=== PATIENT | female | born 1940 | race Caucasian/White ===

== ENCOUNTER → 2018-05-25 07:06 | Outpatient (CLI) | payer MEDICARE, OTHER, SELFPAY ==
[2018-05-25 09:33] LABS: Alanine Aminotransferase 31 IU/L (9-52); Albumin 4.4 g/dL (3.5-5.0); Albumin Globulin Ratio 1.5 (1.0-2.8); Alkaline Phosphatase 54 U/L (38-126); Aspartate Aminotransferase 27 IU/L (14-36); BUN Creatinine Ratio 25.7 (6-22); Bilirubin Total 0.4 mg/dL (0.2-1.3); Blood Urea Nitrogen 18 mg/dL (7-17); Calcium 9.7 mg/dL (8.4-10.2); Carbon Dioxide 29 mmol/L (22-32); Chloride 102 mmol/L (98-107); Cholesterol 195 mg/dL (140-199); Estimated Glomerular Filt Rate > 60.0 mL/min (>60); Globulin 2.9 g/dL (1.7-4.1); Glucose 74 mg/dL (80-110); HDL Cholesterol 57 mg/dL (40-60); HEMOLYSIS < 15 (0-50); LDL Cholesterol Calculated 114 mg/dL (<100); Potassium 4.3 mmol/L (3.4-5.1); Sodium 142 mmol/L (137-145); Total Protein 7.3 g/dL (6.3-8.2); Triglycerides 121 mg/dL (35-150)
== END ==
PROVIDERS: PCP Family Medicine; Visit Provider Family Medicine
DX: E78.5 Hyperlipidemia, unspecified (principal); E03.9 Hypothyroidism, unspecified
CPT/HCPCS: 36415; 80053; 80061; 84443

== ENCOUNTER → 2018-06-29 13:12 | Outpatient (CLI) | payer MEDICARE, OTHER, SELFPAY ==
--- NOTE | 2018-06-29 | DI.MRI.S_ITS ---
PROCEDURE: MR WRIST LT W CON INDICATIONS: JOINT DISORDER TECHNIQUE: After the administration of 3-4 mL of dilute intra-articular Gadolinium contrast into the radiocarpal compartment, coronal T1 spin echo with fat saturation and T2 fast spin echo with fat saturation, axial T1 spin echo and T2 fast spin echo with fat saturation, sagittal T1 spin echo with and without fat saturation through the wrist. COMPARISON: [facility], [place], [place] WRIST INJECTION MR/CT LT, 06/29/2018, 13:48. [facility], [place], XR WRIST 3+ VIEWS LEFT, 06/22/2018, 10:53. FINDINGS: Image quality: Suboptimal, related to suboptimal T1 bright enough of the injected contrast on the T1 images. Bones and joints: No displaced fracture or dislocation is identified. No suspicious osseous lesions are present. There is prominent ulnar positive variance with associated prominent degenerative changes of the distal radial ulnar joint and degenerative changes involving the lunate and triquetrum. Moderate to severe degenerative changes are present involving the basal joint of the thumb. No significant widening of the scapholunate or lunotriquetral joints are evident. There is adequate distention of the radiocarpal joint. Contrast is seen extending into the distal radial ulnar joint. There may be contrast extending into the mid carpal row, as well. However, given the dilute nature of the contrast and suboptimal T1 shortening on the T1 fat suppressed images, it is difficult to accurately ascertain whether the contrast actually went into the midcarpal row. Carpal ligaments: There is heterogeneity of the scapholunate and lunotriquetral ligaments. There likely is a small perforating tear involving the scapholunate ligament. No complete tears are evident. The dorsal and volar extrinsic ligaments appear to be intact. Small ganglion cysts along the volar aspect of the radial styloid may be related to small perforations involving the short radiolunate ligaments. Triangular fibrocartilage complex: The triangular fibrocartilage disc is completely torn and macerated. The meniscal homolog is abnormal. Diffuse thickening and increased signal is identified involving the ulnar collateral ligament with moderate grade intrasubstance longitudinal split tearing at the level of the ulnar styloid process. Fluid is contained within its corresponding tendon sheath. There is edema within the adjacent soft tissues. Tendons and soft tissues: The carpal tunnel structures appear normal, including the median nerve. The ulnar nerve appears normal within Guyon's canal. There is slight increased signal identified involving the tendons of the 1st extensor compartment. Please see above regarding the abnormal appearance of the extensor carpi ulnaris tendon. Otherwise, the remainder of the extensor tendons are intact and unremarkable. IMPRESSION: 1. Ulnar positive variance with corresponding severe degenerative changes of the distal radial ulnar joint and degenerative changes involving the lunate and triquetrum is suggestive of ulnar impaction syndrome. Please correlate clinically. 2. Large extensive tear of the triangular fibrocartilage disc. 3. Moderate grade intrasubstance longitudinal split tear of the extensor carpi ulnaris tendon with corresponding prominent tendinopathy and mild tenosynovitis. 4. Possible mild de Quervain's tenosynovitis. Please correlate clinically. 5. Prominent degenerative changes involving the basal joint of the thumb. No fractures. 6. Possible small perforating tear involving the scapholunate ligament. No complete tear. 7. Small perforating tears involving the radial attachment of the short radiolunate ligament. Dictated by: Mahamed Perry M.D. on 06/29/2018 at 16:05 Approved by: Mahamed Perry M.D. on 06/29/2018 at 16:13
--- NOTE | 2018-06-29 13:15 | DI.RAD.S_ITS ---
PROCEDURE: FL WRIST INJECTION MR/CT LT INDICATIONS: JOINT DISORDER TECHNIQUE: After informed consent had been obtained, the wrist was examined fluoroscopically, and a site chosen for injection of the radiocarpal compartment from a dorsal approach. Skin was prepped and draped in a sterile fashion and 1% lidocaine infiltrated from the skin down to the articular surface. A hypodermic needle was then introduced into the articular space and a modest amount of contrast medium was instilled confirming intra-articular needle tip placement. This was followed by approximately 4 mL of a dilute gadolinium solution. Needle was removed and dressing was applied. The patient experienced no complications throughout the procedure and left the fluoroscopic suite in no apparent distress. FINDINGS: A single fluoroscopic spot image demonstrates intra-articular location to injected iodinated contrast. IMPRESSION: Successful fluoroscopic-guided administration of dilute Gadolinium solution for wrist MR arthrogram. Dictated by: Magnolia Cuellar M.D. on 06/29/2018 at 15:42 Approved by: Magnolia Cuellar M.D. on 06/29/2018 at 15:48
== END ==
PROVIDERS: PCP Family Medicine; Visit Provider Orthopaedic Surgery
DX: M19.032 Primary osteoarthritis, left wrist (principal); S63.592A Other specified sprain of left wrist, initial encounter; M65.832 Other synovitis and tenosynovitis, left forearm
CPT/HCPCS: 20605; 73222; 76000

== ENCOUNTER → 2019-02-02 07:31 | Outpatient (CLI) | payer MEDICARE, OTHER, SELFPAY ==
[2019-02-02 08:14] LABS: Add Manual Diff / Slide Review NO; Basophils Absolute Auto 100 /uL (0-100); Eosinophils Absolute Auto 100 /uL (0-450); Eosinophils Percent Auto 2.7 % (2-4); Hematocrit 35.9 % (36-46); Hemoglobin 12.2 g/dL (12.0-16.0); Lymphocytes Absolute Auto 3000 /uL (1100-4500); Lymphocytes Percent Auto 56.3 % (25-40); Mean Corpuscular HGB Conc 33.9 % (30-36); Mean Corpuscular Hemoglobin 29.1 PG (26-34); Mean Corpuscular Volume 85.9 fL (80-100); Monocytes Absolute Auto 400 /uL (0-900); Monocytes Percent Auto 6.9 % (3-14); Neutrophils Absolute Auto 1700 /uL (1500-7000); Neutrophils Percent Auto 33.1 % (50-75); Platelet Count 244 X10^3/uL (150-400); Red Blood Cell Count 4.18 X10^6/uL (4.0-5.2); Red Cell Distribution Width 13.8 % (11.6-14.8); White Blood Cell Count 5.3 X10^3/uL (4.5-11.0)
[2019-02-02 09:03] LABS: Cholesterol 203 mg/dL (140-199); HDL Cholesterol 56 mg/dL (40-60); LDL Cholesterol Calculated 123 mg/dL (<100); Triglycerides 121 mg/dL (35-150)
== END ==
PROVIDERS: PCP Family Medicine; Visit Provider Family Medicine
DX: C91.90 Lymphoid leukemia, unspecified not having achieved remission (principal); E78.2 Mixed hyperlipidemia
CPT/HCPCS: 36415; 80061; 85025

== ENCOUNTER → 2019-08-07 09:46 | Outpatient (CLI) | payer MEDICARE, OTHER, SELFPAY ==
[2019-08-07 11:47] LABS: TSH w/ Reflex to FT4 0.34 uIU/mL (0.47-4.68)
[2019-08-07 12:51] LABS: Free T4, Direct Thyroxine 1.51 ng/dL (0.78-2.19)
== END ==
PROVIDERS: PCP Family Medicine; Visit Provider Family Medicine
DX: E03.9 Hypothyroidism, unspecified (principal)
CPT/HCPCS: 36415; 84439; 84443

== ENCOUNTER → 2019-09-07 12:21 | Outpatient (CLI) | payer MEDICARE, OTHER, SELFPAY ==
--- NOTE | 2019-09-07 | DI.MRI.S_ITS ---
PROCEDURE: MR SHOULDER RT WO CON INDICATIONS: Unspecified disorder of synovium and tendon, right TECHNIQUE: Noncontrast oblique coronal T2 fast spin echo with fat saturation, oblique sagittal T1 spin echo and T2 fast spin echo with fat saturation, axial T1 spin echo and T2 fast spin echo with fat saturation through the shoulder. COMPARISON: None. FINDINGS: Image quality: Excellent. Rotator cuff: There is tendinosis and moderate grade articular and bursal surface partial-thickness tear involving distal supraspinatus with focal full-thickness perforation involving posterior fibers of distal supraspinatus approximately 1.7 cm from its insertion the humeral head and 6 mm medial retraction of torn tendon fibers to the level of acromion. Distal infraspinatus tendinosis and low grade articular and bursal surface partial-thickness tear is seen. Distal subscapularis tendon is intact. Sagittal images demonstrate mild supraspinatus and infraspinatus muscle atrophy. Bones and bursae: No bone marrow contusions or fractures. Moderate acromioclavicular joint or glenohumeral joint osteoarthritic changes are seen. Small to moderate amount of joint fluid and subacromial subdeltoid bursal fluid is noted. Capsule and soft tissues: In the absence of intra-articular contrast, there is signal abnormality and contour irregularity involving superior anterior labrum at 12 to 2:00 position, consistent with superior anterior labral tear. glenohumeral ligaments appear intact. Tendinosis involving proximal intra-articular portion of long head of biceps tendon is seen. The rotator interval appears normal, without fibrosis. The coracohumeral ligament is normal in thickness. IMPRESSION: 1. Tendinosis and moderate grade articular and bursal surface partial-thickness tear involving distal supraspinatus and infraspinatus with focal full-thickness tear involving the posterior fibers of the distal supraspinatus approximately 1.7 cm from its insertion the humeral head and 6 mm medial retraction of torn tendon fibers to the level of acromion. Mild supraspinatus and infraspinatus muscle atrophy. 2. Moderate acromioclavicular joint and glenohumeral joint osteoarthritis. 3. Suggestion of superior anterior labral tear at 12 to 2:00 position. 4. Tendinosis involving proximal intra-articular portion of long head of biceps tendon. Dictated by: Rajiv Crane M.D. on 09/07/2019 at 16:26 Approved by: Rajiv Crane M.D. on 09/07/2019 at 16:39
== END ==
PROVIDERS: PCP Family Medicine; Visit Provider Orthopaedic Surgery
DX: M67.911 Unspecified disorder of synovium and tendon, right shoulder (principal); M19.011 Primary osteoarthritis, right shoulder; M75.111 Incomplete rotator cuff tear or rupture of right shoulder, not specified as traumatic
CPT/HCPCS: 73221

== ENCOUNTER → 2019-10-15 12:43 | Outpatient (CLI) | payer MEDICARE, OTHER, SELFPAY ==
[2019-10-15 14:43] LABS: TSH w/ Reflex to FT4 1.04 uIU/mL (0.47-4.68)
== END ==
PROVIDERS: PCP Family Medicine; Referring Provider Family Medicine; Visit Provider Family Medicine
DX: E03.9 Hypothyroidism, unspecified (principal)
CPT/HCPCS: 36415; 84443

== ENCOUNTER → 2020-04-02 07:45 | Outpatient (CLI) | payer MEDICARE, OTHER, SELFPAY ==
[2020-04-02 10:22] LABS: Add Manual Diff / Slide Review YES; Hematocrit 35.1 % (36-46); Mean Corpuscular HGB Conc 34.1 % (30-36); Mean Corpuscular Hemoglobin 29.5 PG (26-34); Mean Corpuscular Volume 86.4 fL (80-100); Platelet Count 241 X10^3/uL (150-400); Red Blood Cell Count 4.06 X10^6/uL (4.0-5.2); Red Cell Distribution Width 13.9 % (11.6-14.8); White Blood Cell Count 4.6 X10^3/uL (4.5-11.0)
[2020-04-02 10:39] LABS: Neutrophils Absolute Manual 1610 /uL (3000-5900); RBC Morphology Normal Morphology; Total Cells Counted 100
[2020-04-02 10:59] LABS: Alanine Aminotransferase 22 IU/L (<35); Albumin Globulin Ratio 1.4 (1.0-2.8); Alkaline Phosphatase 57 U/L (38-126); Aspartate Aminotransferase 30 IU/L (14-36); Bilirubin Total 0.5 mg/dL (0.2-1.3); Blood Urea Nitrogen 16 mg/dL (7-17); Calcium 9.7 mg/dL (8.4-10.2); Carbon Dioxide 24 mmol/L (22-32); Chloride 102 mmol/L (98-107); Cholesterol 195 mg/dL (140-199); Estimated Glomerular Filt Rate > 60.0 mL/min (>60); Globulin 2.8 g/dL (1.7-4.1); Glucose 93 mg/dL (80-110); HDL Cholesterol 65 mg/dL (40-60); HEMOLYSIS < 15 (0-50); LDL Cholesterol Calculated 109 mg/dL (<100); Potassium 4.4 mmol/L (3.4-5.1); Sodium 134 mmol/L (137-145); Total Protein 6.8 g/dL (6.3-8.2); Triglycerides 104 mg/dL (35-150)
[2020-04-02 11:19] LABS: Thyroid Stimulating Hormone 0.795 uIU/mL (0.47-4.68)
[2020-04-02 16:45] LABS: Microalbumin Urine Random < 0.6 mg/dL (0-1.6)
== END ==
PROVIDERS: PCP Family Medicine; Referring Provider Family Medicine; Visit Provider Family Medicine
DX: C91.90 Lymphoid leukemia, unspecified not having achieved remission (principal); E03.9 Hypothyroidism, unspecified; E78.2 Mixed hyperlipidemia; G47.33 Obstructive sleep apnea (adult) (pediatric)
CPT/HCPCS: 36415; 80053; 80061; 82043; 82570; 84443; 85025

== ENCOUNTER → 2020-04-29 09:50 | Outpatient (CLI) | payer MEDICARE, OTHER, SELFPAY ==
--- NOTE | 2020-04-29 | DI.RAD.S_ITS ---
PROCEDURE: XR WRIST LT 2V INDICATIONS: Primary osteoarthritis, unspecified wrist TECHNIQUE: 2 views of the wrist were acquired. COMPARISON: None. FINDINGS: Bones: No fracture. Postsurgical changes related to resection of the distal ulna, and intramedullary kit and screw fixation of the distal radius and ulna. Expected postoperative alignment. Hardware appears intact. No evidence of hardware loosening. Diffuse carpal joint degeneration. Soft tissues: No suspicious soft tissue calcifications. IMPRESSION: Postoperative and degenerative changes as above. Dictated by: Mathieu Rome M.D. on 04/29/2020 at 12:46 Approved by: Mathieu Rome M.D. on 04/29/2020 at 12:49
== END ==
PROVIDERS: Family Provider Family Medicine; PCP Family Medicine
DX: M19.032 Primary osteoarthritis, left wrist (principal)
CPT/HCPCS: 73100

== ENCOUNTER → 2020-05-23 13:58 | Outpatient (CLI) | payer MEDICARE, OTHER, SELFPAY ==
[2020-05-23 14:51] LABS: BUN Creatinine Ratio 22.5 (6-22); Blood Urea Nitrogen 18 mg/dL (7-17); Calcium 9.5 mg/dL (8.4-10.2); Carbon Dioxide 29 mmol/L (22-32); Chloride 97 mmol/L (98-107); Estimated Glomerular Filt Rate > 60.0 mL/min (>60); Glucose 85 mg/dL (80-110); HEMOLYSIS < 15 (0-50); Potassium 4.5 mmol/L (3.4-5.1); Sodium 133 mmol/L (137-145)
== END ==
PROVIDERS: Family Provider Family Medicine; PCP Family Medicine; Referring Provider Family Medicine; Visit Provider Family Medicine
DX: E87.1 Hypo-osmolality and hyponatremia (principal)
CPT/HCPCS: 36415; 80048

== ENCOUNTER → 2020-08-27 13:56 | Outpatient (CLI) | payer MEDICARE, OTHER, SELFPAY ==
--- NOTE | 2020-08-27 14:03 | DI.RAD.S_ITS ---
PROCEDURE: XR FOREARM RT 2V INDICATIONS: FOLLOWUP TECHNIQUE: 2 views of the forearm were acquired. COMPARISON: [facility], CR, XR WRIST LT 2V, 04/29/2020, 10:09. FINDINGS: Bones: Stable postsurgical changes from prior distal ulnar resection and intramedullary kit and screw fixation of the distal radius and ulna. No evidence for hardware complication. Alignment is stable. No acute osseous abnormalities. No suspicious bony lesions. 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 Soft tissues: No suspicious soft tissue calcifications or masses. IMPRESSION: Stable postoperative changes without evidence for hardware complication. Dictated by: Juan Diego Hardin M.D. on 08/27/2020 at 15:15 Approved by: Juan Diego Hardin M.D. on 08/27/2020 at 15:17
== END ==
PROVIDERS: Family Provider Family Medicine; PCP Family Medicine; Referring Provider Physician Assistant; Visit Provider Physician Assistant
DX: M19.032 Primary osteoarthritis, left wrist (principal)
CPT/HCPCS: 73090

== ENCOUNTER → 2020-09-25 07:37 | Outpatient (CLI) | payer MEDICARE, OTHER, SELFPAY ==
[2020-09-25] MEDS: COVID-19 VACC #1, MRNA(MOD) 100 MCG/0.5 ML VIAL IM (07:43)
== END ==
PROVIDERS: Family Provider Family Medicine; PCP Family Medicine; Visit Provider Internal Medicine
DX: Z23 Encounter for immunization (principal)
CPT/HCPCS: 0011A; 91301

== ENCOUNTER → 2020-10-23 07:28 | Outpatient (CLI) | payer MEDICARE, OTHER, SELFPAY ==
[2020-10-23] MEDS: COVID-19 VACC #2, MRNA(MOD) 100 MCG/0.5 ML VIAL IM (07:35)
== END ==
PROVIDERS: Family Provider Family Medicine; PCP Family Medicine; Visit Provider Internal Medicine
DX: Z23 Encounter for immunization (principal)
CPT/HCPCS: 0012A; 91301

== ENCOUNTER 2020-10-28 08:15 | Outpatient (RCR) | payer MEDICARE, OTHER, SELFPAY ==
--- NOTE | 2020-04-21 17:33 | PT.OIE ---
Current Diagnoses Other specified disorders of muscle (04/21/20) Incomplete uterovaginal prolapse (04/21/20) Past Medical History (Last Reviewed 04/01/20 @ 09:45 by Valorie Mills MD) Ankle pain (Chronic 2015) Arm fracture, left (Resolved 1955) Cataract (Resolved ~2016) Chicken pox (Resolved) CLL (chronic lymphocytic leukemia) (Chronic ~2005) Double vision (Chronic ~1994) Foot pain (Chronic 2014) Fractures (Resolved 2003) Hayfever (Chronic) Hemorrhoids (Chronic) Hypothyroidism (Chronic ~1994) Measles (Resolved) Mumps (Resolved) Ocular rosacea (Chronic) Osteoarthritis (Chronic 2013) Raynaud's disease (Chronic 1959) Rosacea (Chronic ~2005) 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) Scarlet fever (Resolved) Shoulder pain (Chronic 2013) Past Surgical History (Last Reviewed 04/01/20 @ 09:45 by Valorie Mills MD) Anesthesia (Resolved) History of cataract surgery (Resolved ~2016) History of foot surgery (Resolved 01/2004) History of surgery on arm (Resolved 1955) Status post colonoscopy (Resolved 07/02/13) Status post knee surgery (Resolved 02/25/09) Visit Care Team Role Provider Type Kristyn Gutierres DO Family Provider Physician Primary Care Provider Specialty: Family Practice Address: [address] [place] [address], [id number] Email: [email or web address] Valorie Mills MD Attending Provider Physician Referring Provider Specialty: PROFESSOR OF FOREST [employer]ANNING Address: [address] [place] [address], [facility] Email: Physical Therapy Initial Evaluation PT-OP-A Visit Information Start: 04/18/20 17:11 Freq: Status: Active Protocol: Document 04/21/20 09:56 LRN (Rec: 04/21/20 11:18 LRN [id number]) Out-Patient Physical Therapy Visit Information Visit Information Visit Type Initial Evaluation Visit Start Time 09:56 Visit Stop Time 11:00 Total Visit Minutes 64 Visit Number 1 Evaluation Information Evaluation Date 04/21/20 Precautions Precautions R PAGE-2.5 yrs ago, R Ventricular Outflow Tract Tachycardia controlled by medication. Hypothryroid. PT-OP-B Current Condition Start: 04/18/20 17:11 Freq: Status: Active Protocol: Document 04/21/20 09:56 LRN (Rec: 04/21/20 11:18 LRN [id number]) Current Condition History of Current Condition Onset Date 3 yrs ago Current Complaints Sudden feeling of something coming out. History of Current Condition Cystocele, rectocele and partial vaginal prolapse. Denies pain. Has occasional urinary and fecal leakage. With a sudden urgency, she feels like she has to urinate and defecate. Most of the time when she has to defecate she urinates. Feels her condition is mild, and sometimes she has an occasional problem with constipation, but she doesn't feel it is a problem. Changes light pad 1-2x/day (twice every 3-4 days). States she pushes her bladder back when she can feel it falling out. She notes drinking 2-3 glasses per day and 2 caffeinated glasses per day. She urinated 5x during the day and once after going to bed. Her triggers are running water and anxiety. Prior Treatments and Tests No follow up visits planned. Developmental History Developmental History Was taking a shower and felt something odd coming out of her PF. Has had 2 children with vaginal deliveries, 2nd delivery caused tearing and had fecal incontinence for 3 months post delivery. Treatment Goals Patient/Caregiver Goals Pt goal is to decrease the sense of urgency and decrease the frequency of urination, and decrease the number of leakage. Prior Functional Status Baseline Function- ADL's Independent Baseline Function- Mobility Independent Baseline Function- Other No urinary or fecal leakage. Current Functional Impairments (Reported) Functional Limitations- ADL's Withholds fluids for traveling . Keeps track of where bathrooms are while traveling. 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 PT-OP-C Subjective Start: 04/18/20 17:11 Freq: Status: Active Protocol: Document 04/21/20 09:56 LRN (Rec: 04/21/20 11:18 LRN [id number]) Patient Questionnaires Pelvic Pain and Urgency/Frequency Patient Symptom Scale Pelvic Pain Score 4 PT-OP-I Pelvic Floor Start: 04/18/20 17:11 Freq: Status: Active Protocol: Document 04/21/20 09:56 LRN (Rec: 04/21/20 11:18 LRN [id number]) Pelvic Floor Assessment Urine Pelvic Floor Surgery No Urinary Symptoms Urge Sensation,Prolapse, Hesitancy,Falling Out Feeling/ Heavy Leakage Size Small Leakage Cause Cough,Urge Leaks Per Day 1-2 Pads Used In 24 Hours 1-2 Urine Pad Type Panty Liner Bowel Bowel Surgery No Bowel Symptoms Fecal Leakage Pelvic Clock Pelvic Clock 12-3 Atrophy Pelvic Clock 3-6 Atrophy Pelvic Clock 6-9 Atrophy Pelvic Clock 9-12 Atrophy Prolapse Cystocele Grade 3 Rectocele Grade 2 Prolapse Comments Assessed in hooklie position Perineal Descent Resting Present Bearing Present Contraction Ability Voluntary Contraction Weak Manual Muscle Testing Left 2 Manual Muscle Testing Right 3 Manual Muscle Testing Anterior 0 Manual Muscle Testing Posterior 0 Muscle Endurance (Seconds) 2 Number of Quick Contractions In 10 5 Seconds Comments Pelvic Floor Comments PF externally has mildly increased redness. PF internally tissue health is decreased. PT-OP-J Posture/Palpation/Skin Start: 04/18/20 17:11 Freq: Status: Active Protocol: Document 04/21/20 09:56 LRN (Rec: 04/21/20 16:47 LRN [id number]) Posture Evaluation [facility] Postural Classification System Lumbar Protective Mechanism Left AP 0 Lumbar Protective Mechanism Right AP 0 Comments Posture Comments Pt has mild anterior tilt of pelvis, otherwise posture is normal. Palpation Assessment Location L lateral sacrum Palpation Location L lateral sacral border Palpation Findings Tenderness PT-OP-K Range of Motion Start: 04/18/20 17:11 Freq: Status: Active Protocol: Document 04/21/20 09:56 LRN (Rec: 04/21/20 11:18 LRN [id number]) Lumbar Spine Range of Motion Lumbar Spine Active Degrees Testing Position Standing Flexion 105 Extension 15 Lateral Flexion Left 10 Lateral Flexion Right 8 ROM Limitations Soft Tissue Tightness Hip Goniometric Range of Motion Hip Right Passive Hip ROM WFL No Abduction 30 Internal Rotation 30 External Rotation 60 Left Passive Hip ROM WFL Yes Testing Position Supine Abduction 20 Internal Rotation 20 External Rotation 60 PT-OP-M Strength Start: 04/18/20 17:11 Freq: Status: Active Protocol: Document 04/21/20 09:56 LRN (Rec: 04/21/20 11:18 LRN [id number]) Trunk Strength Trunk Manual Muscle Testing Core Stabilization Pt not able to maintain core stability with testing of hip flexors and rotators. Comments Pt does not engage Transverse Abdominus with cough or Bower, Bower sound. Hip Strength Hip Manual Muscle Testing Right Flexion (L2) 5 Normal Extension (S1) 5 Normal Abduction 4- Good- Adduction 3 Fair External Rotation 3 Fair Internal Rotation 5 Normal Left Flexion (L2) 5 Normal Extension (S1) 4+ Good+ Abduction 5 Normal Adduction 2- Poor- External Rotation 5 Normal Internal Rotation 5 Normal PT-OP-Q Treatments Start: 04/18/20 17:11 Freq: Status: Active Protocol: Document 04/21/20 09:56 LRN (Rec: 04/21/20 11:18 LRN [id number]) Self-Care/Home Management Treatment Education Patient Education Home Exercise Program Other Education Reviewed results of Evaluation . Educated pt in breathing and effect on PF with practice of deep breathing with PF contraction on exhale. Activities Self-Care/Home Management Activities Issued & reviewed HEP: Kegel ex for Quick Flicks, Long Holds and Aggrevators. Issued & reviewed Home program of Bladder Diary for 7 days of fluid/foods (mostly liquid) intake, output, and if leakage, how much and when. PT-OP-T Assessment and Plan Start: 04/18/20 17:11 Freq: Status: Active Protocol: Document 04/21/20 09:56 LRN (Rec: 04/21/20 11:18 LRN [id number]) Physical Therapy Assessment Rehab Potential Rehabilitation Potential Good Evaluation Complexity Number of Personal Factors/Comorbidities 1-2 Number of Body Systems Impaired 3 Clinical Presentation at Evaluation Evolving Impairments Impairments Activity Tolerance,ROM, Strength Other Impairments Urinary and fecal occasional leakage. Increased frequency of urination. Goals Four Impairment Urinary leakage throughout the day. Senior Care Goal (LTG) Decrease the number of times she has urinary leakage in a day (no more than once a day). LTG Duration 07/20/20 Three Impairment Increased frequency of urination (5x/day) Senior Care Goal (LTG) Pt will be able to void with normal frequency of 5-7 times per day, while increasing her hydration levels of non- caffeinated drinks. LTG Duration 05/19/20 Two Impairment Urgency and onset of urgency with triggers. Short Term Goal (STG) Pt will be able to maintain continence in the presence of triggers (running water, anxiety). STG Duration 05/12/20 Lead Tinner Goal (LTG) Pt will be able to maintain continence in the presence of a strong urge and will be able to reduce onset of urinary or fecal urgency through bladder retraining. LTG Duration 07/20/20 One Impairment Lacks self care HEP Short Term Goal (STG) Pt will be independent in a self care core/hip ROM & strengthening program (ROM hip IR L>R, & hip AD stretch, & strengthening R. AB, sadia. AD, R. ER) and educated in proper PF care. STG Duration 05/12/20 Senior Care Goal (LTG) Pt is educated in a self care HEP. decrease the frequency of urination, and decrease the number of leakage LTG Duration 07/20/20 Assessment Summary Assessment Pt presents with urge urinary incontinence and PF weakness with a visible cystocele and to a lesser degree rectocele. She is very weak in her posterior and anterior muhammad of her pelvic floor (PF) and strongest (although still weak ) in her lateral muhammad. The pt's external perineum is increased in redness indicating soft tissue irritation, and internally she appears to be somewhat dry, and may need a cream to help improve her tissue health if exercise alone is not able to improve her level of continence. The pt will benefit from skilled physical therapy for education of proper PF care and progression of PF strengthening exercises as well as core stabilization and hip mobility/ strengthening exercises. Physical Therapy Plan Frequency and Duration Frequency of Treatment 1x/Week Plan of Care Start Date 04/21/20 Plan of Care End Date 07/20/20 Therapeutic Interventions Therapeutic Interventions Home Exercise Program,Manual Therapy,Patient/Caregiver Education,Self-Care/Home Management,Soft Tissue Mobilization,Therapeutic Exercises Modalities Cold Pack/Ice Massage Next Visit Focus/Plan Next Note Type Treatment Note Next Visit Plan Review and discuss results of pt's bladder diary. Discuss proper PF care and assess for proper deep breathing with training as needed. EMG biofeedback assessment for PF strengthening. PF strengthening in isolation of substitute muscles and with LE roll in/outs. Discuss walking program and HEP for core and hip ROM (IR L>R, & stretch to hip AD's) strengthening (R. AB, sadia. AD, R. ER) exercises.
--- NOTE | 2020-04-21 17:34 | PT.OPPOC ---
Physical, Occupational & Speech Therapy [facility] Current Diagnoses Other specified disorders of muscle (04/21/20) Incomplete uterovaginal prolapse (04/21/20) Visit Care Team Role Provider Type Kristyn Gutierres DO Family Provider Physician Primary Care Provider Specialty: Family Practice Address: [address] [place] [address], [place], [place], [address] Email: [email or web address] Valoire Mills MD Attending Provider Physician Referring Provider Specialty: BRINE PLANT OPERATOR Address: [address] [place] [address], [id number] Email: Plan Of Care PT-OP-T Assessment and Plan Start: 04/18/20 17:11 Freq: Status: Active Protocol: Document 04/21/20 09:56 LRN (Rec: 04/21/20 11:18 LRN [id number]) Physical Therapy Assessment Rehab Potential Rehabilitation Potential Good Evaluation Complexity Number of Personal Factors/Comorbidities 1-2 Number of Body Systems Impaired 3 Clinical Presentation at Evaluation Evolving Impairments Impairments Activity Tolerance,ROM, Strength Other Impairments Urinary and fecal occasional leakage. Increased frequency of urination. Goals Four Impairment Urinary leakage throughout the day. Project Management Analyst Goal (LTG) Decrease the number of times she has urinary leakage in a day (no more than once a day). LTG Duration 07/20/20 Three Impairment Increased frequency of urination (5x/day) Group Home Goal (LTG) Pt will be able to void with normal frequency of 5-7 times per day, while increasing her hydration levels of non- caffeinated drinks. LTG Duration 05/19/20 Two Impairment Urgency and onset of urgency with triggers. Short Term Goal (STG) Pt will be able to maintain continence in the presence of triggers (running water, anxiety). STG Duration 05/12/20 Group Home Goal (LTG) Pt will be able to maintain continence in the presence of a strong urge and will be able to reduce onset of urinary or fecal urgency through bladder retraining. LTG Duration 07/20/20 One Impairment Lacks self care HEP Short Term Goal (STG) Pt will be independent in a self care core/hip ROM & strengthening program (ROM hip IR L>R, & hip AD stretch, & strengthening R. AB, sadia. AD, R. ER) and educated in proper PF care. STG Duration 05/12/20 Project Management Analyst Goal (LTG) Pt is educated in a self care HEP. decrease the frequency of urination, and decrease the number of leakage LTG Duration 07/20/20 Assessment Summary Assessment Pt presents with urge urinary incontinence and PF weakness with a visible cystocele and to a lesser degree rectocele. She is very weak in her posterior and anterior muhammad of her pelvic floor (PF) and strongest (although still weak ) in her lateral muhammad. The pt's external perineum is increased in redness indicating soft tissue irritation, and internally she appears to be somewhat dry, and may need a cream to help improve her tissue health if exercise alone is not able to improve her level of continence. The pt will benefit from skilled physical therapy for education of proper PF care and progression of PF strengthening exercises as well as core stabilization and hip mobility/ strengthening exercises. Physical Therapy Plan Frequency and Duration Frequency of Treatment 1x/Week Plan of Care Start Date 04/21/20 Plan of Care End Date 07/20/20 Therapeutic Interventions Therapeutic Interventions Home Exercise Program,Manual Therapy,Patient/Caregiver Education,Self-Care/Home Management,Soft Tissue Mobilization,Therapeutic Exercises Modalities Cold Pack/Ice Massage Next Visit Focus/Plan Next Note Type Treatment Note Next Visit Plan Review and discuss results of pt's bladder diary. Discuss proper PF care and assess for proper deep breathing with training as needed. EMG biofeedback assessment for PF strengthening. PF strengthening in isolation of substitute muscles and with LE roll in/outs. Discuss walking program and HEP for core and hip ROM (IR L>R, & stretch to hip AD's) strengthening (R. AB, sadia. AD, R. ER) exercises. Plan of Care Dates Plan of Care Start Date 04/21/20 Plan of Care End Date 07/20/20 Electronically Signed by: Christina Donohue, PT 04/21/20 [id number] Please Sign and Return: I have reviewed this Plan of Care and certify that the skilled therapy services above are required to meet the patient?s needs. Physician Signature Date Printed Name and Credentials Clinical Instructor Signature Printed Name and Credentials
--- NOTE | 2020-04-29 17:33 | PT.OTN ---
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 Hypothryroid. PT-OP-B Current Condition Start: 04/18/20 17:11 Freq: Status: Active Protocol: Document 04/21/20 09:56 LRN (Rec: 04/21/20 11:18 LRN [id number]) Current Condition History of Current Condition Onset Date 3 yrs ago Current Complaints Sudden feeling of something coming out. History of Current Condition Cystocele, rectocele and partial vaginal prolapse. Denies pain. Has occasional urinary and fecal leakage. With a sudden urgency, she feels like she has to urinate and defecate. Most of the time when she has to defecate she urinates. Feels her condition is mild, and sometimes she has an occasional problem with constipation, but she doesn't feel it is a problem. Changes light pad 1-2x/day (twice every 3-4 days). States she pushes her bladder back when she can feel it falling out. She notes drinking 2-3 glasses per day and 2 caffeinated glasses per day. She urinated 5x during the day and once after going to bed. Her triggers are running water and anxiety. Prior Treatments and Tests No follow up visits planned. Developmental History Developmental History Was taking a shower and felt something odd coming out of her PF. Has had 2 children with vaginal deliveries, 2nd delivery caused tearing and had fecal incontinence for 3 months post delivery. Treatment Goals Patient/Caregiver Goals Pt goal is to decrease the sense of urgency and decrease the frequency of urination, and decrease the number of leakage. Prior Functional Status Baseline Function- ADL's Independent Baseline Function- Mobility Independent Baseline Function- Other No urinary or fecal leakage. Current Functional Impairments (Reported) Functional Limitations- ADL's Withholds fluids for traveling . Keeps track of where bathrooms are while traveling. 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 PT-OP-C Subjective Start: 04/18/20 17:11 Freq: Status: Active Protocol: Document 04/29/20 09:03 LRN (Rec: 04/29/20 09:47 LRN [id number]) OP-PT Subjective Patient Comments Patient Comments Didn't do well on ex's but did do bladder diary. She learned some stuff. Had no episodes of #3 urge except with one bowel movement. Bowel movements sometimes. Bowel movement are 3 & 4 (on stool scale). States she is trying to drink more water. PT-OP-I Pelvic Floor Start: 04/18/20 17:11 Freq: Status: Active Protocol: Document 04/21/20 09:56 LRN (Rec: 04/21/20 11:18 LRN [id number]) Pelvic Floor Assessment Urine Pelvic Floor Surgery No Urinary Symptoms Urge Sensation,Prolapse, Hesitancy,Falling Out Feeling/ Heavy Leakage Size Small Leakage Cause Cough,Urge Leaks Per Day 1-2 Pads Used In 24 Hours 1-2 Urine Pad Type Panty Liner Bowel Bowel Surgery No Bowel Symptoms Fecal Leakage Pelvic Clock Pelvic Clock 12-3 Atrophy Pelvic Clock 3-6 Atrophy Pelvic Clock 6-9 Atrophy Pelvic Clock 9-12 Atrophy Prolapse Cystocele Grade 3 Rectocele Grade 2 Prolapse Comments Assessed in hooklie position Perineal Descent Resting Present Bearing Present Contraction Ability Voluntary Contraction Weak Manual Muscle Testing Left 2 Manual Muscle Testing Right 3 Manual Muscle Testing Anterior 0 Manual Muscle Testing Posterior 0 Muscle Endurance (Seconds) 2 Number of Quick Contractions In 10 5 Seconds Comments Pelvic Floor Comments PF externally has mildly increased redness. PF internally tissue health is decreased. PT-OP-J Posture/Palpation/Skin Start: 04/18/20 17:11 Freq: Status: Active Protocol: Document 04/21/20 09:56 LRN (Rec: 04/21/20 16:47 LRN [id number]) Posture Evaluation Eunice Postural Classification System Lumbar Protective Mechanism Left AP 0 Lumbar Protective Mechanism Right AP 0 Comments Posture Comments Pt has mild anterior tilt of pelvis, otherwise posture is normal. Palpation Assessment Location L lateral sacrum Palpation Location L lateral sacral border Palpation Findings Tenderness PT-OP-K Range of Motion Start: 04/18/20 17:11 Freq: Status: Active Protocol: Document 04/21/20 09:56 LRN (Rec: 04/21/20 11:18 LRN [id number]) Lumbar Spine Range of Motion Lumbar Spine Active Degrees Testing Position Standing Flexion 105 Extension 15 Lateral Flexion Left 10 Lateral Flexion Right 8 ROM Limitations Soft Tissue Tightness Hip Goniometric Range of Motion Hip Right Passive Hip ROM WFL No Abduction 30 Internal Rotation 30 External Rotation 60 Left Passive Hip ROM WFL Yes Testing Position Supine Abduction 20 Internal Rotation 20 External Rotation 60 PT-OP-M Strength Start: 04/18/20 17:11 Freq: Status: Active Protocol: Document 04/21/20 09:56 LRN (Rec: 04/21/20 11:18 LRN [id number]) Trunk Strength Trunk Manual Muscle Testing Core Stabilization Pt not able to maintain core stability with testing of hip flexors and rotators. Comments Pt does not engage Transverse Abdominus with cough or Bower, Bower sound. Hip Strength Hip Manual Muscle Testing Right Flexion (L2) 5 Normal Extension (S1) 5 Normal Abduction 4- Good- Adduction 3 Fair External Rotation 3 Fair Internal Rotation 5 Normal Left Flexion (L2) 5 Normal Extension (S1) 4+ Good+ Abduction 5 Normal Adduction 2- Poor- External Rotation 5 Normal Internal Rotation 5 Normal PT-OP-Q Treatments Start: 04/18/20 17:11 Freq: Status: Active Protocol: Document 04/29/20 09:03 LRN (Rec: 04/29/20 09:47 LRN [id number]) Therapeutic Exercises Supine Exercises PF contraction w/deep breathing Supine Exercise Name PF contraction w/deep breathing, starting PF on inhale, hold through exhale Equipment Used pillow under hips Reps/Minutes 8' Comments Pt need training on how to contract with inhale. Deep breathing Supine Exercise Name Deep breathing Reps/Minutes 2' Self-Care/Home Management Treatment Education Other Education Educated pt of bladder retraining and urge deference technique. Educated pt in bladder irritants. Reviewed and discussed constipation and defecation outputs. Activities Self-Care/Home Management Activities Discussed at length Bladder diary and made recommmendations to diet/water intake. Discussed significance of water intake and expectations with changes in water consumption. Issued bladder retraining/urge deference technique handout. PT-OP-T Assessment and Plan Start: 04/18/20 17:11 Freq: Status: Active Protocol: Document 04/29/20 09:03 LRN (Rec: 04/29/20 09:47 LRN [id number]) Physical Therapy Assessment Goals Four Impairment Urinary leakage throughout the day. Oim Consultant Goal (LTG) Decrease the number of times she has urinary leakage in a day (no more than once a day). LTG Duration 07/20/20 (04/29/20: MET GOAL, but pt is withholding fluids) Three Impairment Increased frequency of urination (5x/day) Oim Consultant Goal (LTG) Pt will be able to void with normal frequency of 5-7 times per day, while increasing her hydration levels of non- caffeinated drinks. LTG Duration 05/19/20 Two Impairment Urgency and onset of urgency with triggers. Short Term Goal (STG) Pt will be able to maintain continence in the presence of triggers (running water, anxiety). STG Duration 05/12/20 Oim Consultant Goal (LTG) Pt will be able to maintain continence in the presence of a strong urge and will be able to reduce onset of urinary or fecal urgency through bladder retraining. LTG Duration 07/20/20 One Impairment Lacks self care HEP Short Term Goal (STG) Pt will be independent in a self care core/hip ROM & strengthening program (ROM hip IR L>R, & hip AD stretch, & strengthening R. AB, sadia. AD, R. ER) and educated in proper PF care. STG Duration 05/12/20 Oim Consultant Goal (LTG) Pt is educated in a self care HEP. decrease the frequency of urination, and decrease the number of leakage LTG Duration 07/20/20 Progress Towards Goals Progress Comments Goal # 4 MET. No urinary leakage, but pt is witholding fluids. Assessment Summary Assessment Pt had no urinary leakage this past week. Pt demonstrates proper deep breathing but had difficulty coordinating her breathing with PF contractions , further training needed. Pt with urge urinary incontinence and PF weakness with a visible cystocele and to a lesser degree rectocele. She is very weak in her posterior and anterior muhammad of her pelvic floor (PF) and strongest (although still weak ) in her lateral muhammad. Physical Therapy Plan Frequency and Duration Frequency of Treatment 1x/Week Plan of Care Start Date 04/21/20 Plan of Care End Date 07/20/20 Next Visit Focus/Plan Next Note Type Treatment Note Next Visit Plan Discuss proper PF care and assess for proper deep breathing with training as needed. EMG biofeedback assessment for PF strengthening. PF strengthening in isolation of substitute muscles and with LE roll in/outs. Discuss walking program and HEP for core and hip ROM (IR L>R, & stretch to hip AD's) strengthening (R. AB, sadia. AD, R. ER) exercises.
--- NOTE | 2020-05-05 11:03 | PT.OTN ---
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 Hypothryroid. PT-OP-B Current Condition Start: 04/18/20 17:11 Freq: Status: Active Protocol: Document 04/21/20 09:56 LRN (Rec: 04/21/20 11:18 LRN [id number]) Current Condition History of Current Condition Onset Date 3 yrs ago Current Complaints Sudden feeling of something coming out. History of Current Condition Cystocele, rectocele and partial vaginal prolapse. Denies pain. Has occasional urinary and fecal leakage. With a sudden urgency, she feels like she has to urinate and defecate. Most of the time when she has to defecate she urinates. Feels her condition is mild, and sometimes she has an occasional problem with constipation, but she doesn't feel it is a problem. Changes light pad 1-2x/day (twice every 3-4 days). States she pushes her bladder back when she can feel it falling out. She notes drinking 2-3 glasses per day and 2 caffeinated glasses per day. She urinated 5x during the day and once after going to bed. Her triggers are running water and anxiety. Prior Treatments and Tests No follow up visits planned. Developmental History Developmental History Was taking a shower and felt something odd coming out of her PF. Has had 2 children with vaginal deliveries, 2nd delivery caused tearing and had fecal incontinence for 3 months post delivery. Treatment Goals Patient/Caregiver Goals Pt goal is to decrease the sense of urgency and decrease the frequency of urination, and decrease the number of leakage. Prior Functional Status Baseline Function- ADL's Independent Baseline Function- Mobility Independent Baseline Function- Other No urinary or fecal leakage. Current Functional Impairments (Reported) Functional Limitations- ADL's Withholds fluids for traveling . Keeps track of where bathrooms are while traveling. 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 PT-OP-C Subjective Start: 04/18/20 17:11 Freq: Status: Active Protocol: Document 05/05/20 09:48 LRN (Rec: 05/05/20 11:02 LRN [id number]) OP-PT Subjective Patient Comments Patient Comments Not sure what she is doing with Aldo ex's. This moning turned on water and didn't have to go potty. She finds when she has gas or a bowel movement, she has a need to urinate, they go together. Has no urgency, just she urinates with bowel movement. PT-OP-I Pelvic Floor Start: 04/18/20 17:11 Freq: Status: Active Protocol: Document 04/21/20 09:56 LRN (Rec: 04/21/20 11:18 LRN [id number]) Pelvic Floor Assessment Urine Pelvic Floor Surgery No Urinary Symptoms Urge Sensation,Prolapse, Hesitancy,Falling Out Feeling/ Heavy Leakage Size Small Leakage Cause Cough,Urge Leaks Per Day 1-2 Pads Used In 24 Hours 1-2 Urine Pad Type Panty Liner Bowel Bowel Surgery No Bowel Symptoms Fecal Leakage Pelvic Clock Pelvic Clock 12-3 Atrophy Pelvic Clock 3-6 Atrophy Pelvic Clock 6-9 Atrophy Pelvic Clock 9-12 Atrophy Prolapse Cystocele Grade 3 Rectocele Grade 2 Prolapse Comments Assessed in hooklie position Perineal Descent Resting Present Bearing Present Contraction Ability Voluntary Contraction Weak Manual Muscle Testing Left 2 Manual Muscle Testing Right 3 Manual Muscle Testing Anterior 0 Manual Muscle Testing Posterior 0 Muscle Endurance (Seconds) 2 Number of Quick Contractions In 10 5 Seconds Comments Pelvic Floor Comments PF externally has mildly increased redness. PF internally tissue health is decreased. PT-OP-J Posture/Palpation/Skin Start: 04/18/20 17:11 Freq: Status: Active Protocol: Document 04/21/20 09:56 LRN (Rec: 04/21/20 16:47 LRN [id number]) Posture Evaluation Eunice Postural Classification System Lumbar Protective Mechanism Left AP 0 Lumbar Protective Mechanism Right AP 0 Comments Posture Comments Pt has mild anterior tilt of pelvis, otherwise posture is normal. Palpation Assessment Location L lateral sacrum Palpation Location L lateral sacral border Palpation Findings Tenderness PT-OP-K Range of Motion Start: 04/18/20 17:11 Freq: Status: Active Protocol: Document 04/21/20 09:56 LRN (Rec: 04/21/20 11:18 LRN [id number]) Lumbar Spine Range of Motion Lumbar Spine Active Degrees Testing Position Standing Flexion 105 Extension 15 Lateral Flexion Left 10 Lateral Flexion Right 8 ROM Limitations Soft Tissue Tightness Hip Goniometric Range of Motion Hip Right Passive Hip ROM WFL No Abduction 30 Internal Rotation 30 External Rotation 60 Left Passive Hip ROM WFL Yes Testing Position Supine Abduction 20 Internal Rotation 20 External Rotation 60 PT-OP-M Strength Start: 04/18/20 17:11 Freq: Status: Active Protocol: Document 04/21/20 09:56 LRN (Rec: 04/21/20 11:18 LRN [id number]) Trunk Strength Trunk Manual Muscle Testing Core Stabilization Pt not able to maintain core stability with testing of hip flexors and rotators. Comments Pt does not engage Transverse Abdominus with cough or Bower, Bower sound. Hip Strength Hip Manual Muscle Testing Right Flexion (L2) 5 Normal Extension (S1) 5 Normal Abduction 4- Good- Adduction 3 Fair External Rotation 3 Fair Internal Rotation 5 Normal Left Flexion (L2) 5 Normal Extension (S1) 4+ Good+ Abduction 5 Normal Adduction 2- Poor- External Rotation 5 Normal Internal Rotation 5 Normal PT-OP-Q Treatments Start: 04/18/20 17:11 Freq: Status: Active Protocol: Document 05/05/20 09:48 LRN (Rec: 05/05/20 11:02 LRN [id number]) Therapeutic Exercises Supine Exercises Bowel massage. Supine Exercise Name Bowel massage Reps/Minutes 3' PF contraction w/deep breathing Supine Exercise Name PF contraction w/deep breathing, starting PF on inhale, hold through exhale Equipment Used pillow under hips Reps/Minutes 8' Comments Pt need training on how to contract with inhale. Self-Care/Home Management Treatment Education Other Education Educated and discussed at length the relationship of abdominal contents and the PF anatomy,. Activities Self-Care/Home Management Activities Discussed at length results of Bladder diary and discussed diet/water intake, norms of voiding/frequency/amount-times . Reviewed bladder irritants and effects. Discussed constipation and relation to bladder. Issued & reviewed handouts for BM massage, bowel program with I/S for pt to discuss use of Magnesium with MD and other recommendations in the program. PT-OP-T Assessment and Plan Start: 04/18/20 17:11 Freq: Status: Active Protocol: Document 05/05/20 09:48 LRN (Rec: 05/05/20 11:02 LRN [id number]) Physical Therapy Assessment Goals Four Impairment Urinary leakage throughout the day. Wheel Setter Goal (LTG) Decrease the number of times she has urinary leakage in a day (no more than once a day). LTG Duration 07/20/20 (05/05/20: MET GOAL, pt leaking 1x/day) Three Impairment Increased frequency of urination (5x/day) [facility] Goal (LTG) Pt will be able to void with normal frequency of 5-7 times per day, while increasing her hydration levels of non- caffeinated drinks. LTG Duration 05/19/20 (05/05/20: Pt is voiding ~7x/day) Two Impairment Urgency and onset of urgency with triggers. Short Term Goal (STG) Pt will be able to maintain continence in the presence of triggers (running water, anxiety). STG Duration 05/12/20 (05/05/20: MET GOAL) Wheel Setter Goal (LTG) Pt will be able to maintain continence in the presence of a strong urge and will be able to reduce onset of urinary or fecal urgency through bladder retraining. LTG Duration 07/20/20 One Impairment Lacks self care HEP Short Term Goal (STG) Pt will be independent in a self care core/hip ROM & strengthening program (ROM hip IR L>R, & hip AD stretch, & strengthening R. AB, sadia. AD, R. ER) and educated in proper PF care. STG Duration 05/12/20 Wheel Setter Goal (LTG) Pt is educated in a self care HEP. LTG Duration 07/20/20 Progress Towards Goals Progress Comments Goal # 4 MET. Leaking 1x/day with an increase in fluids. STG #2 MET. Pt noted no leakage with running water or when anxious. Assessment Summary Assessment Pt had many questions regarding bladder diary and constipation. Pt requires extra time to train and discuss ex's and concepts and is very inquisitive. She appears to have occasional problems with constipation and could benefit from drinking more water and having a discussion with her physician regarding increasing her fiber intake. Physical Therapy Plan Frequency and Duration Frequency of Treatment 1x/Week Plan of Care Start Date 04/21/20 Plan of Care End Date 07/20/20 Next Visit Focus/Plan Next Note Type Treatment Note Next Visit Plan Discuss proper PF care. EMG biofeedback assessment for PF strengthening. PF strengthening in isolation of substitute muscles and with LE roll in/outs. Discuss walking program and HEP for core and hip ROM (IR L>R, & stretch to hip AD's) strengthening (R. AB, sadia. AD, R. ER) exercises.
--- NOTE | 2020-05-12 16:52 | PT.OTN ---
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 Hypothryroid. PT-OP-B Current Condition Start: 04/18/20 17:11 Freq: Status: Active Protocol: Document 04/21/20 09:56 LRN (Rec: 04/21/20 11:18 LRN [id number]) Current Condition History of Current Condition Onset Date 3 yrs ago Current Complaints Sudden feeling of something coming out. History of Current Condition Cystocele, rectocele and partial vaginal prolapse. Denies pain. Has occasional urinary and fecal leakage. With a sudden urgency, she feels like she has to urinate and defecate. Most of the time when she has to defecate she urinates. Feels her condition is mild, and sometimes she has an occasional problem with constipation, but she doesn't feel it is a problem. Changes light pad 1-2x/day (twice every 3-4 days). States she pushes her bladder back when she can feel it falling out. She notes drinking 2-3 glasses per day and 2 caffeinated glasses per day. She urinated 5x during the day and once after going to bed. Her triggers are running water and anxiety. Prior Treatments and Tests No follow up visits planned. Developmental History Developmental History Was taking a shower and felt something odd coming out of her PF. Has had 2 children with vaginal deliveries, 2nd delivery caused tearing and had fecal incontinence for 3 months post delivery. Treatment Goals Patient/Caregiver Goals Pt goal is to decrease the sense of urgency and decrease the frequency of urination, and decrease the number of leakage. Prior Functional Status Baseline Function- ADL's Independent Baseline Function- Mobility Independent Baseline Function- Other No urinary or fecal leakage. Current Functional Impairments (Reported) Functional Limitations- ADL's Withholds fluids for traveling . Keeps track of where bathrooms are while traveling. 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 PT-OP-C Subjective Start: 04/18/20 17:11 Freq: Status: Active Protocol: Document 05/12/20 09:49 LRN (Rec: 05/12/20 10:36 LRN [id number]) OP-PT Subjective Patient Comments Patient Comments No particular change but feels she is learning a lot about herself. Sometimes I think I 'm making progress in strengthening the pelvic floor States sometimes the running water causes her to have an urge. Most times urge is on standing. PT-OP-I Pelvic Floor Start: 04/18/20 17:11 Freq: Status: Active Protocol: Document 04/21/20 09:56 LRN (Rec: 04/21/20 11:18 LRN [id number]) Pelvic Floor Assessment Urine Pelvic Floor Surgery No Urinary Symptoms Urge Sensation,Prolapse, Hesitancy,Falling Out Feeling/ Heavy Leakage Size Small Leakage Cause Cough,Urge Leaks Per Day 1-2 Pads Used In 24 Hours 1-2 Urine Pad Type Panty Liner Bowel Bowel Surgery No Bowel Symptoms Fecal Leakage Pelvic Clock Pelvic Clock 12-3 Atrophy Pelvic Clock 3-6 Atrophy Pelvic Clock 6-9 Atrophy Pelvic Clock 9-12 Atrophy Prolapse Cystocele Grade 3 Rectocele Grade 2 Prolapse Comments Assessed in hooklie position Perineal Descent Resting Present Bearing Present Contraction Ability Voluntary Contraction Weak Manual Muscle Testing Left 2 Manual Muscle Testing Right 3 Manual Muscle Testing Anterior 0 Manual Muscle Testing Posterior 0 Muscle Endurance (Seconds) 2 Number of Quick Contractions In 10 5 Seconds Comments Pelvic Floor Comments PF externally has mildly increased redness. PF internally tissue health is decreased. PT-OP-J Posture/Palpation/Skin Start: 04/18/20 17:11 Freq: Status: Active Protocol: Document 04/21/20 09:56 LRN (Rec: 04/21/20 16:47 LRN [id number]) Posture Evaluation [facility] Postural Classification System Lumbar Protective Mechanism Left AP 0 Lumbar Protective Mechanism Right AP 0 Comments Posture Comments Pt has mild anterior tilt of pelvis, otherwise posture is normal. Palpation Assessment Location L lateral sacrum Palpation Location L lateral sacral border Palpation Findings Tenderness PT-OP-K Range of Motion Start: 04/18/20 17:11 Freq: Status: Active Protocol: Document 04/21/20 09:56 LRN (Rec: 04/21/20 11:18 LRN [id number]) Lumbar Spine Range of Motion Lumbar Spine Active Degrees Testing Position Standing Flexion 105 Extension 15 Lateral Flexion Left 10 Lateral Flexion Right 8 ROM Limitations Soft Tissue Tightness Hip Goniometric Range of Motion Hip Right Passive Hip ROM WFL No Abduction 30 Internal Rotation 30 External Rotation 60 Left Passive Hip ROM WFL Yes Testing Position Supine Abduction 20 Internal Rotation 20 External Rotation 60 PT-OP-M Strength Start: 04/18/20 17:11 Freq: Status: Active Protocol: Document 04/21/20 09:56 LRN (Rec: 04/21/20 11:18 LRN [id number]) Trunk Strength Trunk Manual Muscle Testing Core Stabilization Pt not able to maintain core stability with testing of hip flexors and rotators. Comments Pt does not engage Transverse Abdominus with cough or Bower, Bower sound. Hip Strength Hip Manual Muscle Testing Right Flexion (L2) 5 Normal Extension (S1) 5 Normal Abduction 4- Good- Adduction 3 Fair External Rotation 3 Fair Internal Rotation 5 Normal Left Flexion (L2) 5 Normal Extension (S1) 4+ Good+ Abduction 5 Normal Adduction 2- Poor- External Rotation 5 Normal Internal Rotation 5 Normal PT-OP-Q Treatments Start: 04/18/20 17:11 Freq: Status: Active Protocol: Document 05/12/20 09:49 LRN (Rec: 05/12/20 10:36 LRN [id number]) Therapeutic Exercises Supine Exercises Kegel Long holds Supine Exercise Name Kegel long holds Reps/Minutes 3' Kegel Quick contractions Supine Exercise Name Kegel 1 contractions/1 rest Reps/Minutes 2' PF contraction w/deep breathing Supine Exercise Name PF contraction w/deep breathing, starting PF on inhale, hold through exhale Equipment Used pillow under hips Reps/Minutes 8' Comments Pt need training on how to contract with inhale. Deep breathing Supine Exercise Name Deep breathing with 6 inhale/ exhale training Reps/Minutes 4' Comments Pt unable to achieve with much cuing and training. Sidelying Exercises Hip AD Sidelying Exercise Name Hip AD w/PF contraction Side bilateral Reps/Minutes 10x quick & 10 long holds. Self-Care/Home Management Treatment Education Patient Education Home Exercise Program Other Education Reviewed bladder diary and discussed prolapse reducing and reasons and bowel movement connection. Discussed fluids intake (coffee, water, etc...) . Pt educated pt and discussed General vulvar care. Activities Self-Care/Home Management Activities Issued & reviewed HEP: LE roll in/outs handout with pt to only do deep breathing until she can do for 6 secs inhale/exhale before adding LE 's. Issued & reviewed Hip ADD strengthening handout sidelie & standing. Re-issued Kegel ex's and reviewed again at length. PT-OP-T Assessment and Plan Start: 04/18/20 17:11 Freq: Status: Active Protocol: Document 05/12/20 09:49 LRN (Rec: 05/12/20 10:36 LRN [id number]) Physical Therapy Assessment Goals Four Impairment Urinary leakage throughout the day. Monotypist Goal (LTG) Decrease the number of times she has urinary leakage in a day (no more than once a day). LTG Duration 07/20/20 (05/05/20: MET GOAL, pt leaking 1x/day) Three Impairment Increased frequency of urination (5x/day) Monotypist Goal (LTG) Pt will be able to void with normal frequency of 5-7 times per day, while increasing her hydration levels of non- caffeinated drinks. LTG Duration 05/19/20 (05/05/20: Pt is voiding ~7x/day) Two Impairment Urgency and onset of urgency with triggers. Short Term Goal (STG) Pt will be able to maintain continence in the presence of triggers (running water, anxiety). STG Duration 05/12/20 (05/05/20: MET GOAL) Prison Goal (LTG) Pt will be able to maintain continence in the presence of a strong urge and will be able to reduce onset of urinary or fecal urgency through bladder retraining. LTG Duration 07/20/20 One Impairment Lacks self care HEP Short Term Goal (STG) Pt will be independent in a self care core/hip ROM & strengthening program (ROM hip IR L>R, & hip AD stretch, & strengthening R. AB, sadia. AD, R. ER) and educated in proper PF care. STG Duration 05/12/20 (05/12/20: Progressing) Monotypist Goal (LTG) Pt is educated in a self care HEP. LTG Duration 07/20/20 (05/12/20: Progressing) Progress Towards Goals Progress Comments Progressing pt with her HEP. Assessment Summary Assessment Pt had a lot of difficulty coordinating 6 inhale deep breaths. She was only able to achieve 6 exhale after much training. The pt has difficulty with continued breathing during PF contractions. Physical Therapy Plan Frequency and Duration Frequency of Treatment 1x/Week Plan of Care Start Date 04/21/20 Plan of Care End Date 07/20/20 Next Visit Focus/Plan Next Note Type Treatment Note Next Visit Plan EMG biofeedback for PF strength training and assessment. PF strengthening in isolation of substitute muscles with proper breathing and progress LE roll in/outs. Discuss walking program and HEP for core and hip ROM (IR L >R, & stretch to hip AD's) strengthening (R. AB & ER) exercises.
--- NOTE | 2020-05-19 11:11 | PT.OTN ---
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 Hypothryroid. PT-OP-B Current Condition Start: 04/18/20 17:11 Freq: Status: Active Protocol: Document 04/21/20 09:56 LRN (Rec: 04/21/20 11:18 LRN [id number]) Current Condition History of Current Condition Onset Date 3 yrs ago Current Complaints Sudden feeling of something coming out. History of Current Condition Cystocele, rectocele and partial vaginal prolapse. Denies pain. Has occasional urinary and fecal leakage. With a sudden urgency, she feels like she has to urinate and defecate. Most of the time when she has to defecate she urinates. Feels her condition is mild, and sometimes she has an occasional problem with constipation, but she doesn't feel it is a problem. Changes light pad 1-2x/day (twice every 3-4 days). States she pushes her bladder back when she can feel it falling out. She notes drinking 2-3 glasses per day and 2 caffeinated glasses per day. She urinated 5x during the day and once after going to bed. Her triggers are running water and anxiety. Prior Treatments and Tests No follow up visits planned. Developmental History Developmental History Was taking a shower and felt something odd coming out of her PF. Has had 2 children with vaginal deliveries, 2nd delivery caused tearing and had fecal incontinence for 3 months post delivery. Treatment Goals Patient/Caregiver Goals Pt goal is to decrease the sense of urgency and decrease the frequency of urination, and decrease the number of leakage. Prior Functional Status Baseline Function- ADL's Independent Baseline Function- Mobility Independent Baseline Function- Other No urinary or fecal leakage. Current Functional Impairments (Reported) Functional Limitations- ADL's Withholds fluids for traveling . Keeps track of where bathrooms are while traveling. 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 PT-OP-C Subjective Start: 04/18/20 17:11 Freq: Status: Active Protocol: Document 05/19/20 09:55 LRN (Rec: 05/19/20 10:45 LRN [id number]) OP-PT Subjective Patient Comments Patient Comments Last week was horrible after she was in last. Had one episode of urinary incontinence, then she stopped her ex's and withheld water and did better for the weekend . She states she also had incident with flu shot and water leak in house. Requests not using EMG today too much going on in the past week. Walks regularly for 1/ 2 hour after 7p. PT-OP-I Pelvic Floor Start: 04/18/20 17:11 Freq: Status: Active Protocol: Document 04/21/20 09:56 LRN (Rec: 04/21/20 11:18 LRN [id number]) Pelvic Floor Assessment Urine Pelvic Floor Surgery No Urinary Symptoms Urge Sensation,Prolapse, Hesitancy,Falling Out Feeling/ Heavy Leakage Size Small Leakage Cause Cough,Urge Leaks Per Day 1-2 Pads Used In 24 Hours 1-2 Urine Pad Type Panty Liner Bowel Bowel Surgery No Bowel Symptoms Fecal Leakage Pelvic Clock Pelvic Clock 12-3 Atrophy Pelvic Clock 3-6 Atrophy Pelvic Clock 6-9 Atrophy Pelvic Clock 9-12 Atrophy Prolapse Cystocele Grade 3 Rectocele Grade 2 Prolapse Comments Assessed in hooklie position Perineal Descent Resting Present Bearing Present Contraction Ability Voluntary Contraction Weak Manual Muscle Testing Left 2 Manual Muscle Testing Right 3 Manual Muscle Testing Anterior 0 Manual Muscle Testing Posterior 0 Muscle Endurance (Seconds) 2 Number of Quick Contractions In 10 5 Seconds Comments Pelvic Floor Comments PF externally has mildly increased redness. PF internally tissue health is decreased. PT-OP-J Posture/Palpation/Skin Start: 04/18/20 17:11 Freq: Status: Active Protocol: Document 04/21/20 09:56 LRN (Rec: 04/21/20 16:47 LRN [id number]) Posture Evaluation [facility] Postural Classification System Lumbar Protective Mechanism Left AP 0 Lumbar Protective Mechanism Right AP 0 Comments Posture Comments Pt has mild anterior tilt of pelvis, otherwise posture is normal. Palpation Assessment Location L lateral sacrum Palpation Location L lateral sacral border Palpation Findings Tenderness PT-OP-K Range of Motion Start: 04/18/20 17:11 Freq: Status: Active Protocol: Document 04/21/20 09:56 LRN (Rec: 04/21/20 11:18 LRN [id number]) Lumbar Spine Range of Motion Lumbar Spine Active Degrees Testing Position Standing Flexion 105 Extension 15 Lateral Flexion Left 10 Lateral Flexion Right 8 ROM Limitations Soft Tissue Tightness Hip Goniometric Range of Motion Hip Right Passive Hip ROM WFL No Abduction 30 Internal Rotation 30 External Rotation 60 Left Passive Hip ROM WFL Yes Testing Position Supine Abduction 20 Internal Rotation 20 External Rotation 60 PT-OP-M Strength Start: 04/18/20 17:11 Freq: Status: Active Protocol: Document 04/21/20 09:56 LRN (Rec: 04/21/20 11:18 LRN [id number]) Trunk Strength Trunk Manual Muscle Testing Core Stabilization Pt not able to maintain core stability with testing of hip flexors and rotators. Comments Pt does not engage Transverse Abdominus with cough or Bower, Bower sound. Hip Strength Hip Manual Muscle Testing Right Flexion (L2) 5 Normal Extension (S1) 5 Normal Abduction 4- Good- Adduction 3 Fair External Rotation 3 Fair Internal Rotation 5 Normal Left Flexion (L2) 5 Normal Extension (S1) 4+ Good+ Abduction 5 Normal Adduction 2- Poor- External Rotation 5 Normal Internal Rotation 5 Normal PT-OP-Q Treatments Start: 04/18/20 17:11 Freq: Status: Active Protocol: Document 05/19/20 09:55 LRN (Rec: 05/19/20 10:45 LRN [id number]) Therapeutic Exercises Supine Exercises Roll in/out on wedge Supine Exercise Name Roll in/outs on Wedge w/Deep breathing Reps/Minutes 10' Comments Pt was able to perform indep, for a few reps after training. Bowel massage. Supine Exercise Name Bowel massage Reps/Minutes 3' PF contraction w/deep breathing Supine Exercise Name PF contraction w/deep breathing, starting PF on inhale, hold through exhale Equipment Used pillow under hips Reps/Minutes 8' Comments Pt need training on how to contract with inhale. Deep breathing Supine Exercise Name Deep breathing with 6 inhale/ exhale training Reps/Minutes 4' Comments Pt able to perform 6 breathes Standing Exercises PF/Bladder awareness training Standing Exercise Name Awareness training of bladder repositioning in Hamstring Stretch position Reps/Minutes 3' Manual Therapy Treatment Soft Tissue Mobilization Suprapub to under umbilicus Body Location Suprapubic bone to under Umbilicus Mobilization Type Manual Lymphatic Drainage Intensity/Depth Moderate Body Position Supine Comments 10x manual therapy f/b training of pt for self massage. Self-Care/Home Management Treatment Education Patient Education Home Exercise Program Other Education Discussed results of 4 days of bladder diary. Pt needed reassurance of continued water drinking vs withholding water . Recommended that the pt not push bladder up on a daily basis and if she does to use gel on fingers. Discussed over the counter gels. Educated pt in Deep Breathing (DB) benefits and to doing DB when stressed. Activities Self-Care/Home Management Activities Issued & reviewed HEP: Written I/S: Deep breathing to relax, Urachus massage from suprapub to underneath umbilicus, self TrP treatment of inner thighs. Issued & reviewed handout for HEP: LE roll in/outs with I/S to use pillow under hips. PT-OP-T Assessment and Plan Start: 04/18/20 17:11 Freq: Status: Active Protocol: Document 05/19/20 09:55 LRN (Rec: 05/19/20 10:45 LRN [id number]) Physical Therapy Assessment Goals Four Impairment Urinary leakage throughout the day. Saw Superintendent Goal (LTG) Decrease the number of times she has urinary leakage in a day (no more than once a day). LTG Duration 07/20/20 (05/05/20: MET GOAL, pt leaking 1x/day) Three Impairment Increased frequency of urination (5x/day) Care Home Goal (LTG) Pt will be able to void with normal frequency of 5-7 times per day, while increasing her hydration levels of non- caffeinated drinks. LTG Duration 05/19/20 (05/05/20: Pt is voiding ~7x/day) Two Impairment Urgency and onset of urgency with triggers. Short Term Goal (STG) Pt will be able to maintain continence in the presence of triggers (running water, anxiety). STG Duration 05/12/20 (05/05/20: MET GOAL) Saw Superintendent Goal (LTG) Pt will be able to maintain continence in the presence of a strong urge and will be able to reduce onset of urinary or fecal urgency through bladder retraining. LTG Duration 07/20/20 One Impairment Lacks self care HEP Short Term Goal (STG) Pt will be independent in a self care core/hip ROM & strengthening program (ROM hip IR L>R, & hip AD stretch, & strengthening R. AB, sadia. AD, R. ER) and educated in proper PF care. STG Duration 05/12/20 (05/12/20: Progressing) Saw Superintendent Goal (LTG) Pt is educated in a self care HEP. LTG Duration 07/20/20 (05/19/20: Progressing) Progress Towards Goals Progress Comments Pt able to coordinate deep breathing over 6 secs. Progressing onto LE roll in/ out program of PF strengthening. Assessment Summary Assessment Pt did not track her voiding, leakage, BM specifically; therefore it was hard to make specific recommendations, but it appears the pt is withholding water to avoid leaking. She was able to coordinate a 6 inhale/exhale; therefore ready to progress the roll in/out program of PF strenghtening. Physical Therapy Plan Frequency and Duration Frequency of Treatment 1x/Week Plan of Care Start Date 04/21/20 Plan of Care End Date 07/20/20 Next Visit Focus/Plan Next Note Type Treatment Note Next Visit Plan If pt is agreeable, EMG biofeedback for PF strength training and assessment. PF strengthening in isolation of substitute muscles with proper breathing, review LE roll in/ out with deep breathing (for independence), progress LE roll in/outs. Add HEP for core and hip ROM (IR L>R, & stretch to hip AD's) strengthening (R. AB & ER) exercises.
--- NOTE | 2020-05-30 09:30 | PT.OTN ---
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 Hypothryroid. PT-OP-B Current Condition Start: 04/18/20 17:11 Freq: Status: Active Protocol: Document 04/21/20 09:56 LRN (Rec: 04/21/20 11:18 LRN [id number]) Current Condition History of Current Condition Onset Date 3 yrs ago Current Complaints Sudden feeling of something coming out. History of Current Condition Cystocele, rectocele and partial vaginal prolapse. Denies pain. Has occasional urinary and fecal leakage. With a sudden urgency, she feels like she has to urinate and defecate. Most of the time when she has to defecate she urinates. Feels her condition is mild, and sometimes she has an occasional problem with constipation, but she doesn't feel it is a problem. Changes light pad 1-2x/day (twice every 3-4 days). States she pushes her bladder back when she can feel it falling out. She notes drinking 2-3 glasses per day and 2 caffeinated glasses per day. She urinated 5x during the day and once after going to bed. Her triggers are running water and anxiety. Prior Treatments and Tests No follow up visits planned. Developmental History Developmental History Was taking a shower and felt something odd coming out of her PF. Has had 2 children with vaginal deliveries, 2nd delivery caused tearing and had fecal incontinence for 3 months post delivery. Treatment Goals Patient/Caregiver Goals Pt goal is to decrease the sense of urgency and decrease the frequency of urination, and decrease the number of leakage. Prior Functional Status Baseline Function- ADL's Independent Baseline Function- Mobility Independent Baseline Function- Other No urinary or fecal leakage. Current Functional Impairments (Reported) Functional Limitations- ADL's Withholds fluids for traveling . Keeps track of where bathrooms are while traveling. 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 PT-OP-C Subjective Start: 04/18/20 17:11 Freq: Status: Active Protocol: Document 05/30/20 08:16 LRN (Rec: 05/30/20 09:29 LRN [id number]) OP-PT Subjective Patient Comments Patient Comments BM's have been fine (daily), although yesterday didn't have one. Urination times: small 6 secs, med 6-12 secs, lg is over 12 secs. PT-OP-I Pelvic Floor Start: 04/18/20 17:11 Freq: Status: Active Protocol: Document 04/21/20 09:56 LRN (Rec: 04/21/20 11:18 LRN [id number]) Pelvic Floor Assessment Urine Pelvic Floor Surgery No Urinary Symptoms Urge Sensation,Prolapse, Hesitancy,Falling Out Feeling/ Heavy Leakage Size Small Leakage Cause Cough,Urge Leaks Per Day 1-2 Pads Used In 24 Hours 1-2 Urine Pad Type Panty Liner Bowel Bowel Surgery No Bowel Symptoms Fecal Leakage Pelvic Clock Pelvic Clock 12-3 Atrophy Pelvic Clock 3-6 Atrophy Pelvic Clock 6-9 Atrophy Pelvic Clock 9-12 Atrophy Prolapse Cystocele Grade 3 Rectocele Grade 2 Prolapse Comments Assessed in hooklie position Perineal Descent Resting Present Bearing Present Contraction Ability Voluntary Contraction Weak Manual Muscle Testing Left 2 Manual Muscle Testing Right 3 Manual Muscle Testing Anterior 0 Manual Muscle Testing Posterior 0 Muscle Endurance (Seconds) 2 Number of Quick Contractions In 10 5 Seconds Comments Pelvic Floor Comments PF externally has mildly increased redness. PF internally tissue health is decreased. PT-OP-J Posture/Palpation/Skin Start: 04/18/20 17:11 Freq: Status: Active Protocol: Document 04/21/20 09:56 LRN (Rec: 04/21/20 16:47 LRN [id number]) Posture Evaluation Eunice Postural Classification System Lumbar Protective Mechanism Left AP 0 Lumbar Protective Mechanism Right AP 0 Comments Posture Comments Pt has mild anterior tilt of pelvis, otherwise posture is normal. Palpation Assessment Location L lateral sacrum Palpation Location L lateral sacral border Palpation Findings Tenderness PT-OP-K Range of Motion Start: 04/18/20 17:11 Freq: Status: Active Protocol: Document 04/21/20 09:56 LRN (Rec: 04/21/20 11:18 LRN [id number]) Lumbar Spine Range of Motion Lumbar Spine Active Degrees Testing Position Standing Flexion 105 Extension 15 Lateral Flexion Left 10 Lateral Flexion Right 8 ROM Limitations Soft Tissue Tightness Hip Goniometric Range of Motion Hip Right Passive Hip ROM WFL No Abduction 30 Internal Rotation 30 External Rotation 60 Left Passive Hip ROM WFL Yes Testing Position Supine Abduction 20 Internal Rotation 20 External Rotation 60 PT-OP-M Strength Start: 04/18/20 17:11 Freq: Status: Active Protocol: Document 04/21/20 09:56 LRN (Rec: 04/21/20 11:18 LRN [id number]) Trunk Strength Trunk Manual Muscle Testing Core Stabilization Pt not able to maintain core stability with testing of hip flexors and rotators. Comments Pt does not engage Transverse Abdominus with cough or Bower, Bower sound. Hip Strength Hip Manual Muscle Testing Right Flexion (L2) 5 Normal Extension (S1) 5 Normal Abduction 4- Good- Adduction 3 Fair External Rotation 3 Fair Internal Rotation 5 Normal Left Flexion (L2) 5 Normal Extension (S1) 4+ Good+ Abduction 5 Normal Adduction 2- Poor- External Rotation 5 Normal Internal Rotation 5 Normal PT-OP-Q Treatments Start: 04/18/20 17:11 Freq: Status: Active Protocol: Document 05/30/20 08:16 LRN (Rec: 05/30/20 09:29 LRN [id number]) Therapeutic Exercises Supine Exercises Roll in/out on wedge Supine Exercise Name Roll in/outs on Wedge w/Deep breathing Reps/Minutes 8' Comments Phys & v. cuing needed to get full hip rot w/ex (viola IR) Kegel Long holds Supine Exercise Name Kegel Long hold with last 5 secs of roll in. Reps/Minutes 4' PF contraction w/deep breathing Supine Exercise Name PF contraction w/deep breathing, starting PF on inhale, hold through exhale Equipment Used wedge under hips Comments Pt only able to hold 5 secs long hold Deep breathing Supine Exercise Name Deep breathing with 6 inhale/ exhale training Reps/Minutes 2' Comments Pt able to perform 6 breathes Manual Therapy Treatment Soft Tissue Mobilization Hip ADD Body Location Hip AD's Mobilization Type Trigger Point Release Intensity/Depth Superficial > Moderate Body Position Hooklying Self-Care/Home Management Treatment Education Patient Education Home Exercise Program Other Education Extensive educated of pt in normal urinary and bowel function, voiding frequencies and volumes, fluid input/ output, urge sensations and associated delay techniques. Educated pt in proper use of self TrP treatment to improve mobility of hip AD's. Activities Self-Care/Home Management Activities I/S pt to work on : 1) PF contraction in isolation of gluteals/TA 2) PF contraction last 5 secs with knee roll inward, 3) TrP treatment to hip AD's 4) Retrain bladder, backing off gradually voiding each day . PT-OP-T Assessment and Plan Start: 04/18/20 17:11 Freq: Status: Active Protocol: Document 05/30/20 08:16 LRN (Rec: 05/30/20 09:29 LRN [id number]) Physical Therapy Assessment Goals Four Impairment Urinary leakage throughout the day. Skilled Nursing Goal (LTG) Decrease the number of times she has urinary leakage in a day (no more than once a day). LTG Duration 07/20/20 (05/30/20: MET GOAL) Three Impairment Increased frequency of urination (5x/day) Skilled Nursing Goal (LTG) Pt will be able to void with normal frequency of 5-7 times per day, while increasing her hydration levels of non- caffeinated drinks. (05/30/20: Pt would like to decrease number of times urinating to 6x/day) LTG Duration 05/19/20 (05/30/20: Pt is voiding ~7x/day) Two Impairment Urgency and onset of urgency with triggers. Short Term Goal (STG) Pt will be able to maintain continence in the presence of triggers (running water, anxiety). STG Duration 05/12/20 (05/05/20: MET GOAL) Roofing Apprentice Goal (LTG) Pt will be able to maintain continence in the presence of a strong urge and will be able to reduce onset of urinary or fecal urgency through bladder retraining. LTG Duration 07/20/20 (05/30/20: MET GOAL as long as she drinks enough water) One Impairment Lacks self care HEP Short Term Goal (STG) Pt will be independent in a self care core/hip ROM & strengthening program (ROM hip IR L>R, & hip AD stretch, & strengthening R. AB, sadia. AD, R. ER) and educated in proper PF care. STG Duration 05/12/20 (05/12/20: Progressing) Skilled Nursing Goal (LTG) Pt is educated in a self care HEP. LTG Duration 07/20/20 (05/19/20: Progressing) Progress Towards Goals Progress Comments Goals # 4 & #2 MET. Assessment Summary Assessment Pt is much improved in her deep breathing and coordination with LE roll in/ outs. She is not able to isolate her PF contraction for gluteals or TA. She prefers not to use EMG biofeedback for exercise. Primary area of focus is with PF strengthening & decreasing voids during the day. Physical Therapy Plan Frequency and Duration Frequency of Treatment 1x/Week Plan of Care Start Date 04/21/20 Plan of Care End Date 07/20/20 Next Visit Focus/Plan Next Note Type Treatment Note Next Visit Plan PF strengthening in isolation of substitute muscles with proper breathing, review LE roll in/out with deep breathing (for independence), progress LE roll in/outs. Add HEP for core and hip ROM (IR L>R, & stretch to hip AD's) strengthening (R. AB & ER) exercises.
--- NOTE | 2020-06-06 12:16 | PT.OTN ---
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 Hypothryroid. PT-OP-B Current Condition Start: 04/18/20 17:11 Freq: Status: Active Protocol: Document 04/21/20 09:56 LRN (Rec: 04/21/20 11:18 LRN [id number]) Current Condition History of Current Condition Onset Date 3 yrs ago Current Complaints Sudden feeling of something coming out. History of Current Condition Cystocele, rectocele and partial vaginal prolapse. Denies pain. Has occasional urinary and fecal leakage. With a sudden urgency, she feels like she has to urinate and defecate. Most of the time when she has to defecate she urinates. Feels her condition is mild, and sometimes she has an occasional problem with constipation, but she doesn't feel it is a problem. Changes light pad 1-2x/day (twice every 3-4 days). States she pushes her bladder back when she can feel it falling out. She notes drinking 2-3 glasses per day and 2 caffeinated glasses per day. She urinated 5x during the day and once after going to bed. Her triggers are running water and anxiety. Prior Treatments and Tests No follow up visits planned. Developmental History Developmental History Was taking a shower and felt something odd coming out of her PF. Has had 2 children with vaginal deliveries, 2nd delivery caused tearing and had fecal incontinence for 3 months post delivery. Treatment Goals Patient/Caregiver Goals Pt goal is to decrease the sense of urgency and decrease the frequency of urination, and decrease the number of leakage. Prior Functional Status Baseline Function- ADL's Independent Baseline Function- Mobility Independent Baseline Function- Other No urinary or fecal leakage. Current Functional Impairments (Reported) Functional Limitations- ADL's Withholds fluids for traveling . Keeps track of where bathrooms are while traveling. 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 PT-OP-C Subjective Start: 04/18/20 17:11 Freq: Status: Active Protocol: Document 06/06/20 11:22 LRN (Rec: 06/06/20 12:15 LRN [id number]) OP-PT Subjective Patient Comments Patient Comments Pt reports nothing really to report. She does feel like she is not voiding too much during the day and feels her goal has been reached. She is agreeable to using the vaginal electrode for biofeedback training due to her frustration of not knowing if she is holding a contraction. She feels she is not able to hold the contraction. PT-OP-I Pelvic Floor Start: 04/18/20 17:11 Freq: Status: Active Protocol: Document 04/21/20 09:56 LRN (Rec: 04/21/20 11:18 LRN [id number]) Pelvic Floor Assessment Urine Pelvic Floor Surgery No Urinary Symptoms Urge Sensation,Prolapse, Hesitancy,Falling Out Feeling/ Heavy Leakage Size Small Leakage Cause Cough,Urge Leaks Per Day 1-2 Pads Used In 24 Hours 1-2 Urine Pad Type Panty Liner Bowel Bowel Surgery No Bowel Symptoms Fecal Leakage Pelvic Clock Pelvic Clock 12-3 Atrophy Pelvic Clock 3-6 Atrophy Pelvic Clock 6-9 Atrophy Pelvic Clock 9-12 Atrophy Prolapse Cystocele Grade 3 Rectocele Grade 2 Prolapse Comments Assessed in hooklie position Perineal Descent Resting Present Bearing Present Contraction Ability Voluntary Contraction Weak Manual Muscle Testing Left 2 Manual Muscle Testing Right 3 Manual Muscle Testing Anterior 0 Manual Muscle Testing Posterior 0 Muscle Endurance (Seconds) 2 Number of Quick Contractions In 10 5 Seconds Comments Pelvic Floor Comments PF externally has mildly increased redness. PF internally tissue health is decreased. PT-OP-J Posture/Palpation/Skin Start: 04/18/20 17:11 Freq: Status: Active Protocol: Document 04/21/20 09:56 LRN (Rec: 04/21/20 16:47 LRN [id number]) Posture Evaluation Eunice Postural Classification System Lumbar Protective Mechanism Left AP 0 Lumbar Protective Mechanism Right AP 0 Comments Posture Comments Pt has mild anterior tilt of pelvis, otherwise posture is normal. Palpation Assessment Location L lateral sacrum Palpation Location L lateral sacral border Palpation Findings Tenderness PT-OP-K Range of Motion Start: 04/18/20 17:11 Freq: Status: Active Protocol: Document 04/21/20 09:56 LRN (Rec: 04/21/20 11:18 LRN [id number]) Lumbar Spine Range of Motion Lumbar Spine Active Degrees Testing Position Standing Flexion 105 Extension 15 Lateral Flexion Left 10 Lateral Flexion Right 8 ROM Limitations Soft Tissue Tightness Hip Goniometric Range of Motion Hip Right Passive Hip ROM WFL No Abduction 30 Internal Rotation 30 External Rotation 60 Left Passive Hip ROM WFL Yes Testing Position Supine Abduction 20 Internal Rotation 20 External Rotation 60 PT-OP-M Strength Start: 04/18/20 17:11 Freq: Status: Active Protocol: Document 04/21/20 09:56 LRN (Rec: 04/21/20 11:18 LRN [id number]) Trunk Strength Trunk Manual Muscle Testing Core Stabilization Pt not able to maintain core stability with testing of hip flexors and rotators. Comments Pt does not engage Transverse Abdominus with cough or Bower, Bower sound. Hip Strength Hip Manual Muscle Testing Right Flexion (L2) 5 Normal Extension (S1) 5 Normal Abduction 4- Good- Adduction 3 Fair External Rotation 3 Fair Internal Rotation 5 Normal Left Flexion (L2) 5 Normal Extension (S1) 4+ Good+ Abduction 5 Normal Adduction 2- Poor- External Rotation 5 Normal Internal Rotation 5 Normal PT-OP-Q Treatments Start: 04/18/20 17:11 Freq: Status: Active Protocol: Document 06/06/20 11:22 LRN (Rec: 06/06/20 12:15 LRN [id number]) Therapeutic Exercises Supine Exercises Roll in/out on wedge Supine Exercise Name LE Roll in/out w/deep breathing on wedge, and w/ Kegel Reps/Minutes 8' PF contraction w/deep breathing Supine Exercise Name Deep breathing w/PF on inhale and w/PF during breathing cycle Reps/Minutes 12' Comments Pt having difficulty feeling and performing the PF contarction through cycl Deep breathing Supine Exercise Name Deep Breathing review Reps/Minutes 2' Sitting Exercises Hip ADD stretches Sitting Exercise Name Hip AD stretch Side bilateral Reps/Minutes 3' Self-Care/Home Management Treatment Education Other Education Review and discussed at length her bladder diary. Noted pt leakage (one day) was a day of constipation extending into the next morning. Discussed factors of constipation and recommended pt talk to her roller repairer regarding increase in fiber (over the counter source). Discussed voiding frequency and determined pt met her therapy goal for acceptable voiding frequency. Activities Self-Care/Home Management Activities I/S pt in HEP: Hip AD stretch in sitting. Reviewed self TrP treatment to hip AD's. Encouraged pt to not be frustrated that she is not able to perform a long hold PF contraction. PT-OP-T Assessment and Plan Start: 04/18/20 17:11 Freq: Status: Active Protocol: Document 06/06/20 11:22 LRN (Rec: 06/06/20 12:15 LRN [id number]) Physical Therapy Assessment Goals Four Impairment Urinary leakage throughout the day. Business And Marketing Teacher Goal (LTG) Decrease the number of times she has urinary leakage in a day (no more than once a day). LTG Duration 07/20/20 (05/30/20: MET GOAL) Three Impairment Increased frequency of urination (5x/day) Half-Way Goal (LTG) Pt will be able to void with normal frequency of 5-7 times per day, while increasing her hydration levels of non- caffeinated drinks. (06/06/20: MET GOAL. Pt is voiding 5-7x/day) LTG Duration 05/19/20 (06/06/20: MET GOAL. ) Two Impairment Urgency and onset of urgency with triggers. Short Term Goal (STG) Pt will be able to maintain continence in the presence of triggers (running water, anxiety). STG Duration 05/12/20 (05/05/20: MET GOAL) Half-Way Goal (LTG) Pt will be able to maintain continence in the presence of a strong urge and will be able to reduce onset of urinary or fecal urgency through bladder retraining. LTG Duration 07/20/20 (05/30/20: MET GOAL as long as she drinks enough water) One Impairment Lacks self care HEP Short Term Goal (STG) Pt will be independent in a self care core/hip ROM & strengthening program (ROM hip IR L>R, & hip AD stretch, & strengthening R. AB, sadia. AD, R. ER) and educated in proper PF care. STG Duration 05/12/20 (06/06/20: Progressing) Half-Way Goal (LTG) Pt is educated in a self care HEP. LTG Duration 07/20/20 (06/06/20: Progressing) Progress Towards Goals Progress Towards Goals Progressing Toward Goals Progress Comments Goal #5 MET. Assessment Summary Assessment Per pt bladder diary she appears to be with average of her voiding frequency of 5-7 times/day. Goal # 5 MET. She had urinary leakage one day on the same day she was having multiple bowel movements because the previous day she had none. The pt feels she is now able to hold a PF contraction on inhale, but is having difficulty holding it during both inhale and exhale. She demonstrates ability to contract her PF without substitute muscles. \ Pt needs further training. Pt needs further PF strengthening, hip IR ROM (L>R ; note pt hx of R PAGE), and strengthening R hip AB & ER. Physical Therapy Plan Frequency and Duration Frequency of Treatment 1x/Week Plan of Care Start Date 04/21/20 Plan of Care End Date 07/20/20 Next Visit Focus/Plan Next Note Type Treatment Note Next Visit Plan Review and issue HEP of hip AD stretch. Start with Discuss if further therapy needed beyond end of last appt scheduled (07/21/20). EMG Biofeedback assessment. Teach LE roll in/out with deep breathing and PF contraction and progress as able. Add HEP for core and hip ROM (IR L>R, & stretch to hip AD's) strengthening (R. AB & ER) exercises.
--- NOTE | 2020-06-09 14:03 | PT.OTN ---
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 Hypothryroid. PT-OP-B Current Condition Start: 04/18/20 17:11 Freq: Status: Active Protocol: Document 04/21/20 09:56 LRN (Rec: 04/21/20 11:18 LRN [id number]) Current Condition History of Current Condition Onset Date 3 yrs ago Current Complaints Sudden feeling of something coming out. History of Current Condition Cystocele, rectocele and partial vaginal prolapse. Denies pain. Has occasional urinary and fecal leakage. With a sudden urgency, she feels like she has to urinate and defecate. Most of the time when she has to defecate she urinates. Feels her condition is mild, and sometimes she has an occasional problem with constipation, but she doesn't feel it is a problem. Changes light pad 1-2x/day (twice every 3-4 days). States she pushes her bladder back when she can feel it falling out. She notes drinking 2-3 glasses per day and 2 caffeinated glasses per day. She urinated 5x during the day and once after going to bed. Her triggers are running water and anxiety. Prior Treatments and Tests No follow up visits planned. Developmental History Developmental History Was taking a shower and felt something odd coming out of her PF. Has had 2 children with vaginal deliveries, 2nd delivery caused tearing and had fecal incontinence for 3 months post delivery. Treatment Goals Patient/Caregiver Goals Pt goal is to decrease the sense of urgency and decrease the frequency of urination, and decrease the number of leakage. Prior Functional Status Baseline Function- ADL's Independent Baseline Function- Mobility Independent Baseline Function- Other No urinary or fecal leakage. Current Functional Impairments (Reported) Functional Limitations- ADL's Withholds fluids for traveling . Keeps track of where bathrooms are while traveling. 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 PT-OP-C Subjective Start: 04/18/20 17:11 Freq: Status: Active Protocol: Document 06/09/20 08:15 LRN (Rec: 06/09/20 09:04 LRN [id number]) OP-PT Subjective Patient Comments Patient Comments No leaking or excessive problem. The only problem is every other day with bowel movements. Feels like not much improvement has been made with prolapse. Walking daily 30-45' nightly. PT-OP-I Pelvic Floor Start: 04/18/20 17:11 Freq: Status: Active Protocol: Document 04/21/20 09:56 LRN (Rec: 04/21/20 11:18 LRN [id number]) Pelvic Floor Assessment Urine Pelvic Floor Surgery No Urinary Symptoms Urge Sensation,Prolapse, Hesitancy,Falling Out Feeling/ Heavy Leakage Size Small Leakage Cause Cough,Urge Leaks Per Day 1-2 Pads Used In 24 Hours 1-2 Urine Pad Type Panty Liner Bowel Bowel Surgery No Bowel Symptoms Fecal Leakage Pelvic Clock Pelvic Clock 12-3 Atrophy Pelvic Clock 3-6 Atrophy Pelvic Clock 6-9 Atrophy Pelvic Clock 9-12 Atrophy Prolapse Cystocele Grade 3 Rectocele Grade 2 Prolapse Comments Assessed in hooklie position Perineal Descent Resting Present Bearing Present Contraction Ability Voluntary Contraction Weak Manual Muscle Testing Left 2 Manual Muscle Testing Right 3 Manual Muscle Testing Anterior 0 Manual Muscle Testing Posterior 0 Muscle Endurance (Seconds) 2 Number of Quick Contractions In 10 5 Seconds Comments Pelvic Floor Comments PF externally has mildly increased redness. PF internally tissue health is decreased. PT-OP-J Posture/Palpation/Skin Start: 04/18/20 17:11 Freq: Status: Active Protocol: Document 04/21/20 09:56 LRN (Rec: 04/21/20 16:47 LRN [id number]) Posture Evaluation Eunice Postural Classification System Lumbar Protective Mechanism Left AP 0 Lumbar Protective Mechanism Right AP 0 Comments Posture Comments Pt has mild anterior tilt of pelvis, otherwise posture is normal. Palpation Assessment Location L lateral sacrum Palpation Location L lateral sacral border Palpation Findings Tenderness PT-OP-K Range of Motion Start: 04/18/20 17:11 Freq: Status: Active Protocol: Document 04/21/20 09:56 LRN (Rec: 04/21/20 11:18 LRN [id number]) Lumbar Spine Range of Motion Lumbar Spine Active Degrees Testing Position Standing Flexion 105 Extension 15 Lateral Flexion Left 10 Lateral Flexion Right 8 ROM Limitations Soft Tissue Tightness Hip Goniometric Range of Motion Hip Right Passive Hip ROM WFL No Abduction 30 Internal Rotation 30 External Rotation 60 Left Passive Hip ROM WFL Yes Testing Position Supine Abduction 20 Internal Rotation 20 External Rotation 60 PT-OP-M Strength Start: 04/18/20 17:11 Freq: Status: Active Protocol: Document 04/21/20 09:56 LRN (Rec: 04/21/20 11:18 LRN [id number]) Trunk Strength Trunk Manual Muscle Testing Core Stabilization Pt not able to maintain core stability with testing of hip flexors and rotators. Comments Pt does not engage Transverse Abdominus with cough or Bower, Bower sound. Hip Strength Hip Manual Muscle Testing Right Flexion (L2) 5 Normal Extension (S1) 5 Normal Abduction 4- Good- Adduction 3 Fair External Rotation 3 Fair Internal Rotation 5 Normal Left Flexion (L2) 5 Normal Extension (S1) 4+ Good+ Abduction 5 Normal Adduction 2- Poor- External Rotation 5 Normal Internal Rotation 5 Normal PT-OP-Q Treatments Start: 04/18/20 17:11 Freq: Status: Active Protocol: Document 06/09/20 08:15 LRN (Rec: 06/09/20 09:04 LRN [id number]) Therapeutic Exercises Supine Exercises PF baseline Supine Exercise Name Biofeedback baseline Reps/Minutes 4' Comments Not able to position pt from electrode pushing out, xtra time comp 1st time PF contraction awareness Supine Exercise Name PF contraction awareness training Reps/Minutes 9' Comments At end pt able to identify difference btn anterior/ posterior PF with >< Roll in/out on wedge Supine Exercise Name LE Roll in/out w/deep breathing on wedge, and w/ Kegel Reps/Minutes 8' Sidelying Exercises Reverse Clamshell Sidelying Exercise Name Reverse Clamshell Side left Reps/Minutes 4' Clamshell Sidelying Exercise Name Clamshell Side left Reps/Minutes 4' Sitting Exercises PF awareness training Sitting Exercise Name PF awareness training Reps/Minutes 8' Comments Poor awareness regardless of feet/hip/trunk positioning Hip ADD stretches Sitting Exercise Name Hip AD stretch Side bilateral Reps/Minutes 3' Self-Care/Home Management Treatment Education Patient Education Home Exercise Program Activities Self-Care/Home Management Activities Issued & reviewed HEP: Sitting LE roll in/out; Stretch to Hip AD's, Sidelie hip IR/ER strengthening w/PF contraction. PT-OP-T Assessment and Plan Start: 04/18/20 17:11 Freq: Status: Active Protocol: Document 06/09/20 08:15 LRN (Rec: 06/09/20 09:04 LRN [id number]) Physical Therapy Assessment Goals Four Impairment Urinary leakage throughout the day. [facility] Goal (LTG) Decrease the number of times she has urinary leakage in a day (no more than once a day). LTG Duration 07/20/20 (05/30/20: MET GOAL) Three Impairment Increased frequency of urination (5x/day) [facility] Goal (LTG) Pt will be able to void with normal frequency of 5-7 times per day, while increasing her hydration levels of non- caffeinated drinks. (06/06/20: MET GOAL. Pt is voiding 5-7x/day) LTG Duration 05/19/20 (06/06/20: MET GOAL. ) Two Impairment Urgency and onset of urgency with triggers. Short Term Goal (STG) Pt will be able to maintain continence in the presence of triggers (running water, anxiety). STG Duration 05/12/20 (05/05/20: MET GOAL) Time Signal Wirer Goal (LTG) Pt will be able to maintain continence in the presence of a strong urge and will be able to reduce onset of urinary or fecal urgency through bladder retraining. LTG Duration 07/20/20 (05/30/20: MET GOAL as long as she drinks enough water) One Impairment Lacks self care HEP Short Term Goal (STG) Pt will be independent in a self care core/hip ROM & strengthening program (ROM hip IR L>R & R AB strengthening) and educated/discussion in proper PF care. STG Duration 05/12/20 (06/09/20: Progressing) [facility] Goal (LTG) Pt is educated in a self care HEP. LTG Duration 07/20/20 (06/09/20: Progressing) Assessment Summary Assessment Pt wanting help to decrease prolapse. Feels she doesn't have a problem with incontinence, only with feeling her prolapse; therefore will need to complete home program and progress strengthening with ex and biofeedback. Physical Therapy Plan Frequency and Duration Frequency of Treatment 1x/Week Plan of Care Start Date 04/21/20 Plan of Care End Date 07/20/20 Next Visit Focus/Plan Next Note Type Treatment Note Next Visit Plan Start with Discuss if further therapy needed beyond end of last appt scheduled (07/21/20) . EMG Biofeedback assessment. Add to HEP: ROM hip IR L>R; & R AB strengthening Review: LE roll in/out with deep breathing and PF contraction and progress as able.
--- NOTE | 2020-06-16 16:49 | PT.OTN ---
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 Hypothryroid. PT-OP-B Current Condition Start: 04/18/20 17:11 Freq: Status: Active Protocol: Document 04/21/20 09:56 LRN (Rec: 04/21/20 11:18 LRN [id number]) Current Condition History of Current Condition Onset Date 3 yrs ago Current Complaints Sudden feeling of something coming out. History of Current Condition Cystocele, rectocele and partial vaginal prolapse. Denies pain. Has occasional urinary and fecal leakage. With a sudden urgency, she feels like she has to urinate and defecate. Most of the time when she has to defecate she urinates. Feels her condition is mild, and sometimes she has an occasional problem with constipation, but she doesn't feel it is a problem. Changes light pad 1-2x/day (twice every 3-4 days). States she pushes her bladder back when she can feel it falling out. She notes drinking 2-3 glasses per day and 2 caffeinated glasses per day. She urinated 5x during the day and once after going to bed. Her triggers are running water and anxiety. Prior Treatments and Tests No follow up visits planned. Developmental History Developmental History Was taking a shower and felt something odd coming out of her PF. Has had 2 children with vaginal deliveries, 2nd delivery caused tearing and had fecal incontinence for 3 months post delivery. Treatment Goals Patient/Caregiver Goals Pt goal is to decrease the sense of urgency and decrease the frequency of urination, and decrease the number of leakage. Prior Functional Status Baseline Function- ADL's Independent Baseline Function- Mobility Independent Baseline Function- Other No urinary or fecal leakage. Current Functional Impairments (Reported) Functional Limitations- ADL's Withholds fluids for traveling . Keeps track of where bathrooms are while traveling. 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 PT-OP-C Subjective Start: 04/18/20 17:11 Freq: Status: Active Protocol: Document 06/16/20 08:18 LRN (Rec: 06/16/20 09:03 LRN [id number]) OP-PT Subjective Patient Comments Patient Comments Has questions regarding deep breathing. States she broke her Lev 1 TB because she was too strong. PT-OP-I Pelvic Floor Start: 04/18/20 17:11 Freq: Status: Active Protocol: Document 04/21/20 09:56 LRN (Rec: 04/21/20 11:18 LRN [id number]) Pelvic Floor Assessment Urine Pelvic Floor Surgery No Urinary Symptoms Urge Sensation,Prolapse, Hesitancy,Falling Out Feeling/ Heavy Leakage Size Small Leakage Cause Cough,Urge Leaks Per Day 1-2 Pads Used In 24 Hours 1-2 Urine Pad Type Panty Liner Bowel Bowel Surgery No Bowel Symptoms Fecal Leakage Pelvic Clock Pelvic Clock 12-3 Atrophy Pelvic Clock 3-6 Atrophy Pelvic Clock 6-9 Atrophy Pelvic Clock 9-12 Atrophy Prolapse Cystocele Grade 3 Rectocele Grade 2 Prolapse Comments Assessed in hooklie position Perineal Descent Resting Present Bearing Present Contraction Ability Voluntary Contraction Weak Manual Muscle Testing Left 2 Manual Muscle Testing Right 3 Manual Muscle Testing Anterior 0 Manual Muscle Testing Posterior 0 Muscle Endurance (Seconds) 2 Number of Quick Contractions In 10 5 Seconds Comments Pelvic Floor Comments PF externally has mildly increased redness. PF internally tissue health is decreased. PT-OP-J Posture/Palpation/Skin Start: 04/18/20 17:11 Freq: Status: Active Protocol: Document 04/21/20 09:56 LRN (Rec: 04/21/20 16:47 LRN [id number]) Posture Evaluation Eunice Postural Classification System Lumbar Protective Mechanism Left AP 0 Lumbar Protective Mechanism Right AP 0 Comments Posture Comments Pt has mild anterior tilt of pelvis, otherwise posture is normal. Palpation Assessment Location L lateral sacrum Palpation Location L lateral sacral border Palpation Findings Tenderness PT-OP-K Range of Motion Start: 04/18/20 17:11 Freq: Status: Active Protocol: Document 04/21/20 09:56 LRN (Rec: 04/21/20 11:18 LRN [id number]) Lumbar Spine Range of Motion Lumbar Spine Active Degrees Testing Position Standing Flexion 105 Extension 15 Lateral Flexion Left 10 Lateral Flexion Right 8 ROM Limitations Soft Tissue Tightness Hip Goniometric Range of Motion Hip Right Passive Hip ROM WFL No Abduction 30 Internal Rotation 30 External Rotation 60 Left Passive Hip ROM WFL Yes Testing Position Supine Abduction 20 Internal Rotation 20 External Rotation 60 PT-OP-M Strength Start: 04/18/20 17:11 Freq: Status: Active Protocol: Document 04/21/20 09:56 LRN (Rec: 04/21/20 11:18 LRN [id number]) Trunk Strength Trunk Manual Muscle Testing Core Stabilization Pt not able to maintain core stability with testing of hip flexors and rotators. Comments Pt does not engage Transverse Abdominus with cough or Bower, Bower sound. Hip Strength Hip Manual Muscle Testing Right Flexion (L2) 5 Normal Extension (S1) 5 Normal Abduction 4- Good- Adduction 3 Fair External Rotation 3 Fair Internal Rotation 5 Normal Left Flexion (L2) 5 Normal Extension (S1) 4+ Good+ Abduction 5 Normal Adduction 2- Poor- External Rotation 5 Normal Internal Rotation 5 Normal PT-OP-Q Treatments Start: 04/18/20 17:11 Freq: Status: Active Protocol: Document 06/16/20 08:18 LRN (Rec: 06/16/20 09:03 LRN [id number]) Therapeutic Exercises Supine Exercises PF contraction awareness Supine Exercise Name PF contraction/on wedge awareness training Reps/Minutes 7' Comments Pt able to identify a PF contraction in isolation of gluteal muscles Roll in/out on wedge Supine Exercise Name LE Roll in/out w/deep breathing on wedge, and w/ Kegel Reps/Minutes 8' Comments Pt able to identify PF contraction through roll in/ out (10-12 secs) Sidelying Exercises Reverse Clamshell Sidelying Exercise Name L>R, Reverse Clamshell Side bilateral Reps/Minutes 8' Comments Phys and training needed to perform correctly Clamshell Sidelying Exercise Name L>R, Clamshell Side bilateral Reps/Minutes 12' Comments Much training needed for core stab & to improve ER mobility Self-Care/Home Management Treatment Education Other Education Pt educated in pelvic floor anatomy as applied to exercises. Activities Self-Care/Home Management Activities Issued Lev2 TB for HEP. PT-OP-T Assessment and Plan Start: 04/18/20 17:11 Freq: Status: Active Protocol: Document 06/16/20 08:18 LRN (Rec: 06/16/20 09:03 LRN [id number]) Physical Therapy Assessment Goals Four Impairment Urinary leakage throughout the day. [facility] Goal (LTG) Decrease the number of times she has urinary leakage in a day (no more than once a day). LTG Duration 07/20/20 (05/30/20: MET GOAL) Three Impairment Increased frequency of urination (5x/day) [facility] Goal (LTG) Pt will be able to void with normal frequency of 5-7 times per day, while increasing her hydration levels of non- caffeinated drinks. (06/06/20: MET GOAL. Pt is voiding 5-7x/day) LTG Duration 05/19/20 (06/06/20: MET GOAL. ) Two Impairment Urgency and onset of urgency with triggers. Short Term Goal (STG) Pt will be able to maintain continence in the presence of triggers (running water, anxiety). STG Duration 05/12/20 (05/05/20: MET GOAL) [facility] Goal (LTG) Pt will be able to maintain continence in the presence of a strong urge and will be able to reduce onset of urinary or fecal urgency through bladder retraining. LTG Duration 07/20/20 (05/30/20: MET GOAL as long as she drinks enough water) One Impairment Lacks self care HEP Short Term Goal (STG) Pt will be independent in a self care core/hip ROM & strengthening program (ROM hip IR L>R & R AB strengthening) and educated/discussion in proper PF care. STG Duration 05/12/20 (06/09/20: Progressing) [facility] Goal (LTG) Pt is educated in a self care HEP. LTG Duration 07/20/20 (06/09/20: Progressing) Assessment Summary Assessment Pt feeling cystocele. Pt has scheduled more visits with last in Jul 22. Pt needed much traing for PF contraction in conjunction with hip ER/IR strengthening. Physical Therapy Plan Frequency and Duration Frequency of Treatment 1x/Week Plan of Care Start Date 04/21/20 Plan of Care End Date 07/20/20 Next Visit Focus/Plan Next Note Type Progress Note Next Visit Plan EMG Biofeedback assessment. Add to HEP: ROM hip IR L>R; & strengthening R AB. Progress: LE roll in/out with deep breathing and PF contraction.
--- NOTE | 2020-06-23 17:33 | PT.OTN ---
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 Hypothryroid. PT-OP-B Current Condition Start: 04/18/20 17:11 Freq: Status: Active Protocol: Document 04/21/20 09:56 LRN (Rec: 04/21/20 11:18 LRN [id number]) Current Condition History of Current Condition Onset Date 3 yrs ago Current Complaints Sudden feeling of something coming out. History of Current Condition Cystocele, rectocele and partial vaginal prolapse. Denies pain. Has occasional urinary and fecal leakage. With a sudden urgency, she feels like she has to urinate and defecate. Most of the time when she has to defecate she urinates. Feels her condition is mild, and sometimes she has an occasional problem with constipation, but she doesn't feel it is a problem. Changes light pad 1-2x/day (twice every 3-4 days). States she pushes her bladder back when she can feel it falling out. She notes drinking 2-3 glasses per day and 2 caffeinated glasses per day. She urinated 5x during the day and once after going to bed. Her triggers are running water and anxiety. Prior Treatments and Tests No follow up visits planned. Developmental History Developmental History Was taking a shower and felt something odd coming out of her PF. Has had 2 children with vaginal deliveries, 2nd delivery caused tearing and had fecal incontinence for 3 months post delivery. Treatment Goals Patient/Caregiver Goals Pt goal is to decrease the sense of urgency and decrease the frequency of urination, and decrease the number of leakage. Prior Functional Status Baseline Function- ADL's Independent Baseline Function- Mobility Independent Baseline Function- Other No urinary or fecal leakage. Current Functional Impairments (Reported) Functional Limitations- ADL's Withholds fluids for traveling . Keeps track of where bathrooms are while traveling. 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 PT-OP-C Subjective Start: 04/18/20 17:11 Freq: Status: Active Protocol: Document 06/23/20 08:25 LRN (Rec: 06/23/20 09:04 LRN [id number]) OP-PT Subjective Patient Comments Patient Comments States spouse fell 2 days ago and was hospitalized due to fracture. PT-OP-I Pelvic Floor Start: 04/18/20 17:11 Freq: Status: Active Protocol: Document 06/23/20 08:25 LRN (Rec: 06/23/20 17:15 LRN [id number]) Pelvic Floor Assessment Bowel Other Bowel Symptoms Occasional constipation Pelvic Clock Pelvic Clock 12-3 Tenderness Pelvic Clock 3-6 Tenderness Prolapse Cystocele Grade 3 Rectocele Grade 3 Prolapse Comments [facility] Stool present in rectum. Perineal Descent Resting Present Bearing Present Contraction Ability Manual Muscle Testing Left 2 Manual Muscle Testing Right 3 Manual Muscle Testing Anterior 0 Manual Muscle Testing Posterior 1 Muscle Endurance (Seconds) 3 Number of Quick Contractions In 10 6 Seconds Comments Pelvic Floor Comments External PF is mildly increased in redness. No visible Clitoral nod is present. Mild Anal [place] present. Stool was palpated in Rectum PT-OP-J Posture/Palpation/Skin Start: 04/18/20 17:11 Freq: Status: Active Protocol: Document 04/21/20 09:56 LRN (Rec: 04/21/20 16:47 LRN [id number]) Posture Evaluation Eunice Postural Classification System Lumbar Protective Mechanism Left AP 0 Lumbar Protective Mechanism Right AP 0 Comments Posture Comments Pt has mild anterior tilt of pelvis, otherwise posture is normal. Palpation Assessment Location L lateral sacrum Palpation Location L lateral sacral border Palpation Findings Tenderness PT-OP-K Range of Motion Start: 04/18/20 17:11 Freq: Status: Active Protocol: Document 04/21/20 09:56 LRN (Rec: 04/21/20 11:18 LRN [id number]) Lumbar Spine Range of Motion Lumbar Spine Active Degrees Testing Position Standing Flexion 105 Extension 15 Lateral Flexion Left 10 Lateral Flexion Right 8 ROM Limitations Soft Tissue Tightness Hip Goniometric Range of Motion Hip Right Passive Hip ROM WFL No Abduction 30 Internal Rotation 30 External Rotation 60 Left Passive Hip ROM WFL Yes Testing Position Supine Abduction 20 Internal Rotation 20 External Rotation 60 PT-OP-M Strength Start: 04/18/20 17:11 Freq: Status: Active Protocol: Document 04/21/20 09:56 LRN (Rec: 04/21/20 11:18 LRN [id number]) Trunk Strength Trunk Manual Muscle Testing Core Stabilization Pt not able to maintain core stability with testing of hip flexors and rotators. Comments Pt does not engage Transverse Abdominus with cough or Bower, Bower sound. Hip Strength Hip Manual Muscle Testing Right Flexion (L2) 5 Normal Extension (S1) 5 Normal Abduction 4- Good- Adduction 3 Fair External Rotation 3 Fair Internal Rotation 5 Normal Left Flexion (L2) 5 Normal Extension (S1) 4+ Good+ Abduction 5 Normal Adduction 2- Poor- External Rotation 5 Normal Internal Rotation 5 Normal PT-OP-Q Treatments Start: 04/18/20 17:11 Freq: Status: Active Protocol: Document 06/23/20 08:25 LRN (Rec: 06/23/20 09:04 LRN [id number]) Therapeutic Exercises Supine Exercises Kegel Long holds Supine Exercise Name Long hold Comments Pt able to hold 3 secs prior to progressive fatigue Kegel Quick contractions Supine Exercise Name Quick Contractions Comments Pt able to perform 6 contractions prior to full fatigue Sidelying Exercises Hip AB Sidelying Exercise Name Hip AB Side bilateral Reps/Minutes 10x each Comments Extra time taken for training of proper positioning for ex. Self-Care/Home Management Treatment Education Other Education Reviewed urgency delay technique and discussed use with trigger, urges. Discussed need to drink fluids to prevent concentration of urine. Awareness of urine concentration and of bowel function. And discussed food intakes for proper bowel function. Activities Self-Care/Home Management Activities Issued & reviewed HEP: Hip AB strengthening (R>L); L Hip IR Piriformis stretching. PT-OP-T Assessment and Plan Start: 04/18/20 17:11 Freq: Status: Active Protocol: Document 06/23/20 08:25 LRN (Rec: 06/23/20 09:04 LRN [id number]) Physical Therapy Assessment Rehab Potential Rehabilitation Potential Good Evaluation Complexity Number of Personal Factors/Comorbidities 1-2 Number of Body Systems Impaired 1-2 Clinical Presentation at Evaluation Evolving Impairments Impairments ROM,Strength Other Impairments Urinary and fecal occasional leakage. Increased frequency of urination. Goals Four Impairment Urinary leakage throughout the day. [facility] Goal (LTG) Decrease the number of times she has urinary leakage in a day (no more than once a day). (06/23/20: Periodic leakage). LTG Duration 07/20/20 (05/30/20: MET GOAL) Three Impairment Increased frequency of urination (5x/day) Continuous Mining Machine Operator Goal (LTG) Pt will be able to void with normal frequency of 5-7 times per day, while increasing her hydration levels of non- caffeinated drinks. (06/06/20: MET GOAL. Pt is voiding 5-7x/day) LTG Duration 05/19/20 (06/06/20: MET GOAL. ) Two Impairment Urgency and onset of urgency with triggers. Short Term Goal (STG) Pt will be able to maintain continence in the presence of triggers (running water, anxiety). STG Duration 05/12/20 (05/05/20: MET GOAL) [facility] Goal (LTG) Pt will be able to maintain continence in the presence of a strong urge and will be able to reduce onset of urinary or fecal urgency through bladder retraining. LTG Duration 08/21/20 (05/30/20: MET GOAL as long as she drinks enough water) One Impairment Lacks self care HEP Short Term Goal (STG) Pt will be independent in a self care core/hip ROM & strengthening program (ROM hip IR L>R & R AB strengthening) and educated/discussion in proper PF care. (06/23/20: Completed issuance of HEP). STG Duration 07/12/20 (06/23/20: Progressing, not independent) Continuous Mining Machine Operator Goal (LTG) Pt is educated in a self care HEP. LTG Duration 08/21/20 (06/23/20: Progressing) Assessment Summary Assessment Pt has improved in her PF endurance of the superficial and deep muscles with quick flicks of 6 (previously was 5) and long hold of 3 secs ( previously was 2 secs). She has decreased urinary leakage and frequency even with increased fluid intake. She is able to maintain continence with a strong urge using the delay technique. Although her symptoms have improved, the pt still demonstrates weakness of the PF and prolapse of bladder and bowel. Today her rectocele appears worse than her cystocele, possibly due stool present. The pt is trying to manage her constipation which is helpful in her decreasing rectocele. The pt is having increased stress from her family life but would like to continue physical therapy to further improve the strength of her pelvic floor. I feel this is appropriate and the next 4 weeks will include biofeedback strengthening. The pt has fairly good coordination of her PF muscle contraction, but has assymetry in her strength that would benefit from further strengthening. Physical Therapy Plan Frequency and Duration Frequency of Treatment 1x/Week Plan of Care Start Date 06/23/20 Plan of Care End Date 08/21/20 Therapeutic Interventions Therapeutic Interventions Home Exercise Program,Manual Therapy,Neuromuscular Re- education,Patient/Caregiver Education,Self-Care/Home Management,Soft Tissue Mobilization,Therapeutic Exercises Next Visit Focus/Plan Next Note Type Treatment Note Next Visit Plan EMG Biofeedback assessment ( strength/relaxation/ coordinated contraction) and strengthening for symmetry of contraction and to improve posterior/anterior PF strength , f/b PF stretching. Review HEP issued: ROM hip IR L>R; & strengthening R AB. Progress: LE roll in/out with deep breathing and PF contraction.
--- NOTE | 2020-06-23 17:34 | PT.OPPOC ---
Physical, Occupational & Speech Therapy At [facility] Current Diagnoses Other specified disorders of muscle (06/23/20) Incomplete uterovaginal prolapse (06/23/20) Visit Care Team Role Provider Type Kristyn Gutierres DO Family Provider Physician Primary Care Provider Specialty: Family Practice Address: [address] [place] [address], [id number] Email: [email or web address] Valorie Mills MD Attending Provider Physician Referring Provider Specialty: ENVIRONMENTAL GEOLOGIST Address: [address] [place] [address], [id number] Email: Plan Of Care PT-OP-T Assessment and Plan Start: 04/18/20 17:11 Freq: Status: Active Protocol: Document 06/23/20 08:25 LRN (Rec: 06/23/20 09:04 LRN [id number]) Physical Therapy Assessment Rehab Potential Rehabilitation Potential Good Evaluation Complexity Number of Personal Factors/Comorbidities 1-2 Number of Body Systems Impaired 1-2 Clinical Presentation at Evaluation Evolving Impairments Impairments ROM,Strength Other Impairments Urinary and fecal occasional leakage. Increased frequency of urination. Goals Four Impairment Urinary leakage throughout the day. Underwriter Solicitation Director Goal (LTG) Decrease the number of times she has urinary leakage in a day (no more than once a day). (06/23/20: Periodic leakage). LTG Duration 07/20/20 (05/30/20: MET GOAL) Three Impairment Increased frequency of urination (5x/day) [facility] Goal (LTG) Pt will be able to void with normal frequency of 5-7 times per day, while increasing her hydration levels of non- caffeinated drinks. (06/06/20: MET GOAL. Pt is voiding 5-7x/day) LTG Duration 05/19/20 (06/06/20: MET GOAL. ) Two Impairment Urgency and onset of urgency with triggers. Short Term Goal (STG) Pt will be able to maintain continence in the presence of triggers (running water, anxiety). STG Duration 05/12/20 (05/05/20: MET GOAL) [facility] Goal (LTG) Pt will be able to maintain continence in the presence of a strong urge and will be able to reduce onset of urinary or fecal urgency through bladder retraining. LTG Duration 08/21/20 (05/30/20: MET GOAL as long as she drinks enough water) One Impairment Lacks self care HEP Short Term Goal (STG) Pt will be independent in a self care core/hip ROM & strengthening program (ROM hip IR L>R & R AB strengthening) and educated/discussion in proper PF care. (06/23/20: Completed issuance of HEP). STG Duration 07/12/20 (06/23/20: Progressing, not independent) [facility] Goal (LTG) Pt is educated in a self care HEP. LTG Duration 08/21/20 (06/23/20: Progressing) Assessment Summary Assessment Pt has improved in her PF endurance of the superficial and deep muscles with quick flicks of 6 (previously was 5) and long hold of 3 secs ( previously was 2 secs). She has decreased urinary leakage and frequency even with increased fluid intake. She is able to maintain continence with a strong urge using the delay technique. Although her symptoms have improved, the pt still demonstrates weakness of the PF and prolapse of bladder and bowel. Today her rectocele appears worse than her cystocele, possibly due stool present. The pt is trying to manage her constipation which is helpful in her decreasing rectocele. The pt is having increased stress from her family life but would like to continue physical therapy to further improve the strength of her pelvic floor. I feel this is appropriate and the next 4 weeks will include biofeedback strengthening. The pt has fairly good coordination of her PF muscle contraction, but has assymetry in her strength that would benefit from further strengthening. Physical Therapy Plan Frequency and Duration Frequency of Treatment 1x/Week Plan of Care Start Date 06/23/20 Plan of Care End Date 08/21/20 Therapeutic Interventions Therapeutic Interventions Home Exercise Program,Manual Therapy,Neuromuscular Re- education,Patient/Caregiver Education,Self-Care/Home Management,Soft Tissue Mobilization,Therapeutic Exercises Next Visit Focus/Plan Next Note Type Treatment Note Next Visit Plan EMG Biofeedback assessment ( strength/relaxation/ coordinated contraction) and strengthening for symmetry of contraction and to improve posterior/anterior PF strength , f/b PF stretching. Review HEP issued: ROM hip IR L>R; & strengthening R AB. Progress: LE roll in/out with deep breathing and PF contraction. Plan of Care Dates Plan of Care Start Date 06/23/20 Plan of Care End Date 08/21/20 Electronically Signed by: Christina Donohue, PT 06/24/20 [id number] Please Sign and Return: I have reviewed this Plan of Care and certify that the skilled therapy services above are required to meet the patient?s needs. Physician Signature Date Printed Name and Credentials Clinical Instructor Signature Printed Name and Credentials
--- NOTE | 2020-07-21 16:32 | PT.OTN ---
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 Hypothryroid. PT-OP-B Current Condition Start: 04/18/20 17:11 Freq: Status: Active Protocol: Document 04/21/20 09:56 LRN (Rec: 04/21/20 11:18 LRN [id number]) Current Condition History of Current Condition Onset Date 3 yrs ago Current Complaints Sudden feeling of something coming out. History of Current Condition Cystocele, rectocele and partial vaginal prolapse. Denies pain. Has occasional urinary and fecal leakage. With a sudden urgency, she feels like she has to urinate and defecate. Most of the time when she has to defecate she urinates. Feels her condition is mild, and sometimes she has an occasional problem with constipation, but she doesn't feel it is a problem. Changes light pad 1-2x/day (twice every 3-4 days). States she pushes her bladder back when she can feel it falling out. She notes drinking 2-3 glasses per day and 2 caffeinated glasses per day. She urinated 5x during the day and once after going to bed. Her triggers are running water and anxiety. Prior Treatments and Tests No follow up visits planned. Developmental History Developmental History Was taking a shower and felt something odd coming out of her PF. Has had 2 children with vaginal deliveries, 2nd delivery caused tearing and had fecal incontinence for 3 months post delivery. Treatment Goals Patient/Caregiver Goals Pt goal is to decrease the sense of urgency and decrease the frequency of urination, and decrease the number of leakage. Prior Functional Status Baseline Function- ADL's Independent Baseline Function- Mobility Independent Baseline Function- Other No urinary or fecal leakage. Current Functional Impairments (Reported) Functional Limitations- ADL's Withholds fluids for traveling . Keeps track of where bathrooms are while traveling. 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 PT-OP-C Subjective Start: 04/18/20 17:11 Freq: Status: Active Protocol: Document 07/21/20 10:36 LRN (Rec: 07/21/20 11:22 LRN [id number]) OP-PT Subjective Patient Comments Patient Comments States she is okay. No changes. Sporadically able to do exercises due to spouse injury. States spouse is doing well. PT-OP-I Pelvic Floor Start: 04/18/20 17:11 Freq: Status: Active Protocol: Document 07/21/20 10:36 LRN (Rec: 07/21/20 11:22 LRN [id number]) Pelvic Floor Assessment SEMG (uV) Baseline 0.7 Quick Contraction 13.5 10 Second Contraction 7.2 Comments Pelvic Floor Comments Quick Flicks: (10 reps) Avg rest is 3.0 uVs. (20 reps): Avg Work is 13. 4 uV's, Avg rest is 2.8 uV's. LONG HOLDS: (10 reps) Avg rest is 2.2 uVs. (20 reps): Avg Work is 6.5 uV's, Avg rest is 1.7 uV's PT-OP-J Posture/Palpation/Skin Start: 04/18/20 17:11 Freq: Status: Active Protocol: Document 04/21/20 09:56 LRN (Rec: 04/21/20 16:47 LRN [id number]) Posture Evaluation Eunice Postural Classification System Lumbar Protective Mechanism Left AP 0 Lumbar Protective Mechanism Right AP 0 Comments Posture Comments Pt has mild anterior tilt of pelvis, otherwise posture is normal. Palpation Assessment Location L lateral sacrum Palpation Location L lateral sacral border Palpation Findings Tenderness PT-OP-K Range of Motion Start: 04/18/20 17:11 Freq: Status: Active Protocol: Document 04/21/20 09:56 LRN (Rec: 04/21/20 11:18 LRN [id number]) Lumbar Spine Range of Motion Lumbar Spine Active Degrees Testing Position Standing Flexion 105 Extension 15 Lateral Flexion Left 10 Lateral Flexion Right 8 ROM Limitations Soft Tissue Tightness Hip Goniometric Range of Motion Hip Right Passive Hip ROM WFL No Abduction 30 Internal Rotation 30 External Rotation 60 Left Passive Hip ROM WFL Yes Testing Position Supine Abduction 20 Internal Rotation 20 External Rotation 60 PT-OP-M Strength Start: 04/18/20 17:11 Freq: Status: Active Protocol: Document 04/21/20 09:56 LRN (Rec: 04/21/20 11:18 LRN [id number]) Trunk Strength Trunk Manual Muscle Testing Core Stabilization Pt not able to maintain core stability with testing of hip flexors and rotators. Comments Pt does not engage Transverse Abdominus with cough or Bower, Bower sound. Hip Strength Hip Manual Muscle Testing Right Flexion (L2) 5 Normal Extension (S1) 5 Normal Abduction 4- Good- Adduction 3 Fair External Rotation 3 Fair Internal Rotation 5 Normal Left Flexion (L2) 5 Normal Extension (S1) 4+ Good+ Abduction 5 Normal Adduction 2- Poor- External Rotation 5 Normal Internal Rotation 5 Normal PT-OP-Q Treatments Start: 04/18/20 17:11 Freq: Status: Active Protocol: Document 07/21/20 10:36 LRN (Rec: 07/21/20 11:22 LRN [id number]) Therapeutic Exercises Supine Exercises PF baseline Supine Exercise Name Resting tone taken Comments 0.7 mVs PF contraction awareness Supine Exercise Name PF contraction awareness training with biofeedback Reps/Minutes 6' Comments Awareness training for isolation from substitute muscles. Kegel Long holds Supine Exercise Name Long hold with and without Biofeedback Reps/Minutes 18' Comments Pt able to hold 3 secs prior to progressive fatigue. Kegel Quick contractions Supine Exercise Name Quick Contractions, with & w/o Biofeedback Reps/Minutes 15' Comments Pt able to perform 6 contractions prior to full fatigue Self-Care/Home Management Treatment Education Patient Education Home Exercise Program Activities Self-Care/Home Management Activities I/S pt to work on isolating PF contractions from substitute muscles and to work on breathing to prevent breath holding during long hold contractions. PT-OP-T Assessment and Plan Start: 04/18/20 17:11 Freq: Status: Active Protocol: Document 07/21/20 10:36 LRN (Rec: 07/21/20 11:22 LRN [id number]) Physical Therapy Assessment Goals Four Impairment Urinary leakage throughout the day. Php Consultant Goal (LTG) Decrease the number of times she has urinary leakage in a day (no more than once a day). (06/23/20: Periodic leakage). LTG Duration 07/20/20 (05/30/20: MET GOAL) Three Impairment Increased frequency of urination (5x/day) [facility] Goal (LTG) Pt will be able to void with normal frequency of 5-7 times per day, while increasing her hydration levels of non- caffeinated drinks. (06/06/20: MET GOAL. Pt is voiding 5-7x/day) LTG Duration 05/19/20 (06/06/20: MET GOAL. ) Two Impairment Urgency and onset of urgency with triggers. Short Term Goal (STG) Pt will be able to maintain continence in the presence of triggers (running water, anxiety). STG Duration 05/12/20 (05/05/20: MET GOAL) Php Consultant Goal (LTG) Pt will be able to maintain continence in the presence of a strong urge and will be able to reduce onset of urinary or fecal urgency through bladder retraining. LTG Duration 08/21/20 (05/30/20: MET GOAL as long as she drinks enough water) One Impairment Lacks self care HEP Short Term Goal (STG) Pt will be independent in a self care core/hip ROM & strengthening program (ROM hip IR L>R & R AB strengthening) and educated/discussion in proper PF care. (06/23/20: Completed issuance of HEP). STG Duration 07/12/20 (06/23/20: Progressing, not independent) Php Consultant Goal (LTG) Pt is educated in a self care HEP. LTG Duration 08/21/20 (06/23/20: Progressing) Assessment Summary Assessment Pt uses her hip AD's, Gluteals and breath holding to obtain and hold a PF contraction. Pt is not able to isolate her PF from the substitute muscles and is very uncoordinated with her breathing. Quick Flicks show good strength. Long Holds shows poor endurance and poor coordination with variability of strength throughout the holding time. Pt needs much more training on coordination of her PF contraction and endurance strengthening. Physical Therapy Plan Frequency and Duration Frequency of Treatment 1x/Week Plan of Care Start Date 06/23/20 Plan of Care End Date 08/21/20 Next Visit Focus/Plan Next Note Type Treatment Note Next Visit Plan EMG Biofeedback training ( strength/relaxation/ coordinated contraction) and strengthening for isolation, coordination, & symmetry of contraction (preventing pushing out of electrode) without breath holding, and to improve posterior/anterior PF strength, f/b PF stretching. Review HEP issued: ROM hip IR L>R; & strengthening R AB. Progress: LE roll in/out with deep breathing and PF contraction.
--- NOTE | 2020-08-01 12:36 | PT.OTN ---
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 Hypothryroid. PT-OP-B Current Condition Start: 04/18/20 17:11 Freq: Status: Active Protocol: Document 04/21/20 09:56 LRN (Rec: 04/21/20 11:18 LRN [id number]) Current Condition History of Current Condition Onset Date 3 yrs ago Current Complaints Sudden feeling of something coming out. History of Current Condition Cystocele, rectocele and partial vaginal prolapse. Denies pain. Has occasional urinary and fecal leakage. With a sudden urgency, she feels like she has to urinate and defecate. Most of the time when she has to defecate she urinates. Feels her condition is mild, and sometimes she has an occasional problem with constipation, but she doesn't feel it is a problem. Changes light pad 1-2x/day (twice every 3-4 days). States she pushes her bladder back when she can feel it falling out. She notes drinking 2-3 glasses per day and 2 caffeinated glasses per day. She urinated 5x during the day and once after going to bed. Her triggers are running water and anxiety. Prior Treatments and Tests No follow up visits planned. Developmental History Developmental History Was taking a shower and felt something odd coming out of her PF. Has had 2 children with vaginal deliveries, 2nd delivery caused tearing and had fecal incontinence for 3 months post delivery. Treatment Goals Patient/Caregiver Goals Pt goal is to decrease the sense of urgency and decrease the frequency of urination, and decrease the number of leakage. Prior Functional Status Baseline Function- ADL's Independent Baseline Function- Mobility Independent Baseline Function- Other No urinary or fecal leakage. Current Functional Impairments (Reported) Functional Limitations- ADL's Withholds fluids for traveling . Keeps track of where bathrooms are while traveling. 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 PT-OP-C Subjective Start: 04/18/20 17:11 Freq: Status: Active Protocol: Document 08/01/20 11:17 LRN (Rec: 08/01/20 11:14 LRN [id number]) OP-PT Subjective Patient Comments Patient Comments Pt discouraged that she can't feel much of a contraction of PF. States she doesn't seem to get a major contraction. States she has been having tiny leaks 1x/day (today leaked a tiny drop when bending over), and today she felt her bladder hanging out in the shower. Pt admits she is doing exercises somewhat regularly because things keep coming up due to health problems of spouse next Fri will see if he can get out of the wheelchair. States she no longer has problems with urgency when hearing running water anymore. PT-OP-I Pelvic Floor Start: 04/18/20 17:11 Freq: Status: Active Protocol: Document 07/21/20 10:36 LRN (Rec: 07/21/20 11:22 LRN [id number]) Pelvic Floor Assessment SEMG (uV) Baseline 0.7 Quick Contraction 13.5 10 Second Contraction 7.2 Comments Pelvic Floor Comments Quick Flicks: (10 reps) Avg rest is 3.0 uVs. (20 reps): Avg Work is 13. 4 uV's, Avg rest is 2.8 uV's. LONG HOLDS: (10 reps) Avg rest is 2.2 uVs. (20 reps): Avg Work is 6.5 uV's, Avg rest is 1.7 uV's PT-OP-J Posture/Palpation/Skin Start: 04/18/20 17:11 Freq: Status: Active Protocol: Document 04/21/20 09:56 LRN (Rec: 04/21/20 16:47 LRN [id number]) Posture Evaluation Eunice Postural Classification System Lumbar Protective Mechanism Left AP 0 Lumbar Protective Mechanism Right AP 0 Comments Posture Comments Pt has mild anterior tilt of pelvis, otherwise posture is normal. Palpation Assessment Location L lateral sacrum Palpation Location L lateral sacral border Palpation Findings Tenderness PT-OP-K Range of Motion Start: 04/18/20 17:11 Freq: Status: Active Protocol: Document 04/21/20 09:56 LRN (Rec: 04/21/20 11:18 LRN [id number]) Lumbar Spine Range of Motion Lumbar Spine Active Degrees Testing Position Standing Flexion 105 Extension 15 Lateral Flexion Left 10 Lateral Flexion Right 8 ROM Limitations Soft Tissue Tightness Hip Goniometric Range of Motion Hip Right Passive Hip ROM WFL No Abduction 30 Internal Rotation 30 External Rotation 60 Left Passive Hip ROM WFL Yes Testing Position Supine Abduction 20 Internal Rotation 20 External Rotation 60 PT-OP-M Strength Start: 04/18/20 17:11 Freq: Status: Active Protocol: Document 04/21/20 09:56 LRN (Rec: 04/21/20 11:18 LRN [id number]) Trunk Strength Trunk Manual Muscle Testing Core Stabilization Pt not able to maintain core stability with testing of hip flexors and rotators. Comments Pt does not engage Transverse Abdominus with cough or Bower, Bower sound. Hip Strength Hip Manual Muscle Testing Right Flexion (L2) 5 Normal Extension (S1) 5 Normal Abduction 4- Good- Adduction 3 Fair External Rotation 3 Fair Internal Rotation 5 Normal Left Flexion (L2) 5 Normal Extension (S1) 4+ Good+ Abduction 5 Normal Adduction 2- Poor- External Rotation 5 Normal Internal Rotation 5 Normal PT-OP-Q Treatments Start: 04/18/20 17:11 Freq: Status: Active Protocol: Document 08/01/20 11:17 LRN (Rec: 08/01/20 12:14 LRN [id number]) Therapeutic Exercises Supine Exercises LE roll in/out/PF contract/Deep Breath Supine Exercise Name On Pillow: LE roll in/out w/ PF contraction & Deep breathing training Reps/Minutes 8' Comments Pt required restarting many times to coordinate ex w/PF & D Breathing. L Lateral Hip stretch Supine Exercise Name Lateral Hip stretch Side left Reps/Minutes 2' L Piriformis Supine Exercise Name L Piriformis Side left Reps/Minutes 2' Comments Defer R due to PAGE. Sidelying Exercises Hip AB Sidelying Exercise Name Hip AB Side bilateral Reps/Minutes 8' Comments Much phys cuing needed to start, some throughout ex Reverse Clamshell Sidelying Exercise Name PF Quick Flicks & Long Holds with IR. Side bilateral Reps/Minutes 8' Comments Pt needed much v cuing, help counting, restart when loss of 10 sec hold Clamshell Sidelying Exercise Name Clamshell Side bilateral Reps/Minutes 8' Comments phys & v cuing needed to maintain core stability with hip rot & PF hold Self-Care/Home Management Treatment Education Other Education Discussed options of care for prolapse and pt should discuss with provider with possible referral to group supervisor yard for Pessary if that is what she would rather do. Pt wanting to do more PT at this time. PT-OP-T Assessment and Plan Start: 04/18/20 17:11 Freq: Status: Active Protocol: Document 08/01/20 11:17 LRN (Rec: 08/01/20 11:14 LRN [id number]) Physical Therapy Assessment Goals Four Impairment Urinary leakage throughout the day. Alf Goal (LTG) Decrease the number of times she has urinary leakage in a day (no more than once a day). (06/23/20: Periodic leakage). LTG Duration 07/20/20 (05/30/20: MET GOAL) Three Impairment Increased frequency of urination (5x/day) Alf Goal (LTG) Pt will be able to void with normal frequency of 5-7 times per day, while increasing her hydration levels of non- caffeinated drinks. (06/06/20: MET GOAL. Pt is voiding 5-7x/day) LTG Duration 05/19/20 (06/06/20: MET GOAL. ) Two Impairment Urgency and onset of urgency with triggers. Short Term Goal (STG) Pt will be able to maintain continence in the presence of triggers (running water, anxiety). STG Duration 05/12/20 (05/05/20: MET GOAL) Cath Lab Technologist Goal (LTG) Pt will be able to maintain continence in the presence of a strong urge and will be able to reduce onset of urinary or fecal urgency through bladder retraining. LTG Duration 08/21/20 (05/30/20: MET GOAL as long as she drinks enough water) One Impairment Lacks self care HEP Short Term Goal (STG) Pt will be independent in a self care core/hip ROM & strengthening program (ROM hip IR L>R & R AB strengthening) and educated/discussion in proper PF care. (06/23/20: Completed issuance of HEP). STG Duration 07/12/20 (06/23/20: Progressing, not independent) Cath Lab Technologist Goal (LTG) Pt is educated in a self care HEP. LTG Duration 08/21/20 (06/23/20: Progressing) Assessment Summary Assessment Pt is discouraged over her not feeling a greater contraction of her PF. Today she did not want to use the EMG electrode to assess progress in PF strength; therefore worked on improving awareness of performing her HEP properly and progressing her LE roll in /out program. The pt requires extra time will all activities because the pt frequently likes to start over with the exercise. She requires more time to be accurate and specific with the exercise to be satisfied with what she is doing. The pt is improving in her ability coordinate a PF contraction with breathing and movements of her hips. Further assessment is needed to determine improvement in PF strength to recommend continuation of therapy. Physical Therapy Plan Frequency and Duration Frequency of Treatment 1x/Week Plan of Care Start Date 06/23/20 Plan of Care End Date 08/21/20 Next Visit Focus/Plan Next Note Type Progress Note Next Visit Plan New POC needed. Discuss pt return to MD for discussion of options of care (pessary). Reassess PF strength with EMG Biofeedback training (strength /relaxation/coordinated contraction) and strengthening for isolation, coordination, & symmetry of contraction ( preventing pushing out of electrode) without breath holding, and to improve posterior/anterior PF strength , f/b PF stretching. Review HEP issued: ROM hip IR L>R; & strengthening R AB. Progress: LE roll in/out with deep breathing and PF contraction.
--- NOTE | 2020-08-04 14:30 | PT.OPPOC ---
Physical, Occupational & Speech Therapy At [facility] Current Diagnoses Other specified disorders of muscle (08/04/20) Incomplete uterovaginal prolapse (08/04/20) Visit Care Team Role Provider Type Kristyn Gutierres DO Family Provider Physician Primary Care Provider Specialty: Family Practice Address: [address] [place] [address], [id number] Email: [email or web address] Valorie Mills MD Attending Provider Physician Referring Provider Specialty: LAW EXAMINER Address: [address] [place] [address], [id number] Email: Plan Of Care PT-OP-T Assessment and Plan Start: 04/18/20 17:11 Freq: Status: Active Protocol: Document 08/04/20 10:25 LRN (Rec: 08/04/20 12:30 LRN [id number]) Physical Therapy Assessment Rehab Potential Rehabilitation Potential Good Evaluation Complexity Number of Personal Factors/Comorbidities 1-2 Number of Body Systems Impaired 1-2 Clinical Presentation at Evaluation Evolving Impairments Impairments ROM,Strength Other Impairments Urinary and fecal occasional leakage. Increased frequency of urination. Goals Four Impairment Urinary leakage throughout the day. Guest Request Runner Goal (LTG) Decrease the number of times she has urinary leakage in a day (no more than once a day). (06/23/20: Periodic leakage). LTG Duration 07/20/20 (05/30/20: MET GOAL) Three Impairment Increased frequency of urination (5x/day) Long-Term Goal (LTG) Pt will be able to void with normal frequency of 5-7 times per day, while increasing her hydration levels of non- caffeinated drinks. (06/06/20: MET GOAL. Pt is voiding 5-7x/day) LTG Duration 05/19/20 (06/06/20: MET GOAL. ) Two Impairment Urgency and onset of urgency with triggers. Short Term Goal (STG) Pt will be able to maintain continence in the presence of triggers (running water, anxiety). STG Duration 05/12/20 (05/05/20: MET GOAL) Long-Term Goal (LTG) Pt will be able to maintain continence in the presence of a strong urge and will be able to reduce onset of urinary or fecal urgency through bladder retraining. LTG Duration 08/21/20 (05/30/20: MET GOAL as long as she drinks enough water) One Impairment Lacks self care HEP Short Term Goal (STG) Pt will be independent in a self care core/hip ROM & strengthening program (ROM hip IR L>R & R AB strengthening) and educated/discussion in proper PF care. (06/23/20: Completed issuance of HEP). STG Duration 07/12/20 (06/23/20: Progressing, not independent) Long-Term Goal (LTG) Pt is educated in a self care HEP. LTG Duration 08/21/20 (06/23/20: Progressing) Progress Towards Goals Progress Comments Pt progress has become slow when her spouse became more dependent on her care at home. She has improved overall in her PF contractability with quick contractions. Assessment Summary Assessment Anterior PF lifts bladder with PF contraction. Rectum appears more prolapsed than bladder. Her PF lateral wall strength is improved but her posterior wall is weak with her superficial muscles. She is very weak in endurance with endurance hold of 2-3 secs. She substitutes with her hip AD's and TA, but is able to isolate from her gluteal muscles. Pt would benefit from therapy to focus on anterior and posterior PF endurance and quick flick strengthening. Her resting tone is good. The pt is slow to follow directions at times and is inconsistent with therapy due to her spouse's health concerns. Physical Therapy Plan Frequency and Duration Frequency of Treatment 1x/Week Plan of Care Start Date 08/04/20 Plan of Care End Date 11/02/20 Therapeutic Interventions Therapeutic Interventions Home Exercise Program,Manual Therapy,Neuromuscular Re- education,Patient/Caregiver Education,Self-Care/Home Management,Soft Tissue Mobilization,Therapeutic Exercises Next Visit Focus/Plan Next Note Type Treatment Note Next Visit Plan Continue EMG Biofeedback training (endurance strengthing & coordinated contraction so towel won't be needed to hold electrode in place) and strengthening for isolation of hip AD's, coordination, & symmetry without breath holding, and to improve posterior/anterior PF strength, f/b PF stretching. Review HEP issued: ROM hip IR L>R; & strengthening R AB. Progress: LE roll in/out with deep breathing and PF contraction. Plan of Care Dates Plan of Care Start Date 08/04/20 Plan of Care End Date 11/02/20 Electronically Signed by: Christina Donohue, PT 08/05/20 [id number] Please Sign and Return: I have reviewed this Plan of Care and certify that the skilled therapy services above are required to meet the patient?s needs. Physician Signature Date Printed Name and Credentials Clinical Instructor Signature Printed Name and Credentials
--- NOTE | 2020-08-04 14:30 | PT.OPPN ---
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 Hypothryroid. PT-OP-B Current Condition Start: 04/18/20 17:11 Freq: Status: Active Protocol: Document 04/21/20 09:56 LRN (Rec: 04/21/20 11:18 LRN [id number]) Current Condition History of Current Condition Onset Date 3 yrs ago Current Complaints Sudden feeling of something coming out. History of Current Condition Cystocele, rectocele and partial vaginal prolapse. Denies pain. Has occasional urinary and fecal leakage. With a sudden urgency, she feels like she has to urinate and defecate. Most of the time when she has to defecate she urinates. Feels her condition is mild, and sometimes she has an occasional problem with constipation, but she doesn't feel it is a problem. Changes light pad 1-2x/day (twice every 3-4 days). States she pushes her bladder back when she can feel it falling out. She notes drinking 2-3 glasses per day and 2 caffeinated glasses per day. She urinated 5x during the day and once after going to bed. Her triggers are running water and anxiety. Prior Treatments and Tests No follow up visits planned. Developmental History Developmental History Was taking a shower and felt something odd coming out of her PF. Has had 2 children with vaginal deliveries, 2nd delivery caused tearing and had fecal incontinence for 3 months post delivery. Treatment Goals Patient/Caregiver Goals Pt goal is to decrease the sense of urgency and decrease the frequency of urination, and decrease the number of leakage. Prior Functional Status Baseline Function- ADL's Independent Baseline Function- Mobility Independent Baseline Function- Other No urinary or fecal leakage. Current Functional Impairments (Reported) Functional Limitations- ADL's Withholds fluids for traveling . Keeps track of where bathrooms are while traveling. 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 PT-OP-C Subjective Start: 04/18/20 17:11 Freq: Status: Active Protocol: Document 08/04/20 10:25 LRN (Rec: 08/04/20 12:30 LRN [id number]) OP-PT Subjective Patient Comments Patient Comments Bowels are working well. States she would rather do exercises than do a pessary. Patient Reported Progress Improving PT-OP-I Pelvic Floor Start: 04/18/20 17:11 Freq: Status: Active Protocol: Document 08/04/20 10:25 LRN (Rec: 08/04/20 12:30 LRN [id number]) Pelvic Floor Assessment SEMG (uV) Baseline 0.4 Quick Contraction 11.2 10 Second Contraction 9.4 Recruitment Pattern Good Relaxation Good Holding Fair Stability of Hold Poor/Slow SEMG Stability of Rest Good Contraction Ability Manual Muscle Testing Left 3 Manual Muscle Testing Right 3 Manual Muscle Testing Posterior 2 Muscle Endurance (Seconds) 2 Number of Quick Contractions In 10 9 Seconds Comments Pelvic Floor Comments Set Up: Bolster under legs. Towel roll support to keep electrode in place. Anterior PF lifts bladder with PF contraction. Rctum is bulging. Quick Flicks: (10 reps) Avg rest is 3.0 uVs. (20 reps): Avg Work is 11 uV's, Avg rest is 2.9 uV's. LONG HOLDS: (10 reps) Avg rest is uVs. (20 reps): Avg Work is ... uV 's, Avg rest is ... uV's PT-OP-J Posture/Palpation/Skin Start: 04/18/20 17:11 Freq: Status: Active Protocol: Document 04/21/20 09:56 LRN (Rec: 04/21/20 16:47 LRN [id number]) Posture Evaluation Eunice Postural Classification System Lumbar Protective Mechanism Left AP 0 Lumbar Protective Mechanism Right AP 0 Comments Posture Comments Pt has mild anterior tilt of pelvis, otherwise posture is normal. Palpation Assessment Location L lateral sacrum Palpation Location L lateral sacral border Palpation Findings Tenderness PT-OP-K Range of Motion Start: 04/18/20 17:11 Freq: Status: Active Protocol: Document 04/21/20 09:56 LRN (Rec: 04/21/20 11:18 LRN [id number]) Lumbar Spine Range of Motion Lumbar Spine Active Degrees Testing Position Standing Flexion 105 Extension 15 Lateral Flexion Left 10 Lateral Flexion Right 8 ROM Limitations Soft Tissue Tightness Hip Goniometric Range of Motion Hip Measured in Degrees Right Passive Hip ROM WFL No Abduction 30 Internal Rotation 30 External Rotation 60 Left Passive Hip ROM WFL Yes Testing Position Supine Abduction 20 Internal Rotation 20 External Rotation 60 PT-OP-M Strength Start: 04/18/20 17:11 Freq: Status: Active Protocol: Document 04/21/20 09:56 LRN (Rec: 04/21/20 11:18 LRN [id number]) Trunk Strength Trunk Manual Muscle Testing Core Stabilization Pt not able to maintain core stability with testing of hip flexors and rotators. Comments Pt does not engage Transverse Abdominus with cough or Bower, Bower sound. Hip Strength Hip Manual Muscle Testing Right Flexion (L2) 5 Normal Extension (S1) 5 Normal Abduction 4- Good- Adduction 3 Fair External Rotation 3 Fair Internal Rotation 5 Normal Left Flexion (L2) 5 Normal Extension (S1) 4+ Good+ Abduction 5 Normal Adduction 2- Poor- External Rotation 5 Normal Internal Rotation 5 Normal PT-OP-T Assessment and Plan Start: 04/18/20 17:11 Freq: Status: Active Protocol: Document 08/04/20 10:25 LRN (Rec: 08/04/20 12:30 LRN [id number]) Physical Therapy Assessment Rehab Potential Rehabilitation Potential Good Evaluation Complexity Number of Personal Factors/Comorbidities 1-2 Number of Body Systems Impaired 1-2 Clinical Presentation at Evaluation Evolving Impairments Impairments ROM,Strength Other Impairments Urinary and fecal occasional leakage. Increased frequency of urination. Goals Four Impairment Urinary leakage throughout the day. Oven Heater Goal (LTG) Decrease the number of times she has urinary leakage in a day (no more than once a day). (06/23/20: Periodic leakage). LTG Duration 07/20/20 (05/30/20: MET GOAL) Three Impairment Increased frequency of urination (5x/day) Correction Goal (LTG) Pt will be able to void with normal frequency of 5-7 times per day, while increasing her hydration levels of non- caffeinated drinks. (06/06/20: MET GOAL. Pt is voiding 5-7x/day) LTG Duration 05/19/20 (06/06/20: MET GOAL. ) Two Impairment Urgency and onset of urgency with triggers. Short Term Goal (STG) Pt will be able to maintain continence in the presence of triggers (running water, anxiety). STG Duration 05/12/20 (05/05/20: MET GOAL) Oven Heater Goal (LTG) Pt will be able to maintain continence in the presence of a strong urge and will be able to reduce onset of urinary or fecal urgency through bladder retraining. LTG Duration 08/21/20 (05/30/20: MET GOAL as long as she drinks enough water) One Impairment Lacks self care HEP Short Term Goal (STG) Pt will be independent in a self care core/hip ROM & strengthening program (ROM hip IR L>R & R AB strengthening) and educated/discussion in proper PF care. (06/23/20: Completed issuance of HEP). STG Duration 07/12/20 (06/23/20: Progressing, not independent) Correction Goal (LTG) Pt is educated in a self care HEP. LTG Duration 08/21/20 (06/23/20: Progressing) Progress Towards Goals Progress Comments Pt progress has become slow when her spouse became more dependent on her care at home. She has improved overall in her PF contractability with quick contractions. Assessment Summary Assessment Anterior PF lifts bladder with PF contraction. Rectum appears more prolapsed than bladder. Her PF lateral wall strength is improved but her posterior wall is weak with her superficial muscles. She is very weak in endurance with endurance hold of 2-3 secs. She substitutes with her hip AD's and TA, but is able to isolate from her gluteal muscles. Pt would benefit from therapy to focus on anterior and posterior PF endurance and quick flick strengthening. Her resting tone is good. The pt is slow to follow directions at times and is inconsistent with therapy due to her spouse's health concerns. Physical Therapy Plan Frequency and Duration Frequency of Treatment 1x/Week Plan of Care Start Date 08/04/20 Plan of Care End Date 11/02/20 Therapeutic Interventions Therapeutic Interventions Home Exercise Program,Manual Therapy,Neuromuscular Re- education,Patient/Caregiver Education,Self-Care/Home Management,Soft Tissue Mobilization,Therapeutic Exercises Next Visit Focus/Plan Next Note Type Treatment Note Next Visit Plan Continue EMG Biofeedback training (endurance strengthing & coordinated contraction so towel won't be needed to hold electrode in place) and strengthening for isolation of hip AD's, coordination, & symmetry without breath holding, and to improve posterior/anterior PF strength, f/b PF stretching. Review HEP issued: ROM hip IR L>R; & strengthening R AB. Progress: LE roll in/out with deep breathing and PF contraction.
--- NOTE | 2020-08-04 15:30 | PT.OTN ---
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 Hypothryroid. PT-OP-B Current Condition Start: 04/18/20 17:11 Freq: Status: Active Protocol: Document 04/21/20 09:56 LRN (Rec: 04/21/20 11:18 LRN [id number]) Current Condition History of Current Condition Onset Date 3 yrs ago Current Complaints Sudden feeling of something coming out. History of Current Condition Cystocele, rectocele and partial vaginal prolapse. Denies pain. Has occasional urinary and fecal leakage. With a sudden urgency, she feels like she has to urinate and defecate. Most of the time when she has to defecate she urinates. Feels her condition is mild, and sometimes she has an occasional problem with constipation, but she doesn't feel it is a problem. Changes light pad 1-2x/day (twice every 3-4 days). States she pushes her bladder back when she can feel it falling out. She notes drinking 2-3 glasses per day and 2 caffeinated glasses per day. She urinated 5x during the day and once after going to bed. Her triggers are running water and anxiety. Prior Treatments and Tests No follow up visits planned. Developmental History Developmental History Was taking a shower and felt something odd coming out of her PF. Has had 2 children with vaginal deliveries, 2nd delivery caused tearing and had fecal incontinence for 3 months post delivery. Treatment Goals Patient/Caregiver Goals Pt goal is to decrease the sense of urgency and decrease the frequency of urination, and decrease the number of leakage. Prior Functional Status Baseline Function- ADL's Independent Baseline Function- Mobility Independent Baseline Function- Other No urinary or fecal leakage. Current Functional Impairments (Reported) Functional Limitations- ADL's Withholds fluids for traveling . Keeps track of where bathrooms are while traveling. 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 PT-OP-C Subjective Start: 04/18/20 17:11 Freq: Status: Active Protocol: Document 08/04/20 10:25 LRN (Rec: 08/04/20 12:30 LRN [id number]) OP-PT Subjective Patient Comments Patient Comments Bowels are working well. States she would rather do exercises than do a pessary. Patient Reported Progress Improving PT-OP-I Pelvic Floor Start: 04/18/20 17:11 Freq: Status: Active Protocol: Document 08/04/20 10:25 LRN (Rec: 08/04/20 12:30 LRN [id number]) Pelvic Floor Assessment SEMG (uV) Baseline 0.4 Quick Contraction 11.2 10 Second Contraction 9.4 Recruitment Pattern Good Relaxation Good Holding Fair Stability of Hold Poor/Slow SEMG Stability of Rest Good Contraction Ability Manual Muscle Testing Left 3 Manual Muscle Testing Right 3 Manual Muscle Testing Posterior 2 Muscle Endurance (Seconds) 2 Number of Quick Contractions In 10 9 Seconds Comments Pelvic Floor Comments Set Up: Bolster under legs. Towel roll support to keep electrode in place. Anterior PF lifts bladder with PF contraction. Rctum is bulging. Quick Flicks: (10 reps) Avg rest is 3.0 uVs. (20 reps): Avg Work is 11 uV's, Avg rest is 2.9 uV's. LONG HOLDS: (10 reps) Avg rest is uVs. (20 reps): Avg Work is ... uV 's, Avg rest is ... uV's PT-OP-J Posture/Palpation/Skin Start: 04/18/20 17:11 Freq: Status: Active Protocol: Document 04/21/20 09:56 LRN (Rec: 04/21/20 16:47 LRN [id number]) Posture Evaluation Eunice Postural Classification System Lumbar Protective Mechanism Left AP 0 Lumbar Protective Mechanism Right AP 0 Comments Posture Comments Pt has mild anterior tilt of pelvis, otherwise posture is normal. Palpation Assessment Location L lateral sacrum Palpation Location L lateral sacral border Palpation Findings Tenderness PT-OP-K Range of Motion Start: 04/18/20 17:11 Freq: Status: Active Protocol: Document 04/21/20 09:56 LRN (Rec: 04/21/20 11:18 LRN [id number]) Lumbar Spine Range of Motion Lumbar Spine Active Degrees Testing Position Standing Flexion 105 Extension 15 Lateral Flexion Left 10 Lateral Flexion Right 8 ROM Limitations Soft Tissue Tightness Hip Goniometric Range of Motion Hip Right Passive Hip ROM WFL No Abduction 30 Internal Rotation 30 External Rotation 60 Left Passive Hip ROM WFL Yes Testing Position Supine Abduction 20 Internal Rotation 20 External Rotation 60 PT-OP-M Strength Start: 04/18/20 17:11 Freq: Status: Active Protocol: Document 04/21/20 09:56 LRN (Rec: 04/21/20 11:18 LRN [id number]) Trunk Strength Trunk Manual Muscle Testing Core Stabilization Pt not able to maintain core stability with testing of hip flexors and rotators. Comments Pt does not engage Transverse Abdominus with cough or Bower, Bower sound. Hip Strength Hip Manual Muscle Testing Right Flexion (L2) 5 Normal Extension (S1) 5 Normal Abduction 4- Good- Adduction 3 Fair External Rotation 3 Fair Internal Rotation 5 Normal Left Flexion (L2) 5 Normal Extension (S1) 4+ Good+ Abduction 5 Normal Adduction 2- Poor- External Rotation 5 Normal Internal Rotation 5 Normal PT-OP-Q Treatments Start: 04/18/20 17:11 Freq: Status: Active Protocol: Document 08/04/20 10:25 LRN (Rec: 08/04/20 12:30 LRN [id number]) Therapeutic Exercises Supine Exercises PF w/Bridging Supine Exercise Name Relay Associate PF awareness & w/ Bridging Reps/Minutes 10' PF baseline Supine Exercise Name Resting tone taken (0.7 mVs) Reps/Minutes 5' Comments Extra time taken to get pt situated w/electrode held in place w/towel roll PF contraction awareness Supine Exercise Name PF contraction awareness for long holding Reps/Minutes 5' Comments Extra time taken for isolating PF from substitute muscles. Kegel Long holds Supine Exercise Name Long hold with and without Biofeedback Equipment Used Vaginal EMG biofeedback and rest between sets of 10 Reps/Minutes 18' Comments Pt able to hold 2-3 secs prior to progressive fatigue. Assessment done Kegel Quick contractions Supine Exercise Name Quick Contractions, with & w/o Biofeedback Equipment Used Vaginal EMG biofeedback and rest between sets of 10 Reps/Minutes 10' Comments Pt able to perform 6 contractions prior to full fatigue. Assessment done. PT-OP-T Assessment and Plan Start: 04/18/20 17:11 Freq: Status: Active Protocol: Document 08/04/20 10:25 LRN (Rec: 08/04/20 12:30 LRN [id number]) Physical Therapy Assessment Rehab Potential Rehabilitation Potential Good Evaluation Complexity Number of Personal Factors/Comorbidities 1-2 Number of Body Systems Impaired 1-2 Clinical Presentation at Evaluation Evolving Impairments Impairments ROM,Strength Other Impairments Urinary and fecal occasional leakage. Increased frequency of urination. Goals Four Impairment Urinary leakage throughout the day. Snf Goal (LTG) Decrease the number of times she has urinary leakage in a day (no more than once a day). (06/23/20: Periodic leakage). LTG Duration 07/20/20 (05/30/20: MET GOAL) Three Impairment Increased frequency of urination (5x/day) Snf Goal (LTG) Pt will be able to void with normal frequency of 5-7 times per day, while increasing her hydration levels of non- caffeinated drinks. (06/06/20: MET GOAL. Pt is voiding 5-7x/day) LTG Duration 05/19/20 (06/06/20: MET GOAL. ) Two Impairment Urgency and onset of urgency with triggers. Short Term Goal (STG) Pt will be able to maintain continence in the presence of triggers (running water, anxiety). STG Duration 05/12/20 (05/05/20: MET GOAL) Snf Goal (LTG) Pt will be able to maintain continence in the presence of a strong urge and will be able to reduce onset of urinary or fecal urgency through bladder retraining. LTG Duration 08/21/20 (05/30/20: MET GOAL as long as she drinks enough water) One Impairment Lacks self care HEP Short Term Goal (STG) Pt will be independent in a self care core/hip ROM & strengthening program (ROM hip IR L>R & R AB strengthening) and educated/discussion in proper PF care. (06/23/20: Completed issuance of HEP). STG Duration 07/12/20 (06/23/20: Progressing, not independent) Snf Goal (LTG) Pt is educated in a self care HEP. LTG Duration 08/21/20 (06/23/20: Progressing) Progress Towards Goals Progress Comments Pt progress has become slow when her spouse became more dependent on her care at home. She has improved overall in her PF contractability with quick contractions. Assessment Summary Assessment Anterior PF lifts bladder with PF contraction. Rectum appears more prolapsed than bladder. Her PF lateral wall strength is improved but her posterior wall is weak with her superficial muscles. She is very weak in endurance with endurance hold of 2-3 secs. She substitutes with her hip AD's and TA, but is able to isolate from her gluteal muscles. Pt would benefit from therapy to focus on anterior and posterior PF endurance and quick flick strengthening. Her resting tone is good. The pt is slow to follow directions at times and is inconsistent with therapy due to her spouse's health concerns. Physical Therapy Plan Frequency and Duration Frequency of Treatment 1x/Week Plan of Care Start Date 08/04/20 Plan of Care End Date 11/02/20 Therapeutic Interventions Therapeutic Interventions Home Exercise Program,Manual Therapy,Neuromuscular Re- education,Patient/Caregiver Education,Self-Care/Home Management,Soft Tissue Mobilization,Therapeutic Exercises Next Visit Focus/Plan Next Note Type Treatment Note Next Visit Plan Continue EMG Biofeedback training (endurance strengthing & coordinated contraction so towel won't be needed to hold electrode in place) and strengthening for isolation of hip AD's, coordination, & symmetry without breath holding, and to improve posterior/anterior PF strength, f/b PF stretching. Review HEP issued: ROM hip IR L>R; & strengthening R AB. Progress: LE roll in/out with deep breathing and PF contraction.
--- NOTE | 2020-08-18 12:21 | PT.OTN ---
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 Hypothryroid. PT-OP-B Current Condition Start: 04/18/20 17:11 Freq: Status: Active Protocol: Document 04/21/20 09:56 LRN (Rec: 04/21/20 11:18 LRN [id number]) Current Condition History of Current Condition Onset Date 3 yrs ago Current Complaints Sudden feeling of something coming out. History of Current Condition Cystocele, rectocele and partial vaginal prolapse. Denies pain. Has occasional urinary and fecal leakage. With a sudden urgency, she feels like she has to urinate and defecate. Most of the time when she has to defecate she urinates. Feels her condition is mild, and sometimes she has an occasional problem with constipation, but she doesn't feel it is a problem. Changes light pad 1-2x/day (twice every 3-4 days). States she pushes her bladder back when she can feel it falling out. She notes drinking 2-3 glasses per day and 2 caffeinated glasses per day. She urinated 5x during the day and once after going to bed. Her triggers are running water and anxiety. Prior Treatments and Tests No follow up visits planned. Developmental History Developmental History Was taking a shower and felt something odd coming out of her PF. Has had 2 children with vaginal deliveries, 2nd delivery caused tearing and had fecal incontinence for 3 months post delivery. Treatment Goals Patient/Caregiver Goals Pt goal is to decrease the sense of urgency and decrease the frequency of urination, and decrease the number of leakage. Prior Functional Status Baseline Function- ADL's Independent Baseline Function- Mobility Independent Baseline Function- Other No urinary or fecal leakage. Current Functional Impairments (Reported) Functional Limitations- ADL's Withholds fluids for traveling . Keeps track of where bathrooms are while traveling. 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 PT-OP-C Subjective Start: 04/18/20 17:11 Freq: Status: Active Protocol: Document 08/18/20 11:16 LRN (Rec: 08/18/20 11:59 LRN [id number]) OP-PT Subjective Patient Comments Patient Comments Can't really see improvement. Now thinks her bulge is the rectum. States she exercises periodically. States she had a bowel movement today and did have pain down there. PT-OP-I Pelvic Floor Start: 04/18/20 17:11 Freq: Status: Active Protocol: Document 08/04/20 10:25 LRN (Rec: 08/04/20 12:30 LRN [id number]) Pelvic Floor Assessment SEMG (uV) Baseline 0.4 Quick Contraction 11.2 10 Second Contraction 9.4 Recruitment Pattern Good Relaxation Good Holding Fair Stability of Hold Poor/Slow SEMG Stability of Rest Good Contraction Ability Manual Muscle Testing Left 3 Manual Muscle Testing Right 3 Manual Muscle Testing Posterior 2 Muscle Endurance (Seconds) 2 Number of Quick Contractions In 10 9 Seconds Comments Pelvic Floor Comments Set Up: Bolster under legs. Towel roll support to keep electrode in place. Anterior PF lifts bladder with PF contraction. Rctum is bulging. Quick Flicks: (10 reps) Avg rest is 3.0 uVs. (20 reps): Avg Work is 11 uV's, Avg rest is 2.9 uV's. LONG HOLDS: (10 reps) Avg rest is uVs. (20 reps): Avg Work is ... uV 's, Avg rest is ... uV's PT-OP-J Posture/Palpation/Skin Start: 04/18/20 17:11 Freq: Status: Active Protocol: Document 04/21/20 09:56 LRN (Rec: 04/21/20 16:47 LRN [id number]) Posture Evaluation Eunice Postural Classification System Lumbar Protective Mechanism Left AP 0 Lumbar Protective Mechanism Right AP 0 Comments Posture Comments Pt has mild anterior tilt of pelvis, otherwise posture is normal. Palpation Assessment Location L lateral sacrum Palpation Location L lateral sacral border Palpation Findings Tenderness PT-OP-K Range of Motion Start: 04/18/20 17:11 Freq: Status: Active Protocol: Document 04/21/20 09:56 LRN (Rec: 04/21/20 11:18 LRN [id number]) Lumbar Spine Range of Motion Lumbar Spine Active Degrees Testing Position Standing Flexion 105 Extension 15 Lateral Flexion Left 10 Lateral Flexion Right 8 ROM Limitations Soft Tissue Tightness Hip Goniometric Range of Motion Hip Right Passive Hip ROM WFL No Abduction 30 Internal Rotation 30 External Rotation 60 Left Passive Hip ROM WFL Yes Testing Position Supine Abduction 20 Internal Rotation 20 External Rotation 60 PT-OP-M Strength Start: 04/18/20 17:11 Freq: Status: Active Protocol: Document 04/21/20 09:56 LRN (Rec: 04/21/20 11:18 LRN [id number]) Trunk Strength Trunk Manual Muscle Testing Core Stabilization Pt not able to maintain core stability with testing of hip flexors and rotators. Comments Pt does not engage Transverse Abdominus with cough or Bower, Bower sound. Hip Strength Hip Manual Muscle Testing Right Flexion (L2) 5 Normal Extension (S1) 5 Normal Abduction 4- Good- Adduction 3 Fair External Rotation 3 Fair Internal Rotation 5 Normal Left Flexion (L2) 5 Normal Extension (S1) 4+ Good+ Abduction 5 Normal Adduction 2- Poor- External Rotation 5 Normal Internal Rotation 5 Normal PT-OP-Q Treatments Start: 04/18/20 17:11 Freq: Status: Active Protocol: Document 08/18/20 11:16 LRN (Rec: 08/18/20 11:59 LRN [id number]) Neuro Re-Education Treatment Other Activities Neuro reeducation of PF Details PF awareness training with PF EStim Reps/Duration 10' EStim, 10' training, 5' for electrode adjustment midway. Comments 10' training for determining max tolerance intensity. 5' extra time to make adjustments to position & electrode after coming out. Settin:20/on:off, 50 pps , intensity 14. Self-Care/Home Management Treatment Education Other Education Educated pt at length in anatomy of abdominal organs and in relation to bladder and bowels. Discussed use of PF Stim unit for home use for PF strengthening. PT-OP-T Assessment and Plan Start: 04/18/20 17:11 Freq: Status: Active Protocol: Document 08/18/20 11:16 LRN (Rec: 08/18/20 11:59 LRN [id number]) Physical Therapy Assessment Goals Four Impairment Urinary leakage throughout the day. Intermediate Goal (LTG) Decrease the number of times she has urinary leakage in a day (no more than once a day). (06/23/20: Periodic leakage). LTG Duration 07/20/20 (05/30/20: MET GOAL) Three Impairment Increased frequency of urination (5x/day) Intermediate Goal (LTG) Pt will be able to void with normal frequency of 5-7 times per day, while increasing her hydration levels of non- caffeinated drinks. (06/06/20: MET GOAL. Pt is voiding 5-7x/day) LTG Duration 05/19/20 (06/06/20: MET GOAL. ) Two Impairment Urgency and onset of urgency with triggers. Short Term Goal (STG) Pt will be able to maintain continence in the presence of triggers (running water, anxiety). STG Duration 05/12/20 (05/05/20: MET GOAL) Intermediate Goal (LTG) Pt will be able to maintain continence in the presence of a strong urge and will be able to reduce onset of urinary or fecal urgency through bladder retraining. LTG Duration 08/21/20 (05/30/20: MET GOAL as long as she drinks enough water) One Impairment Lacks self care HEP Short Term Goal (STG) Pt will be independent in a self care core/hip ROM & strengthening program (ROM hip IR L>R & R AB strengthening) and educated/discussion in proper PF care. (06/23/20: Completed issuance of HEP). STG Duration 07/12/20 (06/23/20: Progressing, not independent) Intermediate Goal (LTG) Pt is educated in a self care HEP. (08/18/20: PF contraction awareness improving). LTG Duration 08/21/20 (06/23/20: Progressing) Assessment Summary Assessment Pt had poor understanding and awareness of PF contractions prior to use of PF E-Stim, but improved after awareness training. Pt required slow progression of intensity with off/on variance to determine max intensity tolerated with PF contraction felt. Coordination of contraction is needed as the vaginal electrode needed adjustment in positioning midway through training program. If pt can learn proper PF contraction coordination, support of rectum will be improved. Physical Therapy Plan Frequency and Duration Frequency of Treatment 1x/Week Plan of Care Start Date 08/04/20 Plan of Care End Date 11/02/20 Next Visit Focus/Plan Next Note Type Treatment Note Next Visit Plan Continue EMG Biofeedback training (coordination and strength of contraction so towel won't be needed to hold electrode in place) and strengthening for isolation of hip AD's, coordination, & symmetry without breath holding, and to improve posterior/anterior PF strength , f/b PF stretching. If pt is able to perform a proper PF contraction, decrease visits to 1x per 2 weeks with pt doing more at home strengthening. Rediscuss use of EStim unit at home. Review HEP issued: ROM hip IR L>R; & strengthening R AB. Progress: LE roll in/out with deep breathing and PF contraction.
--- NOTE | 2020-08-25 13:07 | PT.OTN ---
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 Hypothryroid. PT-OP-B Current Condition Start: 04/18/20 17:11 Freq: Status: Active Protocol: Document 04/21/20 09:56 LRN (Rec: 04/21/20 11:18 LRN [id number]) Current Condition History of Current Condition Onset Date 3 yrs ago Current Complaints Sudden feeling of something coming out. History of Current Condition Cystocele, rectocele and partial vaginal prolapse. Denies pain. Has occasional urinary and fecal leakage. With a sudden urgency, she feels like she has to urinate and defecate. Most of the time when she has to defecate she urinates. Feels her condition is mild, and sometimes she has an occasional problem with constipation, but she doesn't feel it is a problem. Changes light pad 1-2x/day (twice every 3-4 days). States she pushes her bladder back when she can feel it falling out. She notes drinking 2-3 glasses per day and 2 caffeinated glasses per day. She urinated 5x during the day and once after going to bed. Her triggers are running water and anxiety. Prior Treatments and Tests No follow up visits planned. Developmental History Developmental History Was taking a shower and felt something odd coming out of her PF. Has had 2 children with vaginal deliveries, 2nd delivery caused tearing and had fecal incontinence for 3 months post delivery. Treatment Goals Patient/Caregiver Goals Pt goal is to decrease the sense of urgency and decrease the frequency of urination, and decrease the number of leakage. Prior Functional Status Baseline Function- ADL's Independent Baseline Function- Mobility Independent Baseline Function- Other No urinary or fecal leakage. Current Functional Impairments (Reported) Functional Limitations- ADL's Withholds fluids for traveling . Keeps track of where bathrooms are while traveling. 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 PT-OP-C Subjective Start: 04/18/20 17:11 Freq: Status: Active Protocol: Document 08/25/20 09:08 LRN (Rec: 08/25/20 09:51 LRN [id number]) OP-PT Subjective Patient Comments Patient Comments States she thinks the electrode helped and she doesn 't feel the bulge as much. Didn't feel the PF pulling up with electrode, but the electrode doesn't push out as much. PT-OP-I Pelvic Floor Start: 04/18/20 17:11 Freq: Status: Active Protocol: Document 08/04/20 10:25 LRN (Rec: 08/04/20 12:30 LRN [id number]) Pelvic Floor Assessment SEMG (uV) Baseline 0.4 Quick Contraction 11.2 10 Second Contraction 9.4 Recruitment Pattern Good Relaxation Good Holding Fair Stability of Hold Poor/Slow SEMG Stability of Rest Good Contraction Ability Manual Muscle Testing Left 3 Manual Muscle Testing Right 3 Manual Muscle Testing Posterior 2 Muscle Endurance (Seconds) 2 Number of Quick Contractions In 10 9 Seconds Comments Pelvic Floor Comments Set Up: Bolster under legs. Towel roll support to keep electrode in place. Anterior PF lifts bladder with PF contraction. Rctum is bulging. Quick Flicks: (10 reps) Avg rest is 3.0 uVs. (20 reps): Avg Work is 11 uV's, Avg rest is 2.9 uV's. LONG HOLDS: (10 reps) Avg rest is uVs. (20 reps): Avg Work is ... uV 's, Avg rest is ... uV's PT-OP-J Posture/Palpation/Skin Start: 04/18/20 17:11 Freq: Status: Active Protocol: Document 04/21/20 09:56 LRN (Rec: 04/21/20 16:47 LRN [id number]) Posture Evaluation Eunice Postural Classification System Lumbar Protective Mechanism Left AP 0 Lumbar Protective Mechanism Right AP 0 Comments Posture Comments Pt has mild anterior tilt of pelvis, otherwise posture is normal. Palpation Assessment Location L lateral sacrum Palpation Location L lateral sacral border Palpation Findings Tenderness PT-OP-K Range of Motion Start: 04/18/20 17:11 Freq: Status: Active Protocol: Document 04/21/20 09:56 LRN (Rec: 04/21/20 11:18 LRN [id number]) Lumbar Spine Range of Motion Lumbar Spine Active Degrees Testing Position Standing Flexion 105 Extension 15 Lateral Flexion Left 10 Lateral Flexion Right 8 ROM Limitations Soft Tissue Tightness Hip Goniometric Range of Motion Hip Right Passive Hip ROM WFL No Abduction 30 Internal Rotation 30 External Rotation 60 Left Passive Hip ROM WFL Yes Testing Position Supine Abduction 20 Internal Rotation 20 External Rotation 60 PT-OP-M Strength Start: 04/18/20 17:11 Freq: Status: Active Protocol: Document 04/21/20 09:56 LRN (Rec: 04/21/20 11:18 LRN [id number]) Trunk Strength Trunk Manual Muscle Testing Core Stabilization Pt not able to maintain core stability with testing of hip flexors and rotators. Comments Pt does not engage Transverse Abdominus with cough or Bower, Bower sound. Hip Strength Hip Manual Muscle Testing Right Flexion (L2) 5 Normal Extension (S1) 5 Normal Abduction 4- Good- Adduction 3 Fair External Rotation 3 Fair Internal Rotation 5 Normal Left Flexion (L2) 5 Normal Extension (S1) 4+ Good+ Abduction 5 Normal Adduction 2- Poor- External Rotation 5 Normal Internal Rotation 5 Normal PT-OP-Q Treatments Start: 04/18/20 17:11 Freq: Status: Active Protocol: Document 08/25/20 09:08 LRN (Rec: 08/25/20 09:51 LRN [id number]) Therapeutic Exercises Standing Exercises Hip AD w/PF contraction Standing Exercise Name Hip AD w/PF contraction Side bilateral Reps/Minutes 5' Neuro Re-Education Treatment Other Activities Neuro reeducation of PF Details PF awareness training with PF EStim Reps/Duration 10' EStim, 10' training Comments 5' extra time for training on use of E-Stim unit for self care. Settin:20/on:off, 50 pps , intensity 9-15. Self-Care/Home Management Treatment Education Other Education Educated pt in use of [employer] STM10 unit with pt slowly increasing stim intensity by self to tolerance. Activities Self-Care/Home Management Activities Discussed care plan with pt requesting hold for august and recheck in Sep. Issued & reviewed paperwork for self rental of Pathway STM10 unit. PT-OP-T Assessment and Plan Start: 04/18/20 17:11 Freq: Status: Active Protocol: Document 08/25/20 09:08 LRN (Rec: 08/25/20 09:51 LRN [id number]) Physical Therapy Assessment Goals Four Impairment Urinary leakage throughout the day. [facility] Goal (LTG) Decrease the number of times she has urinary leakage in a day (no more than once a day). (06/23/20: Periodic leakage). LTG Duration 07/20/20 (05/30/20: MET GOAL) Three Impairment Increased frequency of urination (5x/day) [facility] Goal (LTG) Pt will be able to void with normal frequency of 5-7 times per day, while increasing her hydration levels of non- caffeinated drinks. (06/06/20: MET GOAL. Pt is voiding 5-7x/day) LTG Duration 05/19/20 (06/06/20: MET GOAL. ) Two Impairment Urgency and onset of urgency with triggers. Short Term Goal (STG) Pt will be able to maintain continence in the presence of triggers (running water, anxiety). STG Duration 05/12/20 (05/05/20: MET GOAL) [facility] Goal (LTG) Pt will be able to maintain continence in the presence of a strong urge and will be able to reduce onset of urinary or fecal urgency through bladder retraining. LTG Duration 08/21/20 (05/30/20: MET GOAL as long as she drinks enough water) One Impairment Lacks self care HEP Short Term Goal (STG) Pt will be independent in a self care core/hip ROM & strengthening program (ROM hip IR L>R & R AB strengthening) and educated/discussion in proper PF care. (06/23/20: Completed issuance of HEP). STG Duration 07/12/20 (06/23/20: Progressing, not independent) [facility] Goal (LTG) Pt is educated in a self care HEP. (08/18/20: PF contraction awareness improving). LTG Duration 08/21/20 (06/23/20: Progressing) Progress Towards Goals Progress Comments Much improved coordination of her PF contraction with the pt able to perform a PF contraction with vaginal electrode being slight drawn in rather than pushed out. Assessment Summary Assessment Pt was able to perform a PF contraction without to vaginal electrode being pushed out; therefore indicating much improved coordination of movement with a PF contraction . Her awareness of a proper PF contraction has improved greatly with use of Pathway STM-10 E-Stim unit; therefore it is expected she would improve more rapdily with home use of the E-Stim unit. Physical Therapy Plan Frequency and Duration Frequency of Treatment 1x/Week Plan of Care Start Date 08/04/20 Plan of Care End Date 11/02/20 Next Visit Focus/Plan Next Note Type Treatment Note Next Visit Plan Review HEP (ROM hip IR L>R & R AB/AD strengthening, add bridge with hip AB/AD) and help pt with set up of EStim unit and proper independent operation of unit at home. PF contraction in isolation and with assist of hip AD's & symmetry without breath holding. Improve posterior/anterior PF strength, f/b PF stretching ( bridge with hip AB/AD). Decrease visits to 1x per 3 weeks (since pt is able to draw electrode inward) with pt doing more at home strengthening. Progress: LE roll in/out with deep breathing and PF contraction.
--- NOTE | 2020-09-01 10:10 | PT.OTN ---
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 Hypothryroid. PT-OP-B Current Condition Start: 04/18/20 17:11 Freq: Status: Active Protocol: Document 04/21/20 09:56 LRN (Rec: 04/21/20 11:18 LRN [id number]) Current Condition History of Current Condition Onset Date 3 yrs ago Current Complaints Sudden feeling of something coming out. History of Current Condition Cystocele, rectocele and partial vaginal prolapse. Denies pain. Has occasional urinary and fecal leakage. With a sudden urgency, she feels like she has to urinate and defecate. Most of the time when she has to defecate she urinates. Feels her condition is mild, and sometimes she has an occasional problem with constipation, but she doesn't feel it is a problem. Changes light pad 1-2x/day (twice every 3-4 days). States she pushes her bladder back when she can feel it falling out. She notes drinking 2-3 glasses per day and 2 caffeinated glasses per day. She urinated 5x during the day and once after going to bed. Her triggers are running water and anxiety. Prior Treatments and Tests No follow up visits planned. Developmental History Developmental History Was taking a shower and felt something odd coming out of her PF. Has had 2 children with vaginal deliveries, 2nd delivery caused tearing and had fecal incontinence for 3 months post delivery. Treatment Goals Patient/Caregiver Goals Pt goal is to decrease the sense of urgency and decrease the frequency of urination, and decrease the number of leakage. Prior Functional Status Baseline Function- ADL's Independent Baseline Function- Mobility Independent Baseline Function- Other No urinary or fecal leakage. Current Functional Impairments (Reported) Functional Limitations- ADL's Withholds fluids for traveling . Keeps track of where bathrooms are while traveling. 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 PT-OP-C Subjective Start: 04/18/20 17:11 Freq: Status: Active Protocol: Document 09/01/20 09:05 LRN (Rec: 09/01/20 10:08 LRN [id number]) OP-PT Subjective Patient Comments Patient Comments Not feeling bladder coming out as often. PT-OP-I Pelvic Floor Start: 04/18/20 17:11 Freq: Status: Active Protocol: Document 09/01/20 09:05 LRN (Rec: 09/01/20 10:08 LRN [id number]) Pelvic Floor Assessment SEMG (uV) Recruitment Pattern Fair Contraction Ability Manual Muscle Testing Left 3 Manual Muscle Testing Right 2 Manual Muscle Testing Anterior 1 Manual Muscle Testing Posterior 3 Muscle Endurance (Seconds) 3 Comments Pelvic Floor Comments With Palpation: Long Hold: (3 sec hold) Vountary contraction anteriorly is weak, posteriorly is 3/5 & visible externally (stool palpable). Lateral muhammad, R (2.5) weaker than L (3/5) Quick Flick: Posterior: minimal, lateral wall palpable with 2 fingers, only on left with 1 finger centrally placed . Anterior: 2-3/5. PT-OP-J Posture/Palpation/Skin Start: 04/18/20 17:11 Freq: Status: Active Protocol: Document 04/21/20 09:56 LRN (Rec: 04/21/20 16:47 LRN [id number]) Posture Evaluation Eunice Postural Classification System Lumbar Protective Mechanism Left AP 0 Lumbar Protective Mechanism Right AP 0 Comments Posture Comments Pt has mild anterior tilt of pelvis, otherwise posture is normal. Palpation Assessment Location L lateral sacrum Palpation Location L lateral sacral border Palpation Findings Tenderness PT-OP-K Range of Motion Start: 04/18/20 17:11 Freq: Status: Active Protocol: Document 04/21/20 09:56 LRN (Rec: 04/21/20 11:18 LRN [id number]) Lumbar Spine Range of Motion Lumbar Spine Active Degrees Testing Position Standing Flexion 105 Extension 15 Lateral Flexion Left 10 Lateral Flexion Right 8 ROM Limitations Soft Tissue Tightness Hip Goniometric Range of Motion Hip Right Passive Hip ROM WFL No Abduction 30 Internal Rotation 30 External Rotation 60 Left Passive Hip ROM WFL Yes Testing Position Supine Abduction 20 Internal Rotation 20 External Rotation 60 PT-OP-M Strength Start: 04/18/20 17:11 Freq: Status: Active Protocol: Document 04/21/20 09:56 LRN (Rec: 04/21/20 11:18 LRN [id number]) Trunk Strength Trunk Manual Muscle Testing Core Stabilization Pt not able to maintain core stability with testing of hip flexors and rotators. Comments Pt does not engage Transverse Abdominus with cough or Bower, Bower sound. Hip Strength Hip Manual Muscle Testing Right Flexion (L2) 5 Normal Extension (S1) 5 Normal Abduction 4- Good- Adduction 3 Fair External Rotation 3 Fair Internal Rotation 5 Normal Left Flexion (L2) 5 Normal Extension (S1) 4+ Good+ Abduction 5 Normal Adduction 2- Poor- External Rotation 5 Normal Internal Rotation 5 Normal PT-OP-Q Treatments Start: 04/18/20 17:11 Freq: Status: Active Protocol: Document 09/01/20 09:05 LRN (Rec: 09/01/20 10:08 LRN [id number]) Manual Therapy Treatment Soft Tissue Mobilization External PF Body Location External PF Mobilization Type Myofascial Release Body Position Supine Comments Stacking: Primarily Anterior, Left, CW rotation. Neuro Re-Education Treatment Other Activities Neuro reeducation of PF Details PF awareness training with PF EStim Reps/Duration 10' Comments Awareness training of PF contractions with manual palpation (see Pelvic Floor). During use pt I/S in modification to LE positioning (LE roll in/outs) to obtain greater anterior PF strengthening while using E- Stim. Self-Care/Home Management Treatment Education Other Education Educated pt in use of Path[employer] STM10 unit with review of paperwork. Added written simplified instructions in use of E-Stim unit. Activities Self-Care/Home Management Activities 25' training. Training for use of pt rented Pathway E- Stim unit. Settin:20/on:off, 50 pps , intensity 9. PT-OP-T Assessment and Plan Start: 04/18/20 17:11 Freq: Status: Active Protocol: Document 09/01/20 09:05 LRN (Rec: 09/01/20 10:08 LRN [id number]) Physical Therapy Assessment Goals Four Impairment Urinary leakage throughout the day. [facility] Goal (LTG) Decrease the number of times she has urinary leakage in a day (no more than once a day). (06/23/20: Periodic leakage). LTG Duration 07/20/20 (05/30/20: MET GOAL) Three Impairment Increased frequency of urination (5x/day) [employer] [facility] Goal (LTG) Pt will be able to void with normal frequency of 5-7 times per day, while increasing her hydration levels of non- caffeinated drinks. (06/06/20: MET GOAL. Pt is voiding 5-7x/day) LTG Duration 05/19/20 (06/06/20: MET GOAL. ) Two Impairment Urgency and onset of urgency with triggers. Short Term Goal (STG) Pt will be able to maintain continence in the presence of triggers (running water, anxiety). STG Duration 05/12/20 (05/05/20: MET GOAL) [employer] [facility] Goal (LTG) Pt will be able to maintain continence in the presence of a strong urge and will be able to reduce onset of urinary or fecal urgency through bladder retraining. LTG Duration 08/21/20 (05/30/20: MET GOAL as long as she drinks enough water) One Impairment Lacks self care HEP Short Term Goal (STG) Pt will be independent in a self care core/hip ROM & strengthening program (ROM hip IR L>R & R AB strengthening) and educated/discussion in proper PF care. (06/23/20: Completed issuance of HEP). STG Duration 07/12/20 (06/23/20: Progressing, not independent) [facility] Goal (LTG) Pt is educated in a self care HEP. (08/18/20: PF contraction awareness improving). LTG Duration 08/21/20 (06/23/20: Progressing) Progress Towards Goals Progress Comments Pt started on self care program using Pathway E-Stim unit for PF endurance (10 sec hold) ex. Assessment Summary Assessment Pt needed extra time for education in use of self E- Stim unit. Pt appeared to have a good understanding, but the pt may need further training based on past experience of training sessions with the pt needing more than one training session needed before good understanding is obtained. Physical Therapy Plan Frequency and Duration Frequency of Treatment 1x/Week Plan of Care Start Date 08/04/20 Plan of Care End Date 11/02/20 Next Visit Focus/Plan Next Note Type Treatment Note Next Visit Plan Review use of home E-Stim unit for proper independent operation of unit at home. Review HEP (ROM hip IR L>R & R AB/AD strengthening, add bridge with hip AB/AD) PF contraction in isolation and with assist of hip AD's & symmetry without breath holding. Improve as needed posterior/ anterior PF endurance strength , f/b PF stretching (bridge with hip AB/AD). *Decrease visits to 1x per 3 weeks (since pt is able to draw electrode inward) with pt doing more at home strengthening. Progress: LE roll in/out with deep breathing and PF contraction.
--- NOTE | 2020-09-08 17:20 | PT.OTN ---
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 Hypothryroid. PT-OP-B Current Condition Start: 04/18/20 17:11 Freq: Status: Active Protocol: Document 04/21/20 09:56 LRN (Rec: 04/21/20 11:18 LRN [id number]) Current Condition History of Current Condition Onset Date 3 yrs ago Current Complaints Sudden feeling of something coming out. History of Current Condition Cystocele, rectocele and partial vaginal prolapse. Denies pain. Has occasional urinary and fecal leakage. With a sudden urgency, she feels like she has to urinate and defecate. Most of the time when she has to defecate she urinates. Feels her condition is mild, and sometimes she has an occasional problem with constipation, but she doesn't feel it is a problem. Changes light pad 1-2x/day (twice every 3-4 days). States she pushes her bladder back when she can feel it falling out. She notes drinking 2-3 glasses per day and 2 caffeinated glasses per day. She urinated 5x during the day and once after going to bed. Her triggers are running water and anxiety. Prior Treatments and Tests No follow up visits planned. Developmental History Developmental History Was taking a shower and felt something odd coming out of her PF. Has had 2 children with vaginal deliveries, 2nd delivery caused tearing and had fecal incontinence for 3 months post delivery. Treatment Goals Patient/Caregiver Goals Pt goal is to decrease the sense of urgency and decrease the frequency of urination, and decrease the number of leakage. Prior Functional Status Baseline Function- ADL's Independent Baseline Function- Mobility Independent Baseline Function- Other No urinary or fecal leakage. Current Functional Impairments (Reported) Functional Limitations- ADL's Withholds fluids for traveling . Keeps track of where bathrooms are while traveling. 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 PT-OP-C Subjective Start: 04/18/20 17:11 Freq: Status: Active Protocol: Document 09/08/20 09:10 LRN (Rec: 09/08/20 09:46 LRN [id number]) OP-PT Subjective Patient Comments Patient Comments Had trouble figuring out how to use E-Stim unit. States the R hip is hurting, PAGE side . PT-OP-I Pelvic Floor Start: 04/18/20 17:11 Freq: Status: Active Protocol: Document 09/01/20 09:05 LRN (Rec: 09/01/20 10:08 LRN [id number]) Pelvic Floor Assessment SEMG (uV) Recruitment Pattern Fair Contraction Ability Manual Muscle Testing Left 3 Manual Muscle Testing Right 2 Manual Muscle Testing Anterior 1 Manual Muscle Testing Posterior 3 Muscle Endurance (Seconds) 3 Comments Pelvic Floor Comments With Palpation: Long Hold: (3 sec hold) Vountary contraction anteriorly is weak, posteriorly is 3/5 & visible externally (stool palpable). Lateral muhammad, R (2.5) weaker than L (3/5) Quick Flick: Posterior: minimal, lateral wall palpable with 2 fingers, only on left with 1 finger centrally placed . Anterior: 2-3/5. PT-OP-J Posture/Palpation/Skin Start: 04/18/20 17:11 Freq: Status: Active Protocol: Document 04/21/20 09:56 LRN (Rec: 04/21/20 16:47 LRN [id number]) Posture Evaluation Eunice Postural Classification System Lumbar Protective Mechanism Left AP 0 Lumbar Protective Mechanism Right AP 0 Comments Posture Comments Pt has mild anterior tilt of pelvis, otherwise posture is normal. Palpation Assessment Location L lateral sacrum Palpation Location L lateral sacral border Palpation Findings Tenderness PT-OP-K Range of Motion Start: 04/18/20 17:11 Freq: Status: Active Protocol: Document 04/21/20 09:56 LRN (Rec: 04/21/20 11:18 LRN [id number]) Lumbar Spine Range of Motion Lumbar Spine Active Degrees Testing Position Standing Flexion 105 Extension 15 Lateral Flexion Left 10 Lateral Flexion Right 8 ROM Limitations Soft Tissue Tightness Hip Goniometric Range of Motion Hip Right Passive Hip ROM WFL No Abduction 30 Internal Rotation 30 External Rotation 60 Left Passive Hip ROM WFL Yes Testing Position Supine Abduction 20 Internal Rotation 20 External Rotation 60 PT-OP-M Strength Start: 04/18/20 17:11 Freq: Status: Active Protocol: Document 04/21/20 09:56 LRN (Rec: 04/21/20 11:18 LRN [id number]) Trunk Strength Trunk Manual Muscle Testing Core Stabilization Pt not able to maintain core stability with testing of hip flexors and rotators. Comments Pt does not engage Transverse Abdominus with cough or Bower, Bower sound. Hip Strength Hip Manual Muscle Testing Right Flexion (L2) 5 Normal Extension (S1) 5 Normal Abduction 4- Good- Adduction 3 Fair External Rotation 3 Fair Internal Rotation 5 Normal Left Flexion (L2) 5 Normal Extension (S1) 4+ Good+ Abduction 5 Normal Adduction 2- Poor- External Rotation 5 Normal Internal Rotation 5 Normal PT-OP-Q Treatments Start: 04/18/20 17:11 Freq: Status: Active Protocol: Document 09/08/20 09:10 LRN (Rec: 09/08/20 09:46 LRN [id number]) Therapeutic Exercises Supine Exercises L Lateral Hip stretch Supine Exercise Name Lateral Hip stretch Side left Reps/Minutes 2' L Piriformis Supine Exercise Name L Piriformis Side left Reps/Minutes 2' Comments Defer R due to PAGE. Sidelying Exercises Hip AB Sidelying Exercise Name Hip AB Side right Reps/Minutes 3' Comments Much phys cuing needed to start, some throughout ex Reverse Clamshell Sidelying Exercise Name PF Quick Flicks & Long Holds with IR. Side bilateral Reps/Minutes 3' Comments Pt needed v cuing, PF 10 sec hold Clamshell Sidelying Exercise Name Clamshell Side bilateral Reps/Minutes 3' Comments V cuing needed to maintain core stability with hip rot & PF hold Hip AD Sidelying Exercise Name Hip AD w/PF contraction Side bilateral Reps/Minutes 4' Comments I/S given for PF long holds Self-Care/Home Management Treatment Education Other Education Education in use of Pathway STM 10 unit with review of written instructions. PT-OP-T Assessment and Plan Start: 04/18/20 17:11 Freq: Status: Active Protocol: Document 09/08/20 09:10 LRN (Rec: 09/08/20 09:46 LRN [id number]) Physical Therapy Assessment Goals Four Impairment Urinary leakage throughout the day. Manager Construction Goal (LTG) Decrease the number of times she has urinary leakage in a day (no more than once a day). (06/23/20: Periodic leakage). LTG Duration 07/20/20 (05/30/20: MET GOAL) Three Impairment Increased frequency of urination (5x/day) Residential Goal (LTG) Pt will be able to void with normal frequency of 5-7 times per day, while increasing her hydration levels of non- caffeinated drinks. (06/06/20: MET GOAL. Pt is voiding 5-7x/day) LTG Duration 05/19/20 (06/06/20: MET GOAL. ) Two Impairment Urgency and onset of urgency with triggers. Short Term Goal (STG) Pt will be able to maintain continence in the presence of triggers (running water, anxiety). STG Duration 05/12/20 (05/05/20: MET GOAL) Residential Goal (LTG) Pt will be able to maintain continence in the presence of a strong urge and will be able to reduce onset of urinary or fecal urgency through bladder retraining. LTG Duration 08/21/20 (05/30/20: MET GOAL as long as she drinks enough water) One Impairment Lacks self care HEP Short Term Goal (STG) Pt will be independent in a self care core/hip ROM & strengthening program (ROM hip IR L>R & R AB strengthening) and educated/discussion in proper PF care. (06/23/20: Completed issuance of HEP). STG Duration 07/12/20 (09/08/20: Progressing, not independent) Residential Goal (LTG) Pt is educated in a self care HEP. (08/18/20: PF contraction awareness improving). LTG Duration 08/21/20 (09/08/20: Progressing) Progress Towards Goals Progress Comments Pt having good understanding of Pathway E-stim after training. Assessment Summary Assessment Pt was doing HEP well, poor knowledge of side to focus on, but good understanding today, but may need more review. Pt was confused with operation of Pathway Stim 10 to start, good understanding by end of treatment. Pt chose to leave early to do PF strengthening with E-Stim at home instead of in clinic. Physical Therapy Plan Frequency and Duration Frequency of Treatment 1x/Week Plan of Care Start Date 08/04/20 Plan of Care End Date 11/02/20 Next Visit Focus/Plan Next Note Type Treatment Note Next Visit Plan If needed, review use of home E-Stim unit for proper independent operation of unit at home. Review HEP (ROM hip IR L>R & R AB/AD strengthening, add bridge with hip AB/AD) PF contraction in isolation and with assist of hip AD's & symmetry without breath holding. Improve as needed posterior/ anterior PF endurance strength , f/b PF stretching (bridge with hip AB/AD). *Decrease visits to 1x per 3 weeks (since pt is able to draw electrode inward) with pt doing more at home strengthening. Progress: LE roll in/out with deep breathing and PF contraction.
--- NOTE | 2020-09-15 12:00 | PT.OTN ---
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 Hypothryroid. PT-OP-B Current Condition Start: 04/18/20 17:11 Freq: Status: Active Protocol: Document 04/21/20 09:56 LRN (Rec: 04/21/20 11:18 LRN [id number]) Current Condition History of Current Condition Onset Date 3 yrs ago Current Complaints Sudden feeling of something coming out. History of Current Condition Cystocele, rectocele and partial vaginal prolapse. Denies pain. Has occasional urinary and fecal leakage. With a sudden urgency, she feels like she has to urinate and defecate. Most of the time when she has to defecate she urinates. Feels her condition is mild, and sometimes she has an occasional problem with constipation, but she doesn't feel it is a problem. Changes light pad 1-2x/day (twice every 3-4 days). States she pushes her bladder back when she can feel it falling out. She notes drinking 2-3 glasses per day and 2 caffeinated glasses per day. She urinated 5x during the day and once after going to bed. Her triggers are running water and anxiety. Prior Treatments and Tests No follow up visits planned. Developmental History Developmental History Was taking a shower and felt something odd coming out of her PF. Has had 2 children with vaginal deliveries, 2nd delivery caused tearing and had fecal incontinence for 3 months post delivery. Treatment Goals Patient/Caregiver Goals Pt goal is to decrease the sense of urgency and decrease the frequency of urination, and decrease the number of leakage. Prior Functional Status Baseline Function- ADL's Independent Baseline Function- Mobility Independent Baseline Function- Other No urinary or fecal leakage. Current Functional Impairments (Reported) Functional Limitations- ADL's Withholds fluids for traveling . Keeps track of where bathrooms are while traveling. 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 PT-OP-C Subjective Start: 04/18/20 17:11 Freq: Status: Active Protocol: Document 09/15/20 09:07 LRN (Rec: 09/15/20 09:52 LRN [id number]) OP-PT Subjective Patient Comments Patient Comments States she has questions regarding the E-Stim unit. States her bladder isn't hanging out as much, doesn't always feel it when she sits. PT-OP-I Pelvic Floor Start: 04/18/20 17:11 Freq: Status: Active Protocol: Document 09/01/20 09:05 LRN (Rec: 09/01/20 10:08 LRN [id number]) Pelvic Floor Assessment SEMG (uV) Recruitment Pattern Fair Contraction Ability Manual Muscle Testing Left 3 Manual Muscle Testing Right 2 Manual Muscle Testing Anterior 1 Manual Muscle Testing Posterior 3 Muscle Endurance (Seconds) 3 Comments Pelvic Floor Comments With Palpation: Long Hold: (3 sec hold) Vountary contraction anteriorly is weak, posteriorly is 3/5 & visible externally (stool palpable). Lateral muhammad, R (2.5) weaker than L (3/5) Quick Flick: Posterior: minimal, lateral wall palpable with 2 fingers, only on left with 1 finger centrally placed . Anterior: 2-3/5. PT-OP-J Posture/Palpation/Skin Start: 04/18/20 17:11 Freq: Status: Active Protocol: Document 04/21/20 09:56 LRN (Rec: 04/21/20 16:47 LRN [id number]) Posture Evaluation Eunice Postural Classification System Lumbar Protective Mechanism Left AP 0 Lumbar Protective Mechanism Right AP 0 Comments Posture Comments Pt has mild anterior tilt of pelvis, otherwise posture is normal. Palpation Assessment Location L lateral sacrum Palpation Location L lateral sacral border Palpation Findings Tenderness PT-OP-K Range of Motion Start: 04/18/20 17:11 Freq: Status: Active Protocol: Document 04/21/20 09:56 LRN (Rec: 04/21/20 11:18 LRN [id number]) Lumbar Spine Range of Motion Lumbar Spine Active Degrees Testing Position Standing Flexion 105 Extension 15 Lateral Flexion Left 10 Lateral Flexion Right 8 ROM Limitations Soft Tissue Tightness Hip Goniometric Range of Motion Hip Right Passive Hip ROM WFL No Abduction 30 Internal Rotation 30 External Rotation 60 Left Passive Hip ROM WFL Yes Testing Position Supine Abduction 20 Internal Rotation 20 External Rotation 60 PT-OP-M Strength Start: 04/18/20 17:11 Freq: Status: Active Protocol: Document 04/21/20 09:56 LRN (Rec: 04/21/20 11:18 LRN [id number]) Trunk Strength Trunk Manual Muscle Testing Core Stabilization Pt not able to maintain core stability with testing of hip flexors and rotators. Comments Pt does not engage Transverse Abdominus with cough or Bower, Bower sound. Hip Strength Hip Manual Muscle Testing Right Flexion (L2) 5 Normal Extension (S1) 5 Normal Abduction 4- Good- Adduction 3 Fair External Rotation 3 Fair Internal Rotation 5 Normal Left Flexion (L2) 5 Normal Extension (S1) 4+ Good+ Abduction 5 Normal Adduction 2- Poor- External Rotation 5 Normal Internal Rotation 5 Normal PT-OP-Q Treatments Start: 04/18/20 17:11 Freq: Status: Active Protocol: Document 09/15/20 09:07 LRN (Rec: 09/15/20 09:52 LRN [id number]) Therapeutic Exercises Supine Exercises PF w/Bridging Supine Exercise Name PF w/Bridging Side bilateral Deep breathing Supine Exercise Name Deep Breathing review Manual Therapy Treatment Soft Tissue Mobilization External PF Body Location External PF & Anterior deep PF muscles Mobilization Type Myofascial Release Body Position Supine Comments Tight on R side of PF Neuro Re-Education Treatment Other Activities Neuro re-ed using vaginal electrode Details Vaginal electrode used to train drawing in of PF during Kegel Reps/Duration 13' Comments Tried using deep breathing to promote PF contraction of drawing up and in. Pt able to draw in 1-3 sec's, but was not able to sustain a PF contraction hold. Manual assist was needed to keep electrode in vagina. Neuro reeducation of PF Details Pathway E-Stim unit. Reps/Duration 10' Comments Pt lacked good coordination of breathing during PF contraction stim. She tends to hold her breath and needed constant cuing. On:Off cycle changed from 10: 10 to 10:20. Self-Care/Home Management Treatment Education Other Education Reviewed and answered pt's questions regarding use of Pathway STM 10 unit. Pt noting that she would like to rent the unit for one more week since she is seeing improvement and she will use it more often. Discussed importance of relaxation phase during use of E-Stim. Activities Self-Care/Home Management Activities Issued & briefly reviewed HEP: PF/Bridge. PT-OP-T Assessment and Plan Start: 04/18/20 17:11 Freq: Status: Active Protocol: Document 09/15/20 09:07 LRN (Rec: 09/15/20 09:52 LRN [id number]) Physical Therapy Assessment Goals One Impairment Lacks self care HEP Short Term Goal (STG) Pt will be independent in a self care core/hip ROM & strengthening program (ROM hip IR L>R & R AB strengthening) and educated/discussion in proper PF care. (06/23/20: Completed issuance of HEP). STG Duration 07/12/20 (09/08/20: Progressing, not independent) Penitentiary Goal (LTG) Pt is educated in a self care HEP. (08/18/20: PF contraction awareness improving). LTG Duration 08/21/20 (09/08/20: Progressing) Assessment Summary Assessment Pt is improving in breathing during a PF contraction. She required quite a bit of v. cuing today to not breathhold after inhaling (during breathing) with use of E-Stim unit. The pt needs further coordination training to draw in and up during PF contraction as evidenced with vaginal electrode being pushed out after ~3 secs of contraction. Pt doing much better in properly managing the E-Stim unit for self care exercise. Physical Therapy Plan Frequency and Duration Frequency of Treatment 1x/Week Plan of Care Start Date 08/04/20 Plan of Care End Date 11/02/20 Next Visit Focus/Plan Next Note Type Treatment Note Next Visit Plan Review HEP (ROM hip IR L>R & R AB/AD strengthening, and new bridge with hip AB/AD), Work on PF contraction coordination to draw electrode up/in, possibly start with 25% effort of contraction. If pt agreeable continue with PF manual stretch. PF contraction in isolation and with assist of hip AD's & symmetry without breath holding. Improve as needed posterior/ anterior PF endurance strength , f/b PF stretching (bridge with hip AB/AD). *Decrease visits to 1x per 3 weeks (since pt is able to draw electrode inward) with pt doing more at home strengthening. Progress: LE roll in/out with deep breathing and PF contraction.
--- NOTE | 2020-09-29 16:38 | PT.OTN ---
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 Hypothryroid. PT-OP-B Current Condition Start: 04/18/20 17:11 Freq: Status: Active Protocol: Document 04/21/20 09:56 LRN (Rec: 04/21/20 11:18 LRN [id number]) Current Condition History of Current Condition Onset Date 3 yrs ago Current Complaints Sudden feeling of something coming out. History of Current Condition Cystocele, rectocele and partial vaginal prolapse. Denies pain. Has occasional urinary and fecal leakage. With a sudden urgency, she feels like she has to urinate and defecate. Most of the time when she has to defecate she urinates. Feels her condition is mild, and sometimes she has an occasional problem with constipation, but she doesn't feel it is a problem. Changes light pad 1-2x/day (twice every 3-4 days). States she pushes her bladder back when she can feel it falling out. She notes drinking 2-3 glasses per day and 2 caffeinated glasses per day. She urinated 5x during the day and once after going to bed. Her triggers are running water and anxiety. Prior Treatments and Tests No follow up visits planned. Developmental History Developmental History Was taking a shower and felt something odd coming out of her PF. Has had 2 children with vaginal deliveries, 2nd delivery caused tearing and had fecal incontinence for 3 months post delivery. Treatment Goals Patient/Caregiver Goals Pt goal is to decrease the sense of urgency and decrease the frequency of urination, and decrease the number of leakage. Prior Functional Status Baseline Function- ADL's Independent Baseline Function- Mobility Independent Baseline Function- Other No urinary or fecal leakage. Current Functional Impairments (Reported) Functional Limitations- ADL's Withholds fluids for traveling . Keeps track of where bathrooms are while traveling. 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 PT-OP-C Subjective Start: 04/18/20 17:11 Freq: Status: Active Protocol: Document 09/29/20 09:06 LRN (Rec: 09/29/20 09:51 LRN [id number]) OP-PT Subjective Patient Comments Patient Comments States she is having success using the home E-stim unit and would like to come back 2x once a month to manage her HEP successfully. Thinks the e- stim unit is helping because she doen't as regularly feel the bulge. PT-OP-I Pelvic Floor Start: 04/18/20 17:11 Freq: Status: Active Protocol: Document 09/29/20 09:06 LRN (Rec: 09/29/20 09:51 LRN [id number]) Pelvic Floor Assessment Contraction Ability Manual Muscle Testing Left 3 Manual Muscle Testing Right 2 Manual Muscle Testing Anterior 2 Manual Muscle Testing Posterior 3 Muscle Endurance (Seconds) 7 Number of Quick Contractions In 10 5 Seconds Comments Pelvic Floor Comments Quick Flicks: strong at 3 reps , weak for reps 4 & 5. Long Holds: Weakens at 5 secs , holds 7 secs Bladder is shifted left. PT-OP-J Posture/Palpation/Skin Start: 04/18/20 17:11 Freq: Status: Active Protocol: Document 04/21/20 09:56 LRN (Rec: 04/21/20 16:47 LRN [id number]) Posture Evaluation Eunice Postural Classification System Lumbar Protective Mechanism Left AP 0 Lumbar Protective Mechanism Right AP 0 Comments Posture Comments Pt has mild anterior tilt of pelvis, otherwise posture is normal. Palpation Assessment Location L lateral sacrum Palpation Location L lateral sacral border Palpation Findings Tenderness PT-OP-K Range of Motion Start: 04/18/20 17:11 Freq: Status: Active Protocol: Document 04/21/20 09:56 LRN (Rec: 04/21/20 11:18 LRN [id number]) Lumbar Spine Range of Motion Lumbar Spine Active Degrees Testing Position Standing Flexion 105 Extension 15 Lateral Flexion Left 10 Lateral Flexion Right 8 ROM Limitations Soft Tissue Tightness Hip Goniometric Range of Motion Hip Right Passive Hip ROM WFL No Abduction 30 Internal Rotation 30 External Rotation 60 Left Passive Hip ROM WFL Yes Testing Position Supine Abduction 20 Internal Rotation 20 External Rotation 60 PT-OP-M Strength Start: 04/18/20 17:11 Freq: Status: Active Protocol: Document 04/21/20 09:56 LRN (Rec: 04/21/20 11:18 LRN [id number]) Trunk Strength Trunk Manual Muscle Testing Core Stabilization Pt not able to maintain core stability with testing of hip flexors and rotators. Comments Pt does not engage Transverse Abdominus with cough or Bower, Bower sound. Hip Strength Hip Manual Muscle Testing Right Flexion (L2) 5 Normal Extension (S1) 5 Normal Abduction 4- Good- Adduction 3 Fair External Rotation 3 Fair Internal Rotation 5 Normal Left Flexion (L2) 5 Normal Extension (S1) 4+ Good+ Abduction 5 Normal Adduction 2- Poor- External Rotation 5 Normal Internal Rotation 5 Normal PT-OP-Q Treatments Start: 04/18/20 17:11 Freq: Status: Active Protocol: Document 09/29/20 09:06 LRN (Rec: 09/29/20 09:51 LRN [id number]) Therapeutic Exercises Supine Exercises L Lateral Hip stretch Supine Exercise Name Lateral Hip stretch Side left Reps/Minutes 2' L Piriformis Supine Exercise Name L Piriformis Side left Reps/Minutes 2' Comments Defer R due to PAGE. Kegel Long holds Supine Exercise Name Long hold Reps/Minutes 8' Comments Assessment done. Weakens after 5, fatigues at start of 7 Kegel Quick contractions Supine Exercise Name Quick Contractions w/o Biofeedback Reps/Minutes 5' Comments Assessment done. 3 strong contractions, 5 total Sidelying Exercises Hip AB Sidelying Exercise Name Hip AB, PF contract with lowering & long hold contraction Side bilateral Reps/Minutes 8'' Comments Much phys cuing needed to start, some throughout ex Clamshell Sidelying Exercise Name Clamshell, PF contract entire lift cycles of 10 Side right Reps/Minutes 3' Comments V cuing needed to maintain core stability with hip rot & PF hold Hip AD Sidelying Exercise Name Hip AD w/PF contraction Side right Reps/Minutes 8' Comments I/S given for PF long holds, extra time for proper mvmt training Self-Care/Home Management Treatment Activities Self-Care/Home Management Activities Discussed usuage of home STIM unit, pt wanting to express her desire to use E-Stim 1-2 more months due to lessening of bulge felt in PF. PT-OP-T Assessment and Plan Start: 04/18/20 17:11 Freq: Status: Active Protocol: Document 09/29/20 09:06 RUDY (Rec: 09/29/20 09:51 LRN [id number]) Physical Therapy Assessment Goals One Impairment Lacks self care HEP Short Term Goal (STG) Pt will be independent in a self care core/hip ROM & strengthening program (ROM hip IR L>R & R AB strengthening) and educated/discussion in proper PF care. (06/23/20: Completed issuance of HEP). STG Duration 07/12/20 (09/08/20: Progressing, not independent) [employer] Center Support Representative Goal (LTG) Pt is educated in a self care HEP. (08/18/20: PF contraction awareness improving). LTG Duration 08/21/20 (09/08/20: Progressing) Progress Towards Goals Progress Comments Improved anterior PF muscle group from 08/26 to 09/26. Assessment Summary Assessment Pt has a hard time with Hip AD keeping in proper ex form, although R leg feels weaker at home. Able to see PF lift on contraction rather than bulging out. Improved strength and coordination of PF anterior muscle group contraction. Physical Therapy Plan Frequency and Duration Frequency of Treatment 1x/Week Plan of Care Start Date 08/04/20 Plan of Care End Date 11/02/20 Next Visit Focus/Plan Next Note Type Treatment Note Next Visit Plan Check ROM hip IR L>R & hip strength R AB/AD strengthening , add bridge with hip AB/AD, pt working towards symmetry of ROM & strength. If pt agreeable continue with PF manual stretch. PF contraction in isolation and with assist of hip AD's & symmetry without breath holding. Improve right & anterior PF endurance strength. *Decrease visits to 1x per 4 weeks (since pt is able to draw electrode inward) with pt doing more at home strengthening. Assess progress towards symmetry in hip mobility/strength and PF strength/coordination. Progress: LE roll in/out with deep breathing and PF contraction.
--- NOTE | 2020-10-28 17:46 | PT.OTN ---
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 Hypothryroid. PT-OP-B Current Condition Start: 04/18/20 17:11 Freq: Status: Active Protocol: Document 04/21/20 09:56 LRN (Rec: 04/21/20 11:18 LRN [id number]) Current Condition History of Current Condition Onset Date 3 yrs ago Current Complaints Sudden feeling of something coming out. History of Current Condition Cystocele, rectocele and partial vaginal prolapse. Denies pain. Has occasional urinary and fecal leakage. With a sudden urgency, she feels like she has to urinate and defecate. Most of the time when she has to defecate she urinates. Feels her condition is mild, and sometimes she has an occasional problem with constipation, but she doesn't feel it is a problem. Changes light pad 1-2x/day (twice every 3-4 days). States she pushes her bladder back when she can feel it falling out. She notes drinking 2-3 glasses per day and 2 caffeinated glasses per day. She urinated 5x during the day and once after going to bed. Her triggers are running water and anxiety. Prior Treatments and Tests No follow up visits planned. Developmental History Developmental History Was taking a shower and felt something odd coming out of her PF. Has had 2 children with vaginal deliveries, 2nd delivery caused tearing and had fecal incontinence for 3 months post delivery. Treatment Goals Patient/Caregiver Goals Pt goal is to decrease the sense of urgency and decrease the frequency of urination, and decrease the number of leakage. Prior Functional Status Baseline Function- ADL's Independent Baseline Function- Mobility Independent Baseline Function- Other No urinary or fecal leakage. Current Functional Impairments (Reported) Functional Limitations- ADL's Withholds fluids for traveling . Keeps track of where bathrooms are while traveling. 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 PT-OP-C Subjective Start: 04/18/20 17:11 Freq: Status: Active Protocol: Document 10/28/20 08:17 LRN (Rec: 10/28/20 09:05 LRN [id number]) OP-PT Subjective Patient Comments Patient Comments States she notes her hips and abdomen contract with PF contractions. States last couple of days she hasn't done anything because of severe pain in R hip/LE. States last had 2nd Covid shot and the next day got extreme fatigue and the whole body hurt and R hip/groin/LE pain and worsened the next day. Thinks it might be getting better. She has been doing the ex's and using the stim unit until the past few days. States she may be doing better but sometimes may be leaking more sometimes. Hangs out less but leaks more . Leakage is sudden and can't make it to bathroom not necessarily a lot, just annoying. PT-OP-I Pelvic Floor Start: 04/18/20 17:11 Freq: Status: Active Protocol: Document 10/28/20 08:17 LRN (Rec: 10/28/20 09:05 LRN [id number]) Pelvic Floor Assessment Contraction Ability Manual Muscle Testing Left 3 Manual Muscle Testing Right 2 Manual Muscle Testing Anterior 2 Manual Muscle Testing Posterior 3 Number of Quick Contractions In 10 3 Seconds PT-OP-J Posture/Palpation/Skin Start: 04/18/20 17:11 Freq: Status: Active Protocol: Document 04/21/20 09:56 LRN (Rec: 04/21/20 16:47 LRN [id number]) Posture Evaluation Eunice Postural Classification System Lumbar Protective Mechanism Left AP 0 Lumbar Protective Mechanism Right AP 0 Comments Posture Comments Pt has mild anterior tilt of pelvis, otherwise posture is normal. Palpation Assessment Location L lateral sacrum Palpation Location L lateral sacral border Palpation Findings Tenderness PT-OP-K Range of Motion Start: 04/18/20 17:11 Freq: Status: Active Protocol: Document 10/28/20 08:17 LRN (Rec: 10/28/20 09:05 LRN [id number]) Hip Goniometric Range of Motion Hip Right Passive Hip ROM WFL No Testing Position Supine Abduction 30 Internal Rotation 30 External Rotation 55 Left Passive Hip ROM WFL Yes Abduction 22 Internal Rotation 30 External Rotation 50 PT-OP-M Strength Start: 04/18/20 17:11 Freq: Status: Active Protocol: Document 10/28/20 08:17 LRN (Rec: 10/28/20 09:05 LRN [id number]) Hip Strength Hip Manual Muscle Testing Right Abduction 4- Good- Adduction 5 Normal Left Abduction 5 Normal Adduction 5 Normal PT-OP-Q Treatments Start: 04/18/20 17:11 Freq: Status: Active Protocol: Document 10/28/20 08:17 LRN (Rec: 10/28/20 09:05 LRN [id number]) Therapeutic Exercises Supine Exercises L Lateral Hip stretch Supine Exercise Name Lateral Hip stretch Side left Reps/Minutes 6' Comments Self and manually assisted stretch L Piriformis Supine Exercise Name L Piriformis Side left Reps/Minutes 3' Comments Defer R due to PAGE, Self and manually assisted stretch PF contraction awareness Supine Exercise Name PF contraction isolated from TA/gluteals Reps/Minutes 3' Comments Pt not able to isolate Kegel Long holds Supine Exercise Name Long holds Reps/Minutes 5' Kegel Quick contractions Supine Exercise Name Quick Flicks Reps/Minutes 4 Comments Rest between sets Deep breathing Supine Exercise Name Deep Breathing Sidelying Exercises Hip AB Sidelying Exercise Name Hip AB Comments MMT taken Hip AD Sidelying Exercise Name Hip AD w/PF contraction Side right Reps/Minutes 4' Comments I/S given for PF long holds, extra time for proper mvmt training Self-Care/Home Management Treatment Education Patient Education Home Exercise Program Other Education 5' - Review of precautions with stretching of R hip due to previous PAGE, and reminder for pt to have relaxation phase with PF exercises. PT-OP-T Assessment and Plan Start: 04/18/20 17:11 Freq: Status: Active Protocol: Document 10/28/20 08:17 LRN (Rec: 10/28/20 09:05 LRN [id number]) Physical Therapy Assessment Goals Four Impairment Urinary leakage throughout the day. [facility] Goal (LTG) Decrease the number of times she has urinary leakage in a day (no more than once a day). (10/29/19: Periodic leakage that appears to coincide with bowel movements). LTG Duration 07/20/20 (05/30/20: MET GOAL) Three Impairment Increased frequency of urination (5x/day) [facility] Goal (LTG) Pt will be able to void with normal frequency of 5-7 times per day, while increasing her hydration levels of non- caffeinated drinks. (06/06/20: MET GOAL. Pt is voiding 5-7x/day) LTG Duration 05/19/20 (06/06/20: MET GOAL. ) Two Impairment Urgency and onset of urgency with triggers. Short Term Goal (STG) Pt will be able to maintain continence in the presence of triggers (running water, anxiety). STG Duration 05/12/20 (05/05/20: MET GOAL) Rubber Goods Assembler Goal (LTG) Pt will be able to maintain continence in the presence of a strong urge and will be able to reduce onset of urinary or fecal urgency through bladder retraining. LTG Duration 08/21/20 (05/30/20: MET GOAL as long as she drinks enough water) One Impairment Lacks self care HEP Short Term Goal (STG) Pt will be independent in a self care core/hip ROM & strengthening program (ROM hip IR L>R & R AB strengthening) and educated/discussion in proper PF care. STG Duration 07/12/20 (10/28/20: MET GOAL) Rubber Goods Assembler Goal (LTG) Pt is educated in a self care HEP. (08/18/20: PF contraction awareness improving). LTG Duration 08/21/20 (10/28/20: MET GOAL) Assessment Summary Assessment The pt is slowly improving in L hip mobility and ROM is becoming more symmetrical. Today she presents with complaints of R anterior hip/ groin pain during hip stretches. She has had an onset of R hip pain that may be related to decreased bowel function/constipation. The pt is agreeable. She also noticed the connection between her bowel movements and urinary leakage. She is aware of methods to decrease her constipation (increased fluids and fiber in diet) and has been educated in the benefits of obtaining a Squatty potty for ease of bowel movements. She has difficulty with maintaining a stable core with deep breathing and has difficulty isolating her PF contraction from her substitute muscles, and she has weakness of her PF anteriorly and on the R lateral wall; therefore further therapy in the future may be needed. She appears have more of a rectocele than a cystocele that does not protrude from the vaginal opening in supine. The pt would probably benefit from further treatment to improve her PF health. The pt is now ready to be placed on an independent self care HEP. Physical Therapy Plan Discharge Physical Therapy Discharge Reasons Patient Request Discharge Comments Pt feels ready for discharge to her home exercise program and her E-Stim unit. Pt plans on returning the E-Stim unit and will continue with her home program. The pt understands if further threrapy is needed she will need another referral to return. Thank you for your referral.
== END 2020-11-14 11:03 | disposition home or self-care (01) ==
LOC: PHYS 08:15
PROVIDERS: Family Provider Family Medicine; PCP Family Medicine; Referring Provider Obstetrics & Gynecology; Visit Provider Obstetrics & Gynecology
DX: N81.2 Incomplete uterovaginal prolapse (principal); M62.89 Other specified disorders of muscle
CPT/HCPCS: 97110; 97112; 97140; 97162; 97535

== ENCOUNTER → 2021-07-10 10:48 | Outpatient (CLI) | payer MEDICARE, OTHER, SELFPAY ==
[2021-07-10] MEDS: COVID-19 VACC #3, MRNA(MOD) 50 MCG/0.25 ML VIAL IM (11:01)
== END ==
PROVIDERS: Family Provider Family Medicine; PCP Family Medicine; Visit Provider Internal Medicine
DX: Z23 Encounter for immunization (principal)
CPT/HCPCS: 0013A; 91301

== ENCOUNTER → 2022-04-09 15:35 | Outpatient (CLI) | payer MEDICARE, OTHER, SELFPAY ==
--- NOTE | 2022-04-09 | DI.MRI.S_ITS ---
PROCEDURE: MR CERVICAL SPINE WO CON INDICATIONS: Spinal stenosis, cervical region TECHNIQUE: Noncontrast sagittal T1 spin echo and T2 fast spin echo, sagittal STIR, foraminal oblique sagittal T2 fast spin echo, and axial gradient echo or T2 fast spin echo through the cervical spine. COMPARISON: [facility], [place], XR CERVICAL SPINE 2 OR 3 VIEWS, 10/29/2021, 15:58. FINDINGS: Image quality: Excellent. Alignment and Curvature: There is straightening of the normal cervical lordosis. Grade 1 anterolisthesis of C3 on C4 measures 1 mm. Grade 1 anterolisthesis of C4 on C5 measures 2 mm. There is 2 mm grade 1 retrolisthesis of C5 on C6 and approximately 1 mm grade 1 retrolisthesis of C6 on C7. Bone Marrow: Marrow demonstrates normal overall signal. Spinal Cord: Visualized spinal cord has normal size and signal. No cerebellar tonsillar herniation. Paraspinous Soft Tissues: No paravertebral masses. Prevertebral soft tissues are normal in thickness. C2-C3: There is disc desiccation and mild circumferential disc bulging with right sided facet and uncovertebral joint hypertrophy which result in moderate to severe narrowing of the right neural foramen without significant left neural foraminal narrowing or spinal canal stenosis. C3-C4: There is disc desiccation and loss of disc space height with grade 1 anterolisthesis of C3 on C4 and mild circumferential disc bulging. Bilateral uncovertebral joint and facet hypertrophy are also seen. Findings result in moderate to severe bilateral neural foraminal narrowing without significant spinal canal stenosis. C4-C5: There is disc desiccation and loss of disc space height with grade 1 anterolisthesis of C4 on C5 and mild circumferential disc bulging. Bilateral uncovertebral joint and facet hypertrophy are also seen. Findings result in moderate to severe bilateral neural foraminal narrowing without significant spinal canal stenosis. C5-C6: There is disc desiccation and loss of disc space height with grade 1 retrolisthesis of C5 on C6 and mild circumferential disc bulging. Bilateral uncovertebral joint and facet hypertrophy are also seen. Findings result in moderate narrowing of the spinal canal with effacement of the ventral and dorsal CSF spaces as well as severe left and moderate to severe right neural foraminal narrowing. No abnormal cord signal intensity. C6-C7: There is disc desiccation and loss of disc space height with circumferential disc bulging and grade 1 retrolisthesis of C6 on C7. Bilateral uncovertebral joint and facet hypertrophy are also seen. Findings result in mild narrowing of the spinal canal as well as severe left and moderate to severe right neural foraminal narrowing. C7-T1: There is mild disc desiccation and circumferential disc bulging that does not result in significant spinal canal stenosis or neural foraminal narrowing. IMPRESSION: 1. Multilevel prominent uncovertebral joint and facet hypertrophy as well as [id number] degenerative disc disease as described in detail in the body of the report. 2. High-grade moderate to severe and severe neural foraminal stenosis is seen throughout the cervical spine. 3. [id number] spinal canal narrowing is seen at the C5-6 and C6-7 disc space levels without abnormal cord signal. Dictated by: Sebas Duarte M.D. on 04/09/2022 at 16:48 Approved by: Sebas Duarte M.D. on 04/09/2022 at 16:58
== END ==
PROVIDERS: Family Provider Family Medicine; PCP Family Medicine; Referring Provider Orthopaedic Surgery; Visit Provider Orthopaedic Surgery
DX: M48.02 Spinal stenosis, cervical region (principal); M50.31 Other cervical disc degeneration, high cervical region
CPT/HCPCS: 72141

== ENCOUNTER → 2022-04-12 11:42 | Outpatient (CLI) | payer MEDICARE, OTHER, SELFPAY ==
--- NOTE | 2022-04-12 12:01 | DI.MRI.S_ITS ---
PROCEDURE: MR SHOULDER RT WO CON INDICATIONS: Impingement syndrome of right shoulder TECHNIQUE: Noncontrast oblique coronal T2 fast spin echo with fat saturation, oblique sagittal T1 spin echo and T2 fast spin echo with fat saturation, axial T1 spin echo and T2 fast spin echo with fat saturation through the shoulder. COMPARISON: [facility], CR, XR SHOULDER 2+ VIEWS RIGHT, 10/29/2021, 16:06. [facility], MR, MR SHOULDER RT WO CON, 09/07/2019, 12:37. FINDINGS: Image quality: Excellent. Rotator cuff: There is full-thickness tearing involving the majority of the supraspinatus and infraspinatus tendons from their distal insertions measuring approximately 1.9 cm in anterior-posterior dimension with proximal tendon retraction measuring up to 3.2 cm. A few attenuated articular sided supraspinatus tendon fibers main remain in continuity at the anterior footprint. Some of the posterior infraspinatus tendon fibers also likely remain in continuity. The teres minor tendon is intact. There is moderate subscapularis tendinosis with high-grade partial intrasubstance tearing at the superior insertion. There is mild atrophy and grade 2 fatty infiltration of the infraspinatus and supraspinatus muscles. Bones and bursae: No acute trabecular bone injury or fracture. Chronic traction cystic changes are seen at the posterosuperior humeral head and the greater tuberosity near the rotator cuff tendon insertions. The role head is mildly high riding with very mild narrowing of the acromiohumeral interval. Moderate degenerative changes are seen in the acromioclavicular joint with subchondral edema, subchondral cystic changes, and formation of small marginal osteophytes. A small subacromial/subdeltoid bursal effusion communicates with the glenohumeral joint space. There is a large amount of fluid in the subcoracoid bursa. Capsule and soft tissues: There is nondisplaced tearing of the anterior to anterosuperior labrum with a small 3 mm paralabral cyst. Findings are superimposed on chronic diffuse labral degeneration. The proximal biceps long head tendon demonstrates severe tendinosis and partial intrasubstance tearing and is mildly medially subluxed into the substance of the distal subscapularis tendon. There is effacement of the normal fat signal in the rotator interval. No focal capsular injury is seen. IMPRESSION: 1. Full-thickness tearing involving the majority of the supraspinatus and infraspinatus tendons measuring 1.9 cm in anterior-posterior dimension with proximal tendon retraction measuring up to 3.2 cm. Findings have progressed when compared to the prior MRI from 09/07/2019. There is mild atrophy and grade 2 fatty infiltration of the supraspinatus and infraspinatus muscles. The humeral head is mildly high riding. 2. High-grade partial intrasubstance tearing of the distal subscapularis tendon at the superior insertion. 3. Severe tendinosis and partial intrasubstance tearing of the proximal biceps long head tendon, which demonstrates medial subluxation into the substance of the distal subscapularis tendon. 4. Nondisplaced tearing of the anterior to anterosuperior labrum with a 3 mm paralabral cyst, superimposed on chronic labral degeneration. 5. Moderate acromioclavicular joint osteoarthrosis. 6. Small subacromial/subdeltoid bursal effusion communicates with the glenohumeral joint space and communicates with a large subcoracoid bursal effusion. Dictated by: Sebas Duarte M.D. on 04/13/2022 at 9:33 Approved by: Sebas Duarte M.D. on 04/13/2022 at 9:42
== END ==
PROVIDERS: Family Provider Family Medicine; PCP Family Medicine; Referring Provider Orthopaedic Surgery; Visit Provider Orthopaedic Surgery
DX: M75.121 Complete rotator cuff tear or rupture of right shoulder, not specified as traumatic (principal); M75.41 Impingement syndrome of right shoulder; M19.011 Primary osteoarthritis, right shoulder; M25.411 Effusion, right shoulder
CPT/HCPCS: 73221

== ENCOUNTER → 2022-05-28 07:03 | Outpatient (CLI) | payer MEDICARE, OTHER, SELFPAY ==
[2022-05-28 08:49] LABS: Hematocrit 37.1 % (36-46); Hemoglobin 12.5 g/dL (12.0-16.0); Mean Corpuscular HGB Conc 33.6 % (30-36); Mean Corpuscular Hemoglobin 28.9 PG (26-34); Platelet Count 231 X10^3/uL (150-400); Red Blood Cell Count 4.31 X10^6/uL (4.0-5.2); Red Cell Distribution Width 13.8 % (11.6-14.8); White Blood Cell Count 4.6 X10^3/uL (4.5-11.0)
[2022-05-28 08:50] LABS: Add Manual Diff / Slide Review YES
[2022-05-28 09:32] LABS: Neutrophils Absolute Manual 2530 /uL (3000-5900); Total Cells Counted 100
[2022-05-28 09:34] LABS: RBC Morphology Normal Morphology
[2022-05-28 10:37] LABS: Alanine Aminotransferase 21 IU/L (<35); Albumin 4.3 g/dL (3.5-5.0); Albumin Globulin Ratio 1.7 (1.0-2.8); Alkaline Phosphatase 52 U/L (38-126); Aspartate Aminotransferase 27 IU/L (14-36); BUN Creatinine Ratio 24.6 (6-22); Bilirubin Total 0.4 mg/dL (0.2-1.3); Blood Urea Nitrogen 17 mg/dL (7-17); Calcium 9.3 mg/dL (8.4-10.2); Carbon Dioxide 28 mmol/L (22-32); Chloride 98 mmol/L (98-107); Cholesterol 196 mg/dL (140-199); Estimated Glomerular Filt Rate > 60 mL/min (>60); Globulin 2.5 g/dL (1.7-4.1); Glucose 82 mg/dL (80-110); HDL Cholesterol 63 mg/dL (40-60); HEMOLYSIS < 15 (0-50); LDL Cholesterol Calculated 114 mg/dL (<100); Potassium 4.5 mmol/L (3.4-5.1); Sodium 134 mmol/L (137-145); Total Protein 6.8 g/dL (6.3-8.2); Triglycerides 94 mg/dL (35-150); Uric Acid 5.1 mg/dL (2.5-6.2)
[2022-05-28 11:06] LABS: TSH w/ Reflex to FT4 4.53 uIU/mL (0.47-4.68)
== END ==
PROVIDERS: Family Provider Family Medicine; PCP Family Medicine; Referring Provider Family Medicine; Visit Provider Family Medicine
DX: E78.2 Mixed hyperlipidemia (principal); C91.90 Lymphoid leukemia, unspecified not having achieved remission; M79.676 Pain in unspecified toe(s); E03.9 Hypothyroidism, unspecified
CPT/HCPCS: 36415; 80053; 80061; 84443; 84550; 85007; 85025

== ENCOUNTER → 2022-11-26 14:58 | Outpatient (CLI) | payer MEDICARE, OTHER, SELFPAY ==
--- NOTE | 2022-11-26 | DI.MRI.S_ITS ---
PROCEDURE: MR LUMBAR SPINE WO CON INDICATIONS: Spinal stenosis, lumbar region TECHNIQUE: Noncontrast sagittal T1 spin echo and T2 fast echo, sagittal STIR, and T2 fast spin echo through the lumbar spine. In cases with scoliosis, additional coronal T2 fast spin echo may be performed. COMPARISON: None. FINDINGS: Image quality: Excellent. Alignment and Curvature: Minimal retrolisthesis can be seen at T12-L1. There is grade 1 anterolisthesis at the L4-L5 level. Associated bilateral pars defects are not seen on these images. Bone Marrow: Marrow is of normal overall signal. No acute vertebral body compression fractures. Spinal Cord: Conus medullaris terminates at the L1 level. Visualized cord demonstrates normal signal and size. Paraspinous Soft Tissues: No paravertebral masses. T12-L1: Moderate to severe loss of disc height and disc signal can be seen. Reactive marrow endplate changes are seen, which are hyperintense on T1-weighted and T2-weighted imaging and most consistent with fatty metaplasia (Modic type II changes). Moderate disc bulge is seen. Posteriorly projected endplate osteophytes are seen. Mild facet joint hypertrophy is seen. There is at least moderate right-sided and moderate to severe left-sided neural foraminal narrowing. There is a degree of compression seen upon the exiting left T12 nerve root. Mild central canal narrowing is seen. L1-L2: The disc height is well-preserved. Loss of disc signal is seen at this level. Mild to moderate disc bulge is seen, with a right foraminal disc protrusion, as on series 5, image 14. Mild facet joint hypertrophy is seen. There is moderate right-sided and mild left-sided neural foraminal narrowing. Mild central canal narrowing is seen. L2-L3: The disc height is well-preserved. Loss of disc signal is seen at this level. Moderate generalized disc bulge is seen. There is a superimposed central disc protrusion. Moderate bilateral neural foraminal narrowing is seen. Moderate central canal narrowing is seen. L3-L4: The disc height is well-preserved. Loss of disc signal is seen at this level. Moderate generalized disc bulge is seen. There is a superimposed central disc protrusion. Moderate to prominent facet hypertrophy can be seen. There is moderate to severe left-sided neural foraminal narrowing and there is at least moderate right-sided neural foraminal narrowing. There is a degree of compression seen upon the exiting nerve roots. At least moderate central canal narrowing can be seen. L4-L5: Moderate loss of disc height is seen. Loss of disc signal is seen. Prominent facet hypertrophy is seen. Moderate generalized disc bulge is seen. There is a superimposed central disc protrusion. There is moderate to severe right-sided neural foraminal narrowing and moderate left-sided neural foraminal narrowing. There is a degree of compression seen upon the exiting nerve roots. Moderate to severe central canal narrowing is seen. L5-S1: The disc height and disk signal are relatively well-preserved. Moderate to prominent facet hypertrophy is seen. Moderate bilateral neural foraminal narrowing is seen. Mild central canal narrowing is seen. IMPRESSION: Multiple levels of lumbar spine degenerative change are seen, which are overall worst at the L4-L5 level. Dictated by: Jarett Meade M.D. on 11/26/2022 at 16:45 Approved by: Jarett Meade M.D. on 11/26/2022 at 16:50
== END ==
PROVIDERS: Family Provider Family Medicine; PCP Family Medicine; Referring Provider Physical Medicine & Rehabilitation; Visit Provider Physical Medicine & Rehabilitation
DX: M48.062 Spinal stenosis, lumbar region with neurogenic claudication (principal); M47.816 Spondylosis without myelopathy or radiculopathy, lumbar region; M47.817 Spondylosis without myelopathy or radiculopathy, lumbosacral region
CPT/HCPCS: 72148

== ENCOUNTER 2023-09-14 09:07 | Emergency (ER) | payer MEDICARE, OTHER, SELFPAY ==
[2023-09-14] VITALS (11 sets, daily range): BP systolic 130–158; BP diastolic 62–100; PULSE 49–57; RESP 17; TEMP 36.2; O2SAT 92–99; BMI 27.4
--- NOTE | 2023-09-14 09:13 | DI.RAD.S_ITS ---
PROCEDURE: XR HIP W PEL IF DONE RT 2V INDICATIONS: right hip pain TECHNIQUE: AP pelvis with lateral view(s) of the right hip(s). COMPARISON: [facility] [place], CR, XR PELVIS WITH LATERAL HIP RIGHT, 11/15/2017, 15:11. [facility], CR, [id number] W PEL IF PERFORMED, 10/13/2016, 10:09. FINDINGS: Bones: No fractures or dislocations. Pelvic ring appears intact. No suspicious bony lesions. Right hip arthroplasty. Hardware is intact without hardware fracture or periprosthetic lucency to suggest loosening. Alignment is stable. Severe left hip arthritic change including subchondral sclerosis and periarticular osteophytes. This is been progressive since 2018. Soft tissues: The visualized bowel gas pattern is normal. No suspicious soft tissue calcifications. IMPRESSION: No visualized acute fracture or dislocation. However, if clinical concern and/or pain persist, short interval imaging followup in 7-10 days is recommended, as occult injury cannot be definitively excluded. Markedly progressive appearance of left hip arthritic change. Dictated by: Allison Warren M.D. on 09/14/2023 at 9:58 Approved by: Allison Warren M.D. on 09/14/2023 at 9:59
--- NOTE | 2023-09-14 10:45 | ED.EXTPRO ---
HPI - Extremity Problem General Chief complaint: Extremity Problem,Nontraumatic Stated complaint: intense pain rt hip leg and back 10 ouf 10 Time Seen by Provider: 09/14/23 09:08 Source: patient Mode of arrival: Ambulatory History of Present Illness HPI Narrative: 82-year-old female with history of right hip replacement presents for 2 weeks of gradually worsening right hip pain. Pain initially started lateral to her hip joint and has gradually migrated towards her buttock and lower back. She has been taking some Tylenol and Motrin but still has pain. She has an appointment with her orthopedic surgeon tomorrow, but she can not sleep because of her pain and decided to come in for evaluation. She denies trauma. She states that she feels decreased sensation over the right lateral thigh. She denies bowel or bladder incontinence, denies saddle anesthesia. Denies lower extremity weakness. Related Data Home Medications Medication Instructions Recorded Confirmed loratadine 10 mg tablet (Claritin) 10 mg PO QDAYP PRN ##0 06/16/12 07/19/23 ketoconazole 2 % shampoo ##0 05/03/17 07/19/23 melatonin 1 mg tablet 1 mg PO HS ##0 05/24/18 07/19/23 gabapentin 100 mg capsule 100 mg PO DAILY 05/27/22 07/19/23 meloxicam 7.5 mg tablet 7.5 mg PO DAILY 05/27/22 07/19/23 Respoironics Dreamstation CPAP #1 ea 06/01/22 07/19/23 atenolol 25 mg tablet See Rx Instructions .Route .COMPLEX 03/15/23 07/19/23 Previous Rx's Medication Instructions Recorded pimecrolimus 1 % topical cream 1 % topical PRN PRN ##15 10/18/17 (Elidel) levothyroxine 112 mcg tablet See Rx Instructions .Route 07/20/22 (Levoxyl) .COMPLEX #90 tabs simvastatin 20 mg tablet See Rx Instructions .Route 04/11/23 .COMPLEX #90 tabs conjugated estrogens 0.625 mg/gram 0.625 mg vaginal .COMPLEX #60 grams 08/03/23 vaginal cream (Premarin) cyclobenzaprine 5 mg tablet 5 mg PO TID PRN muscle spasm #10 09/14/23 tabs Allergies Allergy/AdvReac Type Severity Reaction Status Date / Time erythromycin base AdvReac Severe NAUSEA/VOMI Verified 09/14/23 09:09 [ERYTHROMYCIN BASE] TING Review of Systems Review of Systems Narrative: Negative except as noted above Patient History Medical History Arthritis involving multiple sites Dupuytrens contracture Ocular rosacea Scarlet fever Double vision (~1994) 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 Brother No problems noted. Father Heart attack Mother Blood disorder Son No problems noted. Son No problems noted. Social History marital status: details: jasmyne Dee, lives in [place] number of children: 2 household members: spouse lives independently: Yes caregiver/support person: No housing: house education level: college occupational status: employed Previous occupational history: pianist, performer leisure activities: music Smoking Status: Never smoker substance use type: does not use Smoking Status: Never smoker alcohol intake frequency: holidays/special occasions only Substance Use Type: does not use Exam Initial Vital Signs Initial Vital Signs: Vital Signs Temperature 97.1 F L 09/14/23 09:09 Pulse Rate 53 L 09/14/23 09:09 Respiratory Rate 17 09/14/23 09:09 Blood Pressure 146/100 H 09/14/23 09:09 Pulse Oximetry 99 09/14/23 09:09 Oxygen Delivery Method Room Air 09/14/23 09:09 ?Const: Awake, alert Cardiac: regular rate, regular rhythm RESP: unlabored, clear bilaterally, no wheezing GI: Atraumatic, soft, nontender, nondistended, no rebound, no guarding MSK: Atraumatic, full range of motion,? positive MAXIMINO test on the right-hand side, negative straight leg raise bilaterally Skin: Warm, Dry, intact, no rashes Neuro: AO x3, CN II-XII grossly intact, moves all extremities Psych: affect normal, mood normal, not suicidal, not homicidal Course Orders Ordered: ED Orders 09/14/23 09:13 XR hip w pel if done RT 2V Stat Discontinued Medications Dexamethasone (Dexamethasone 10 Mg/Ml Vial) 10 mg IV NOW ONE Stop: 09/14/23 10:46 Last Admin: 09/14/23 11:12 Dose: 10 mg Documented By: ANNA Acetaminophen (Ofirmev) 1,000 mg in 100 mls @ 400 mls/hr IV NOW ONE Stop: 09/14/23 10:59 Last Infusion: 09/14/23 11:40 Dose: Infused Documented By: Admin: 09/14/23 11:24 Dose: 400 mls/hr Documented By: ANNA Ketorolac Tromethamine (Ketorolac 30 Mg/Ml Vial) 15 mg IV NOW ONE Stop: 09/14/23 10:46 Last Admin: 09/14/23 11:11 Dose: 15 mg Documented By: ANNA Lidocaine (Lidocaine 5% Patch) 1 each TOP DAILY NAINA Last Admin: 09/14/23 11:12 Dose: 1 each Documented By: ANNA Methocarbamol (Methocarbamol 500 Mg Tablet) 750 mg PO NOW ONE Stop: 09/14/23 10:46 Last Admin: 09/14/23 11:15 Dose: 750 mg Documented By: ANNA Morphine Sulfate (Morphine 4 Mg/Ml Inj) 4 mg IV NOW ONE Stop: 09/14/23 12:18 Last Admin: 09/14/23 12:24 Dose: 4 mg Documented By: ANNA Vital Signs Vital signs: Vital Signs - 8 hr 09/14/23 10:38 09/14/23 10:40 09/14/23 10:40 Pulse Rate 57 L 55 L Blood Pressure 130/73 Pulse Oximetry 99 97 09/14/23 10:54 09/14/23 10:54 09/14/23 11:00 Pulse Rate 52 L 51 L Blood Pressure 146/82 H Pulse Oximetry 99 97 09/14/23 11:30 09/14/23 12:00 09/14/23 12:26 Pulse Rate 53 L 56 L Blood Pressure 158/72 H Pulse Oximetry 98 99 09/14/23 12:26 09/14/23 12:30 09/14/23 12:39 Pulse Rate 53 L 50 L 49 L Blood Pressure Pulse Oximetry 99 95 92 09/14/23 12:40 Pulse Rate Blood Pressure 134/62 Pulse Oximetry MDM - Extremity (Nontraumatic) Differential Diagnosis Differential diagnosis: Likely gout and other (arthritis, sciatica) MDM Narrative Medical decision making narrative: several weeks of gradually worsening atraumatic right hip pain. Physical exam is notable for positive MAXIMINO sign on the left. Patient is pain is not midline, there are no signs or symptoms of cauda equina. Patient requested Ambien to help her sleep at night, because it has helped her many years ago. I explained that At 82 years old Ambien is not an ideal choice for sleep aid, recommended sleep hygiene, Benadryl, melatonin, which the patient states she has at home. Patient was given medications for pain in the emergency department. She reports moderate improvement in pain. Again, patient has appointment with her orthopedic surgeon tomorrow and can discuss her pain with them at that time. Discharged home with her in stable condition. Discharge Plan Departure Patient Disposition: Home Clinical Impression: Hip strain Instructions: DI for Hip Pain Activity Restrictions/Additional Instructions: Your x-rays today were normal. You do not have any fractures, dislocations, hardware malfunction. You have been given numerous medications here for pain. It is extremely important that you keep your orthopedic appointment as scheduled. You may continue to take Tylenol and Motrin for pain, a short course of a muscle relaxer has been sent to your pharmacy. This may cause drowsiness, this should be avoided with alcohol or other sedating medications. Prescriptions: New cyclobenzaprine 5 mg tablet 5 mg PO TID PRN (Reason: muscle spasm) Qty: 10 0RF No Action gabapentin 100 mg capsule 100 mg PO DAILY Rx Instructions: 1-3 capsules by mouth every day at bedtime meloxicam 7.5 mg tablet 7.5 mg PO DAILY Rx Instructions: Take 1 tablet by oral route every day with breakfast for pain/inflammation loratadine [Claritin] 10 MG tablet 10 mg PO QDAYP PRNQty: 0 ketoconazole 2 % shampoo Qty: 0 pimecrolimus [Elidel] 1 % cream 1 % Topical PRN PRNQty: 15 0RF melatonin 1 mg tablet 1 mg PO HS Qty: 0 levothyroxine [Levoxyl] 112 mcg tablet See Rx Instructions .ROUTE .COMPLEX Qty: 90 3RF Dose Instruction: TAKE 1 TABLET DAILY AT 0600 Rx Instructions: TAKE 1 TABLET DAILY AT 0600 simvastatin 20 mg tablet See Rx Instructions .ROUTE .COMPLEX Qty: 90 1RF Dose Instruction: TAKE 1 TABLET AT BEDTIME Rx Instructions: TAKE 1 TABLET AT BEDTIME. Need to establish care with new PCP prior to more fills 04/11/23 Premarin 0.625 mg/gram cream 0.625 mg vaginal .COMPLEX Qty: 60 4RF Rx Instructions: 0.625 mg vaginally daily for 14 days then 3 x week; atenolol 25 mg tablet See Rx Instructions .ROUTE .COMPLEX Dose Instruction: TAKE 1 TABLET DAILY Rx Instructions: TAKE 1 TABLET DAILY (DME) Respoironics Dreamstation CPAP Qty: 1 Dose Instruction: As directed Patient Comments: DreamStation 2 Pressure: 6-12 cmH2O DME: NORCO MAIK: 09/07/18 Rx Instructions: As directed Referrals: Grabiel Obrien MD [Primary Care Provider] - Stand Alone Forms: Patient Portal/API
[2023-09-14] MEDS: KETOROLAC 30 MG/ML VIAL 15 MG IV (11:11)
[2023-09-14] MEDS: DEXAMETHASONE 10 MG/ML VIAL IV (11:12)
[2023-09-14] MEDS: LIDOCAINE 5% PATCH 1 EACH TOP (11:12)
[2023-09-14] MEDS: methocarbamoL 500 MG TABLET 750 MG PO (11:15)
[2023-09-14] MEDS: ACETAMINOPHEN IV 1,000 MG/100 ML VIAL 400 MG IV (11:24)
[2023-09-14] MEDS: MORPHINE 4 MG/ML INJ IV (12:24)
== END 2023-09-14 13:00 | disposition home or self-care (01) ==
PROVIDERS: Emergency Provider Emergency Medicine; Family Provider Family Medicine; PCP Family Medicine
DX: S76.011A Strain of muscle, fascia and tendon of right hip, initial encounter (principal)
CPT/HCPCS: 36415; 73502; 96365; 96375; 99284; J0136; J1100; J1885; J2270

== ENCOUNTER → 2023-11-11 09:22 | Outpatient (CLI) | payer MEDICARE, OTHER, SELFPAY ==
[2023-11-11 10:35] LABS: Hematocrit 35.4 % (36-46); Mean Corpuscular HGB Conc 33.9 % (30-36); Mean Corpuscular Hemoglobin 29.4 PG (26-34); Mean Corpuscular Volume 86.8 fL (80-100); Platelet Count 238 X10^3/uL (150-400); Red Blood Cell Count 4.08 X10^6/uL (4.0-5.2); White Blood Cell Count 4.6 X10^3/uL (4.5-11.0)
[2023-11-11 10:48] LABS: Add Manual Diff / Slide Review YES
[2023-11-11 10:54] LABS: BUN Creatinine Ratio 27.6 (6-22); Blood Urea Nitrogen 16 mg/dL (7-17); Calcium 9.9 mg/dL (8.4-10.2); Carbon Dioxide 27 mmol/L (22-32); Chloride 102 mmol/L (98-107); Estimated Glomerular Filt Rate > 60 mL/min (>60); Glucose 90 mg/dL (80-110); HEMOLYSIS < 15 (0-50); Potassium 4.7 mmol/L (3.4-5.1); Sodium 132 mmol/L (137-145)
[2023-11-11 11:00] LABS: Neutrophils Absolute Manual 1886 /uL (3000-5900); RBC Morphology Normal Morphology; Total Cells Counted 100
== END ==
PROVIDERS: Family Provider Family Medicine; PCP Family Medicine; Referring Provider Orthopaedic Surgery Orthopaedic Surgery of the Spine; Visit Provider Orthopaedic Surgery Orthopaedic Surgery of the Spine
DX: Z01.818 Encounter for other preprocedural examination (principal); Z01.812 Encounter for preprocedural laboratory examination
CPT/HCPCS: 36415; 80048; 85007; 85025; 93005

== ENCOUNTER → 2024-01-09 06:50 | Outpatient (CLI) | payer MEDICARE, OTHER, SELFPAY ==
--- NOTE | 2024-01-09 06:51 | DI.ECHO.S_ITS ---
[facility] : : [address] : : [place] : : [id number] : : Phone: [phone] Echocardiogram Report + + :Name: JIMMIE GRIFFITH Study Date: 01/09/2024 Height: 63 in : :Hospital ReadingLocation: Weight: 154 lb : : Gender: Female BSA: 1.7 m2 : :: 1940 Age: 83 yrs BP: 127/67 mmHg: :Reason For Study: SUPRAVENTRICULAR TACHYCARDIA : :Ordering Physician: Karen MEDINAformed By: Karissa Wagner : :Referring: RENETTA MEDINA : + + Interpretation Summary Normal left ventricle size with ejection fraction 55-60%. Mild mitral regurgitation. Comparison is made with the echocardiogram of 09/12/2017, no significant change. Procedure: A two-dimensional transthoracic echocardiogram with color flow and Doppler was performed. The study quality was technically adequate. Comparison is made with the echocardiogram of 09/12/2017. The patient was in sinus bradycardia with heart rates between 49-61 bpm during the exam. Left Ventricle: The left ventricle is normal in size and wall thickness. The ejection fraction is estimated to be 55-60%. There are no focal wall motion abnormalities. Right Ventricle: The right ventricle is normal in size and function. Atria: The left atrial size is normal. Right atrial size is normal. There is no Doppler evidence for an interatrial shunt. Mitral Valve: The mitral valve is normal in structure and function. There is mild mitral regurgitation. Aortic Valve: The aortic valve is trileaflet. The aortic valve opens well. There is no aortic valve stenosis. No aortic regurgitation is present. Tricuspid Valve: The tricuspid valve is normal in structure and function. There is trace tricuspid regurgitation. Pulmonic Valve: The pulmonic valve leaflets are thin and pliable; valve motion is normal. There is a trace or physiologic amount of pulmonic regurgitation. Great Vessels: The aortic root is normal size. The dimensions of the ascending aorta are normal. The IVC is of normal diameter and collapses greater than 50% with a sniff. This suggests a low right atrial pressure of 3 mm Hg. Pericardium/ Pleura There is no pericardial effusion. There is no pleural effusion. MMode/2D Measurements & Calculations LVIDd: 5.1 cm LVOT diam: 1.9 cm LVIDs: 3.3 cm Ao root diam: 2.6 cm FS: 34.0 % asc Aorta Diam: 3.0 cm EPSS: 0.62 cm IVSd: 0.92 cm LVPWd: 0.74 cm LV jarrett. diameter/BSA (cm/m^2): 2.9 LV sys. diameter/BSA (cm/m^2): 1.9 LA A2 area: 21.2 cm2 RA long axis: 5.0 cm LA A4 area: 17.0 cm2 RA area: 15.3 cm2 LA length (vol): 5.4 cm RA vol: 40.0 ml LA vol: 56.9 ml RA : 23.1 ml/m2 LA vol index: 32.9 ml/m2 IVC diam: 1.3 cm RVD1 (basal): 3.5 cm RVD2 (mid): 2.7 cm TAPSE: 1.9 cm Doppler Measurements & Calculations Ao V2 max: 120.2 cm/sec LVOT Max Gabe: 88.7 cm/sec Ao V2 mean: 87.0 cm/sec LV V1 max P.1 mmHg Ao max P.8 mmHg LV V1 VTI: 24.4 cm Ao mean P.3 mmHg WILMA(I,D): 2.0 cm2 Ao V2 VTI: 34.8 cm WILMA(V,D): 2.1 cm2 sev ratio: 0.70 WILMA indexed to BSA (cm^2/m^2): 1.2 MV E max gabe: 82.2 cm/sec PA V2 max: 91.8 cm/sec MV A max gabe: 69.9 cm/sec PA V2 mean: 69.1 cm/sec MV E/A: 1.2 PA mean P.0 mmHg Med Peak E' Gabe: 6.1 cm/sec PA pr(Accel): -1.5 mmHg E/E' med: 13.4 Lat Peak E' Gabe: 7.5 cm/sec E/E' lat: 10.9 E/e' average: 12.2 MV dec time: 0.23 sec SV(LVOT): 70.9 ml Electronically signed by: Joselo Hobbs on Reading Physician:01/09/2024 10:27 AM
== END ==
PROVIDERS: Family Provider Family Medicine; PCP Family Medicine; Referring Provider Internal Medicine Cardiovascular Disease; Visit Provider Internal Medicine Cardiovascular Disease
DX: I34.0 Nonrheumatic mitral (valve) insufficiency (principal); I47.10 Supraventricular tachycardia, unspecified; R06.02 Shortness of breath
CPT/HCPCS: 93306

== ENCOUNTER 2024-01-23 12:30 | Inpatient (IN) | payer MEDICARE, OTHER, SELFPAY ==
[2024-01-12 13:35] VITALS: BMI 27.8
[2024-01-23] VITALS (10 sets, daily range): BP systolic 86–153; BP diastolic 52–73; PULSE 51–69; RESP 10–19; TEMP 35.9–36.2; O2SAT 94–99; BMI 27.8
[2024-01-23] MEDS: LACTATED RINGERS 1,000 ML 42 ML IV ×2 (13:23→15:10)
[2024-01-23] MEDS: ACETAMINOPHEN 325 MG TABLET 975 MG PO (13:23)
[2024-01-23] MEDS: DOXYCYCLINE 100 MG in SODIUM CHLORIDE 0.9% 100 ML IV (14:00)
[2024-01-23] MEDS: CEFAZOLIN 2 GM/100 ML PREMIX 100 ML IV (14:15)
--- NOTE | 2024-01-23 14:24 | SUR.OPER ---
Prone on spine table, head in foam head support, padded chest and pelvic supports, gel pad at knees, lower legs supported by pillows; nipples, genitalia and toes free of pressure, arms secured on foam padded arm boards at <90 degrees abduction. Tape over blanket at thigh secured to table.
[2024-01-23] MEDS: BUPIVACAINE LIPOSOME 266 MG/20 ML VIAL INJ (14:37)
[2024-01-23] MEDS: BUPIVACAINE 0.25% (PF) 30 ML, EPINEPHrine 0.15 MG INJ (14:38)
--- NOTE | 2024-01-23 16:32 | PM.OP.1 ---
Operative Date/Time/Diagnoses Date of procedure: 01/23/24 Time of procedure: 14:15 Pre-op diagnosis: 1. L4-5 spondylolisthesis 2. 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 L3-4 spinal stenosis with radiculopathy Post-op diagnosis: same Procedure & Clinicians Procedure: 1. L4-5 Postero-lateral and posterior interbody fusion 2. L4-5 interbody cage placement. 3. L4-5 decompressive laminectomy with bilateral facetecomies 4. L4-5 Posterior non-segmental instrumentation 5. L3-4 right hemilaminectomy 6. [place] of bone marrow from iliac crest 7. Utilization of microsurgical technique and operating microscope Same procedure as scheduled: Yes Indications: Patient has been having chronic back pain and worsening lumbar radiculopathy and symptoms of neurogenic claudication. Patient was found to have severe spinal stenosis at L4-5 with anterolisthesis as well as L3-4 spinal stenosis with radiculopathy correlating with her symptoms. Patient failed multiple conservative management with worsening pain weakness and numbness in her lower extremity. Patient has been having difficulty performing activity of daily living. After discussing risks benefits of treatment options, patient elected proceed with surgery. Surgeon: Maco Fuentes Spout Liner Helper: Tasneem Warren Click Yes if Unassisted: No Anesthesia Type: General Operative Notes Closure Type: primary Specimen(s): none sent Prosthetic devices, grafts, tissues, transplants, or devices: Globus revolve screws, Rise cage Estimated Blood Loss (mL): 50 Blood products transfused: none Procedure in detail: Patient was seen in the preoperative area. Risks and benefits of the surgery was discussed with the patient. Informed consent was obtained from the patient and placed in the chart. Surgical site was marked. Patient was taken to the operative room. General anesthesia was administered. Prophylactic antibiotic was given to the patient less than 30 min before the incision was made. Patient was placed into a prone position on the Mark table. Patient's back was then prepped and draped in the sterile fashion. Time-out was performed at this time. Using AP and lateral C-arm imaging the interval between L4-5 was identified and marked on patient's back. A 2 inch incision 2 in from midline was made on the right side first. The fascia was incised in line with skin incision. Globus MARS retractors was placed inside the incision and docked onto the L4 lamina. Using microsurgical technique and operating microscope, a L4 laminectomy and L4-5 facetectomy was performed using a Kerrison rongeur. The disc space at L4-5 was identified. And a total diskectomy was performed at L4-5 level. The laminectomy and facetectomy was performed in order to decompress patient's cauda equina as well as the nerve roots exiting at the L4-5 level. The endplates were decorticated using a rasp and shaver. The total diskectomy and decortication was performed at L4-5 level in order to to accomplish a L4-5 fusion. The local bone from the laminectomy and facetectomy was saved for local bone grafting. After the total diskectomy and decortication was completed, Globus viacell bone graft material was combined with local bone that was harvested earlier. At this time, a separate skin is incision was made over the iliac crest. A Jamshidi needle was inserted into the iliac crest through a separate skin incision. 5 cc of bone marrow aspiration was obtained through the separate skin incision using a Jamshidi needle from the iliac crest. The bone marrow aspiration was combined with local bone and the via cell bone grafting material. The bone grafting material was placed into the L4-5 interbody space along with a expandable cage. The cage was expanded to its maximum height using the torque limiting screwdriver. At this time the MARS retractor was redirected over the L3 lamina. Using microsurgical technique and operating microscope, a L3 heminectomy was performed using the Kerrison rongeur. The ligamentum flavum was also resected at the side of the hemilaminectomy for further decompression of the epidural space. At this time a mirror image incision was made on the left side. The fascia was incised in line with the skin incision. Globus MARS retractor was inserted and docked onto the L4-5 posterolateral gutter. Using the power drill, posterior-lateral decortication was performed at L4-5 level until bleeding cortical bone was identified. The remaining bone grafting material was placed into the L4-5 posterior lateral gutter he order to accomplish posterolateral fusion at the L4-5 level. Using the double C-arm technique, pedicle screws were placed into the L4 and L5 pedicles bilaterally. This was done by placing the Jamshidi needle into the pedicles, then placing the guidewires over the Jamshidi needle, and finally placing the cannulated screws over the guidewires bilaterally. After the pedicle screws were placed, 2 titanium rods was locked into the heads of the pedicle screws using locking caps and torque limiting screwdriver. After all the hardware was placed, and confirmed with AP and lateral C-arm imaging, the wound was then irrigated with sterile normal saline and packed with Ray-Lisa gauze for 3 min to accomplish hemostasis. After the gauze was removed the deep fascia was closed with #1 Vicryl suture. The subcutaneous layer was closed with 2-0 Vicryl. The skin was closed with skin smooth. Patient tolerated the procedure well. There were no complications. The Operation could not have been safely performed without compromising the technical result or length of the procedure, without the assistance of a skilled surgical territory manager. The surgical territory manager was medically necessary for proper positioning, retraction and manipulation of instruments, proper exposure, surgical preparation, and manipulation of tissue. Neuro monitoring was utilized throughout the entire case and the signal was stable throughout entire procedure without disturbance. Complications: none Post-operative Condition: stable Disposition: PACU Plan for aftercare: Admit to inpatient hospital
--- NOTE | 2024-01-23 16:44 | DI.RAD.S_ITS ---
PROCEDURE: XR LUMBAR SPINE 2-3V INDICATIONS: L4-5 TLIF TECHNIQUE: 2 views of the lumbar spine were acquired. COMPARISON: None. FINDINGS: Limited intraoperative fluoroscopic images of the lumbar spine demonstrates postsurgical changes of posterior fusion and discectomy at L4-5 with placement of interbody spacer. No gross hardware complication seen. IMPRESSION: Intraoperative fluoroscopic support for lower lumbar fusion at L4-5. Please see separate procedure note for further details. Dictated by: Juan Diego Hardin M.D. on 01/23/2024 at 17:25 Approved by: Juan Diego Hardin M.D. on 01/23/2024 at 17:26
[2024-01-23] MEDS: OXYCODONE IR 5 MG TABLET PO (16:59)
[2024-01-23] MEDS: LACTATED RINGERS 1,000 ML 125 ML IV (19:04)
[2024-01-23] MEDS: DOCUSATE 100 MG CAPSULE PO (21:52)
[2024-01-23] MEDS: MELATONIN 3 MG TABLET PO (21:52)
[2024-01-23] MEDS: ATORVASTATIN 20 MG TABLET 10 MG PO (21:53)
[2024-01-23] MEDS: ONDANSETRON 4 MG/2 ML INJ IV (21:53)
[2024-01-23] MEDS: GABAPENTIN 100 MG CAPSULE 200 MG PO (21:53)
[2024-01-23] MEDS: SENNOSIDES 8.6 MG TABLET 17.2 MG PO (21:53)
[2024-01-23] MEDS: ACETAMINOPHEN 325 MG TABLET 650 MG PO (22:35)
[2024-01-24 00:45] VITALS: BP 124/48; PULSE 61; RESP 17; TEMP 35.9; O2SAT 99
[2024-01-24] MEDS: DOXYCYCLINE 100 MG in SODIUM CHLORIDE 0.9% 100 ML IV (03:29)
[2024-01-24] MEDS: LACTATED RINGERS 1,000 ML 125 ML IV (03:30)
[2024-01-24] MEDS: CEFAZOLIN 2 GM/100 ML PREMIX 100 ML IV ×2 (05:59)
[2024-01-24] MEDS: LEVOTHYROXINE 112 MCG TABLET PO (05:59)
[2024-01-24 06:07] VITALS: BP 105/44; PULSE 65; RESP 19; TEMP 36.6; O2SAT 99
--- NOTE | 2024-01-24 07:43 | P.PN_ITS ---
Subjective Subjective Date Patient Seen: 01/24/24 Time Patient Seen: 07:43 Interval history: Patient's pain is [id number] this morning. Patient did episodes of vomiting last night. She currently denies being nauseous. She does have her at home to assist her. Her does use a cane for assistance. Exam Vital Signs (past 8 hours): - 01/24/24 00:45 01/24/24 06:07 Temperature 96.7 F L 97.8 F Pulse Rate 61 65 Respiratory Rate 17 19 Blood Pressure 124/48 L 105/44 L Pulse Oximetry 99 99 Oxygen Flow Rate 0 0 Oxygen Delivery Method Room Air Oxygen Flow Rate 0 Narrative Exam Narrative: 83-year-old female resting comfortably in bed in no apparent distress. Dressing is clean, dry and intact. Neurovascular status is intact bilateral lower extremities. 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) Hypothyroidism (~1994) Hemorrhoids Cataract (~2016) Chicken pox Measles Mumps Rosacea (~2005) Shoulder pain (2013) Fractures (2003) Foot pain (2014) Ankle pain (2015) Hayfever Osteoarthritis (2013) Raynaud's disease (1959) CLL (chronic lymphocytic leukemia) (~2005) Arm fracture, left (1955) Surgical History History of total right hip replacement History of surgery on arm (~2019) History of cataract surgery (~2016) Anesthesia History of foot surgery (01/2004) History of surgery on arm (1955) Status post knee surgery (02/25/09) Status post colonoscopy (07/02/13) Family History Brother No problems noted. Brother No problems noted. Father Heart attack Mother Blood disorder Son No problems noted. Son No problems noted. Social History marital status: details: jasmyne Dee, lives in [place] number of children: 2 household members: spouse lives independently: Yes caregiver/support person: No housing: house education level: college occupational status: employed Previous occupational history: pianist, performer leisure activities: music Smoking Status: Never smoker alcohol intake: former substance use type: does not use Assessment & Plan Post-op Postoperative Procedures: Procedures Operation Date: 01/23/24 13:15 Actual Procedure Side Surgeon p L4-5 TLIF Maco Fuentes MD Postoperative day: 1 Postoperative status: doing well Postoperative plan: routine post-op care Postoperative plan narrative: Multimodal pain management Mobilize with physical therapy, limit bending, twisting, lifting Discharge home today or tomorrow Quality VTE Deep Vein Thrombosis/Pulmonary Embolism Present on Admission: No
[2024-01-24 08:00] VITALS: BP 114/48; PULSE 59; RESP 16; TEMP 36.1; O2SAT 97
[2024-01-24] MEDS: DOCUSATE 100 MG CAPSULE PO (09:40)
[2024-01-24] MEDS: ACETAMINOPHEN 325 MG TABLET 650 MG PO (09:40)
--- NOTE | 2024-01-24 10:20 | PT.IIE ---
Current Diagnoses Spondylolisthesis, lumbar region (01/23/24) Spinal stenosis, lumbar region with neurogenic claudication (01/23/24) Surgery Performed Operation Date: 01/23/24 13:15 Actual Procedures p L4-5 TLIF - Maco Fuentes MD Surgical History (Last Reviewed 01/24/24 @ 07:44 by Hever Tripp [email or web address]) Anesthesia History of cataract surgery (~2016) History of foot surgery (01/2004) History of surgery on arm (1955) History of surgery on arm (~2019) History of total right hip replacement Status post colonoscopy (07/02/13) Status post knee surgery (02/25/09) Medical History (Last Reviewed 01/24/24 @ 07:44 by Hever Tripp PA-C) Afib (2004) Ankle pain (2015) Arm fracture, left (1955) Arthritis involving multiple sites Cataract (~2016) Cervical stenosis of spine Chicken pox CLL (chronic lymphocytic leukemia) (~2005) Constant pain (~2014) Double vision (~1994) Dupuytrens contracture Foot pain (2014) Fractures (2003) Hayfever Hearing impaired Hemorrhoids Hypothyroidism (~1994) Measles Mumps Ocular rosacea DINORAH on CPAP Osteoarthritis (2013) Raynaud's disease (1959) Rosacea (~2005) 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) Scarlet fever Shoulder pain (2013) Spinal stenosis Supraventricular tachycardia Physical Therapy Inpatient Evaluation/Re-Eval M1 PT/OT-IP Prior Functional Status Start: 01/24/24 13:42 Freq: NEEDED Status: Active Protocol: Document 01/24/24 10:20 AB (Rec: 01/24/24 13:55 AB [id number]) Medical Review Prior Functional Status Medical History Reviewed Yes Communication able to make needs known; needs repetitions with instructions Mobility and Gait pt stated that she wasindependent with all mobilities and ambulation without AD Social History Household Members spouse Living Arrangements House Number of Floors (Floors) 3 or More Floors Number of Stairs To Enter/Railing? pt lives in a 4 level house but mainly uses only 2 levels of the house: main level without steps to enter but has 7steps+landing +7 steps R rail descending to TV room Home Environment Standard Height Toilet,Walk in Shower Home Equipment Front Wheel Walker,Shower Seat with Backrest,Hand Held Shower Additional Social History Comment pt has balance issues and uses a quad cane for ambulation and will not be able to provide physical assist to pt M2 PT-IP Current Condition Start: 01/24/24 13:42 Freq: NEEDED Status: Active Protocol: Document 01/24/24 10:20 AB (Rec: 01/24/24 13:55 AB [id number]) Physical Therapy Current Condition Current Condition Evaluation Date 01/24/24 Treatment Diagnosis s/p L4-5 TLIF;L3-4 R hemilami; difficulty in walking Onset Date 01/23/24 M3 PT-IP Subjective Start: 01/24/24 13:42 Freq: NEEDED Status: Active Protocol: Document 01/24/24 10:20 AB (Rec: 01/24/24 13:55 AB [id number]) Subjective Physical Therapy Visit Type Type Initial Evaluation Visit Start Time 10:20 Visit Stop Time 11:10 Number of ADMITTANCE ATTENDANT Visits 0 Physical Therapy Visit Comments Patient Comments agreeable to do PT Therapy Pain Assessment Pain When Pain Assessed At Rest Pain Present Pain Present Pain Reported Location back Intensity 2 Scale Used 3/10 with mobility Pain Management Techniques Apply Cold,Distraction, Modification of Treatment,Re- positioning,Timing of Activity with Medications M4 PT-IP Mobility and Gait Start: 01/24/24 13:42 Freq: NEEDED Status: Active Protocol: Document 01/24/24 10:20 AB (Rec: 01/24/24 13:55 AB [id number]) PT-Bed Mobility Assessment Rolling Type of Rolling Log Rolling Level of Assist Contact Guard Assistance Supine to Sit Supine to Sit Standby Assistance,Contact Guard Assistance Sit to Supine Sit to Supine Standby Assistance,Contact Guard Assistance,Minimal Assistance PT-Transfer Assessment Sit to and From Stand Sit to and from Stand Contact Guard Assistance, Minimal Assistance,1 Person Assistance,Use of Upper Extremities Equipment Transfer Assistive Device Gait Belt,Front Wheeled Walker Orthotic/Prosthetic Devices or Brace: No Transfers Transfer Destination Bed,Chair Transfer Technique ambulated Transfer Ability Level of Assist Contact Guard Assistance, Minimal Assistance,1 Person Assistance,Use of Upper Extremities Comments Mobility Comments pt sitting on the chair and agreeable to do PT. obtained PLOF and home set up from pt. post-op folder provided and reviewed contents. educated pt regarding back precautions and log roll bed mobility. pt completed sit to stand from chair CGA . pt tends to pull on FWW to get up. educated pt on safety and to push from arm rests. pt ambulated in room using FWW ~ 30 ft and sat on EOB. pt needs max cues with all tasks and repetitions of instructions with delay in completing tasks. pt completed sit to supine min A with elevating LE up to bed. pt completed supine<> sit x 2 sets and needing SBA on last attempt. pt stated that she is tired. pt completed sit to stand from EOB min A and max cues with (+) posterior LOB. educated pt on sit<>stand techniques and pt completed x 3 reps requiring CGA to min A and max cues. pt step transfer to chair using fWW CGA. positioned pt on the chair. call light and table placed within reach. Gait Assessment Gait Gait Assistance Required: Contact Guard Assist,Minimum Assistance Distance (Feet) 30 Able to Maintain Weight Bearing Status Yes During Gait Assistive Devices Assistive Device Gait Belt,Front Wheeled Walker Orthotic/Prosthetic Devices or Brace: No Gait Deviations General Gait Pattern Decreased Stride Length, Decreased Feet Clearance Factors Limiting Gait Function Factors Limiting Gait Function Decreased Activity Tolerance, Decreased Strength,Difficulty Following Directions,Limited Range of Motion,Pain,Poor Balance,Poor Safety Awareness PT-Balance Assessment Sitting Balance and Reactions Static Sitting Balance Ability Good Dynamic Sitting Balance Ability Good Standing Balance and Reactions Static Standing Balance Ability Fair Dynamic Standing Balance Ability Fair Device Used FWW M5 PT-IP Objective Assessments Start: 01/24/24 13:42 Freq: NEEDED Status: Active Protocol: Document 01/24/24 10:20 AB (Rec: 01/24/24 13:55 AB [id number]) Orientation Orientation/Cognition Level of Alertness Alert Orientation Name,Place,Situation Safety Awareness Decreased Safety Awareness Memory Description Short Term Impaired Comments with slight confusion Gross Range of Motion Lower Extremity ROM Assessment Within Functional Limits Strength Lower Extremity Strength Assessment Within Functional Limits Coordination Assessment Gross Coordination Gross Coordination WNL Sensation Assessment Sensation Gross Sensation Right LE Impaired,Left LE Impaired Sensation Description Numbness Comments Sensation Comments chronic BLE numbness from hips all the way down to toes per pt Muscle Tone Muscle Tone WNL Yes M6 PT-IP Treatment Start: 01/24/24 13:42 Freq: NEEDED Status: Active Protocol: Document 01/24/24 10:20 AB (Rec: 01/24/24 13:55 AB [id number]) Physical Therapy Treatment Education Education Provided Precautions,Weight Bearing Status,Post-Op Packet,Safety M7 PT-IP Assessment and Plan Start: 01/24/24 13:42 Freq: NEEDED Status: Active Protocol: Document 01/24/24 10:20 AB (Rec: 01/24/24 13:55 AB [id number]) PT Summary Assessment and Plan Potential Rehabilitation Potential Fair Status of Condition at Evaluation Evolving Summary Impairments Pain,ROM,Strength,Balance, Coordination,Sensation,Tone, Cognition,Bed Mobility, Transfers,Gait,Activity Tolerance Assessment Summary pt is an 83 y/o F s/p L4-5 TLIF, L3-4 R hemilaminectomy POD 1. pt has back precautions . pt requiring CGA to min A with mobility using FWW and plans to go home with spouse to assist but spouse has his own medical issues and is limited with the amount of physical assistance he can provide. will continue to assess progress. Goals Bed Mobility Goal Independent Transfer Goal Independent,Front Wheeled Walker Gait Goal Independent,Front Wheel Walker Gait Distance 200 Other Goals improve ambulation using FWW 300 ft mod I up/down 15 steps R rail descending SBA Days to Meet Goals 5 Frequency of Treatment Frequency Of Treatment Twice a Day Treatment Plan Physical Therapy Treatment Plan Bed Mobility Training,Transfer Training,Gait Training, Therapeutic Exercise,Balance Retraining,Post Op Education, Discharge Planning,Hot or Cold Pack,Neuromuscular Re-ed, Coordination Retraining,Manual Therapy Precautions Lumbar Precautions Log Roll,No Twisting,Limit Bending,Lifting Restriction of 10 lbs,Gait Belt above Incisional Area Recommendations To Nursing Amount of Assist Needed 1 Person Assist Discharge Recommendations PT Discharge Recommendations Home with 14/03 Assist Available,Home Health Transportation Needs at Discharge Private Vehicle
[2024-01-24] MEDS: OXYCODONE IR 5 MG TABLET PO (11:15)
--- NOTE | 2024-01-24 11:24 | PM.DS.1 ---
History of Present Illness History of Present Illness Date Patient Seen: 01/24/24 Time Patient Seen: 11:25 Chief complaint: Back pain Narrative: See progress note Discharge Providers Provider Date of admission: 01/23/24 12:30 Discharge Date: 01/24/24 Primary care physician: Grabiel Obrein MD Consults: 01/23/24 17:34 Consult to Occupational Therapy Evaluate & Treat Comment: Physician Instructions: Evaluate and treat Consult to Physical Therapy Evaluate & Treat Comment: Physician Instructions: Evaluate and Treat Discharge provider: Hever Tripp PA-C Summary Hospital Course Discharge Diagnosis: 1. L4-5 spondylolisthesis 2. 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 L3-4 spinal stenosis with radiculopathy Hospital Course: 1. L4-5 Postero-lateral and posterior interbody fusion 2. L4-5 interbody cage placement. 3. L4-5 decompressive laminectomy with bilateral facetecomies 4. L4-5 Posterior non-segmental instrumentation 5. L3-4 right hemilaminectomy 6. [place] of bone marrow from iliac crest 7. Utilization of microsurgical technique and operating microscope Same procedure as scheduled: Yes Indications: Patient has been having chronic back pain and worsening lumbar radiculopathy and symptoms of neurogenic claudication. Patient was found to have severe spinal stenosis at L4-5 with anterolisthesis as well as L3-4 spinal stenosis with radiculopathy correlating with her symptoms. Patient failed multiple conservative management with worsening pain weakness and numbness in her lower extremity. Patient has been having difficulty performing activity of daily living. After discussing risks benefits of treatment options, patient elected proceed with surgery. Surgeon: Maco Fuentes Special Needs Teacher: Tasneem Warren Click Yes if Unassisted: No Anesthesia Type: General Operative Notes Closure Type: primary Specimen(s): none sent Prosthetic devices, grafts, tissues, transplants, or devices: Globus revolve screws, Rise cage Estimated Blood Loss (mL): 50 Blood products transfused: none Patient admitted to the hospital for the above-mentioned procedure. Patient consented to the same. Patient underwent lumbar fusion January 23, 2024. Patient back in her room recovering well as in stable condition. Multimodal pain management. Limit bending, twisting, lifting. Discharge home today. 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) Hypothyroidism (~1994) Hemorrhoids Cataract (~2016) Chicken pox Measles Mumps Rosacea (~2005) Shoulder pain (2013) Fractures (2003) Foot pain (2014) Ankle pain (2015) Hayfever Osteoarthritis (2013) Raynaud's disease (1959) CLL (chronic lymphocytic leukemia) (~2005) Arm fracture, left (1955) Surgical History History of total right hip replacement History of surgery on arm (~2019) History of cataract surgery (~2016) Anesthesia History of foot surgery (01/2004) History of surgery on arm (1955) Status post knee surgery (02/25/09) Status post colonoscopy (07/02/13) Family History Brother No problems noted. Brother No problems noted. Father Heart attack Mother Blood disorder Son No problems noted. Son No problems noted. Social History marital status: details: jasmyne Dee, lives in [place] number of children: 2 household members: spouse lives independently: Yes caregiver/support person: No housing: house education level: college occupational status: employed Previous occupational history: pianist, performer leisure activities: music Smoking Status: Never smoker alcohol intake: former substance use type: does not use Discharge Assessment & Plan Assessment and Plan Assessment: Patient progressing as expected Plan of Treatment: Multimodal pain management Limit bending, twisting, lifting Keep dressing clean and dry Follow up outpatient Orthopedics in 2 weeks as scheduled Discharge home today Discharge Plan Discharge orders & Medications Discharge Orders: Discharge (Order); Ordered 01/24/24 Ordered By: Hever Tripp Prescriptions: New acetaminophen 325 mg Tablet 650 mg PO Q6H PRN (Reason: Fever/Mild Pain (1-3)) Qty: 60 0RF docusate sodium 100 mg Capsule 100 mg PO BID Qty: 20 0RF oxycodone 5 mg Tablet 5 mg PO Q3H PRN (Reason: Pain, Moderate (4-6)) Qty: 30 0RF Continued gabapentin 100 mg capsule 200 mg PO BEDTIME Rx Instructions: 1-3 capsules by mouth every day at bedtime loratadine [Claritin] 10 MG tablet 10 mg PO QDAYP PRN (Reason: Seasonal allergies) Qty: 0 melatonin 1 mg tablet 2 mg PO HS Qty: 0 levothyroxine [Levoxyl] 112 mcg tablet See Rx Instructions .ROUTE .COMPLEX Qty: 90 3RF Dose Instruction: TAKE 1 TABLET DAILY AT 0600 Rx Instructions: TAKE 1 TABLET DAILY AT 0600 simvastatin 20 mg tablet See Rx Instructions .ROUTE .COMPLEX Qty: 90 1RF Dose Instruction: TAKE 1 TABLET AT BEDTIME Rx Instructions: TAKE 1 TABLET AT BEDTIME. Need to establish care with new PCP prior to more fills 04/11/23 Premarin 0.625 mg/gram cream 0.625 mg vaginal .COMPLEX Qty: 60 4RF Rx Instructions: 0.625 mg vaginally daily for 14 days then 3 x week; atenolol 25 mg tablet See Rx Instructions .ROUTE .COMPLEX Dose Instruction: TAKE 1 TABLET DAILY Patient Comments: Pt states 37.5mg qpm Rx Instructions: TAKE 1 TABLET DAILY (DME) Respoironics Dreamstation CPAP Qty: 1 Dose Instruction: As directed Patient Comments: DreamStation 2 Pressure: 6-12 cmH2O DME: NORCO MAIK: 09/07/18 Rx Instructions: As directed Discontinued meloxicam 7.5 mg tablet 7.5 mg PO DAILY PRN (Reason: Pain) Rx Instructions: Take 1 tablet by oral route every day with breakfast for pain/inflammation acetaminophen 500 mg Tablet 500 mg PO DAILY PRN (Reason: Pain) ibuprofen 200 mg Tablet 200 - 400 mg PO DAILY PRN (Reason: Pain) meloxicam 15 mg tablet 15 mg PO DAILY Follow up/Referrals: Maco Fuentes MD [Physician] - (2 weeks as scheduled) Grabiel Obrien MD [Primary Care Provider] - Diet/Activity/Treatments Diet: Diet as Tolerated Activity: Limit bending, twisting, lifting Skin/Wound/Dressing Care Report to your healthcare provider any signs of infection, such as:: chills, fever, night sweats, increased pain, unusual drainage and unusual redness Dressing: Keep dressing clean and dry Visit Report/Discharge Packet Instructions: DI for Prescription Opioid Use, DI for Transforaminal Lumbar Interbody Fusion Stand Alone Forms: Patient Portal/API, Stroke Signs & Symptoms, Surgery Discharge Discharge Data Primary Care Provider: Grabiel Obrien Quality VTE Deep Vein Thrombosis/Pulmonary Embolism Present on Admission: No
[2024-01-24 12:00] VITALS: BP 114/46; PULSE 75; RESP 16; TEMP 36.3; O2SAT 99
[2024-01-24] MEDS: ONDANSETRON 4 MG ODT SL (12:51)
--- NOTE | 2024-01-24 13:25 | OT.IP.EVAL ---
Current Diagnoses Spondylolisthesis, lumbar region (01/23/24) Spinal stenosis, lumbar region with neurogenic claudication (01/23/24) Surgery Performed Operation Date: 01/23/24 13:15 Actual Procedures p L4-5 TLIF - Maco Fuentes MD Past Medical History (Last Reviewed 01/24/24 @ 07:44 by Hever Tripp PASoledadC) Afib (2004) Ankle pain (2015) Arm fracture, left (1955) Arthritis involving multiple sites Cataract (~2016) Cervical stenosis of spine Chicken pox CLL (chronic lymphocytic leukemia) (~2005) Constant pain (~2014) Double vision (~1994) Dupuytrens contracture Foot pain (2014) Fractures (2003) Hayfever Hearing impaired Hemorrhoids Hypothyroidism (~1994) Measles Mumps Ocular rosacea DINORAH on CPAP Osteoarthritis (2013) Raynaud's disease (1959) Rosacea (~2005) 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) Scarlet fever Shoulder pain (2013) Spinal stenosis Supraventricular tachycardia Surgical History (Last Reviewed 01/24/24 @ 07:44 by Hever Tripp PA-C) Anesthesia History of cataract surgery (~2016) History of foot surgery (01/2004) History of surgery on arm (1955) History of surgery on arm (~2019) History of total right hip replacement Status post colonoscopy (07/02/13) Status post knee surgery (02/25/09) Occupational Therapy Inpatient Evaluation/Re-Eval M2 OT-IP Current Condition Start: 01/24/24 13:31 Freq: Status: Active Protocol: Document 01/24/24 13:31 [facility] (Rec: 01/24/24 13:52 [facility] [id number]) Occupational Therapy Current Condition Current Condition Evaluation Date 01/24/24 Treatment Diagnosis S/P L4-5 TLIF, L3-4 Right hemilaminectomy Diagnosis Onset Date 01/23/24 Post Operative Precautions Abdominal Surgery Precautions Log Roll,Lifting Restrictions, Gait Belt above Incisional Area M3 OT- IP Subjective and Pain Start: 01/24/24 13:31 Freq: Status: Active Protocol: Document 01/24/24 13:31 [facility] (Rec: 01/24/24 13:52 [facility] [id number]) OT- Subjective Occupational Therapy Visit Type Type Initial Evaluation Visit Start Time 12:43 Visit Stop Time 13:25 Occupational Therapy Visit Comments Patient Comments Pt nauseous but agreed to work with OT. Pt's in the room. Patient/Caregiver Goals To go home. OT Pain Assessment Pain When Pain Assessed At Rest Pain Present Pain Present Pain Reported Location back Intensity 3 Scale Used Numeric (0 - 10) M4 OT- IP ADL's Start: 01/24/24 13:31 Freq: Status: Active Protocol: Document 01/24/24 13:31 [facility] (Rec: 01/24/24 13:52 [facility] [id number]) OT OMG-Gtaf-Xbkryxf General Evaluation Self-Feeding Ability Independent OT ADL-Grooming Comments OT Grooming Comments Not performed. OT ADL-Oral Care Comments Oral Care Comments Educated pt to spit into a cup or hinge at her hips to best follow her back precautions OT ADL-Dressing General Eval Lower Body Dressing Ability Maximum Assistance Areas Needing Assistance Socks Comments OT Dressing Comments Pt insistent that he is able to assist her with dressing needs. However while in the room, pt's has difficulty to come to stand and take steps with his cane. Educated pt to use the logistics tech and get a sock aid to assist for LB dressing needs. OT ADL-Toileting Comments OT Toileting Comments Pt not having to go at this time. Able educated pt best to stand and wipe and use of wet one to assist. OT ADL-Bathing Comments OT Bathing Comments Pt states has a shower chair at home. Suggested pt get someone else besides her to assist with her shower. Pt states may have a friend that can help them. Educated to cover the dressing for showering needs. Pt states to just sponge off until able to get to her follow up appointment. M5 OT- IP IADL's Start: 01/24/24 13:31 Freq: Status: Active Protocol: Document 01/24/24 13:31 [facility] (Rec: 01/24/24 13:52 [facility] [id number]) OT-Instrumental Activities of Daily Living Deficits IADL Deficits Identified Deficits Home Safety Awareness Awareness of Need for Assistance at Home Good Awareness Ability to Problem Solve Emergency Able to Problem Solve Situations Home Safety Comments Pt is a bit groggy from having pain medications and best for her to provide supervision and assist as needed. M6 OT- IP Functional Cognition Start: 01/24/24 13:31 Freq: Status: Active Protocol: Document 01/24/24 13:31 [facility] (Rec: 01/24/24 13:52 [facility] [id number]) Cognitive Factors Limiting Selfcare Function Cognitive Ability Level of Alertness Alert,Drowsy Patient Orientation Name,Place,Situation Attention Span Ability Capable of Focused Attention, Capable of Sustained Attention Ability to Follow Commands Able to Follow One Step Commands with Increased Time, Able to Follow One Step Commands with Repetition Memory Description Short Term Impaired Safety Awareness Decreased Recall of Precautions,Decreased Ability to Apply Precautions Cognitive Comments Cognitive Assessment Comments Pt is a bit groggy and not able to recall her back precautions, needing cues to incorporate her back precautions for mobility needs . Pt needing cues for FWW safety and coming to stand. OT- Vision and Hearing OT- Hearing Assessment OT- Hearing Assessment Hearing Impaired,Use of Hearing Aids OT- Vision Assessment Visual Acuity Glasses All The Time Visual Attentiveness WFL Occular Pursuits WFL M7 OT- IP Mobility and Balance Start: 01/24/24 13:31 Freq: Status: Active Protocol: Document 01/24/24 13:31 [facility] (Rec: 01/24/24 13:52 [facility] [id number]) OT- Bed Mobility Assessment Supine to Sit Supine to Sit Assist Contact Guard Assistance Sit to Supine Sit to Supine Assist Minimal Assistance OT-Transfer Assessment Sit to and From Stand Sit to and from Stand Contact Guard Assistance Technique Transfer Destination Bed Transfer Technique Stand Step Pivot Devices Transfer Assistive Devices Gait Belt,Front Wheeled Walker Comments Mobility Comments Pt noted nauseous, bp in supine 106/40 and after sitting 113/39. Pt able needing vc for log rolling and BRICE to help get her legs back into bed at this time. OT- Balance Assessment Sitting Balance and Reactions Static Sitting Balance Ability Good Dynamic Sitting Balance Ability Good Standing Balance and Reactions Static Standing Balance Ability Good M8 OT- IP Objective Assessments Start: 01/24/24 13:31 Freq: Status: Active Protocol: Document 01/24/24 13:31 [facility] (Rec: 01/24/24 13:52 [facility] [id number]) OT Gross Range of Motion Upper Extremity Range of Motion Assessment Within Functional Limits OT Strength Upper Extremity Strength Assessment Within Functional Limits M9 OT- IP Assessment and Plan Start: 01/24/24 13:31 Freq: Status: Active Protocol: Document 01/24/24 13:31 [facility] (Rec: 01/24/24 13:52 [facility] [id number]) OT Summary Assessment and Plan Potential Rehabilitation Potential Excellent Analytic Complexity at Evaluation Low Summary OT Impairments Pain,Strength,Balance, Functional Mobility,Dressing, Toileting,Bathing,Toilet Transfers,Shower Transfers Progress Towards Goals Progressing Toward Goals,Slow Progress due to Medical Issues Assessment Summary Pt low complexity and main barriers are feeling nausoeus and groggy from the pain medications, needing BRICE for bed mobility, needing vc to recall and incorporate her back precautions for ADL and mobility needs, and will need assist for ADL needs. Able to initiate caregiver training with pt's , but he is not able to physical assist as while in the room pt's is unsteady on his feet and needing use of a cane. Encouraged pt to have someone beside her to be home to assist her especially for the shower. Pt to go home when medically stable with assist. Goals Grooming Goal Independent Dressing Goal Minimal Assistance Toileting Goal Independent Bathing Goal Minimal Assistance Toilet Transfer Goal Independent Shower Transfer Goal Standby Assistance Days to Meet Goals 3 Frequency of Treatment Frequency Of Treatment Once a Day Treatment Plan OT Treatment Plan ADL Training,Functional Mobility,Patient/Family Education,Discharge Planning Discharge Recommendations OT Discharge Recommendations Home with 14/03 Assist Available Transportation Needs at Discharge Private Vehicle
--- NOTE | 2024-01-24 13:57 | CM.DANOTE ---
Initial DCP Assessment Visit Note Reviewed EMR and team rounds for pt's medical status and updates. Met with pt and spouse at bedside to introduce self and role, pt found to be sitting on the edge of the bed, eating her lunch, appearing in no distress. She lives with her spouse independently in their own home here in [place]. Pt's spouse will drive her home later this afternoon after she works with PT/OT. They deny any assistance/support for d/c needs at this time. Payor: Medicare Attending: Dr. Fuentes Pt is a 83 year-old F post-op day 1 from a TLIF surgery. She has a PMH of worsening lumbar pain that radiates down both of her legs. She does not need an AD at baseline, however she does have a quad cane when needed for ambulation. Pt shares that she has the recommended DME at home necessary for home recovery needs, and has an OP Ortho appt. already setup for wound check. DCP will continue to follow and assist with any further evolving needs prior to her departure home. Discharge Planning/Care Management CM Discharge Assessment Start: 01/24/24 13:21 Freq: Status: Active Protocol: Document 01/24/24 13:22 DPL (Rec: 01/24/24 13:27 DPL [id number]) Discharge Planning Assessment Assigned Chuck Tender CIELO Valenzuela Advance Directives? Yes Advance Directives on File No History Provided By Patient,Significant Other, Medical Record Prior Living Arrangements House Household Members spouse Type of transporation used prior to Drives own vehicle admit Independent with ADL's Yes Is patient alert and oriented? Yes Comment N/A Caregiver for Another No Community Services used prior to Physical Therapy admission: DME Already Rented / Owned FWW / Walker Comment No anticipated home d/c needs at this time. Barriers to Discharge No Discharge Plan Home Referrals Initiated None needed Whiteboard Updated in Patient Room with Yes name and ext. # of Chuck Tender Review Status In Process Please Provide Date Initial DC 01/23/23 Assessment Was Performed Pre-Anesthesia Assessment Start: 01/12/24 13:35 Freq: Status: Active Protocol: Document 01/12/24 13:35 CAB (Rec: 01/12/24 14:47 CAB [id number]) Pre-Anesthesia Assessment Preferred Name Pamela Patient Information Reviewed Via Phone Assessment Assessment Completed With Patient Diagnostic Results BMP/CMP,CBC,EKG Comment Labs @ 11/10, outside EKG scanned Primary Care Provider Grabiel Obrien Seen Specialist in Last 12 Months Yes Specialist Seen Superintendent [employer],Emergency, Ordnance Truck Installation Supervisor,Orthopedist, Title One Reading Teacher Primary Language Latvian Executive Kitchen Manager Required No Height 160.02 cm Weight 71.214 kg Body Mass Index (BMI) 27.8 Hearing Ability Hearing Impaired,Use of Hearing Aid Visual Assist None,Glasses Dentition Type Teeth, Natural Present Barriers to Learning Auditory,Visual Hx Anesthesia Reactions Yes Hx Family Anesthesia Reaction No Hx Malignant Hyperthermia No Hx Blood Transfusions No Anesthesia Review Requested No 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 No Does patient have MENDEZ/SOB No Hx Sleep Apnea Yes CPAP/BIPAP use prescribed and used routinely Will Bring CPAP/BIPAP DOS Yes Currently Taking a Beta [place] Yes: Atenolol Hx Chest Pain No Hx SOB Yes Hx Syncope or Dizziness No Anti-Coagulant Therapy No Has a Superintendent Factory Yes: Pre-op visit 12/01/[address] Starks @ [facility] Cardiac Testing Yes: Echo @ 01/09/24 Hx Pacemaker/ICD No Pacemaker Rep Required? No Cardiac Clearance Received Yes Comment Cardiac records scanned and in surgery folder Diet Type At Home Regular Dysphagia No Bladder Pattern Incontinent,Urgency Urinary Catheter Present No Hx Urinary Self Catheterization No Diabetes No Patient No Lactating No Hx Drug Resistant Organism No Presence of External or Internal Medical Yes: Right hip, left arm, sadia Devices eye IOLs, hearing aids Received a COVID vaccine? Yes Received all doses? Yes Marital Status Lives With spouse Current Living Arrangements House Number of Floors (Floors) 3 or More Floors Number of Stairs To Enter/Railing? 0 Support System Spouse Does the Patient Have Assistance After Yes Surgery Patient Discharge Plan Description Return Home Comment Pt advised 1-2 night length of stay per surgeon Feels Safe in Current Environment Yes Been Physically Hurt or Threatened By a No Person in Current Environment Do you have thoughts of harming yourself None or others? Are you currently considering suicide? No Do you have a plan to hurt yourself or No Plan others? Do You Have Any Spiritual Beliefs That No May Affect Your HC Choices? Do You Have Any Cultural Practices That No May Affect Your HC Choices? Who Can We Speak to About Patient's Care Family, friends Identifying Code for Release of Patient Declines to issue Information Health Care Proxy/Next of Kin James () Health Care Proxy Emergency Contact Name James () Emergency Contact Advance Directives? Yes Advance Directives on File No Requested Patient Bring Advanced Yes Directives DOS Power of Warp Dresser Yes Power of Warp Dresser Name James () Power of Warp Dresser PAC Instructions Assistance for 24 hours post- op,Nasal antibiotic,No ETOH/ petroleum product on skin DOS, NPO,Post-op transportation,Pre -surgical wash,Sensory aids, Sturdy shoes/comfortable clothes,Do not bring valuables and remove jewelry
--- NOTE | 2024-01-24 14:20 | PT.IPTN ---
Current Diagnoses Spondylolisthesis, lumbar region (01/23/24) Spinal stenosis, lumbar region with neurogenic claudication (01/23/24) Surgery Performed Operation Date: 01/23/24 13:15 Actual Procedures p L4-5 TLIF - Maco Fuentes MD Physical Therapy Treatment Note M2 PT-IP Current Condition Start: 01/24/24 13:42 Freq: NEEDED Status: Discharge Protocol: Document 01/24/24 10:20 AB (Rec: 01/24/24 13:55 AB [id number]) Physical Therapy Current Condition Current Condition Evaluation Date 01/24/24 Treatment Diagnosis s/p L4-5 TLIF;L3-4 R hemilami; difficulty in walking Onset Date 01/23/24 M3 PT-IP Subjective Start: 01/24/24 13:42 Freq: NEEDED Status: Discharge Protocol: Document 01/24/24 14:20 AB (Rec: 01/24/24 15:32 AB [id number]) Subjective Physical Therapy Visit Type Type Treatment Note Visit Start Time 14:20 Visit Stop Time 15:05 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 Physical Therapy Visit Comments Patient Comments agreeable to do PT M4 PT-IP Mobility and Gait Start: 01/24/24 13:42 Freq: NEEDED Status: Discharge Protocol: Document 01/24/24 14:20 AB (Rec: 01/24/24 15:32 AB [id number]) PT-Bed Mobility Assessment Rolling Type of Rolling Log Rolling Level of Assist Standby Assistance Supine to Sit Supine to Sit Standby Assistance Sit to Supine Sit to Supine Standby Assistance PT-Transfer Assessment Sit to and From Stand Sit to and from Stand Standby Assistance,1 Person Assistance,Use of Upper Extremities Equipment Transfer Assistive Device Gait Belt,Front Wheeled Walker Orthotic/Prosthetic Devices or Brace: No Transfers Transfer Destination Bed,Chair Transfer Technique ambulated Transfer Ability Level of Assist Standby Assistance,1 Person Assistance,Use of Upper Extremities Comments Mobility Comments pt in room and walking using FWW by herself. stated that she is going home. nurse came in and PT informed nurse that pt has to been seen for PT again prior to dc. pt sat back on chair. BP checked: 133/53. no c/o nausea. reviewed back precautions and pt initially unable to recall but after a few seconds was able to provide her precautions. pt completed sit to stand from the chair SBA. pt was verbalizing each step that she has to do during mobility. ambulated in room using FWW SBA and sat on EOB. completed log roll sit to supineSBA. completed supine to sit SBA but with cues for techniques. pt completed sit to stand from EOB SBA with occasional cues and ambulated to the hallway using FWW ~ 150 ft SBA. pt completed up/down steps using L rail ascending SBA and max cues for techniques. pt completed again and able to complete without cues. informed pt regarding safety and a chair on stair landing for safety if pt needed to rest midway when doing stairs at home. assisted pt back to her room in a w/c. Left pt with nurse and assisted to d/c. Gait Assessment Gait Gait Assistance Required: Standby Assistance Distance (Feet) 150 Able to Maintain Weight Bearing Status Yes During Gait Assistive Devices Assistive Device Gait Belt,Front Wheeled Walker Orthotic/Prosthetic Devices or Brace: No Gait Deviations General Gait Pattern Decreased Stride Length, Decreased Feet Clearance Factors Limiting Gait Function Factors Limiting Gait Function Decreased Activity Tolerance, Decreased Strength,Difficulty Following Directions,Limited Range of Motion,Pain,Poor Balance,Poor Safety Awareness Stair Climbing Assessment Evaluation Level of Assist On Stairs Standby Assistance Devices Stair Climbing Assistive Devices Left Railing Technique/Endurance Stair Climbing Direction Ascend and Descend Stair Climbing Technique Step to Step Number of Steps Climbed 3 Stair Climbing Set # Repetitions (reps) 2 M5 PT-IP Objective Assessments Start: 01/24/24 13:42 Freq: NEEDED Status: Discharge Protocol: Document 01/24/24 10:20 AB (Rec: 01/24/24 13:55 AB [id number]) Orientation Orientation/Cognition Level of Alertness Alert Orientation Name,Place,Situation Safety Awareness Decreased Safety Awareness Memory Description Short Term Impaired Comments with slight confusion Gross Range of Motion Lower Extremity ROM Assessment Within Functional Limits Strength Lower Extremity Strength Assessment Within Functional Limits Coordination Assessment Gross Coordination Gross Coordination WNL Sensation Assessment Sensation Gross Sensation Right LE Impaired,Left LE Impaired Sensation Description Numbness Comments Sensation Comments chronic BLE numbness from hips all the way down to toes per pt Muscle Tone Muscle Tone WNL Yes M6 PT-IP Treatment Start: 01/24/24 13:42 Freq: NEEDED Status: Discharge Protocol: Document 01/24/24 14:20 AB (Rec: 01/24/24 15:32 AB [id number]) Physical Therapy Treatment Education Education Provided Precautions,Safety M7 PT-IP Assessment and Plan Start: 01/24/24 13:42 Freq: NEEDED Status: Discharge Protocol: Document 01/24/24 14:20 AB (Rec: 01/24/24 15:32 [id number]) PT Summary Assessment and Plan Potential Rehabilitation Potential Fair Summary Impairments Pain,ROM,Strength,Balance, Coordination,Sensation,Tone, Cognition,Bed Mobility, Transfers,Gait,Activity Tolerance Progress Towards Goals Slow Progress - Other Assessment Summary pt requiring SBA to occasional CGA with mobility using FWW. needed occaional cues for safety. pt plans to go home and spouse to assist. pt may go home when medically stable. will benefit from HHPT. Goals Bed Mobility Goal Independent Transfer Goal Independent,Front Wheeled Walker Gait Goal Independent,Front Wheel Walker Gait Distance 200 Other Goals improve ambulation using FWW 300 ft mod I up/down 15 steps R rail descending SBA Days to Meet Goals 5 Frequency of Treatment Frequency Of Treatment Twice a Day Treatment Plan Physical Therapy Treatment Plan Bed Mobility Training,Transfer Training,Gait Training, Therapeutic Exercise,Balance Retraining,Post Op Education, Discharge Planning,Hot or Cold Pack,Neuromuscular Re-ed, Coordination Retraining,Manual Therapy Precautions Lumbar Precautions Log Roll,No Twisting,Limit Bending,Lifting Restriction of 10 lbs,Gait Belt above Incisional Area Recommendations To Nursing Amount of Assist Needed 1 Person Assist Discharge Recommendations PT Discharge Recommendations Home with Assistance,Home Health Transportation Needs at Discharge Private Vehicle
--- NOTE | 2024-01-24 15:09 | PC.NURSE ---
Pt is dressed and ready for discharge home with Spouse. IV has been removed. Cleared by PT. D/C instructions reviewed including back precautions, stroke education, d/c meds, time of last dose, no driving while on narcotics, drink plenty of fluids to prevent constipation or dehydration and follow up. Pt out via w/c by RN to pov with Spouse and all belongings.
== END 2024-01-24 15:11 | disposition home or self-care (01) | DRG 455 ==
PROVIDERS: Admitting Provider Orthopaedic Surgery Orthopaedic Surgery of the Spine; Family Provider Family Medicine; PCP Family Medicine; Referring Provider Orthopaedic Surgery Orthopaedic Surgery of the Spine; Visit Provider Orthopaedic Surgery Orthopaedic Surgery of the Spine
PROC: 0SG00AJ Fusion of Lumbar Vertebral Joint with Interbody Fusion Device, Posterior Approach, Anterior Column, Open Approach (ICD-10-PCS; principal; 2024-01-23 13:15)
DX: M43.16 Spondylolisthesis, lumbar region (principal); M48.062 Spinal stenosis, lumbar region with neurogenic claudication; M54.16 Radiculopathy, lumbar region; E03.9 Hypothyroidism, unspecified; G47.33 Obstructive sleep apnea (adult) (pediatric)
CPT/HCPCS: 72100; 76000; 97116; 97162; 97165; 97530; 97535; C1713; C9290; J0171; J0690; J1100; J1170; J2405; J2704; J3010

== ENCOUNTER 2024-01-24 22:32 | Emergency (ER) | payer MEDICARE, OTHER, SELFPAY ==
[2024-01-23 13:14] VITALS: BMI 27.8
[2024-01-24 22:36] VITALS: BP 148/68; PULSE 87; O2SAT 95
[2024-01-24 22:38] VITALS: BP 148/68; PULSE 87; RESP 17; TEMP 36.1; O2SAT 96; BMI 26.5
--- NOTE | 2024-01-24 22:43 | DI.RAD.S_ITS ---
PROCEDURE: XR CHEST 1V INDICATIONS: chest pain TECHNIQUE: One view of the chest was acquired. COMPARISON: None. FINDINGS: Surgical changes and devices: None. Lungs and pleura: Lungs are clear. No pleural effusions or pneumothorax. Mediastinum: Mediastinal contours appear normal. Heart size is normal. Bones and chest wall: No suspicious bony lesions. Overlying soft tissues appear unremarkable. IMPRESSION: No acute cardiopulmonary abnormality is seen. Approved by: Sebas Duarte M.D. on 01/24/2024 at 23:05
[2024-01-24 22:50] LABS: Add Manual Diff / Slide Review NO; Basophils Absolute Auto 0 /uL (0-100); Basophils Percent Auto 0.3 % (0-2); Eosinophils Absolute Auto 0 /uL (0-450); Hematocrit 31.4 % (36-46); Hemoglobin 10.7 g/dL (12.0-16.0); Lymphocytes Absolute Auto 2200 /uL (1100-4500); Lymphocytes Percent Auto 24.3 % (25-40); Mean Corpuscular Hemoglobin 29.4 PG (26-34); Mean Corpuscular Volume 86.3 fL (80-100); Monocytes Absolute Auto 700 /uL (0-900); Monocytes Percent Auto 8.2 % (3-14); Neutrophils Absolute Auto 6000 /uL (1500-7000); Neutrophils Percent Auto 67.2 % (50-75); Platelet Count 218 X10^3/uL (150-400); Red Blood Cell Count 3.64 X10^6/uL (4.0-5.2); Red Cell Distribution Width 13.4 % (11.6-14.8); White Blood Cell Count 8.9 X10^3/uL (4.5-11.0)
[2024-01-24 22:57] LABS: INR 1.1 (0.9-1.3); Prothrombin Time 12.9 SECONDS (9.4-12.5)
[2024-01-24 22:59] LABS: PTT Partial Thromboplastin Tim 28 SECONDS (25.1-36.5)
[2024-01-24 23:00] VITALS: BP 136/63; PULSE 78; RESP 18; O2SAT 91
[2024-01-24 23:01] LABS: Alanine Aminotransferase 27 IU/L (<35); Albumin 3.9 g/dL (3.5-5.0); Albumin Globulin Ratio 1.6 (1.0-2.8); Alkaline Phosphatase 61 U/L (38-126); Aspartate Aminotransferase 45 IU/L (14-36); BUN Creatinine Ratio 32.7 (6-22); Bilirubin Total 0.5 mg/dL (0.2-1.3); Blood Urea Nitrogen 17 mg/dL (7-17); Calcium 8.8 mg/dL (8.4-10.2); Carbon Dioxide 25 mmol/L (22-32); Chloride 101 mmol/L (98-107); Creatine Kinase 366 U/L (30-135); Estimated Glomerular Filt Rate > 60 mL/min (>60); Globulin 2.5 g/dL (1.7-4.1); Glucose 143 mg/dL (80-110); HEMOLYSIS < 15 (0-50); Lipase 136 U/L (23-300); Magnesium 1.9 mg/dL (1.6-2.3); Sodium 130 mmol/L (137-145); Total Protein 6.4 g/dL (6.3-8.2)
[2024-01-24 23:13] LABS: Troponin I < 0.012 ng/mL (0.01-0.034)
[2024-01-24 23:31] VITALS: PULSE 90; O2SAT 95
[2024-01-24 23:32] VITALS: BP 142/62; PULSE 85; RESP 14; O2SAT 94
--- NOTE | 2024-01-24 23:32 | ED_ITS ---
HPI - General Adult General Chief complaint: Syncope Stated complaint: GLF Time Seen by Provider: 01/24/24 23:21 Source: patient and EMS Mode of arrival: EMS History of Present Illness HPI narrative: Patient is an 83-year-old female. Earlier this week she underwent a spinal fusion surgery. She was just discharged from the hospital earlier this afternoon. She states she has not had much to eat and drink since she was discharged from the hospital. She did take tramadol for the 1st time this afternoon. States she was standing in the kitchen when she suddenly became lightheaded and fell. Prior to the fall she did not have headache, chest pain, palpitations, shortness of breath. She was not think that she necessarily injured anything from the fall. Related Data Home Medications Medication Instructions Recorded Confirmed loratadine 10 mg tablet (Claritin) 10 mg PO QDAYP PRN Seasonal 06/16/12 01/23/24 allergies ##0 melatonin 1 mg tablet 2 mg PO HS ##0 05/24/18 01/23/24 gabapentin 100 mg capsule 200 mg PO BEDTIME 05/27/22 01/23/24 Respoironics Dreamstation CPAP #1 ea 06/01/22 01/23/24 atenolol 25 mg tablet See Rx Instructions .Route .COMPLEX 03/15/23 01/23/24 Previous Rx's Medication Instructions Recorded levothyroxine 112 mcg tablet See Rx Instructions .Route 07/20/22 (Levoxyl) .COMPLEX #90 tabs simvastatin 20 mg tablet See Rx Instructions .Route 04/11/23 .COMPLEX #90 tabs conjugated estrogens 0.625 mg/gram 0.625 mg vaginal .COMPLEX #60 grams 08/03/23 vaginal cream (Premarin) acetaminophen 325 mg tablet 650 mg (2 x 325 mg) PO Q6H PRN 01/24/24 Fever/Mild Pain (1-3) #60 tabs docusate sodium 100 mg capsule 100 mg PO BID #20 caps 01/24/24 ondansetron 4 mg disintegrating 4 mg PO Q8H nausea/vomiting #10 01/24/24 tablet tabs tramadol 50 mg tablet 50 mg PO Q6H PRN pain #30 tabs 01/24/24 Allergies Allergy/AdvReac Type Severity Reaction Status Date / Time erythromycin base AdvReac Severe NAUSEA/VOMI Verified 01/24/24 22:38 [ERYTHROMYCIN BASE] TING Review of Systems Review of Systems Narrative: See HPI Patient History Medical History Afib (2004) Supraventricular tachycardia Hearing impaired Cervical stenosis of spine Constant pain (~2014) Spinal stenosis DINORAH on CPAP Arthritis involving multiple sites Dupuytrens contracture Ocular rosacea Scarlet fever Double vision (~1994) 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) Hypothyroidism (~1994) Hemorrhoids Cataract (~2016) Chicken pox Measles Mumps Rosacea (~2005) Shoulder pain (2013) Fractures (2003) Foot pain (2014) Ankle pain (2015) Hayfever Osteoarthritis (2013) Raynaud's disease (1959) CLL (chronic lymphocytic leukemia) (~2005) Arm fracture, left (1955) Surgical History History of total right hip replacement History of surgery on arm (~2019) History of cataract surgery (~2016) Anesthesia History of foot surgery (01/2004) History of surgery on arm (1955) Status post knee surgery (02/25/09) Status post colonoscopy (07/02/13) Family History Brother No problems noted. Brother No problems noted. Father Heart attack Mother Blood disorder Son No problems noted. Son No problems noted. Social History marital status: details: jasmyne Dee, lives in [place] number of children: 2 household members: spouse lives independently: Yes caregiver/support person: No housing: house education level: college occupational status: employed Previous occupational history: pianist, performer leisure activities: music Smoking Status: Never smoker alcohol intake: former substance use type: does not use Smoking Status: Never smoker alcohol intake frequency: holidays/special occasions only Substance Use Type: does not use Exam Initial Vital Signs Initial Vital Signs: Vital Signs Pulse Rate 87 01/24/24 22:36 Blood Pressure 148/68 H 01/24/24 22:36 Pulse Oximetry 95 01/24/24 22:36 Const General: cooperative, comfortable and No ill appearing HENMT Head: normal to inspection and normocephalic Resp Effort & Inspection: normal respiratory effort Auscultation: clear to auscultation bilaterally Cardio Rate: regular rate Rhythm: regular rhythm Skin General: no rashes or lesions noted Neuro General: patient alert, patient awake, patient oriented x3 and moves all extremities Extrem General: normal to inspection and capillary refill normal Course Orders Ordered: ED Orders 01/24/24 22:43 XR chest 1V Stat Complete Blood Count AUTO DIFF Stat Comprehensive Metabolic Panel Stat Lipase Stat Magnesium Stat PTT Partial Thromboplastin Heath Stat Prothrombin Time INR Stat Troponin & CK Cardiac Panel Stat EKG-12 Lead Stat 01/24/24 23:00 [place] [facility] [place] Stat 01/24/24 23:32 XR lumbar spine 2-3V Stat Discontinued Medications Acetaminophen (Ofirmev) 1,000 mg in 100 mls @ 400 mls/hr IV NOW ONE Stop: 01/24/24 23:47 Last Infusion: 01/25/24 00:19 Dose: Infused Documented By: Admin: 01/24/24 23:42 Dose: 400 mls/hr Documented By: STEVENSON Vital Signs Vital signs: Vital Signs - 8 hr 01/24/24 22:36 01/24/24 22:36 01/24/24 22:38 Temperature 97 F L Pulse Rate 87 87 Respiratory Rate 17 Blood Pressure 148/68 H 148/68 H Pulse Oximetry 95 96 Oxygen Delivery Method Room Air 01/24/24 23:00 01/24/24 23:00 01/24/24 23:31 Temperature Pulse Rate 78 90 Respiratory Rate 18 Blood Pressure 136/63 Pulse Oximetry 91 95 Oxygen Delivery Method 01/24/24 23:32 01/24/24 23:32 01/25/24 00:00 Temperature Pulse Rate 85 Respiratory Rate 14 Blood Pressure 142/62 H 131/60 Pulse Oximetry 94 Oxygen Delivery Method 01/25/24 00:00 01/25/24 00:30 01/25/24 00:30 Temperature Pulse Rate 70 63 Respiratory Rate 13 13 Blood Pressure 112/56 L Pulse Oximetry 92 92 Oxygen Delivery Method 01/25/24 01:00 01/25/24 01:00 01/25/24 01:30 Temperature Pulse Rate 58 L Respiratory Rate 12 Blood Pressure 118/55 L 121/58 L Pulse Oximetry 93 Oxygen Delivery Method 01/25/24 01:30 01/25/24 01:45 Temperature Pulse Rate 62 61 Respiratory Rate 17 16 Blood Pressure 121/58 L Pulse Oximetry 95 95 Oxygen Delivery Method Room Air Medical Decision Making Lab Data Lab results reviewed: Yes I reviewed the patient's lab results. 01/24/24 22:43 01/24/24 22:43 Labs: Lab Results 01/24/24 Range/Units 22:43 WBC 8.9 (4.5-11.0) X10^3/uL RBC 3.64 L (4.0-5.2) X10^6/uL Hgb 10.7 L (12.0-16.0) g/dL Hct 31.4 L (36-46) % MCV 86.3 (80-100) fL MCH 29.4 (26-34) PG MCHC 34.0 (30-36) % RDW 13.4 (11.6-14.8) % Plt Count 218 (150-400) X10^3/uL Neut % (Auto) 67.2 (50-75) % Lymph % (Auto) 24.3 L (25-40) % [place] % (Auto) 8.2 (3-14) % Eos % (Auto) 0.0 L (2-4) % Baso % (Auto) 0.3 (0-2) % Neut # (Auto) 6000 (6469-2501) /uL Lymph # (Auto) 2200 (7246-5068) /uL [place] # (Auto) 700 (0-900) /uL Eos # (Auto) 0 (0-450) /uL Baso # (Auto) 0 (0-100) /uL PT 12.9 H (9.4-12.5) SECONDS INR 1.1 (0.9-1.3) APTT 28 (25.1-36.5) SECONDS Sodium 130 L (137-145) mmol/L Potassium 4.0 (3.4-5.1) mmol/L Chloride 101 (98-107) mmol/L Carbon Dioxide 25 (22-32) mmol/L BUN 17 (7-17) mg/dL Creatinine 0.52 (0.52-1.04) mg/dL Estimated GFR > 60 (>60) mL/min BUN/Creatinine Ratio 32.7 H (6-22) Glucose 143 H (80-110) mg/dL Calcium 8.8 (8.4-10.2) mg/dL Magnesium 1.9 (1.6-2.3) mg/dL Total Bilirubin 0.5 (0.2-1.3) mg/dL AST 45 H (14-36) IU/L ALT 27 (<35) IU/L Alkaline Phosphatase 61 (38-126) U/L Total Creatine Kinase 366 H (30-135) U/L Troponin I < 0.012 (0.01-0.034) ng/mL Total Protein 6.4 (6.3-8.2) g/dL Albumin 3.9 (3.5-5.0) g/dL Globulin 2.5 (1.7-4.1) g/dL Albumin/Globulin Ratio 1.6 (1.0-2.8) Lipase 136 (23-300) U/L Imaging Data Chest x-ray: Radiologist's Impression: PROCEDURE: XR CHEST 1V INDICATIONS: chest pain TECHNIQUE: One view of the chest was acquired. COMPARISON: None. FINDINGS: Surgical changes and devices: None. Lungs and pleura: Lungs are clear. No pleural effusions or pneumothorax. Mediastinum: Mediastinal contours appear normal. Heart size is normal. Bones and chest wall: No suspicious bony lesions. Overlying soft tissues appear unremarkable. IMPRESSION: No acute cardiopulmonary abnormality is seen. Lumbar spine x-ray: Radiologist's Impression: PROCEDURE: XR LUMBAR SPINE 2-3V INDICATIONS: Recent spinal fusion with fall TECHNIQUE: 3 views of the lumbar spine were acquired. COMPARISON: [facility] [place], , XR LUMBAR SPINE 2 OR 3 VIEWS, 01/10/2024, 15:40. FINDINGS: Bones: 5 [id number] vertebrae are present. Postsurgical changes are seen from recent posterior fixation at L4-5 with bilateral pedicle screws and interbody rods and a disc spacer. L4-5 alignment has improved when compared to preoperative exam. Mild grade 1 retrolisthesis at T12-L1 and L1-2. No vertebral body compression fractures. No suspicious bony lesions. Multilevel spondylosis. Soft tissues: Overlying bowel gas pattern is normal. No suspicious soft tissue calcifications. Posterior skin smooth are present. IMPRESSION: Postsurgical changes from posterior fixation at L4-5. No acute osseous abnormality. ECG Data Attestation: I personally reviewed and interpreted this ECG as follows: Interpretation: Sinus rhythm First-degree block CT interval 246 milliseconds Ventricular rate of [address] T wave changes MDM Narrative Medical decision making narrative: X-ray shows no acute fractures. Workup here in the emergency department is relatively unremarkable. This could potentially related to taking the Ultram as this occurred shortly after taking the medication and she was never taken this medication before. She denies chest pain. No palpitations beforehand. Does not appear to be seizure-like activity. Will discharge patient home with instructions to contact her primary provider for follow-up. She was not going to take the Ultram again will stick with Tylenol. She was given return precautions. She expressed understanding and agreement. Discharge Plan Departure Patient Disposition: Home Clinical Impression: Syncope Instructions: DI for Syncope in Adults (Fainting) Activity Restrictions/Additional Instructions: I do recommend that you continue to take all of your medications as directed. Contact your primary care provider for a follow-up. Follow all of the postoperative instructions given to you by the spine surgeons. Return to the emergency department for new symptoms. Prescriptions: No Action gabapentin 100 mg capsule 200 mg PO BEDTIME Rx Instructions: 1-3 capsules by mouth every day at bedtime loratadine [Claritin] 10 MG tablet 10 mg PO QDAYP PRN (Reason: Seasonal allergies) Qty: 0 melatonin 1 mg tablet 2 mg PO HS Qty: 0 levothyroxine [Levoxyl] 112 mcg tablet See Rx Instructions .ROUTE .COMPLEX Qty: 90 3RF Dose Instruction: TAKE 1 TABLET DAILY AT 0600 Rx Instructions: TAKE 1 TABLET DAILY AT 0600 simvastatin 20 mg tablet See Rx Instructions .ROUTE .COMPLEX Qty: 90 1RF Dose Instruction: TAKE 1 TABLET AT BEDTIME Rx Instructions: TAKE 1 TABLET AT BEDTIME. Need to establish care with new PCP prior to more fills 04/11/23 Premarin 0.625 mg/gram cream 0.625 mg vaginal .COMPLEX Qty: 60 4RF Rx Instructions: 0.625 mg vaginally daily for 14 days then 3 x week; atenolol 25 mg tablet See Rx Instructions .ROUTE .COMPLEX Dose Instruction: TAKE 1 TABLET DAILY Patient Comments: Pt states 37.5mg qpm Rx Instructions: TAKE 1 TABLET DAILY acetaminophen 325 mg Tablet 650 mg PO Q6H PRN (Reason: Fever/Mild Pain (1-3)) Qty: 60 0RF docusate sodium 100 mg Capsule 100 mg PO BID Qty: 20 0RF tramadol 50 mg tablet 50 mg PO Q6H PRN (Reason: pain) Qty: 30 0RF ondansetron 4 mg tablet,disintegrating 4 mg PO Q8H Qty: 10 0RF (DME) Respoironics Dreamstation CPAP Qty: 1 Dose Instruction: As directed Patient Comments: DreamStation 2 Pressure: 6-12 cmH2O DME: NORCO MAIK: 09/07/18 Rx Instructions: As directed Referrals: Grabiel Obrien MD [Primary Care Provider] - Stand Alone Forms: Patient Portal/API
[2024-01-24] MEDS: ACETAMINOPHEN IV 1,000 MG/100 ML VIAL 400 MG IV (23:42)
[2024-01-25] VITALS: BP 131/60; PULSE 70; RESP 13; O2SAT 92
[2024-01-25 00:30] VITALS: BP 112/56; PULSE 63; RESP 13; O2SAT 92
[2024-01-25 01:00] VITALS: BP 118/55; PULSE 58; RESP 12; O2SAT 93
[2024-01-25 01:30] VITALS: BP 121/58; PULSE 62; RESP 17; O2SAT 95
[2024-01-25 01:45] VITALS: BP 121/58; PULSE 61; RESP 16; O2SAT 95
== END 2024-01-25 01:49 | disposition home or self-care (01) ==
PROVIDERS: Emergency Provider Emergency Medicine; Family Provider Family Medicine; PCP Family Medicine
DX: R55 Syncope and collapse (principal); R07.9 Chest pain, unspecified; I44.0 Atrioventricular block, first degree
CPT/HCPCS: 36415; 71045; 72100; 80053; 82550; 83690; 83735; 84484; 85025; 85610; 85730; 93005; 96365; 99284; J0136

== ENCOUNTER → 2024-05-05 07:47 | Outpatient (CLI) | payer MEDICARE, OTHER, SELFPAY ==
[2024-01-23 13:14] VITALS: BMI 27.8
[2024-05-05 09:56] LABS: Hematocrit 37.6 % (36-46); Hemoglobin 12.6 g/dL (12.0-16.0); Mean Corpuscular HGB Conc 33.6 % (30-36); Mean Corpuscular Hemoglobin 28.9 PG (26-34); Mean Corpuscular Volume 86.3 fL (80-100); Platelet Count 283 X10^3/uL (150-400); Red Blood Cell Count 4.36 X10^6/uL (4.0-5.2); White Blood Cell Count 6.1 X10^3/uL (4.5-11.0)
[2024-05-05 09:57] LABS: Add Manual Diff / Slide Review YES
[2024-05-05 10:29] LABS: BUN Creatinine Ratio 23.2 (6-22); Blood Urea Nitrogen 13 mg/dL (7-17); Calcium 10.1 mg/dL (8.4-10.2); Carbon Dioxide 26 mmol/L (22-32); Chloride 99 mmol/L (98-107); Estimated Glomerular Filt Rate > 60 mL/min (>60); Glucose 97 mg/dL (80-110); HEMOLYSIS < 15 (0-50); Potassium 4.8 mmol/L (3.4-5.1); Sodium 132 mmol/L (137-145)
[2024-05-05 13:28] LABS: Neutrophils Absolute Manual 1586 /uL (3000-5900); RBC Morphology Normal Morphology; Total Cells Counted 100
== END ==
PROVIDERS: Family Provider Family Medicine; PCP Family Medicine; Referring Provider Internal Medicine Cardiovascular Disease; Visit Provider Internal Medicine Cardiovascular Disease
DX: I47.10 Supraventricular tachycardia, unspecified (principal)
CPT/HCPCS: 36415; 80048; 85007; 85025

== ENCOUNTER 2024-05-08 17:49 | Emergency (ER) | payer MEDICARE, OTHER, SELFPAY ==
[2024-01-23 13:14] VITALS: BMI 27.8
[2024-05-08 17:58] VITALS: BP 148/74; PULSE 83; RESP 16; TEMP 35.9; O2SAT 99; BMI 27.3
--- NOTE | 2024-05-08 18:02 | EKG_ITS ---
[address] [address] Test Date: 2024-05-08 Pat Name: Velma Mays Department: Room: Gender: Female Card Cutter: MINERVA : 1940 Requested By: Order Number: [id number] Reading MD: Portillo Rosado Measurements Intervals [place] Rate: 66 P: 54 ID: [id number] QRS: 20 QRSD: 76 T: 97 QT: 384 QTc: 402 Interpretive Statements Sinus rhythm with 1st degree AV block T wave abnormality, consider anterior ischemia Electronically Signed On 05-10-2024 19:51:03 PDT by Portillo Rosado
--- NOTE | 2024-05-08 18:02 | DI.RAD.S_ITS ---
PROCEDURE: XR CHEST 1V INDICATIONS: chest pain TECHNIQUE: One view of the chest was acquired. COMPARISON: [facility], CR, XR CHEST 1V, 01/24/2024, 22:42. FINDINGS: Surgical changes and devices: None. Lungs and pleura: Lungs are clear. No pleural effusions or pneumothorax. Mediastinum: Mediastinal contours appear normal. Heart size is normal. Bones and chest wall: No suspicious bony lesions. Overlying soft tissues appear unremarkable. IMPRESSION: No acute cardiopulmonary abnormality is seen. Dictated by: Bulmaro Abad M.D. on 05/08/2024 at 18:35 Approved by: Bulmaro Abad M.D. on 05/08/2024 at 18:35
[2024-05-08 18:18] LABS: Add Manual Diff / Slide Review NO; Basophils Absolute Auto 0 /uL (0-100); Basophils Percent Auto 0.4 % (0-2); Eosinophils Absolute Auto 0 /uL (0-450); Hematocrit 37.4 % (36-46); Hemoglobin 12.5 g/dL (12.0-16.0); Lymphocytes Absolute Auto 2000 /uL (1100-4500); Lymphocytes Percent Auto 36.1 % (25-40); Mean Corpuscular HGB Conc 33.6 % (30-36); Mean Corpuscular Hemoglobin 28.9 PG (26-34); Mean Corpuscular Volume 85.9 fL (80-100); Monocytes Absolute Auto 100 /uL (0-900); Monocytes Percent Auto 2.6 % (3-14); Neutrophils Absolute Auto 3500 /uL (1500-7000); Neutrophils Percent Auto 60.9 % (50-75); Platelet Count 268 X10^3/uL (150-400); Red Blood Cell Count 4.35 X10^6/uL (4.0-5.2); Red Cell Distribution Width 14.4 % (11.6-14.8); White Blood Cell Count 5.7 X10^3/uL (4.5-11.0)
[2024-05-08 18:28] LABS: INR 0.9 (0.9-1.3); Prothrombin Time 10.6 SECONDS (9.4-12.5)
--- NOTE | 2024-05-08 18:28 | ED.SOB ---
HPI - SOB/Dyspnea General Chief Complaint: Chest Pain Stated Complaint: sent by Dr Starks, problem after procedure Time Seen by Provider: 05/08/24 17:57 Source: patient Mode of arrival: Ambulatory History of Present Illness HPI Narrative: 83-year-old female with history of SVT presents by private vehicle for palpitations and pain this evening. Patient underwent ablation for her SVT with Dr. Starks at [facility] earlier this morning. This evening after eating dinner patient had 2 episodes where she was standing and felt like her heart was racing with a whooshing sensation in her abdomen. She called the cardiology office and was referred to the ED for evaluation. Patient currently denying any symptoms. She states that when these episodes happened she felt like she went back into SVT briefly. Related Data Home Medications Medication Instructions Recorded Confirmed loratadine 10 mg tablet (Claritin) 10 mg PO QDAYP PRN Seasonal 06/16/12 01/23/24 allergies ##0 melatonin 1 mg tablet 2 mg PO HS ##0 05/24/18 01/23/24 gabapentin 100 mg capsule 200 mg PO BEDTIME 05/27/22 01/23/24 Respoironics Dreamstation CPAP #1 ea 06/01/22 01/23/24 atenolol 25 mg tablet See Rx Instructions .Route .COMPLEX 03/15/23 01/23/24 Previous Rx's Medication Instructions Recorded levothyroxine 112 mcg tablet See Rx Instructions .Route 07/20/22 (Levoxyl) .COMPLEX #90 tabs simvastatin 20 mg tablet See Rx Instructions .Route 04/11/23 .COMPLEX #90 tabs conjugated estrogens 0.625 mg/gram 0.625 mg vaginal .COMPLEX #60 grams 08/03/23 vaginal cream (Premarin) acetaminophen 325 mg tablet 650 mg (2 x 325 mg) PO Q6H PRN 01/24/24 Fever/Mild Pain (1-3) #60 tabs docusate sodium 100 mg capsule 100 mg PO BID #20 caps 01/24/24 ondansetron 4 mg disintegrating 4 mg PO Q8H nausea/vomiting #10 01/24/24 tablet tabs tramadol 50 mg tablet 50 mg PO Q6H PRN pain #30 tabs 01/24/24 Allergies Allergy/AdvReac Type Severity Reaction Status Date / Time erythromycin base AdvReac Severe NAUSEA/VOMI Verified 05/08/24 18:02 [ERYTHROMYCIN BASE] TING Patient History Medical History Afib (2004) Supraventricular tachycardia Hearing impaired Cervical stenosis of spine Constant pain (~2014) Spinal stenosis DINORAH on CPAP Arthritis involving multiple sites Dupuytrens contracture Ocular rosacea Scarlet fever Double vision (~1994) 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) Hypothyroidism (~1994) Hemorrhoids Cataract (~2016) Chicken pox Measles Mumps Rosacea (~2005) Shoulder pain (2013) Fractures (2003) Foot pain (2014) Ankle pain (2015) Hayfever Osteoarthritis (2013) Raynaud's disease (1959) CLL (chronic lymphocytic leukemia) (~2005) Arm fracture, left (1955) Surgical History History of total right hip replacement History of surgery on arm (~2019) History of cataract surgery (~2016) Anesthesia History of foot surgery (01/2004) History of surgery on arm (1955) Status post knee surgery (02/25/09) Status post colonoscopy (07/02/13) Family History Brother No problems noted. Brother No problems noted. Father Heart attack Mother Blood disorder Son No problems noted. Son No problems noted. Social History marital status: details: jasmyne Dee, lives in [place] number of children: 2 household members: spouse lives independently: Yes caregiver/support person: No housing: house education level: college occupational status: employed Previous occupational history: pianist, performer leisure activities: music Smoking Status: Never smoker alcohol intake: former substance use type: does not use Smoking Status: Never smoker alcohol intake frequency: holidays/special occasions only Substance Use Type: does not use Exam Initial Vital Signs Initial Vital Signs: Vital Signs Temperature 96.7 F L 05/08/24 17:58 Pulse Rate 83 05/08/24 17:58 Respiratory Rate 16 05/08/24 17:58 Blood Pressure 148/74 H 05/08/24 17:58 Pulse Oximetry 99 05/08/24 17:58 Oxygen Delivery Method Room Air 05/08/24 17:58 Const: Awake, alert, no acute distress, nontoxic appearing Cardiac: regular rate, regular rhythm RESP: unlabored, clear bilaterally, no wheezing GI: Soft, nontender, nondistended, no rebound, no guarding MSK: No edema, full range of motion, pulses equal Skin: Warm, Dry, intact, no rashes Neuro: AO x3, CN II-XII grossly intact, moves all extremities Course Orders Ordered: ED Orders 05/08/24 19:39 CT angio chest PE protocol Stat Vital Signs Vital signs: Vital Signs - 8 hr 05/08/24 20:02 05/08/24 20:30 Pulse Rate 69 56 L Respiratory Rate 17 12 Pulse Oximetry 98 96 MDM - SOB/Dyspnea Lab Data 05/08/24 18:05 05/08/24 18:05 Labs: Lab Results 05/08/24 Range/Units 18:05 WBC 5.7 (4.5-11.0) X10^3/uL RBC 4.35 (4.0-5.2) X10^6/uL Hgb 12.5 (12.0-16.0) g/dL Hct 37.4 (36-46) % MCV 85.9 (80-100) fL MCH 28.9 (26-34) PG MCHC 33.6 (30-36) % RDW 14.4 (11.6-14.8) % Plt Count 268 (150-400) X10^3/uL Neut % (Auto) 60.9 (50-75) % Lymph % (Auto) 36.1 (25-40) % Bowie % (Auto) 2.6 L (3-14) % Eos % (Auto) 0.0 L (2-4) % Baso % (Auto) 0.4 (0-2) % Neut # (Auto) 3500 (3234-0648) /uL Lymph # (Auto) 2000 (5448-5011) /uL Bowie # (Auto) 100 (0-900) /uL Eos # (Auto) 0 (0-450) /uL Baso # (Auto) 0 (0-100) /uL PT 10.6 (9.4-12.5) SECONDS INR 0.9 (0.9-1.3) APTT 27 (25.1-36.5) SECONDS Sodium 131 L (137-145) mmol/L Potassium 4.2 (3.4-5.1) mmol/L Chloride 104 (98-107) mmol/L Carbon Dioxide 20 L (22-32) mmol/L BUN 15 (7-17) mg/dL Creatinine 0.55 (0.52-1.04) mg/dL Estimated GFR > 60 (>60) mL/min BUN/Creatinine Ratio 27.3 H (6-22) Glucose 136 H (80-110) mg/dL Calcium 9.6 (8.4-10.2) mg/dL Magnesium 2.0 (1.6-2.3) mg/dL Total Bilirubin 0.3 (0.2-1.3) mg/dL AST 26 (14-36) IU/L ALT 21 (<35) IU/L Alkaline Phosphatase 73 (38-126) U/L Total Creatine Kinase 72 (30-135) U/L Troponin I 0.047 H (0.01-0.034) ng/mL NT-Pro-B Natriuret Pep 248 (<450) pg/mL Total Protein 7.1 (6.3-8.2) g/dL Albumin 4.1 (3.5-5.0) g/dL Globulin 3.0 (1.7-4.1) g/dL Albumin/Globulin Ratio 1.4 (1.0-2.8) Lipase 803 H (23-300) U/L Imaging Data Chest x-ray: Radiologist's Impression: PROCEDURE: XR CHEST 1V INDICATIONS: chest pain TECHNIQUE: One view of the chest was acquired. COMPARISON: [facility], , XR CHEST 1V, 01/24/2024, 22:42. FINDINGS: Surgical changes and devices: None. Lungs and pleura: Lungs are clear. No pleural effusions or pneumothorax. Mediastinum: Mediastinal contours appear normal. Heart size is normal. Bones and chest wall: No suspicious bony lesions. Overlying soft tissues appear unremarkable. IMPRESSION: No acute cardiopulmonary abnormality is seen. Dictated by: Bulmaro Abad M.D. on 05/08/2024 at 18:35 Approved by: Bulmaro Abad M.D. on 05/08/2024 at 18:35 CT scan - chest: Radiologist's Impression: PROCEDURE: CT ANGIO CHEST PE PROTOCOL INDICATIONS: DYSPNEA, TACHYCARDIA POST PROCEDURE TECHNIQUE: After the administration of intravenous contrast, 2 mm thick sections acquired from the pulmonary apices to the posterior costophrenic angles. 3-dimensional maximum intensity projection (MIP) coronal and sagittal reformats were then acquired through the thorax. For radiation dose reduction, the following was used: automated exposure control, adjustment of mA and/or kV according to patient size. COMPARISON: [facility], CR, XR CHEST 1V, 05/08/2024, 18:10. FINDINGS: Image quality: Diagnostic Lungs and pleura: Scattered mild ground-glass opacities, no dense opacity or pleural effusions. Scattered small atelectasis also seen. There are pulmonary micro nodules and fissural nodules, not requiring dedicated follow-up unless the patient is considered high risk, for example in the right lung image . Mediastinum, heart, and esophagus: No pulmonary embolism. Mild cardiomegaly. Mild wall thickening at the gastroesophageal junction. Atherosclerotic and coronary calcifications. No pathologic lymph nodes by size criteria Chest wall and thyroid: Unremarkable Upper abdomen: No gross abnormality on these arterial phase images Bones: Degenerative findings. IMPRESSION: No acute pulmonary embolism. Mild perihilar ground-glass opacities, possibly edema or atypical infection. A component of air trapping is also probable. No dense consolidation or pleural effusions. Other findings above. Dictated by: Mitesh Alvarado M.D. on 05/08/2024 at 20:12 Approved by: Mitesh Alvarado M.D. on 05/08/2024 at 20:15 ECG Data Interpretation: Normal sinus rhythm at 66 beats per minute. Normal WI. T-wave inversions in anterolateral leads, unchanged from previous EKG October 2023 [facility] Narrative Medical decision making narrative: Well-appearing patient with 2 episodes of what she believes to be were SVT at home after her ablation earlier this morning. On my exam today patient has no obvious abnormalities. At this time patient was asymptomatic, no complaints currently. Laboratory work, EKG, x-ray imaging ordered. Laboratory work reviewed, WBC count 5.7, hemoglobin 12.5, platelet count 268, sodium 131, potassium 4.2, creatinine 0.55, troponin 0.047, BNP 248. Case discussed with Dr. Starks, who performed the patient's ablation. He states that the big concern is that patient goes into heart block or has a pulmonary embolism. He states that the very slight elevation in troponin is normal following an ablation and the level is not concerning at this time. Overall I have very low suspicion for PE, however we will order an angiogram to rule out pulmonary embolism. Cardiology also requested ambulation on the monitor. If patient does not go into heart block or an other abnormal rhythm then patient was safe for discharge home. CT angio negative for acute findings. Patient ambulatory around the emergency department without change in rhythm. She remains in sinus rhythm throughout her stay in the department, telemetry review shows no SVT or heart block. Patient informed of lab and imaging findings as well as cardiology recommendations. Uncertain cause of patient's reported symptoms at home. Patient counseled to have close follow up with her cardiology office. ED return precautions discussed at bedside. Discharge Plan Departure Patient Disposition: Home Clinical Impression: Dyspnea Instructions: DI for Shortness of Breath Activity Restrictions/Additional Instructions: Your laboratory work, EKG, CT scan, and heart monitor rhythms were all reassuring. You do not have heart block or a fluid collection around your heart. Continue your medications as prescribed. Follow up with Dr. Starks as scheduled. Prescriptions: No Action gabapentin 100 mg capsule 200 mg PO BEDTIME Rx Instructions: 1-3 capsules by mouth every day at bedtime loratadine [Claritin] 10 MG tablet 10 mg PO QDAYP PRN (Reason: Seasonal allergies) Qty: 0 melatonin 1 mg tablet 2 mg PO HS Qty: 0 levothyroxine [Levoxyl] 112 mcg tablet See Rx Instructions .ROUTE .COMPLEX Qty: 90 3RF Dose Instruction: TAKE 1 TABLET DAILY AT 0600 Rx Instructions: TAKE 1 TABLET DAILY AT 0600 simvastatin 20 mg tablet See Rx Instructions .ROUTE .COMPLEX Qty: 90 1RF Dose Instruction: TAKE 1 TABLET AT BEDTIME Rx Instructions: TAKE 1 TABLET AT BEDTIME. Need to establish care with new PCP prior to more fills 04/11/23 Premarin 0.625 mg/gram cream 0.625 mg vaginal .COMPLEX Qty: 60 4RF Rx Instructions: 0.625 mg vaginally daily for 14 days then 3 x week; atenolol 25 mg tablet See Rx Instructions .ROUTE .COMPLEX Dose Instruction: TAKE 1 TABLET DAILY Patient Comments: Pt states 37.5mg qpm Rx Instructions: TAKE 1 TABLET DAILY acetaminophen 325 mg Tablet 650 mg PO Q6H PRN (Reason: Fever/Mild Pain (1-3)) Qty: 60 0RF docusate sodium 100 mg Capsule 100 mg PO BID Qty: 20 0RF tramadol 50 mg tablet 50 mg PO Q6H PRN (Reason: pain) Qty: 30 0RF ondansetron 4 mg tablet,disintegrating 4 mg PO Q8H Qty: 10 0RF (DME) Respoironics Dreamstation CPAP Qty: 1 Dose Instruction: As directed Patient Comments: DreamStation 2 Pressure: 6-12 cmH2O DME: NORCO MAIK: 09/07/18 Rx Instructions: As directed Referrals: Grabiel Obrien MD [Primary Care Provider] - Stand Alone Forms: Patient Portal/API
[2024-05-08 18:31] LABS: PTT Partial Thromboplastin Tim 27 SECONDS (25.1-36.5)
[2024-05-08 18:32] LABS: Alanine Aminotransferase 21 IU/L (<35); Albumin 4.1 g/dL (3.5-5.0); Albumin Globulin Ratio 1.4 (1.0-2.8); Alkaline Phosphatase 73 U/L (38-126); Aspartate Aminotransferase 26 IU/L (14-36); BUN Creatinine Ratio 27.3 (6-22); Bilirubin Total 0.3 mg/dL (0.2-1.3); Blood Urea Nitrogen 15 mg/dL (7-17); Calcium 9.6 mg/dL (8.4-10.2); Carbon Dioxide 20 mmol/L (22-32); Chloride 104 mmol/L (98-107); Creatine Kinase 72 U/L (30-135); Estimated Glomerular Filt Rate > 60 mL/min (>60); Glucose 136 mg/dL (80-110); HEMOLYSIS < 15 (0-50); Lipase 803 U/L (23-300); Potassium 4.2 mmol/L (3.4-5.1); Sodium 131 mmol/L (137-145); Total Protein 7.1 g/dL (6.3-8.2)
[2024-05-08 18:37] VITALS: BP 127/63; BP 140/64; BP 152/67; PULSE 64; PULSE 80
[2024-05-08 18:45] LABS: NT-proBNP (BNP-Adult 18+) 248 pg/mL (<450); Troponin I 0.047 ng/mL (0.01-0.034)
--- NOTE | 2024-05-08 19:30 | PC.NURSE ---
had an ablation today then had some c/p at home, pain free at this time
[2024-05-08 19:38] VITALS: PULSE 60; RESP 31
--- NOTE | 2024-05-08 19:39 | DI.CT.S_ITS ---
PROCEDURE: CT ANGIO CHEST PE PROTOCOL INDICATIONS: DYSPNEA, TACHYCARDIA POST PROCEDURE TECHNIQUE: After the administration of intravenous contrast, 2 mm thick sections acquired from the pulmonary apices to the posterior costophrenic angles. 3-dimensional maximum intensity projection (MIP) coronal and sagittal reformats were then acquired through the thorax. For radiation dose reduction, the following was used: automated exposure control, adjustment of mA and/or kV according to patient size. COMPARISON: [facility], CR, XR CHEST 1V, 05/08/2024, 18:10. FINDINGS: Image quality: Diagnostic Lungs and pleura: Scattered mild ground-glass opacities, no dense opacity or pleural effusions. Scattered small atelectasis also seen. There are pulmonary micro nodules and fissural nodules, not requiring dedicated follow-up unless the patient is considered high risk, for example in the right lung image . Mediastinum, heart, and esophagus: No pulmonary embolism. Mild cardiomegaly. Mild wall thickening at the gastroesophageal junction. Atherosclerotic and coronary calcifications. No pathologic lymph nodes by size criteria Chest wall and thyroid: Unremarkable Upper abdomen: No gross abnormality on these arterial phase images Bones: Degenerative findings. IMPRESSION: No acute pulmonary embolism. Mild perihilar ground-glass opacities, possibly edema or atypical infection. A component of air trapping is also probable. No dense consolidation or pleural effusions. Other findings above. Dictated by: Mitesh Alvarado M.D. on 05/08/2024 at 20:12 Approved by: Mitesh Alvarado M.D. on 05/08/2024 at 20:15
[2024-05-08 19:40] VITALS: BP 142/65; PULSE 60; RESP 20; O2SAT 97
--- NOTE | 2024-05-08 19:54 | PC.NURSE ---
to ct per wc
[2024-05-08 20:02] VITALS: PULSE 69; RESP 17; O2SAT 98
--- NOTE | 2024-05-08 20:26 | PC.NURSE ---
pt ambulated around the nurses station with monitor, SR with occasional PAC noted, no chest pain
[2024-05-08 20:30] VITALS: PULSE 56; RESP 12; O2SAT 96
== END 2024-05-08 20:45 | disposition home or self-care (01) ==
PROVIDERS: Emergency Provider Emergency Medicine; Family Provider Family Medicine; PCP Family Medicine
DX: R06.00 Dyspnea, unspecified (principal); R07.9 Chest pain, unspecified; I44.0 Atrioventricular block, first degree
CPT/HCPCS: 36415; 71045; 71275; 80053; 82550; 83690; 83735; 83880; 84484; 85025; 85610; 85730; 93005; 99283; 99284; Q9967

== ENCOUNTER → 2025-03-04 10:27 | Outpatient (CLI) | payer MEDICARE, OTHER, SELFPAY ==
[2024-01-23 13:14] VITALS: BMI 27.8
--- NOTE | 2025-03-04 10:28 | DI.RAD.S_ITS ---
PROCEDURE: XR DEXA AXIAL SKELETON INDICATIONS: Evaluate bone density COMPARISON: None. FINDINGS: Left Femoral Neck: Bone mineral density 0.785 g/cm2, T score -0.6. Left Hip: Bone mineral density 0.983 g/cm2, T score 0.3. Right Forearm: Bone mineral density 0.621 g/cm2, T score -1.2. Fracture Risk Calculation (when applicable): 10-year fracture risk of a major osteoporotic fracture 15 percent and of a hip fracture 2.6 percent. (T score greater or equal to -1.0 to: NORMAL) (T score from -1.1 to -2.4: OSTEOPENIA) (T score less than or equal to -2.5: OSTEOPOROSIS) IMPRESSION: Osteopenia--- recommend repeat DEXA in 2-3 years for reassessment. Follow-up guidelines as follows: Osteoporosis: Consider a repeat DEXA and Vertebral Fracture Assessment (VFA) exam in 2 years or sooner if medically necessary, to reassess this patient's status. Osteopenia: Consider a repeat DEXA in 2-3 years to reassess this patient's status, or if there is a new clinical indication. Normal: Consider a repeat DEXA in 5 years or sooner, or if there is a new clinical indication. All treatment decisions require clinical judgment and consideration of individual patient factors, including patient preferences, comorbidities, previous drug use, risk factors not captured in the FRAX model (e.g., frailty, falls, vitamin D deficiency, increased bone turnover, interval significant decline in bone density ) and possible under- or over-estimation of fracture risk by FRAX. In addition, the NOF Guide recommends that FDA-approved medical therapies be considered in postmenopausal women and men age >= 50 years with a: * Hip or vertebral (clinical or morphometric) fracture * T-score of <=-2.5 at the spine or hip * Ten-year fracture probability by FRAX of >= 3% for hip fracture or >=20% for major osteoporotic fracture. Dictated by: Tae Arthur M.D. on 03/04/2025 at 19:08 Approved by: Tae Arthur M.D. on 03/04/2025 at 19:10
[2025-03-04 12:16] LABS: Add Manual Diff / Slide Review NO; Hematocrit 35.6 % (36-46); Hemoglobin 12.0 g/dL (12.0-16.0); Lymphocytes Absolute Auto 2500 /uL (1100-4500); Mean Corpuscular HGB Conc 33.8 % (30-36); Mean Corpuscular Hemoglobin 29.3 PG (26-34); Mean Corpuscular Volume 86.6 fL (80-100); Platelet Count 269 X10^3/uL (150-400)
[2025-03-04 12:27] LABS: Hemoglobin A1C% w Est Avg Glu 5.6 % (4.0-6.0)
[2025-03-04 12:41] LABS: Albumin 4.4 g/dL (3.5-5.0); Blood Urea Nitrogen 21 mg/dL (7-17); Calcium 9.6 mg/dL (8.4-10.2); Carbon Dioxide 26 mmol/L (22-32); Chloride 97 mmol/L (98-107); Estimated Glomerular Filt Rate > 60 mL/min (>60); Glucose 90 mg/dL (70-99); HEMOLYSIS < 15 (0-50); Potassium 5.0 mmol/L (3.4-5.1); Sodium 128 mmol/L (137-145)
[2025-03-04 12:51] LABS: Prealbumin 30.2 mg/dL (17.6-36.0)
[2025-03-04 14:19] LABS: Vitamin D 25 Hydroxy (D3) 31.2 ng/mL (30.0-100.0)
== END ==
PROVIDERS: PCP Family Medicine; Referring Provider Orthopaedic Surgery Adult Reconstructive Orthopaedic Surgery; Visit Provider Orthopaedic Surgery Adult Reconstructive Orthopaedic Surgery
DX: Z01.818 Encounter for other preprocedural examination (principal); Z01.812 Encounter for preprocedural laboratory examination; M81.0 Age-related osteoporosis without current pathological fracture; E55.9 Vitamin D deficiency, unspecified; E11.9 Type 2 diabetes mellitus without complications
CPT/HCPCS: 36415; 77080; 80048; 82040; 82306; 83036; 84134; 85025

== ENCOUNTER 2025-05-05 10:36 | Observation (INO) | payer MEDICARE, OTHER, SELFPAY ==
[2024-01-23 13:14] VITALS: BMI 27.8
[2025-05-05] VITALS (15 sets, daily range): BP systolic 120–174; BP diastolic 52–75; PULSE 48–62; RESP 13–24; TEMP 36.1–36.7; O2SAT 95–99; BMI 29.2
--- NOTE | 2025-05-05 10:50 | ED_ITS ---
HPI - General Adult General Chief complaint: Neuro Symptoms/Deficit Stated complaint: Unable to talk (6pm); worried surgery lucio. Time Seen by Provider: 05/05/25 10:50 History of Present Illness HPI narrative: Patient is a 84-year-old female history of SVT, hypothyroidism, hyperlipidemia, obstructive sleep apnea, comes into the ED from home for evaluation of word- finding issues, she states that she had word-finding issues at 6:00 p.m. yesterday on 05/10/2025. She states that this lasted for 5 minutes states that it completely resolved. She states that she waited so long because she is supposed to have a left hip replacement by Dr. Ann of Orthopedic surgery tomorrow. At time of my evaluation patient's NIH of 0 no focal deficits she states that she has no symptoms at this time. She is not on any blood thinners this not take any aspirin. Related Data Home Medications ?Medication ?Instructions ?Recorded ?Confirmed loratadine 10 mg tablet (Claritin) 10 mg PO QDAYP PRN Seasonal 06/16/12 04/29/25 allergies ##0 melatonin 1 mg tablet 1.5 mg PO HS ##0 05/24/18 gabapentin 100 mg capsule 100 mg PO BEDTIME 05/27/22 0 04/29/25 ketoconazole 2 % shampoo 1 applic topical DAILY 02/2804/29/25 levothyroxine 112 mcg tablet 112 mcg PO DAILY 04/23/25 04/29/25 (Synthroid) vit C 250 mg-vit E 90 mg-zinc 40 1 tab PO BID 04/23/25 04/29/25 mg-copper 1 [id number] capsule (PreserVision AREDS-2) atenolol 25 mg tablet 37.5 mg PO QPM 04/25/2504/15 Previous Rx's ?Medication ?Instructions ?Recorded simvastatin 20 mg tablet See Rx Instructions .Route 0 04/11/23 .COMPLEX #90 tabs acetaminophen 325 mg tablet 650 mg (2 x 325 mg) PO Q6H PRN 01/24/24 Fever/Mild Pain (1-3) #60 tabs conjugated estrogens 0.625 mg/gram 0.625 mg vaginal 3X W #60 grams 02/14/25 vaginal cream (Premarin) cholecalciferol (vitamin D3) 50 100 mcg (2 x 50 mcg (2 ,000 unit)) 03/06/25 mcg (2,000 unit) capsule PO DAILY Vitamin D Deficienc y #60 caps ondansetron 4 mg disintegrating 4 mg PO Q8H PRN nausea and 04/10/25 tablet vomiting #7 tabs oxycodone 5 mg tablet 5 mg PO Q6H PRN pain #25 tab s 04/10/25 Allergies Allergy/AdvReac Type Severity Reaction Status Date / Time erythromycin base AdvReac Severe NAUSEA/VOMI Verified 04/29/25 12:36 (ERYTHROMYCIN BASE) TING hydromorphone (From Dilaudid) AdvReac Syncope Verified 04/29/25 12:36 Review of Systems Review of Systems Narrative: General: Denies fever, chills, weight loss HEENT: Denies headache, eye drainage, eye irritation, head trauma, sore throat, voice change Cardiovascular: Denies any chest pain, palpitations, tachycardia Respiratory: Denies any shortness of breath, cough, wheeze, stridor GI/: Denies any abdominal pain, nausea, vomiting, diarrhea, bright red blood per rectum, melanotic stools, urinary frequency, urinary retention, dysuria, hematuria MSK: Denies any joint pain, muscle pains, swelling Skin: Denies any rashes, lesions, discoloration Neuro: Positive word-finding issues Psych: Denies SI/HI Patient History Medical History (Updated 05/05/25 @ 12:52 by Portillo Busch DO) Sleep apnea Primary osteoarthritis of left hip Afib (2004) Supraventricular tachycardia Hearing impaired Cervical stenosis of spine Constant pain (~2014) Spinal stenosis Arthritis involving multiple sites Dupuytrens contracture Ocular rosacea Scarlet fever Double vision (~1994) 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) Hypothyroidism (~1994) Hemorrhoids Cataract (~2016) Chicken pox Measles Mumps Rosacea (~2005) Shoulder pain (2013) Fractures (2003) Foot pain (2015) Ankle pain (2015) Hayfever Osteoarthritis (2013) Raynaud's disease (1959) CLL (chronic lymphocytic leukemia) (~2005) Arm fracture, left (1955) Surgical History (Updated 04/23/25 @ 09:43 by Drea Claudio RN) History of cardiac radiofrequency ablation (2023) History of lumbar fusion (01/23/24) History of total right hip replacement History of surgery on arm (~2019) History of cataract surgery (~2016) History of foot surgery (01/2004) History of surgery on arm (1955) Status post knee surgery (02/25/09) Status post colonoscopy (07/02/13) Family History Brother No problems noted. Brother No problems noted. Father Heart attack Mother Blood disorder Son No problems noted. Son No problems noted. Social History marital status: details: jasmyne Dee, lives in [place] number of children: 2 household members: spouse lives independently: Yes caregiver/support person: No housing: house education level: college occupational status: employed Previous occupational history: pianist, performer leisure activities: music Smoking Status: Never smoker alcohol intake: former substance use type: does not use alcohol intake frequency: holidays/special occasions only Exam Narrative Exam Narrative: General: Cooperative, well-developed, not in acute distress HEENT: Normocephalic, atraumatic, PERRLA, normal sclera, eyelids normal Neck: Active full range of motion, atraumatic Chest: Normal to inspection, negative crepitus, no overlying erythema ecchymosis Respiratory: Normal respiratory effort, not in acute respiratory distress, clear to auscultation bilaterally negative cough, wheeze, tachypnea, rhonchi, rales Cardiology: Regular rate rhythm negative gallop, murmur, rubs GI/: No tenderness to palpation, soft, non rigid, normal to inspection, exam deferred MSK: Full active range of motion in all 4 extremities, atraumatic, no tenderness to palpation of any bony prominences Skin: No rashes or lesions noted Neuro: NIH of 0, no focal deficits Alert awake oriented x3, moves all 4 extremities spontaneously, cranial nerves intact, able to answer all questions appropriately follows commands appropriately Psych: Cooperative, negative suicidal or homicidal ideations Initial Vital Signs Initial Vital Signs: Vital Signs Temperature 98.1 F 05/05/25 10:40 Pulse Rate 58 L 05/05/25 10:40 Respiratory Rate 14 05/05/25 10:40 Blood Pressure 171/72 H 05/05/25 10:40 Pulse Oximetry 96 05/05/25 10:40 Oxygen Delivery Method Room Air 05/05/25 10:40 Course Orders Ordered: ED Orders 05/05/25 10:52 Complete Blood Count AUTO DIFF Stat Comprehensive Metabolic Panel Stat Lipase Stat MAG [Magnesium] Stat NT-proBNP (BNP-Adult 18+) Stat PTT Partial Thromboplastin [place] Stat Prothrombin Time INR Stat Troponin & CK Cardiac Panel Stat 05/05/25 11:01 CT head/brain wo con Stat XR chest 1V Stat EKG-12 Lead Stat 05/05/25 11:33 Respiratory Panel (Film Array) Stat 05/05/25 11:35 CT angio head and neck Stat Discontinued Medications Aspirin (Aspirin 81 Mg Chew Tab) 324 mg PO NOW ONE Stop: 05/05/25 12:52 Clopidogrel Bisulfate (Clopidogrel 75 Mg Tablet) 300 mg PO NOW ONE Stop: 05/05/25 12:52 Vital Signs Vital signs: Vital Signs - 8 hr 05/05/25 10:40 05/05/25 11:00 05/05/25 11:01 Temperature 98.1 F Pulse Rate 58 L 53 L 53 L Respiratory Rate 14 15 13 Blood Pressure 171/72 H Pulse Oximetry 96 95 95 Oxygen Delivery Method Room Air 05/05/25 11:01 05/05/25 11:31 05/05/25 11:33 Temperature Pulse Rate 57 L 57 L Respiratory Rate 16 Blood Pressure 157/75 H Pulse Oximetry 98 97 Oxygen Delivery Method 05/05/25 11:33 05/05/25 12:00 05/05/25 12:01 Temperature Pulse Rate 49 L 49 L Respiratory Rate 24 23 Blood Pressure 163/73 H Pulse Oximetry 97 97 Oxygen Delivery Method 05/05/25 12:01 05/05/25 12:30 05/05/25 12:31 Temperature Pulse Rate 51 L 50 L Respiratory Rate Blood Pressure 146/69 H Pulse Oximetry 97 98 Oxygen Delivery Method Room Air 05/05/25 12:31 Temperature Pulse Rate Respiratory Rate Blood Pressure 174/73 H Pulse Oximetry Oxygen Delivery Method Medical Decision Making Lab Data 05/05/25 10:52 05/05/25 10:52 Labs: Lab Results 05/05/25 05/05/25 Range/Units 10:52 11:33 WBC 5.7 (4.5-11.0) X10^3/uL RBC 4.12 (4.0-5.2) X10^6/uL Hgb 12.1 (12.0-16.0) g/dL Hct 35.2 L (36-46) % MCV 85.4 (80-100) fL MCH 29.3 (26-34) PG MCHC 34.3 (30-36) % RDW 13.8 (11.6-14.8) % Plt Count 253 (150-400) X10^3/uL Neut % (Auto) 44.9 L (50-75) % Lymph % (Auto) 44.7 H (25-40) % [place] % (Auto) 8.0 (3-14) % Eos % (Auto) 1.5 L (2-4) % Baso % (Auto) 0.9 (0-2) % Neut # (Auto) 2600 (0464-1588) /uL Lymph # (Auto) 2600 (9642-9857) /uL [place] # (Auto) 500 (0-900) /uL Eos # (Auto) 100 (0-450) /uL Baso # (Auto) 100 (0-100) /uL PT 10.9 (9.4-12.5) SECONDS INR 1.0 (0.9-1.3) APTT 30 (25.1-36.5) SECONDS Sodium 129 L (137-145) mmol/L Potassium 4.4 (3.4-5.1) mmol/L Chloride 98 (98-107) mmol/L Carbon Dioxide 21 L (22-32) mmol/L BUN 19 H (7-17) mg/dL Creatinine 0.63 (0.52-1.04) mg/dL Estimated GFR > 60 (>60) mL/min BUN/Creatinine Ratio 30.2 H (6-22) Glucose 104 H (70-99) mg/dL Calcium 9.5 (8.4-10.2) mg/dL Magnesium 1.9 (1.6-2.3) mg/dL Total Bilirubin 0.4 (0.2-1.3) mg/dL AST 33 (14-36) IU/L ALT 22 (<35) IU/L Alkaline Phosphatase 64 (38-126) U/L Total Creatine Kinase 145 H (30-135) U/L Troponin I < 0.012 (0.01-0.034) ng/mL NT-Pro-B Natriuret Pep 500 H (<450) pg/mL Total Protein 7.5 (6.3-8.2) g/dL Albumin 4.6 (3.5-5.0) g/dL Globulin 2.9 (1.7-4.1) g/dL Albumin/Globulin Ratio 1.6 (1.0-2.8) Lipase 125 (23-300) U/L Chlamy pneumoniae PCR Not detected (Not Detect) Adenovirus (PCR) Not detected (Not Detect) B. pertussis DNA (PCR) Not detected (Not Detect) B.parapertussis DNA PCR Not detected (Not Detecte) Coronavirus OC43 (PCR) Not detected (Not Detect) Coronavirus HKU1 (PCR) Not detected (Not Detect) Coronavirus 229E (PCR) Not detected (Not Detect) SARS-CoV-2 (PCR) Not detected (Not Detecte) Coronavirus NL63 (PCR) Not detected (Not Detect) Human Metapneumovir PCR Not detected (Not Detect) Influenza Type A (PCR) Not detected (Not Detect) Influenza Type B (PCR) Not detected (Not Detect) M. pneumoniae (PCR) Not detected (Not Detect) Parainfluenza 1 (PCR) Not detected (Not Detect) Parainfluenza 2 (PCR) Not detected (Not Detect) Parainfluenza 3 (PCR) Not detected (Not Detect) Parainfluenza 4 (PCR) Not detected (Not Detect) RSV (PCR) Not detected (Not Detect) Entero/Rhino (PCR) Not detected (Not Detect) ECG Data Interpretation: EKG interpreted by ED physician sinus bradycardia at 53 beats per minute QTC 405, first-degree AV block noted, nonspecific ST changes no STEMI this is similar to previous performed on 05/08/2024 MDM Narrative Medical decision making narrative: 84-year-old female with a past medical history of hyperlipidemia, hypertension, comes into the ED from home for evaluation of word-finding issues, she states that this happened at 6:00 p.m. yesterday lasted for 5 minute, states that she is completely back to baseline currently. She does not take any blood thinners no aspirin. She states that she came in today because she is supposed to have a left hip replacement by Dr. Ann tomorrow for osteoarthritis. At time of my evaluation NIH of 0 no focal deficits. Patient's lab work here has been completely unremarkable. Troponin negative, Chem panel without any acute findings. Patient had CT CTA head and neck without any acute findings chest x- ray without any acute cardiopulmonary abnormality however given patient with word-finding difficulty and scheduled surgery tomorrow we will reach out to neurology for additional recommendations. 1217: Discussed case with tele neurologist Dr. Russell, states will review images and call back for recommendations 1243: Case was discussed with Dr. Russell tele neurologist, who reviewed the findings, states that patient should be admitted MRI TIA workup, does recommend full-dose aspirin and Plavix load with 21 days of Plavix 75 mg after. This was discussed with the patient and agrees with the being admitted. The patient's management plan was discussed Dr. Johnson, who agrees to admit the patient to their service and assumes care of this patient at this time. Full admission orders will be placed by the primary team. Discharge Plan Departure Patient Disposition: Admitted as Observation Clinical Impression: Word finding difficulty
--- NOTE | 2025-05-05 11:01 | EKG_ITS ---
[place] [id number] [place] [id number] Test Date: 2025-05-05 Pat Name: Velma Mays Department: [facility] Room: Gender: Female Cloth Neutralizer: MINERVA : 1940 Requested By: Order Number: [id number] Reading MD: Jitendra Valdovinos MD Measurements Intervals [place] Rate: 53 P: 62 CO: 274 QRS: 19 QRSD: 84 T: 2 QT: 432 QTc: 405 Interpretive Statements Sinus bradycardia with sinus arrhythmia with 1st degree AV block Cannot rule out Anterior infarct , age undetermined Electronically Signed On 05-06-2025 7:47:10 PDT by Jitendra Valdovinos MD
--- NOTE | 2025-05-05 11:01 | DI.CT.S_ITS ---
PROCEDURE: CT HEAD/BRAIN WO CON INDICATIONS: word finding issues TECHNIQUE: Noncontrast 4.5 mm thick angled axial sections acquired from the foramen magnum to the vertex, with coronal and sagittal reformats. For radiation dose reduction, the following was used: automated exposure control, adjustment of mA and/or kV according to patient size. COMPARISON: None. FINDINGS: Image quality: Diagnostic. CSF spaces: Basal cisterns are patent. No extra-axial fluid collections. The ventricles are symmetric in size and shape. Brain: No intracranial bleeds or mass effect. There is cerebral volume loss, with resultant ventricular and sulcal prominence. There are periventricular and deep white matter chronic small vessel ischemic changes. There is intracranial internal carotid artery atherosclerosis. Skull and face: Calvarium and visualized facial bones appear intact, without suspicious lesions. Sinuses: Visualized sinuses and mastoids are clear. IMPRESSION: No acute intracranial pathology. Dictated by: Danette Mccurdy M.D. on 05/05/2025 at 10:55 Approved by: Danette Mccurdy M.D. on 05/05/2025 at 10:56
--- NOTE | 2025-05-05 11:01 | DI.RAD.S_ITS ---
PROCEDURE: XR CHEST 1V INDICATIONS: stroke TECHNIQUE: One view of the chest was acquired. COMPARISON: [facility], CR, XR CHEST 1V, 05/08/2024, 18:10. [facility], CR, XR CHEST 1V, 01/24/2024, 22:42. FINDINGS: Surgical changes and devices: None. Lungs and pleura: Lungs are clear. No pleural effusions or pneumothorax. Mediastinum: Mediastinal contours appear normal. Heart size is normal. Bones and chest wall: No suspicious bony lesions. Overlying soft tissues appear unremarkable. IMPRESSION: No acute cardiopulmonary abnormality is seen. Dictated by: Danette Mccurdy M.D. on 05/05/2025 at 10:49 Approved by: Danette Mccurdy M.D. on 05/05/2025 at 10:50
[2025-05-05 11:07] LABS: Add Manual Diff / Slide Review NO; Hematocrit 35.2 % (36-46); Hemoglobin 12.1 g/dL (12.0-16.0); Lymphocytes Absolute Auto 2600 /uL (1100-4500); Mean Corpuscular HGB Conc 34.3 % (30-36); Mean Corpuscular Hemoglobin 29.3 PG (26-34); Mean Corpuscular Volume 85.4 fL (80-100); Platelet Count 253 X10^3/uL (150-400)
[2025-05-05 11:09] LABS: INR 1.0 (0.9-1.3); Prothrombin Time 10.9 SECONDS (9.4-12.5)
[2025-05-05 11:11] LABS: PTT Partial Thromboplastin Tim 30 SECONDS (25.1-36.5)
[2025-05-05 11:13] LABS: Alanine Aminotransferase 22 IU/L (<35); Albumin 4.6 g/dL (3.5-5.0); Albumin Globulin Ratio 1.6 (1.0-2.8); Alkaline Phosphatase 64 U/L (38-126); Blood Urea Nitrogen 19 mg/dL (7-17); Calcium 9.5 mg/dL (8.4-10.2); Carbon Dioxide 21 mmol/L (22-32); Chloride 98 mmol/L (98-107); Creatine Kinase 145 U/L (30-135); Estimated Glomerular Filt Rate > 60 mL/min (>60); Globulin 2.9 g/dL (1.7-4.1); Glucose 104 mg/dL (70-99); HEMOLYSIS < 15 (0-50); Lipase 125 U/L (23-300); Magnesium 1.9 mg/dL (1.6-2.3); Potassium 4.4 mmol/L (3.4-5.1); Sodium 129 mmol/L (137-145); Total Protein 7.5 g/dL (6.3-8.2)
[2025-05-05 11:24] LABS: NT-proBNP (BNP-Adult 18+) 500 pg/mL (<450); Troponin I < 0.012 ng/mL (0.01-0.034)
--- NOTE | 2025-05-05 11:35 | DI.CT.S_ITS ---
PROCEDURE: CT ANGIO HEAD AND NECK INDICATIONS: word finding issues TECHNIQUE: After the administration of intravenous contrast, 1 mm thick sections acquired from the aortic arch through the [place]. 3-dimensional jnqgszm-mzjfgufcs-diyvxbigks (MIP) and/or volume rendering reformats were acquired of the central intracranial vasculature and neck separately. For radiation dose reduction, the following was used: automated exposure control, adjustment of mA and/or kV according to patient size. COMPARISON: None. FINDINGS: Image quality: Diagnostic. Cerebral CT Angiogram: Internal carotid arteries: No acute findings. Intracranial ICA are patent with no significant stenosis. No occlusion. No aneurysm. Anterior cerebral arteries: Unremarkable. No significant stenosis. No occlusion. No aneurysm. Middle cerebral arteries: Unremarkable. No significant stenosis. No occlusion. No aneurysm. Posterior cerebral arteries: Unremarkable. No significant stenosis. No occlusion. No aneurysm. Basilar artery: Unremarkable. No significant stenosis. No occlusion. No aneurysm. Vertebral arteries: Unremarkable as visualized. Dural venous sinuses: Unremarkable given phase of enhancement. Other: Arterial phase appearance of the brain parenchyma is unremarkable. Neck CT Angiogram: Internal carotid arteries: Unremarkable. No significant stenosis. No dissection or occlusion. Common carotid arteries: Unremarkable. No significant stenosis. No dissection or occlusion. External carotid arteries: Unremarkable. No occlusion. Vertebral arteries: Unremarkable. No significant stenosis. No dissection or occlusion. Aortic Arch and Mediastinum: Partially visualized aortic arch unremarkable without evidence of aneurysm. Origins of the great vessels unremarkable. Other: Arterial phase soft tissues of the neck and chest are unremarkable. IMPRESSION: No significant intracranial arterial abnormality is seen. No significant abnormality is seen within the arteries of the neck. Any quantitative measurements of stenosis were performed using NASCET criteria. Dictated by: Danette Mccurdy M.D. on 05/05/2025 at 10:57 Approved by: Danette Mccurdy M.D. on 05/05/2025 at 11:00
[2025-05-05 12:27] LABS: Coronavirus NL 63 Not Detected (Not Detect); SARS- CoV-2 Not Detected (Not Detecte)
[2025-05-05] MEDS: CLOPIDOGREL 75 MG TABLET 300 MG PO (13:02)
[2025-05-05] MEDS: ASPIRIN 81 MG CHEW TAB 324 MG PO (13:02)
--- NOTE | 2025-05-05 13:36 | PC.NURSE ---
[facility] Note: [facility] Tele Stroke consult completed. Images pushed, demographics and reports faxed.
--- NOTE | 2025-05-05 14:13 | PM.HP.IH.1 ---
History of Present Illness History of Present Illness Date Patient Seen: 05/05/25 Time Patient Seen: 14:13 Chief complaint: Unable to talk (6pm); worried surgery lucio. Narrative: 84-year-old female past medical history of osteoarthritis obstructive sleep apnea chronic lymphocytic leukemia hyperlipidemia SVT with previous ablation hypothyroidism presents to the emergency department. Patient states last night she had her sister in law and brother over. They were preparing for dinner and she had sudden onset of difficulty with word finding. This was witnessed by her sister were for approximately 5 minutes she could not speak clearly could not find words. She went in the other room sat down extra . This progressed for the following 5 minute she had no other neurological symptoms of facial weakness hand and leg weakness difficulty with balance or coordination. It then gradually resolved fairly quickly. She was then able to sit down and have dinner. The words were coming without difficulty at all. She has never had symptoms like this before. She got up this morning. She knew that she had anticipated hip surgery tomorrow with Dr. Ann and was concerned because of these symptoms she needed evaluated today. She then presented to the emergency department on my arrival she has clear history. No difficulty with word finding no facial muscle weakness or strength or gait difficulties. On review of testing patient has normal white blood cell count hemoglobin hematocrit is stable normal platelets she has mild hyponatremia at 129 which is chronic normal kidney function troponin negative BNP mildly elevated viral panel negative chest x-ray shows no acute findings. Head and neck CTA shows no significant intracranial arterial abnormality of brain or neck. CT scan of the head shows no acute intracranial pathology. EKG shows sinus bradycardia with 1st av block. 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) Hypothyroidism (~1994) Hemorrhoids Cataract (~2016) Chicken pox Measles Mumps Rosacea (~2005) Shoulder pain (2013) Fractures (2004) Foot pain (2015) Ankle pain (2015) Hayfever Osteoarthritis (2013) Raynaud's disease (1959) CLL (chronic lymphocytic leukemia) (~2005) Arm fracture, left (1955) Surgical History (Updated 04/23/25 @ 09:43 by Drea Claudio RN) History of cardiac radiofrequency ablation (2023) History of lumbar fusion (01/23/24) History of total right hip replacement History of surgery on arm (~2019) History of cataract surgery (~2016) History of foot surgery (01/2004) History of surgery on arm (1955) Status post knee surgery (02/25/09) Status post colonoscopy (07/02/13) Family History Brother No problems noted. Brother No problems noted. Father Heart attack Mother Blood disorder Son No problems noted. Son No problems noted. Social History marital status: details: jasmyne Dee, lives in [place] number of children: 2 household members: spouse lives independently: Yes caregiver/support person: No housing: house education level: college occupational status: employed Previous occupational history: pianist, performer leisure activities: music Smoking Status: Never smoker alcohol intake: former substance use type: does not use Meds Home Medications and Allergies Home Medications ?Medication ?Instructions ?Recorded ?Confirmed ?Type loratadine 10 mg tablet (Claritin) 10 mg PO QDAYP PRN Seasonal 06/16/12 04/29/25 History allergies ##0 melatonin 1 mg tablet 1.5 mg PO HS ##0 05/24/18 04/29/25 History gabapentin 100 mg capsule 100 mg PO BEDTIME 05/27/22 04/29/25 History simvastatin 20 mg tablet See Rx Instructions .Route 04/11/23 04/29/25 Rx .COMPLEX #90 tabs acetaminophen 325 mg tablet 650 mg (2 x 325 mg) PO Q6H PRN 01/24/24 04/29/25 Rx Fever/Mild Pain (1-3) #60 tabs conjugated estrogens 0.625 mg/gram 0.625 mg vaginal 3XW #60 grams 02/14/25 04/29/25 Rx vaginal cream (Premarin) ketoconazole 2 % shampoo 1 applic topical DAILY 02/28/25 04/29/25 History cholecalciferol (vitamin D3) 50 100 mcg (2 x 50 mcg (2,000 unit)) 03/06/25 04/29/25 Rx mcg (2,000 unit) capsule PO DAILY Vitamin D Deficiency #60 caps ondansetron 4 mg disintegrating 4 mg PO Q8H PRN nausea and 04/10/25 04/29/25 Rx tablet vomiting #7 tabs oxycodone 5 mg tablet 5 mg PO Q6H PRN pain #25 tabs 04/10/25 04/29/25 Rx levothyroxine 112 mcg tablet 112 mcg PO DAILY 04/23/25 04/29/25 History (Synthroid) vit C 250 mg-vit E 90 mg-zinc 40 1 tab PO BID 04/23/25 04/29/25 History mg-copper 1 [id number] capsule (PreserVision AREDS-2) atenolol 25 mg tablet 37.5 mg PO QPM 04/25/25 04/29/25 History Allergies Allergy/AdvReac Type Severity Reaction Status Date / Time erythromycin base AdvReac Severe NAUSEA/VOMI Verified 04/29/25 12:36 (ERYTHROMYCIN BASE) TING hydromorphone (From Dilaudid) AdvReac Syncope Verified 04/29/25 12:36 Exam Vital Signs (past 8 hours): - 05/05/25 10:40 05/05/25 11:00 05/05/25 11:01 Temperature 98.1 F Pulse Rate 58 L 53 L 53 L Respiratory Rate 14 15 13 Blood Pressure 171/72 H Pulse Oximetry 96 95 95 Oxygen Delivery Method Room Air 05/05/25 11:01 05/05/25 11:31 05/05/25 11:33 Temperature Pulse Rate 57 L 57 L Respiratory Rate 16 Blood Pressure 157/75 H Pulse Oximetry 98 97 Oxygen Delivery Method 05/05/25 11:33 05/05/25 12:00 05/05/25 12:01 Temperature Pulse Rate 49 L 49 L Respiratory Rate 24 23 Blood Pressure 163/73 H Pulse Oximetry 97 97 Oxygen Delivery Method 05/05/25 12:01 05/05/25 12:30 05/05/25 12:31 Temperature Pulse Rate 51 L 50 L Respiratory Rate Blood Pressure 146/69 H Pulse Oximetry 97 98 Oxygen Delivery Method Room Air 05/05/25 12:31 05/05/25 13:00 05/05/25 13:01 Temperature Pulse Rate 52 L 51 L Respiratory Rate Blood Pressure 174/73 H Pulse Oximetry 97 98 Oxygen Delivery Method Room Air 05/05/25 13:01 05/05/25 13:30 05/05/25 13:31 Temperature Pulse Rate 48 L 49 L Respiratory Rate 20 Blood Pressure 150/70 H Pulse Oximetry 98 99 Oxygen Delivery Method Room Air 05/05/25 13:31 Temperature Pulse Rate Respiratory Rate Blood Pressure 142/69 H Pulse Oximetry Oxygen Delivery Method Oxygen Delivery Method Room Air Narrative Exam Narrative: Gen.: [Alert and oriented x3 no apparent distress.] HEENT: [NCAT PERRLA tympanic membranes are clear nares are patent oral mucosa is moist no tonsillar hypertrophy neck is supple without lymphadenopathy no thyroid enlargement.] Cardio: [S1-S2 regular rate and rhythm no murmurs appreciated.] Respiratory: [Lungs are clear to auscultation no wheezes or crackles normal respiratory effort.] Abdomen: [Soft nontender no rebound or guarding no liver spleen enlargement no appreciable hernias] Extremities: [Full range of motion no appreciable weakness no cyanosis or edema.] Neurologic: [Grossly intact.] Objective Labs 05/05/25 10:52 05/05/25 10:52 Labs: Laboratory Results - last 24 hr 05/05/25 05/05/25 10:52 11:33 WBC 5.7 RBC 4.12 Hgb 12.1 Hct 35.2 L MCV 85.4 MCH 29.3 MCHC 34.3 RDW 13.8 Plt Count 253 Neut % (Auto) 44.9 L Lymph % (Auto) 44.7 H [place] % (Auto) 8.0 Eos % (Auto) 1.5 L Baso % (Auto) 0.9 Neut # (Auto) 2600 Lymph # (Auto) 2600 [place] # (Auto) 500 Eos # (Auto) 100 Baso # (Auto) 100 PT 10.9 INR 1.0 APTT 30 Sodium 129 L Potassium 4.4 Chloride 98 Carbon Dioxide 21 L BUN 19 H Creatinine 0.63 Estimated GFR > 60 BUN/Creatinine Ratio 30.2 H Glucose 104 H Calcium 9.5 Magnesium 1.9 Total Bilirubin 0.4 AST 33 ALT 22 Alkaline Phosphatase 64 Total Creatine Kinase 145 H Troponin I < 0.012 NT-Pro-B Natriuret Pep 500 H Total Protein 7.5 Albumin 4.6 Globulin 2.9 Albumin/Globulin Ratio 1.6 Lipase 125 Chlamy pneumoniae PCR Not detected Adenovirus (PCR) Not detected B. pertussis DNA (PCR) Not detected B.parapertussis DNA PCR Not detected Coronavirus OC43 (PCR) Not detected Coronavirus HKU1 (PCR) Not detected Coronavirus 229E (PCR) Not detected SARS-CoV-2 (PCR) Not detected Coronavirus NL63 (PCR) Not detected Human Metapneumovir PCR Not detected Influenza Type A (PCR) Not detected Influenza Type B (PCR) Not detected M. pneumoniae (PCR) Not detected Parainfluenza 1 (PCR) Not detected Parainfluenza 2 (PCR) Not detected Parainfluenza 3 (PCR) Not detected Parainfluenza 4 (PCR) Not detected RSV (PCR) Not detected Entero/Rhino (PCR) Not detected Assessment & Plan Assessment and plan (1) Word finding difficulty: Status: Acute (2) Primary osteoarthritis of left hip: Status: Acute Plan Aphasia. Patient with approximately 5 minutes of difficulty word finding without other neurological symptoms resolved spontaneously on its own approximately 18 hours ago. Patient is neurologically intact now. CT angiogram CT head reviewed which are normal. Patient's EKG shows sinus bradycardia. Patient was given aspirin and Plavix in the emergency department. Patient is on a statin she has not anticoagulated. Patient will be admitted to the hospital with telemetry monitoring. Echocardiogram and MRI stroke protocol. She will be continued on aspirin Plavix and statin. Her blood pressure looks good she will be continued on her current blood pressure management and will monitor closely neurological symptoms and blood pressure. Supraventricular tachycardia. Patient with a history of SVT with ablation. She is she is on a beta-emile she said the ablation procedure does not work last echocardiogram was in December of 2023 we will go ahead and repeat this as she has elevated BNP. To review heart enlargement. Telemetry monitoring will help determine if this is cardioembolic related or if this is purely neurologic. Osteoarthritis generalized with specifically left hip. Patient anticipating surgery tomorrow with Dr. Moore. Patient is no longer a surgical candidate. We discussed this with her and her family today. This will have to be postponed until we have a better understanding of what is going on most likely a number of months. Acquired hypothyroidism. Patient on thyroid replacement this will be continued Hypertension. Patient is on blood pressure medication this will be continued Hyperlipidemia. Patient is on simvastatin we will start with atorvastatin 20 mg Osteoarthritis patient will be given Tylenol on pain medication as needed Sleep disturbances patient is on gabapentin and melatonin this will be continued Code status full code DVT prophylaxis with Lovenox Disposition and plan anticipate hospital stay to be admitted as observation unless we find significant brain injury on MRI which I do not anticipate. Time-Based Coding :: [TOTAL MINUTES] spent with patient and on the chart (including review of chart, obtaining history, exam, reviewing outside data, placing orders, documenting exam and treatment plan, and counseling patient) on [DATE]. PROFEE Addiction Treatment Counselor Document charge(s): Yes Charge Codes Initial inpatient/observation care: [id number]
--- NOTE | 2025-05-05 14:21 | DI.MRI.S_ITS ---
PROCEDURE: MR HEAD/BRAIN WO CON INDICATIONS: Aphasia TECHNIQUE: Non-contrast axial T1 spin echo, axial T2 fast spin echo, sagittal and axial FLAIR, coronal T2 fast spin echo, axial gradient echo, axial diffusion and ADC through the brain. COMPARISON: None. FINDINGS: Image quality: Excellent. CSF spaces: Ventricles appear symmetric in size and shape. Basal cisterns are patent. No extra-axial fluid collections. Brain: No intracranial bleeds or mass effects. There is cerebral volume loss with compensatory enlargement of the CSF spaces consistent with age. There are minimal periventricular and deep white matter chronic small vessel ischemic changes. Brainstem appears normal. Diffusion-weighted images show no acute infarct. No chronic ischemic insults. Normal intravascular flow voids are present. Skull and face: Calvarial bone marrow is normal in signal. Orbits are normal. Sinuses: Sinuses and mastoids are clear. IMPRESSION: No ischemia or other acute intracranial abnormality. Dictated by: Danette Mccurdy M.D. on 05/05/2025 at 16:25 Approved by: Danette Mccurdy M.D. on 05/05/2025 at 16:28
--- NOTE | 2025-05-05 14:34 | DI.ECHO.S_ITS ---
[facility]+ [facility] : : [id number] : : [place] : : [id number] : : Phone: [phone] Echocardiogram Report + + :Name: JIMMIE GRIFFITH Study Date: 05/06/2025 Height: 63 in : :Hospital ReadingLocation: Weight: 165 lb : : Gender: Female BSA: 1.8 m2 : :: 1940 Age: 84 yrs BP: 111/49 mmHg: :Reason For Study: APHASIA : :Ordering Physician: [place], : :SUDEEP Performed By: Sudeep Boone : :Referring: SUDEEP BE : + + Interpretation Summary 1) Normal left ventricular size, thickness, wall motion, and systolc function (EF 55-60%). 2) Normal right ventricular size and function. 3) No significant valvular abnormalities. 4) Compared to the Echo done 01/09/2024, no significant change. Procedure: A two-dimensional transthoracic echocardiogram with color flow and Doppler was performed. The study quality was technically good. Comparison is made with the echocardiogram of 01/09/2024. The patient was in normal sinus rhythm during the exam. Left Ventricle: The left ventricle is normal in size. There is normal left ventricular wall thickness. There is no ventricular septal defect visualized. The ejection fraction is estimated to be 55-60%. There are no focal wall motion abnormalities. Diastolic parameters suggest a relaxation abnormality of the left ventricle, consistent with probable normal filling pressures. Right Ventricle: The right ventricle is normal in size and function. Atria: The left atrial size is normal. Right atrial size is normal. There is no Doppler evidence for an interatrial shunt. Mitral Valve: The mitral valve leaflets appear normal. There is no evidence of stenosis, fluttering, or prolapse. There is trace mitral regurgitation. Aortic Valve: The aortic valve is trileaflet. The aortic valve opens well. There is no aortic valve stenosis. No aortic regurgitation is present. Tricuspid Valve: The tricuspid valve is not well visualized. No tricuspid regurgitation. Pulmonic Valve: The pulmonic valve is not well seen, but is grossly normal. There is no pulmonic valvular regurgitation. Great Vessels: The aortic root is normal size. The dimensions of the ascending aorta are normal. The pulmonary artery is normal size. The IVC is of normal diameter and collapses greater than 50% with a sniff. This suggests a low right atrial pressure of 3 mm Hg. Pericardium/ Pleura There is no pericardial effusion. There is no pleural effusion. MMode/2D Measurements & Calculations LVIDd: 4.7 cm LVOT diam: 1.9 cm LVIDs: 3.2 cm Ao root diam: 2.8 cm FS: 31.6 % asc Aorta Diam: 3.0 cm EPSS: 0.73 cm IVSd: 0.74 cm LVPWd: 0.76 cm LV jarrett. diameter/BSA (cm/m^2): 2.6 LV sys. diameter/BSA (cm/m^2): 1.8 LA A2 area: 14.6 cm2 RA long axis: 4.4 cm LA A4 area: 15.1 cm2 RA area: 12.8 cm2 LA length (vol): 5.0 cm RA vol: 31.8 ml LA vol: 37.6 ml RA : 17.9 ml/m2 LA vol index: 21.1 ml/m2 IVC diam: 1.7 cm RVD1 (basal): 3.5 cm RVD2 (mid): 2.4 cm TAPSE: 2.5 cm Doppler Measurements & Calculations Ao V2 max: 125.5 cm/sec LVOT Max Gabe: 105.1 cm/sec Ao V2 mean: 87.2 cm/sec LV V1 max P.4 mmHg Ao max P.3 mmHg LV V1 VTI: 22.9 cm Ao mean P.4 mmHg WILMA(I,D): 2.4 cm2 Ao V2 VTI: 27.2 cm WILMA(V,D): 2.4 cm2 sev ratio: 0.84 WILMA indexed to BSA (cm^2/m^2): 1.4 MV E max gabe: 57.0 cm/sec PA V2 max: 103.0 cm/sec MV A max gabe: 73.6 cm/sec PA V2 mean: 65.3 cm/sec MV E/A: 0.77 PA mean P.0 mmHg Med Peak E' Gabe: 5.0 cm/sec PA pr(Accel): 48.2 mmHg E/E' med: 11.4 Lat Peak E' Gabe: 6.2 cm/sec E/E' lat: 9.2 E/e' average: 10.3 MV dec time: 0.23 sec SV(LVOT): 66.5 ml Reading Physician:12:36 PM
[2025-05-05 14:35] LABS: Cholesterol 222 mg/dL (140-199); HDL Cholesterol 62 mg/dL (40-60); Triglycerides 159 mg/dL (35-150)
[2025-05-05 14:36] LABS: Hemoglobin A1C% w Est Avg Glu 5.9 % (4.0-6.0)
[2025-05-05] MEDS: SODIUM CHLORIDE 0.9% 1,000 ML 21 ML IV (17:19)
[2025-05-05] MEDS: ENOXAPARIN 40 MG/0.4 ML SYRINGE SUBCUT (17:19)
[2025-05-05] MEDS: GABAPENTIN 100 MG CAPSULE PO (20:41)
[2025-05-05] MEDS: MELATONIN 3 MG TABLET 1.5 MG PO (20:41)
[2025-05-05] MEDS: ATORVASTATIN 20 MG TABLET PO (20:41)
--- NOTE | 2025-05-05 23:14 | PC.NURSE ---
Addendum entered by Sara Jackman RN 05/06/25 04:48: Pt's HR continues to anthony down to low 40's (pt on tele). pt asymtomatic. Pt c\o hip pain that is worsen by the hospital bed, pt hoping to go home today. Original Note: Per ICU nurse pt HR goes down to low 40's, which isn't new per history on tele. pt assymtomatic.
[2025-05-06 00:15] VITALS: BP 110/43; PULSE 53; RESP 18; O2SAT 99
[2025-05-06] MEDS: ACETAMINOPHEN 325 MG TABLET 650 MG PO (04:32)
[2025-05-06 04:45] VITALS: BP 124/49; PULSE 55; RESP 16; TEMP 35.7; O2SAT 95
[2025-05-06 08:00] VITALS: BP 111/49; PULSE 52; RESP 17; TEMP 36.1; O2SAT 99
[2025-05-06] MEDS: CLOPIDOGREL 75 MG TABLET PO (08:08)
[2025-05-06] MEDS: ENOXAPARIN 40 MG/0.4 ML SYRINGE SUBCUT (08:08)
[2025-05-06] MEDS: ASPIRIN EC 325 MG TABLET PO (08:08)
[2025-05-06] MEDS: LEVOTHYROXINE 112 MCG TABLET PO (08:08)
--- NOTE | 2025-05-06 10:13 | OT.IP.EVAL ---
Current Diagnoses Unilateral primary osteoarthritis, left hip (05/05/25) Other speech disturbances (05/05/25) Past Medical History (Last Updated 04/23/25 @ 09:31 by Drea Claudio RN) Afib (2004) Ankle pain (2015) Arm fracture, left (1955) Arthritis involving multiple sites Cataract (~2016) Cervical stenosis of spine Chicken pox CLL (chronic lymphocytic leukemia) (~2005) Constant pain (~2014) Double vision (~1994) Dupuytrens contracture Foot pain (2014) Fractures (2003) Hayfever Hearing impaired Hemorrhoids Hypothyroidism (~1994) Measles Mumps Ocular rosacea Osteoarthritis (2013) Primary osteoarthritis of left hip Raynaud's disease (1959) Rosacea (~2005) 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) Scarlet fever Shoulder pain (2013) Sleep apnea Spinal stenosis Supraventricular tachycardia Surgical History (Last Updated 04/23/25 @ 09:43 by Drea Claudio RN) History of cardiac radiofrequency ablation (2023) History of cataract surgery (~2016) History of foot surgery (01/2004) History of lumbar fusion (01/23/24) History of surgery on arm (1955) History of surgery on arm (~2019) History of total right hip replacement Status post colonoscopy (07/02/13) Status post knee surgery (02/25/09) Occupational Therapy Inpatient Evaluation/Re-Eval M1 PT/OT-IP Prior Functional Status Start: 05/06/25 09:44 Freq: NEEDED Status: Active Protocol: Document 05/06/25 09:44 [facility] (Rec: 05/06/25 10:01 [facility] Desktop) Medical Review Prior Functional Status Medical History Yes Reviewed Diet/Fluid Regular Consistency Communication Pt able to make needs known Mobility and Gait Pt was ambulating without AD in and out of her home. Activities of Daily Pt was I with all BADL and IADL. Living and IADL's Prior Functional Pt plays the organ, goes for walks, and performs floor Level (Other details exercises regularly. Pt is I with driving. ) Social History Household Members spouse Living Arrangements House Number of Floors ( Two Floors Floors) Number of Stairs To Pt lives in a two story home with 14 steps and a R Enter/Railing? railing to get to the basement. Pt has a level entrance to the upstairs (main level) from the driveway. Pt is having a chair lift installed for getting to the basement. Home Environment Standard Height Toilet,Walk in Shower Home Equipment Shower Seat with Backrest,Hand Held Shower,Grab Bars Near Toilet Employment Status Retired M2 OT-IP Current Condition Start: 05/06/25 09:44 Freq: Status: Active Protocol: Document 05/06/25 09:44 [facility]AI (Rec: 05/06/25 10:01 [facility] Desktop) Occupational Therapy Current Condition Current Condition Evaluation Date 05/06/25 Treatment Diagnosis aphasia, OA L hip Diagnosis Onset Date 05/05/25 M3 OT- IP Subjective and Pain Start: 05/06/25 09:44 Freq: Status: Active Protocol: Document 05/06/25 09:44 [facility] (Rec: 05/06/25 10:01 [facility] OT- Subjective Occupational Therapy Visit Type Type Initial Evaluation Visit Start Time 09:15 Visit Stop Time 09:40 Notes Pt was standing with FWW in front of the window seat with spouse and brother present on entrance of OT for OT eval. Pt agreed to OT eval. Occupational Therapy Visit Comments Patient Comments I want to go home today. Pt reports concern over pain in R hip. OT Pain Assessment Pain When Pain Assessed During Weight Bearing Pain Present Pain Present Pain Reported Location Right Hip Intensity 5 Scale Used Numeric (0 - 10) Pain Behaviors Guarding,Restlessness Management Apply Cold Techniques M4 OT- IP ADL's Start: 05/06/25 09:44 Freq: Status: Active Protocol: Document 05/06/25 09:44 ISAI (Rec: 05/06/25 10:01 [facility] Desktop) OT [id number] Comments OT Self-Feeding not observed Comments OT ADL-Grooming General Evaluation Grooming Ability Independent Comments OT Grooming Comments Pt able to carry items to the sink while amb with FWW and performs sink side without assist. OT ADL-Oral Care General Eval Oral Care Ability Independent Comments Oral Care Comments Pt able to carry items to sink while amb with FWW and performs sink side without assist. OT ADL-Dressing General Eval Lower Body Dressing Moderate Assistance Ability Areas Needing Underpants/Brief,Pants/Shorts,Socks,Shoes Assistance Comments OT Dressing Comments Pt needs assistance to start all LB clothing. Pt declines education of LB AE for LB dressing. Both pt and spouse agree that the spouse will assist in LB dressing until pt is able to perform. Pt reports the pain is what is limiting her at this time. OT ADL-Toileting Comments OT Toileting not observed Comments OT ADL-Bathing Comments OT Bathing Comments not observed M5 OT- IP IADL's Start: 05/06/25 09:44 Freq: Status: Active Protocol: Document 05/06/25 09:44 [facility]AI (Rec: 05/06/25 10:01 [facility] Desktop) OT-Instrumental Activities of Daily Living Deficits IADL Deficits No Deficits Identified Home Safety Awareness Awareness of Need Good Awareness for Assistance at Home Ability to Problem Able to Problem Solve Solve Emergency Situations Medication Management Medication No Deficits Identified Management Money Management Money Management No Deficits Identified Meal Preparation Meal Preparation No Deficits Identified Automatic Quilling Machine Operator Automatic Quilling Machine Operator Caregiver Provides Assist Driving Driving Caregiver Provides Assist M6 OT- IP Functional Cognition Start: 05/06/25 09:44 Freq: Status: Active Protocol: Document 05/06/25 09:44 [facility] (Rec: 05/06/25 10:01 [facility] Cognitive Factors Limiting Selfcare Function Cognitive Ability Level of Alertness Alert Patient Orientation Name,Age,Birthday,Month,Date,Year,Day of Week,Place, Situation Attention Span Capable of Focused Attention,Capable of Sustained Ability Attention Ability to Follow Able to Follow One Step Commands,Able to Follow Multi- Commands Step Commands Memory Description No Deficits Noted Problem Solving No deficits Noted Ability Executive Function No Deficits Noted Ability Abstract Thinking No Deficits Noted Ability Cognitive Comments Cognitive Assessment Pt appears very anxious and fixated during eval, Comments relating to R hip pain. Pt needs redirection to complete OT eval. OT- Vision and Hearing OT- Hearing Assessment OT- Hearing Hearing Impaired,Use of Hearing Aids Assessment OT- Vision Assessment Visual Acuity WFL,Glasses All The Time M7 OT- IP Mobility and Balance Start: 05/06/25 09:44 Freq: Status: Active Protocol: Document 05/06/25 09:44 [facility] (Rec: 05/06/25 10:01 [facility]) OT-Transfer Assessment Sit to and From Stand Sit to and from Standby Assistance,Contact Guard Assistance Stand Transfers Transfer Ability Standby Assistance,Contact Guard Assistance Technique Transfer Destination Chair Devices Transfer Assistive Front Wheeled Walker Devices Comments Mobility Comments Pt was up and standing with FWW in her room on entrance of OT. Pt reports she had significant pain laying in the bed and in the recliner yesterday and has only found comfort standing, walking, or sitting in the window seat. Pt does not use AD at home but reports her MD wants her using a FWW. Pt requires vcs to reach back for surface when sitting and to place only one hand on walker when standing. OT- Gait Assessment Gait Gait Assistance Contact Guard Assist Required: Distance (Feet) 20 Assistive Devices Assistive Device Front Wheeled Walker Comments Gait Ability Pt amb throughout room to gather supplies and to Comments perform sink side ADLs. Pt had one episode of slight knee buckling when amb to the sink due to pain in R hip . Pt was able to self correct. OT- Balance Assessment Sitting Balance and Reactions Static Sitting Normal Balance Ability Dynamic Sitting Normal Balance Ability Standing Balance and Reactions Static Standing Normal Balance Ability Dynamic Standing Good Balance Ability M8 OT- IP Objective Assessments Start: 05/06/25 09:44 Freq: Status: Active Protocol: Document 05/06/25 09:44 [facility]AI (Rec: 05/06/25 10:01 [facility] Desktop) OT Gross Range of Motion Upper Extremity Range of Motion Assessment Within Functional Limits OT Strength Upper Extremity Strength Assessment Within Functional Limits Elbow R 4 Hand Laboratory Technician Strength Hand Dominance Right Comments Strength Comments Unless listed otherwise, pt B UE 5/5 overall. OT-Muscle Tone Assessment Muscle Tone WNL Yes OT Sensation Assessment Comments Summary Comments Pt denies any sensory deficits Edema Edema Absent M9 OT- IP Assessment and Plan Start: 05/06/25 09:44 Freq: Status: Active Protocol: Document 05/06/25 09:44 ISAI (Rec: 05/06/25 10:01 [facility] Desktop) OT Summary Assessment and Plan Summary OT Impairments Pain Progress Towards Safe For Discharge Goals Assessment Summary Pt 84 yo F, pt reports that she was scheduled to have L hip sx today due to OA but that sx was cancelled due to presenting to the ED after having ~5 minutes of aphasia while family was present. No neurologic symptoms noted on entrance to ED. Patients CT showed no acute changes. Pt has an MRI ordered. During OT eval, pt was fixated on her R hip pain, although agreeable to participating in OT eval, pt need redirection at times . OT noted no redness, swelling, or changes to her R hip area at time of eval. Pt demonstrates WFL UE AROM and strength. Pt demonstrates decreased LB dressing ( MOD A) but both pt and spouse decline education on LB AE education and report that spouse will assist with LB dressing. Pt demonstrates sink side ADLs with MOD I. Pt with no noted cognitive changes, other than a fixation on R hip pain. Skilled OT services are appropriate to address LB dressing, but as pt declined to work on this with OT, there are no current areas of need based on the OT skilled scope of practice. D/C OT order at this time. Pt left with family sitting in the window seat with ice pack on R hip. Nsg notified of pt 's location and needs being met. Frequency of Treatment Frequency Of Discharge Treatment Discharge Recommendations OT Discharge Home with Assistance Recommendations Transportation Needs Private Vehicle at Discharge
[2025-05-06 12:00] VITALS: BP 96/50; PULSE 57; RESP 18; TEMP 36.2; O2SAT 97
--- NOTE | 2025-05-06 12:00 | SLP.IPNOTE ---
PUBLIC HEALTH DOCTOR completed speech/language/dysphagia screen. Pt reports she is at baseline in regards to speech and has not had any word finding issues since 5 minutes word finding event that occurred last night at home. She was able to communicate effectively during time spent with her. She denies any swallowing difficulty and was presented with a estela cracker and thin water via straw. She exhibited no overt s/s of aspiration such as coughing or choking or any reports of swallowing trouble. ST recommends Pt communicate with staff if any changes occur. No ST warranted at this time.
--- NOTE | 2025-05-06 13:31 | P.PN_ITS ---
Subjective Subjective Interval history: PATIENT SUMMARY Velma Mays is an 84-year-old female who was scheduled for a total hip arthroplasty today, but the surgery was canceled due to a recent episode of aphasia and an ongoing stroke workup. SUBJECTIVE Velma reported having a five-minute episode of aphasia on Tuesday evening around 6 PM, which was a new experience for her. She waited until the following day at 11 AM to seek medical attention. She expressed relief that the issue was identified before the surgery and is awaiting further evaluation. She mentioned that the stroke workup might be related to her heart. Despite being disappointed about the surgery cancellation, she understands the importance of addressing her current medical issue before proceeding with the hip surgery. Velma is mentally alert and conversed about her situation and future plans regarding surgery. PHYSICAL EXAM Constitutional: - Mentally alert and oriented, engaging in conversation appropriately. Musculoskeletal: - Ambulating with a walker with an antalgic gait favoring the arthritic side ASSESSMENT - Presumed TIA, although medical workup is ongoing PLAN - Surgery is postponed, pending the outcome of the stroke workup and cardiac evaluation. - Monitor and follow-up on the results of her current hospital admission. - Reassess the feasibility of surgery in one to two months, depending on her recovery and the results of her evaluations. - Emphasized that the priority is getting a good surgical result irrespective of when that surgery occurs and that I am in no weinstein to get it done as soon as possible. When we are certain we have an optimal risk factor profile we can reassess Exam Vital Signs (past 8 hours): - 05/06/25 08:00 05/06/25 12:00 Temperature 96.9 F L 97.2 F L Pulse Rate 52 L 57 L Respiratory Rate 17 18 Blood Pressure 111/49 L 96/50 L Pulse Oximetry 99 97 Oxygen Flow Rate 0 0 Oxygen Delivery Method Room Air Oxygen Flow Rate 0 Objective Labs 05/05/25 10:52 05/05/25 10:52 Labs: Laboratory Results - last 24 hr 05/05/25 10:52 Hemoglobin A1c 5.9 Triglycerides 159 H Cholesterol 222 H LDL Cholesterol, Calc 128 H HDL Cholesterol 62 H [facility] Medical History (Updated 05/05/25 @ 12:52 by Portillo Busch DO) Sleep apnea Primary osteoarthritis of left hip Afib (2004) Supraventricular tachycardia Hearing impaired Cervical stenosis of spine Constant pain (~2014) Spinal stenosis Arthritis involving multiple sites Dupuytrens contracture Ocular rosacea Scarlet fever Double vision (~1994) 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) Hypothyroidism (~1994) Hemorrhoids Cataract (~2016) Chicken pox Measles Mumps Rosacea (~2005) Shoulder pain (2013) Fractures (2004) Foot pain (2014) Ankle pain (2015) Hayfever Osteoarthritis (2013) Raynaud's disease (1959) CLL (chronic lymphocytic leukemia) (~2005) Arm fracture, left (1955) Surgical History (Updated 04/23/25 @ 09:43 by Drea Claudio RN) History of cardiac radiofrequency ablation (2023) History of lumbar fusion (01/23/24) History of total right hip replacement History of surgery on arm (~2019) History of cataract surgery (~2016) History of foot surgery (01/2004) History of surgery on arm (1955) Status post knee surgery (02/25/09) Status post colonoscopy (07/02/13) Family History Brother No problems noted. Brother No problems noted. Father Heart attack Mother Blood disorder Son No problems noted. Son No problems noted. Social History marital status: details: jasmyne Dee, lives in [place] number of children: 2 household members: spouse lives independently: Yes caregiver/support person: No housing: house education level: college occupational status: employed Previous occupational history: pianist, performer leisure activities: music Smoking Status: Never smoker alcohol intake: former substance use type: does not use Assessment & Plan Time-Based Coding :: [TOTAL MINUTES] spent with patient and on the chart (including review of chart, obtaining history, exam, reviewing outside data, placing orders, documenting exam and treatment plan, and counseling patient) on [DATE]. PROFEE Body Art Technician Document charge(s): No
--- NOTE | 2025-05-06 14:05 | P.DS_ITS ---
History of Present Illness History of Present Illness Date Patient Seen: 05/06/25 Time Patient Seen: 14:05 Chief complaint: Unable to talk (6pm); worried surgery lucio. Narrative: CC: aphasia Symptoms continue to be completely resolved with excellent coherent speech output since admission. No trouble with eating - s/p PT workup ruled ok to go home. New R hip pain started around time she got MRI she states she felt incredibly jostled at the end of the study. She is able to bear weight on the R hip no trouble however she does have hx of instrumentation in hip and lumbar spine. Discharge Providers Provider Date of admission: 05/05/25 12:55 Discharge Date: 05/07/25 Primary care physician: Grabiel Obrien MD Consults: 05/05/25 14:20 Consult to Discharge Planning Routine Comment: Consult to Occupational Therapy Evaluate & Treat Comment: Physician Instructions: Evaluate and treat Consult to Physical Therapy Evaluate & Treat Comment: Physician Instructions: Evaluate and Treat 05/06/25 10:45 Consult to Physical Therapy Evaluate & Treat Comment: Physician Instructions: Evaluate and Treat Discharge provider: Grabiel Obrien MD Summary Hospital Course Discharge Diagnosis: #Aphasia #TIA/NICOLE #Supraventricular tachycardia #Osteoarthritis generalized with specifically left hip. #R hip pain #Acquired hypothyroidism #Primary hypertension #Hyperlipidemia Hospital Course: Pleasant patient presented with completely resolved symptoms - imaging and workup unrevealing of any explanatory cardiac or neurological defect. Was planning on L hip surgery [facility] which will be delayed until she completes one month of DAPT after discharge. Did note some increased R hip pain after MRI but has been able to ambulate ok and bear weight on it. will dc home to f/up with PCP Status at Discharge Cognitive/behavioral status at discharge: at baseline, oriented Functional status at discharge: uses cane/walker Overall status at discharge: patient is back to baseline Time Spent with Patient Time spent: Greater than 30 minutes Exam Vital Signs (past 8 hours): - 05/06/25 08:00 05/06/25 12:00 Temperature 96.9 F L 97.2 F L Pulse Rate 52 L 57 L Respiratory Rate 17 18 Blood Pressure 111/49 L 96/50 L Pulse Oximetry 99 97 Oxygen Flow Rate 0 0 Oxygen Delivery Method Room Air Oxygen Flow Rate 0 Narrative Exam Narrative: standing with FWW talking with PT declines to sit Resp Other: clear to auscultation bilaterally Cardio Other: regular rate s1/s2 no pedal edema GI Other: soft nontender active bowel sounds Neuro Cranial Nerves: EOM intact bilaterally, facial strength normal, tongue midline, hearing normal, able to rotate head bilaterally and able to elevate shoulders bilaterally Other: alert awake fuilly oriented with clear speech production able to stand Psych Other: animated Objective Labs 05/05/25 10:52 05/05/25 10:52 Labs: Laboratory Results - last 24 hr 05/05/25 10:52 Hemoglobin A1c 5.9 Triglycerides 159 H Cholesterol 222 H LDL Cholesterol, Calc 128 H HDL Cholesterol 62 H [facility] Medical History (Updated 05/05/25 @ 12:52 by Portillo Busch DO) Sleep apnea Primary osteoarthritis of left hip Afib (2004) Supraventricular tachycardia Hearing impaired Cervical stenosis of spine Constant pain (~2014) Spinal stenosis Arthritis involving multiple sites Dupuytrens contracture Ocular rosacea Scarlet fever Double vision (~1994) 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) Hypothyroidism (~1994) Hemorrhoids Cataract (~2016) Chicken pox Measles Mumps Rosacea (~2005) Shoulder pain (2013) Fractures (2003) Foot pain (2014) Ankle pain (2015) Hayfever Osteoarthritis (2013) Raynaud's disease (1959) CLL (chronic lymphocytic leukemia) (~2005) Arm fracture, left (1955) Surgical History (Updated 04/23/25 @ 09:43 by Drea Claudio RN) History of cardiac radiofrequency ablation (2023) History of lumbar fusion (01/23/24) History of total right hip replacement History of surgery on arm (~2019) History of cataract surgery (~2016) History of foot surgery (01/2004) History of surgery on arm (1955) Status post knee surgery (02/25/09) Status post colonoscopy (07/02/13) Family History Brother No problems noted. Brother No problems noted. Father Heart attack Mother Blood disorder Son No problems noted. Son No problems noted. Social History marital status: details: jasmyne Dee, lives in [place] number of children: 2 household members: spouse lives independently: Yes caregiver/support person: No housing: house education level: college occupational status: employed Previous occupational history: pianist, performer leisure activities: music Smoking Status: Never smoker alcohol intake: former substance use type: does not use Discharge Assessment & Plan Assessment and Plan Assessment: #Aphasia #TIA/NICOLE Patient with approximately 5 minutes of difficulty word finding without other neurological symptoms resolved spontaneously on its own 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 CTA wnl. Patient was given aspirin and Plavix in the emergency department. Patient is on a statin she has not anticoagulated. Plan will be for 30 days of DAPT with plavix and then continue ASA 81. MRI and echo obtained without concern. #Supraventricular tachycardia Mild issue per admit EKG - monitoring did not reveal ongoing issue she has been quite anxious during her stay will continue beta emile for now #Osteoarthritis generalized with specifically left hip. Appreciate ortho input - will delay surgical plan for a month at least until off plavix I think. #R hip pain new issue up all night in bed able to beawr weight and work with PT wonder if this is connected to jostling hard to tell. #Acquired hypothyroidism stable continue home regimen #Primary hypertension stable continue home regimen #Hyperlipidemia Previously on simvastatin will switch to atorvastatin and in outpt setting make sure she is taking 40mg daily Dispo: home to f/up with PCP Code status full code DVT prophylaxis with Lovenox PCP: Micah MDM: Spouse Discharge Plan Discharge Plan Patient Disposition: Home Discharge orders & Medications Prescriptions: New clopidogrel 75 mg Tablet 75 mg PO DAILY Qty: 30 0RF aspirin 81 mg Tablet,Chewable 81 mg PO DAILY Qty: 30 0RF Continued gabapentin 100 mg capsule 100 mg PO BEDTIME Rx Instructions: 1-3 capsules by mouth every day at bedtime loratadine [Claritin] 10 MG tablet 10 mg PO QDAYP PRN (Reason: Seasonal allergies) Qty: 0 melatonin 1 mg tablet 1.5 mg PO HS Qty: 0 simvastatin 20 mg tablet See Rx Instructions .ROUTE .COMPLEX Qty: 90 1RF Dose Instruction: TAKE 1 TABLET AT BEDTIME Rx Instructions: TAKE 1 TABLET AT BEDTIME. Need to establish care with new PCP prior to more fills 04/11/23 Premarin 0.625 mg/gram cream 0.625 mg vaginal 3XW Qty: 60 3RF cholecalciferol (vitamin D3) 50 mcg (2,000 unit) capsule 100 mcg PO DAILY Qty: 60 3RF Rx Instructions: Take 2 caps by mouth daily atenolol 25 mg tablet 37.5 mg PO QPM Patient Comments: Pt states 37.5mg qpm acetaminophen 325 mg Tablet 650 mg PO Q6H PRN (Reason: Fever/Mild Pain (1-3)) Qty: 60 0RF levothyroxine [Synthroid] 112 mcg tablet 112 mcg PO DAILY PreserVision AREDS-2 250-90-40-1 mg capsule 1 tab PO BID ketoconazole 2 % shampoo 1 applic topical DAILY ondansetron 4 mg tablet,disintegrating 4 mg PO Q8H PRN (Reason: nausea and vomiting) Qty: 7 0RF oxycodone 5 mg tablet 5 mg PO Q6H PRN (Reason: pain) Qty: 25 0RF Follow up/Referrals: Grabiel Obrien MD [Primary Care Provider, Family Practice] Visit Report/Discharge Packet Stand Alone Forms: Patient Portal/API, Stroke Signs & Symptoms Discharge Data Primary Care Provider: Grabiel Obrien Attending Provider: Grabiel Obrien Admit Date/Time: 05/05/25 12:55
--- NOTE | 2025-05-06 14:31 | CM.DANOTE ---
Initial DCP Assessment Note. Reviewed EMR and Team Rounds. Met with patient and her at [facility]. Patient is alert and able to fully participate. Patient live with her in their own home and is independent with a cane for her ADLS. Pt also drives. Payeor: LILA. PCP: Dr. Obrien. 84 y/o female arrived to the ED via ambulance c/o difficulty speaking. PT Dx. Aphasia. Neurological symptoms resolved spontaneously. ED facilitated a Stroke Protocol workup. Patient admitted as OBS to [facility] for further monitoring. Per patient, she was scheduled to have an THR today with Dr. Mitchell. This elective procedure has been put on hold until further Cardiac and Neurological clearance obtained DCP will continue to monitor for any final discharge needs. Faith Lind RN Discharge Planning/Care Management Advanced directive, confirm from FAMILY Start: 05/05/25 15:41 Freq: Q24H Status: Active Protocol: Document 05/05/25 15:41 AKT (Rec: 05/05/25 15:43 AKT [id number]) Advance Directive, confirm on record Time 15:43 Person contacted patient_ polst on files Copy received Yes Advanced directive Yes available on record CM Discharge Assessment Start: 05/05/25 14:38 Freq: Status: Active Protocol: Document 05/06/25 13:37 SM (Rec: 05/06/25 13:42 SM [id number]) Discharge Planning Assessment Assigned Discharge TL [facility] B[facility] Specialist Insurance Medicare Advance Directives? Yes Advance Directives No on File History Provided By Patient,Significant Other,Medical Record Expected Length of 2 Stay Has Patient been No admitted in last 30 days? Prior Living House Arrangements Household Members spouse Type of Drives own vehicle transporation used prior to admit Independent with ADL Yes: With cane 's Is patient alert and Yes oriented? DME Already Rented / FWW / Walker Owned Barriers to No Discharge Discharge Plan Home Transportation will provide a ride home Arrangement Referrals Initiated None needed Review Status In Process Please Provide Date 05/06/25 Initial DC Assessment Was Performed
--- NOTE | 2025-05-06 14:46 | PT.IIE ---
Current Diagnoses Unilateral primary osteoarthritis, left hip (05/05/25) Other speech disturbances (05/05/25) Surgical History (Last Updated 04/23/25 @ 09:43 by Drea Claudio RN) History of cardiac radiofrequency ablation (2023) History of cataract surgery (~2016) History of foot surgery (01/2004) History of lumbar fusion (01/23/24) History of surgery on arm (1955) History of surgery on arm (~2019) History of total right hip replacement Status post colonoscopy (07/02/13) Status post knee surgery (02/25/09) Medical History (Last Updated 04/23/25 @ 09:31 by Drea Claudio RN) Afib (2004) Ankle pain (2015) Arm fracture, left (1955) Arthritis involving multiple sites Cataract (~2016) Cervical stenosis of spine Chicken pox CLL (chronic lymphocytic leukemia) (~2005) Constant pain (~2014) Double vision (~1994) Dupuytrens contracture Foot pain (2014) Fractures (2003) Hayfever Hearing impaired Hemorrhoids Hypothyroidism (~1994) Measles Mumps Ocular rosacea Osteoarthritis (2013) Primary osteoarthritis of left hip Raynaud's disease (1959) Rosacea (~2005) 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 Activities of Daily Pt was I with all BADL and IADL. Living and IADL's Prior Functional Pt plays the organ, goes for walks, and performs floor Level (Other details exercises regularly. Pt is I with driving. ) Social History Household Members spouse Living Arrangements House Home Equipment Front Wheel Walker Additional Social 14 stairs to enter with one railing History Comment M2 PT-IP Current Condition Start: 05/06/25 14:30 Freq: NEEDED Status: Active Protocol: Document 05/06/25 14:31 AMB (Rec: 05/06/25 14:45 AMB [id number]) Physical Therapy Current Condition Current Condition Evaluation Date 05/06/25 Treatment Diagnosis hip pain Onset Date 05/05/25 M4 PT-IP Mobility and Gait Start: 05/06/25 14:30 Freq: NEEDED Status: Active Protocol: Document 05/06/25 14:31 AMB (Rec: 05/06/25 14:45 AMB [id number]) PT-Bed Mobility Assessment Rolling Level of Assist Independent Supine to Sit Supine to Sit Independent Sit to Supine Sit to Supine Independent Scooting Scooting to Edge of Independent Bed PT-Transfer Assessment Sit to and From Stand Sit to and from Independent Stand Transfers Transfer Destination Chair Transfer Technique Stand Step Pivot Gait Assessment Gait Gait Assistance Independent Required: Distance (Feet) 200 Assistive Devices Assistive Device Front Wheeled Walker Gait Deviations General Gait Pattern Within Normal Limits Comments Gait Comments Pamela was walking independently in the hallways Stair Climbing Assessment Evaluation Level of Assist On Independent Stairs Devices Stair Climbing Left Railing Assistive Devices Technique/Endurance Stair Climbing Ascend and Descend Direction Number of Steps 4 Climbed Query Text: Stair Climbing Set # 1 Repetitions (reps) Comments Stair Climbing Pamela noticed hip pain with ascending and descending Comments stairs but was stable and safe M6 PT-IP Treatment Start: 05/06/25 14:30 Freq: NEEDED Status: Active Protocol: Document 05/06/25 14:31 AMB (Rec: 05/06/25 14:45 AMB [id number]) Physical Therapy Treatment Other Treatments Other Treatment standing hamstring stretch at walker, pelvic tilts with Performed sitting, problem solving sitting in car on ride home to manage pain, recommended icing for inflammation reduction M7 PT-IP Assessment and Plan Start: 05/06/25 14:30 Freq: NEEDED Status: Active Protocol: Document 05/06/25 14:31 AMB (Rec: 05/06/25 14:45 AMB [id number]) PT Summary Assessment and Plan Potential Rehabilitation Good Potential Status of Condition Stable at Evaluation Summary Impairments Pain Assessment Summary Velma was admitted yesterday for a brief episode of aphasia. That has since resolved. She is very concerned about her new onset hip pain (she was scheduled for L hip replacement that has been canceled, the new hip pain is R sided from the right glute to the lateral thigh, she does have a history of lumbar laminectomy per her report.) She had excellent mobility and should be safe to go home, but discussed hip pain with PT and MD. Would refer patient to outpatient MD if hip pain does not resolve independently, no mobility concerns at this time. Goals Bed Mobility Goal Independent Transfer Goal Independent Gait Goal Independent Gait Distance 500 Days to Meet Goals 1 Frequency of Treatment Frequency Of Discharge Treatment Treatment Plan Physical Therapy Bed Mobility Training,Transfer Training,Gait Training, Treatment Plan Therapeutic Exercise,Balance Retraining,Post Op Education,Discharge Planning,Hot or Cold Pack, Neuromuscular Re-ed,Coordination Retraining,Manual Therapy Recommendations To Nursing Amount of Assist Standby Assistance Needed Discharge Recommendations PT Discharge Home Recommendations Transportation Needs Private Vehicle at Discharge
--- NOTE | 2025-05-06 15:26 | PC.NURSE ---
Discharge Note Patient A&O, VSS, RA, no complaints of pain/discomfort. Discharge packet reviewed with patient, all questions/concerns addressed. PIV/TELE discontinued. Patient able to dress self and pack all belongings. Patient taken down via wheelchair to POV.
== END 2025-05-06 15:20 | disposition home or self-care (01) ==
LOC: ED 12:52 → AC 12:56
PROVIDERS: Admitting Provider Family Medicine; Emergency Provider Student in an Organized Health Care Education/Training Program; PCP Family Medicine; Referring Provider Student in an Organized Health Care Education/Training Program; Visit Provider Family Medicine
DX: R47.01 Aphasia (principal); R29.818 Other symptoms and signs involving the nervous system; R29.700 NIHSS score 0; E03.9 Hypothyroidism, unspecified; E78.5 Hyperlipidemia, unspecified; G47.33 Obstructive sleep apnea (adult) (pediatric); I47.10 Supraventricular tachycardia, unspecified; I10 Essential (primary) hypertension; M16.12 Unilateral primary osteoarthritis, left hip
CPT/HCPCS: 36415; 70450; 70496; 70498; 70551; 71045; 80053; 80061; 82550; 83036; 83690; 83735; 83880; 84484; 85025; 85610; 85730; 87633; 93005; 93010; 93306; 96372; 97161; 97165; 99223; 99232; 99284; G0378; J1650; Q9967

== ENCOUNTER → 2025-08-05 13:18 | Outpatient (CLI) | payer MEDICARE, OTHER, SELFPAY ==
[2025-05-05 15:35] VITALS: BMI 29.2
[2025-08-05 14:01] LABS: Add Manual Diff / Slide Review YES; Hematocrit 34.7 % (36-46); Hemoglobin 11.8 g/dL (12.0-16.0); Mean Corpuscular HGB Conc 34.1 % (30-36); Mean Corpuscular Hemoglobin 29.4 PG (26-34); Mean Corpuscular Volume 86.1 fL (80-100); Platelet Count 265 X10^3/uL (150-400)
[2025-08-05 14:23] LABS: Blood Urea Nitrogen 19 mg/dL (7-17); Calcium 9.4 mg/dL (8.4-10.2); Carbon Dioxide 26 mmol/L (22-32); Chloride 97 mmol/L (98-107); Estimated Glomerular Filt Rate > 60 mL/min (>60); Glucose 90 mg/dL (70-99); HEMOLYSIS < 15 (0-50); Potassium 4.3 mmol/L (3.4-5.1); Sodium 130 mmol/L (137-145)
[2025-08-05 14:30] LABS: Basophils Percent Manual 2.0 % (0-1); Eosinophils Percent Manual 3.0 % (2-4); Lymphocytes Percent Manual 40.0 % (25-45); Monocytes Percent Manual 3.0 % (2-11); Neutrophils Absolute Manual 3172 /uL (3000-5900); RBC Morphology Normal Morphology; Segmented Neutrophils Percent 52.0 % (38-70); Total Cells Counted 100
== END ==
PROVIDERS: PCP Family Medicine; Referring Provider Internal Medicine Cardiovascular Disease; Visit Provider Internal Medicine Cardiovascular Disease
DX: I47.10 Supraventricular tachycardia, unspecified (principal)
CPT/HCPCS: 36415; 80048; 85007; 85025

== ENCOUNTER 2025-08-19 09:20 | Day surgery (SDC) | payer MEDICARE, OTHER, SELFPAY ==
[2025-05-05 15:35] VITALS: BMI 29.2
[2025-08-13 07:42] VITALS: BMI 27.4
[2025-08-19] VITALS (14 sets, daily range): BP systolic 102–160; BP diastolic 36–75; PULSE 50–61; RESP 15–25; TEMP 36–36.9; O2SAT 95–100; BMI 27.7
--- NOTE | 2025-08-19 | DI.RAD.S_ITS ---
PROCEDURE: XR HIP W PEL IF DONE LT 2V INDICATIONS: POST OP TECHNIQUE: AP pelvis and lateral view of the hip acquired. COMPARISON: [facility], [place], XR HIP W PEL LT 2V, 08/19/2025, 12:33. FINDINGS: Bones: Patient is status post left hip arthroplasty, with hardware components in expected positions. The hip joint appears congruent. The visualized bony structures appear intact. Soft tissues: Overlying postoperative changes are noted. No suspicious soft tissue densities. IMPRESSION: Expected post-operative appearance of a hip arthroplasty. Dictated by: Rajiv Crane M.D. on 08/19/2025 at 15:55 Approved by: Rajiv Crane M.D. on 08/19/2025 at 15:55
--- NOTE | 2025-08-19 06:00 | DI.RAD.S_ITS ---
PROCEDURE: XR HIP W PEL IF DONE LT 2V INDICATIONS: Implant placement TECHNIQUE: 2 view(s) of the hip acquired. COMPARISON: [facility], [place], [id number] W PEL IF PERFORMED, 10/13/2016, 10:09. [facility], [place], XR HIP W PEL LT 2V, 08/19/2025, 13:26. [facility], [place], XR HIP W PEL IF DONE RT 2V, 09/14/2023, 9:15. FINDINGS: Fluoroscopic images demonstrate placement of left hip arthroplasty with prosthetic components in expected positions. IMPRESSION: Intraoperative C-arm images demonstrating placement of left hip arthroplasty. See operative note for full details. Dictated by: Sha LUNA Interpreted: Mitesh Alvarado MD on 08/19/2025 at 13:46 Transcribed by: GAY on 08/19/2025 at 13:47 Approved by: Mitesh Alvarado M.D. on 08/21/2025 at 9:09
[2025-08-19] MEDS: ACETAMINOPHEN 325 MG TABLET 975 MG PO (10:10)
[2025-08-19] MEDS: MELOXICAM 7.5 MG TABLET 15 MG PO (10:12)
[2025-08-19] MEDS: LACTATED RINGERS 1,000 ML 42 ML IV ×2 (10:14→12:16)
--- NOTE | 2025-08-19 10:14 | P.OP.PRE_ITS ---
Pre-operative Note Interval Note History & Physical reviewed/Exam performed by Physician: Yes Changes to H&P: No H&P completed within 30 days and has changed as indicated here:: Velma's preoperative course has been complicated. She was initially scheduled for this surgery back in April but it was canceled after she had a TIA. She had an extensive workup related to the which did not turn up any obvious underlying conditions that could be further optimized before she had surgery and she got a cardiology evaluation which noted that she was at elevated risk for complications but did clear her to move forward with surgery. She had a loop implant recorder implanted recently and after review by both anesthesia and the outside sales professional who implanted it both concluded that this did not necessitate the length surgery. Finally she had a minor fall this morning after slipping on wet ground. She does not report any persistent symptoms from where she fell. She landed on her buttock in his nontender to palpation in that area and has no localized pain to that area at this point in time. I did discuss with her in detail that she is at elevated risk for complications related to this surgery and that it is an elective surgery which she does not need to move forward with and that if she felt like she wanted to delay the surgery until another day I would be happy to accommodate that. Ultimately the decision to move forward rest with her and after careful discussion she wishes to do so today. We will move forward with our planned for an elective total hip arthroplasty. Based on a preoperative DEXA scan she appears to have I bone quality with a T-score of - 0.2 so I plan to use uncemented fixation for her stem however I do have cemented implants on backup should I find that her bone quality is lower than anticipated intraoperatively. I plan to have her remain in the hospital overnight tonight for close postoperative monitoring
[2025-08-19] MEDS: TRANEXAMIC ACID 1,000 MG in SODIUM CHLORIDE 0.9% 100 ML 200 MG IV ×2 (11:15→12:50)
--- NOTE | 2025-08-19 11:41 | SUR.OPER ---
SMALL PUNCTURE TO LEFT FOREARM D/T CAT BITE. PATIENT FELL AT HOME THIS MORNING PRIOR TO SURGERY- LANDED ON LEFT HIP AND ELBOW-SURGEON AWARE. NO ECCHYMOSIS OR INJURY OBSERVED ON LEFT HIP OR ELBOW AT INTAKE.
--- NOTE | 2025-08-19 11:46 | SUR.OPER ---
Supine on padded [place] table with bilateral legs secured in padded positioning boots and suspended in positioning spars, operative leg in traction per surgeon. Head on one pillow. Bilateral arms secured on padded armboards <90 degrees abduction. Padded perineal post in place per surgeon.
[2025-08-19] MEDS: KETOROLAC 30 MG/ML VIAL 15 MG INJ (11:52)
--- NOTE | 2025-08-19 12:55 | P.OP_ITS ---
Operative Date/Time/Diagnoses Date of procedure: 08/19/25 Time of procedure: 11:00 Pre-op diagnosis: Left hip osteoarthritis Post-op diagnosis: same Procedure & Clinicians Procedure: Left total hip arthroplasty Same procedure(s) as scheduled: Yes Surgeon: Alexandro Mitchell Assisted?: Yes Bicycle Taxi Driver: Tasneem Warren Anesthesia Type: Spinal, Sedation and Local Operative Notes Findings: Severe arthritis Closure Type: primary Specimen(s): none sent Applied: implant(s) Estimated Blood Loss (mL): 250 Procedure in detail: 1. Left Uncemented Direct Anterior Eusebio Total Hip Arthroplasty (28370) 2. Computer-Assisted Musculoskeletal Surgical Navigational Orthopedic Procedure Using Fluoroscopic Image Guidance (0054T) Implants: * G7 PPS size 52 cup? * Z1 femoral stem size 6 standard offset? * 36 mm +0 ceramic femoral head? Procedure Summary: This 84-year-old female patient had surgery scheduled with me earlier this year but it was canceled after she had a transient ischemic attack. She has had an extensive workup since then which did not find any pertinent medical issues which would preclude her from moving forward with surgery. I therefore discussed with her that her risk is elevated relative to the average patient but she understood these risks and wished to proceed. Preoperatively a bone density scan had been obtained which demonstrated a T-score of-0.2. I found today that she had robust bone quality, particularly for an 84-year-old female, consistent with that DEXA scan. Had to ream fairly vigorously in order to get the Reamer to bite and she had very thick cortices in her femur. She has had a prior contralateral total hip arthroplasty and was quite long on that side relative to this side which resulted in a tight reduction requiring assistance through the [place] table. She had increased offset on her operative side with a very tight reduction during trialing so I transitioned to a standard offset head to reduce her offset and thereby reduce the amount of tension on her hip. With the final construct in place she maintained very good stability as I was unable to manually dislocate the hip with maximum external rotation with final implants in place. Procedure in Detail: This patient was seen preoperatively and evaluated for hip pain which was refractory to numerous nonoperative treatment modalities. Their hip pain correlated with radiographic changes demonstrating significant degeneration in the hip joint. The risks and benefits of continued nonoperative management versus operative management were discussed at length and all of the patient?s questions were answered. Additional educational materials providing further details beyond our discussion in clinic were provided via a publicly available patient education video which included the incidence of medical complications associated with total hip arthroplasty, reasons for revision following total hip arthroplasty, and patient satisfaction rates following total hip arthroplasty. With this understanding of the risks inherent to the procedure, the patient elected to move forward with operative management. Following preoperative optimization, the patient was scheduled for surgery. The patient was met in the preoperative holding area the day of the procedure and all questions were answered. The patient?s nares were swabbed in order to decolonize them from MRSA. Informed consent was signed and the left limb was marked with indelible ink.? The patient was brought back to the operating room where anesthesia was induced. The patient was transferred to the [place] table and all bony prominences were padded. The operative site was prepped and draped in the usual sterile fashion. Prior to incision, tranexamic acid and cefazolin were administered. Operative templating images were displayed demonstrating the anticipated implant sizes and correct operative extremity. A timeout procedure was performed verifying the patient?s identity, medical comorbidities, allergies, relevant medications, anesthesia type and the surgical plan. All present were in agreement. The assistance of a physician pediatric dental assistant was required for positioning, room setup, soft tissue retraction and wound closure. Without this assistance, the procedure would have been significantly more challenging and time consuming.?? A direct anterior approach to the hip was utilized. This was performed with a longitudinal incision through a Heuter interval. The incision was planned 2 cm distal and 2 cm lateral to the ASIS extending towards the lateral patella, in line with the muscle body of the TFL. Following incision, the subcutaneous tissu e was dissected while taking care to avoid injury to the lateral femoral cutaneous nerve. The fascia overlying the TFL was identified by dissecting off the overlying fat and identifying perforating vessels to the TFL. The TFL fascia was incised and dissected away from the medial border of the TFL. A retractor was placed over the superior femoral neck between the abductors and the hip capsule and used to reflect the TFL laterally. A Weld self-retainer was then placed in the distal aspect of the wound between the TFL and the rectus femoris. This was tensioned to open up the direct anterior interval and the lateral circumflex vessels were identified and coagulated using electrocautery. The floor of the TFL fascia was incised, exposing the pericapsular fat overlying the hip capsule. A second cobra retractor was placed on the inferior femoral neck. A retractor was placed on the anterior wall of the acetabulum and used to tension the reflected head of rectus femoris, which was then released in order to limit soft tissue tension. A capsulotomy was made in the midline of the anterior hip capsule in line with the femoral neck ending at the vastus tubercle. The anterior retractor was removed as soon as the capsulotomy was completed in order to limit the amount of time that a soft tissue retractor remained on the anterior wall and limit tension on the femoral nerve. Tag stitches were placed in the superior and inferior leaflets of the hip capsule. An Buddy soft tissue retractor was introduced over the tag stitches and tensioned in the interval between the rectus femoris and the TFL in order to retract and protect those muscles. The cobra retractors were replaced intracapsularly, with one over the superior neck in the pocket created by the base of the greater trochanter and the other on the femoral head. The capsulotomy was extended laterally to the base of the greater trochanter and medially to the lesser trochanter. This required externally rotating the hip. Once the lesser trochanter had been identified, a neck cut was planned according to measurements from preoperative templating. A ruler was cut at the length measured between the superior aspect of the lesser trochanter and the collar of the prosthesis. This line was extended towards the inferior aspect of the lateral cobra retractor to plan a cut which would leave minimal residual femoral neck laterally. The neck was cut at 60 degrees of external rotation along that line. A second cut was performed to remove a large napkin ring and facilitate head extraction. The napkin ring cut and femoral head were removed.?? A broad anterior wall retractor was placed between the labrum and the anterior capsule so that the anterior capsule would prevent capturing and pinching the femoral nerve anteriorly. An additional retractor was placed on the posterior wall. External rotation and traction were applied through the [place] table so that the cut surface of the femoral neck would not restrict access to the acetabulum. The labrum was excised sharply and the pulvinar was excised with electrocautery to limit bleeding from branches of the obturator artery. Acetabular reamers were selected based on preoperative templating and measurements of the excised femoral head. These were introduced into the acetabulum. Fluoroscopy was utilized to replicate a standing AP pelvis radiograph by centering over the pelvis, rotating until there was appropriate symmetry between the obturator foramen, and introducing caudal tilt to match the position of the pubic symphysis relative to the sacrococcygeal junction according to the patient?s anatomy. Once satisfied with the reaming depth corresponding to the preoperative template and the pinch fit between the columns, an appropriate sized acetabular cup was selected which would provide 1 mm of press-fit. This cup was introduced and manipulated until appropriate abduction and anteversion angles were obtained with careful attention to appropriate abduction and anteversion angles as evaluated by the position of the cup relative to the anterior and posterior muhammad of the acetabulum and the AP fluoroscopy which recreated the patient?s standing radiograph. The cup was impacted into place. Peripheral osteophytes were removed. The acetabular liner was then placed with care to ensure locking of the locking mechanism. Attention was then turned to the femur. All retractors were removed, traction was released, a retractor was placed in the interval between the hip capsule and the gluteus minimus. The lateral capsule was released using electrocautery. Traction was released and a [place] hook was placed posteriorly around the proximal femur at the level of the vastus ridge. The table height was lowered in order to restrict the tension on the anterior structures during hip hyperextension to limit the risk of femoral nerve palsy. With traction off and the hip at 90 degrees of external rotation, the hip was hyperextended and adducted while manually elevating the femur away from the acetabulum with the [place] hook to avoid hooking the greater trochanter on the pelvis. An asymmetric retractor was placed over the calcar and a broad double-pronged retractor was placed over the greater trochanter. The tag stitch capturing the lateral leaflet of the capsule was moved to the medial side, leaving the conjoined and piriformis tendons isolated in the face of the greater trochanter. The hip was externally rotated and elevated. A release of the conjoined tendon was utilized to protect the femur from excess tension during broaching. The canal was opened with an opening broach and a rasp was used to remove cancellous bone. A rongeur was used to remove the residual lateral bone at the base of the greater trochanter to avoid placing the stem in varus. The femur was then broached to the appropriate sized stem yielding good rotational fit and fill of the canal as well as appropriate version of the stem trial. Neck and head trials were placed, all retractors were removed and the hip was returned to neutral abduction and extension. I then reduced the hip and manually trialed it before changing surgical gloves. Initial trialing was performed with a size 6 broach, a high offset neck and a +0 head. I initially manually externally rotated the hip and found that I could not dislocate it. It was extremely tight and I had to have significant assistance through the [place] table in order to get the hip reduced. I then locked the hip in 45 degrees of external rotation and dropped it to the floor with traction off which demonstrated no instability. An OrthoGrid overlay image was obtained by matching the abduction angle of the nonoperative hip to the operative hip and overlaying the offset and leg length of the operative side relative to the nonoperative side while matching pelvic morphology. This overlay image demonstrated appropriate leg lengths but increased offset. AP and lateral hip fluoroscopic images were obtained to evaluate the broach size which demonstrated good canal fill. The hip was dislocated and I returned to the broaching position. Based on my evaluation during initial trialing I planned to downsize to a standard offset stem. The definitive stem was placed and the trunnion was cleaned and dried. I placed a ceramic head onto the trunnion and impacted it into place on the Lopez taper.?? All retractors were removed and the hip was reduced. A dilute mixture of betadine and peroxide was used to bathe the soft tissues during final fluoroscopic assessment. Appropriate component positioning was confirmed on an OrthoGrid overlay image comparing the nonoperative side to the operative side. Appropriate stem fill was evaluated on AP and lateral hip radiographs. No previously unrecognized fractures were identified on these radiographs. There was no hip instability with maximum (95?) external rotation as well as a 45 degree drop test. The hip was copiously irrigated with pulse lavage. The capsule was closed with absorbable interrupted suture. The TFL fascia was closed with barbed suture while carefully protecting the lateral femoral cutaneous nerve from entrapment. A mixture of Ropivacaine, Epinephrine and Toradol was infiltrated throughout the soft tissues. The skin was closed with 2-0 and 3-0 sutures. Surgical glue was applied and a soft dressing was placed.??The sponge, instrument and needle counts were reported as being correct at the end of the case.??No obvious complications occurred. The patient was transferred from the [place] table back to a stretcher. The patient emerged from anesthesia without difficulty and was t aken to the PACU in a stable condition.? Plan for aftercare: * No hip precautions * Weightbearing as tolerated * Aspirin 81 twice per day for DVT prophylaxis * Anticipate discharge home tomorrow * Multimodal pain regimen with no IV opioids ordered * Follow up at [facility] in 2 weeks Complications: none Post-operative Condition: stable Disposition: observation
[2025-08-19] MEDS: LACTATED RINGERS 1,000 ML 100 ML IV (15:12)
[2025-08-19] MEDS: ACETAMINOPHEN 325 MG TABLET 650 MG PO ×2 (15:12→22:17)
--- NOTE | 2025-08-19 16:11 | PT.IIE ---
Current Diagnoses Unilateral primary osteoarthritis, left hip (08/19/25) Surgery Performed Operation Date: 08/19/25 10:45 Actual Procedures p Total Hip Arthroplasty/Anterior Approach(Left) - Alexandro Mitchell MD Surgical History (Last Updated 08/13/25 @ 09:14 by Drea Claudio, RN) History of cardiac radiofrequency ablation (2023) History of cataract surgery (~2016) History of foot surgery (01/2004) History of loop recorder (08/07/25) History of lumbar fusion (01/23/24) History of surgery on arm (1955) History of surgery on arm (~2019) History of total right hip replacement Status post colonoscopy (07/02/13) Status post knee surgery (02/25/09) Medical History (Last Updated 08/13/25 @ 09:14 by Drea Claudio RN) Afib (2004) Ankle pain (2015) Arm fracture, left (1955) Arthritis involving multiple sites Cataract (~2016) Cervical stenosis of spine Chicken pox CLL (chronic lymphocytic leukemia) (~2005) Constant pain (~2014) Double vision (~1994) Dupuytrens contracture Foot pain (2014) Fractures (2003) Hayfever Hearing impaired Hemorrhoids Hypothyroidism (~1994) Measles Mumps Ocular rosacea Osteoarthritis (2013) Primary osteoarthritis of left hip Raynaud's disease (1959) Rosacea (~2005) 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 14 Enter/Railing? steps in home with chair lift. Home Environment Standard Height Toilet,Walk in Shower Home Equipment Front Wheel Walker,Raised Toilet Seat w/Armrests,Shower Seat without Backrest,Grab Bars In Shower Additional Social Brother is in town from [place] to assist to care as History Comment cannot. M2 PT-IP Current Condition Start: 08/19/25 16:33 Freq: Status: Active Protocol: Document 08/19/25 16:34 NW (Rec: 08/19/25 16:47 NW [id number]) Physical Therapy Current Condition Current Condition Evaluation Date 08/19/25 Treatment Diagnosis L PAGE Anterior Onset Date 08/19/25 M3 PT-IP Subjective Start: 08/19/25 16:33 Freq: Status: Active Protocol: Document 08/19/25 16:34 NW (Rec: 08/19/25 16:47 NW [id number]) Subjective Physical Therapy Visit Type Type Initial Evaluation Visit Start Time 15:20 Visit Stop Time 16:11 Number of FAMILY MEDICINE CHAIR Visits 0 Physical Therapy Visit Comments Patient Comments Pt is found visiting with spouse and brother and is willing to participate in PT evaluation. Pt state she has OP PT set up for August 23. Patient Goals To go home. Therapy Pain Assessment Location Left Hip Intensity 5 Scale Used Numeric (0 - 10) Description Aching Pain Management Modification of Treatment,Timing of Activity with Techniques Medications M4 PT-IP Mobility and Gait Start: 08/19/25 16:33 Freq: Status: Active Protocol: Document 08/19/25 16:34 NW (Rec: 08/19/25 16:47 NW [id number]) PT-Bed Mobility Assessment Supine to Sit Supine to Sit Contact Guard Assistance,1 Person Assistance,Head of Bed Elevated Sit to Supine Sit to Supine Minimal Assistance Scooting Scooting to Edge of Contact Guard Assistance Bed PT-Transfer Assessment Sit to and From Stand Sit to and from Contact Guard Assistance,1 Person Assistance,Use of Stand Upper Extremities Equipment Transfer Assistive Gait Belt,Front Wheeled Walker Device Transfers Transfer Destination Bed Transfer Technique Stand Step Pivot Transfer Ability Level of Assist Contact Guard Assistance Comments Mobility Comments Cues for UE placement and AD usage with transfers and STS. Adequate power production and balance upon stance. Assistance with LE management required to return to supine position. Vitals: supine 124/56 --> seated 135/49 --> 132/52 standing with no s/s of orthostatic hypotension. Gait Assessment Gait Gait Assistance Contact Guard Assist Required: Distance (Feet) 25 Assistive Devices Assistive Device Gait Belt,Front Wheeled Walker Gait Deviations General Gait Pattern Antalgic,Decreased Stride Length,Decreased Feet Clearance,Step-to Gait,Wide Based Gait Factors Limiting Gait Function Factors Limiting Decreased Strength,Pain,Poor Balance Gait Function Comments Gait Comments Performed in single bout with occasional cueing for AD management to decrease depth in walker and turning. Slow velocity and jemal with step to gait pattern. No instances of LOB. PT-Balance Assessment Sitting Balance and Reactions Static Sitting Normal Balance Ability Dynamic Sitting Good Balance Ability Standing Balance and Reactions Static Standing Good Balance Ability Dynamic Standing Fair Balance Ability Device Used FWW M5 PT-IP Objective Assessments Start: 08/19/25 16:33 Freq: Status: Active Protocol: Document 08/19/25 16:34 NW (Rec: 08/19/25 16:47 NW [id number]) Orientation Orientation/Cognition Level of Alertness Alert Orientation Name,Age,Birthday,Month,Date,Year,Day of Week,Place, Situation Language Function No Deficits Noted Ability Safety Awareness Understands Safety Issues Gross Range of Motion Upper Extremity ROM Assessment Within Functional Limits Lower Extremity ROM Assessment Left Impaired Impairments secondary to post op Strength Upper Extremity Strength Assessment Within Functional Limits Lower Extremity Strength Assessment Left Impaired Hip DNT post op Knee 3/ ext Ankle WFL Sensation Assessment Sensation Gross Sensation WNL M6 PT-IP Treatment Start: 08/19/25 16:33 Freq: Status: Active Protocol: Document 08/19/25 16:34 NW (Rec: 08/19/25 16:47 NW [id number]) Physical Therapy Treatment Exercises Exercises Ankle Pumps,Gluteal Sets,Quad Sets,Heel Slides Education Education Provided Precautions,Weight Bearing Status,Post-Op Packet,Safety Other Treatments Other Treatment Education on car transfer options while maintaining Performed precautions. M7 PT-IP Assessment and Plan Start: 08/19/25 16:33 Freq: Status: Active Protocol: Document 08/19/25 16:34 NW (Rec: 08/19/25 16:47 NW [id number]) PT Summary Assessment and Plan Potential Rehabilitation Good Potential Status of Condition Stable at Evaluation Summary Impairments Pain,ROM,Strength,Balance,Bed Mobility,Transfers,Gait, Activity Tolerance Progress Towards Progressing Toward Goals Goals Assessment Summary Velma is a 84 yr old female admitted post L PAGE with an anterior approach on 08/19/25. Pt at baseline does not use an AD and is ambulatory at will in the home and community. Today she is Jf for bed mobility, CGA for transfers, and gait with FWW and cueing for AD management. Pt lives in a multistory home with the option to stay on first level with no steps to enter and has her brother visiting form [place] to assist with care as spouse is unable to perform. Pt also has OP PT set up to begin on August 23, discussed with family on inability to have HH and OP services at the same time, and for evaluation pt has generally good mobility. PT should perform re-assessment when block has completely worn off to see how pt mobilizes with potentially increased pain. Reviewed post op packet and exercises. Recommending OP services at this time. Goals Bed Mobility Goal Standby Assistance Transfer Goal Standby Assistance Gait Goal Standby Assistance Gait Distance 50 Days to Meet Goals 1 Frequency of Treatment Frequency Of Once a Day Treatment Treatment Plan Physical Therapy Bed Mobility Training,Transfer Training,Gait Training, Treatment Plan Therapeutic Exercise,Balance Retraining,Post Op Education,Discharge Planning,Neuromuscular Re-ed Other progress gait distances and transferring from lower Recommendations and surface Next Treatment Focus Precautions Anterior Hip No Hip Extension,No Hip External Rotation Precautions Weight Bearing Status Weight Bearing Weight Bear as Tolerated Status Recommendations To Nursing Amount of Assist 1 Person Assist Needed Discharge Recommendations PT Discharge Home with Assistance,Outpatient PT Recommendations Equipment Needed for has necessary equiptment Home Before Discharge Transportation Needs Private Vehicle at Discharge - PT assist 1
--- NOTE | 2025-08-19 16:17 | PC.NURSE ---
Pt up to floor from PACU at approx. 1400. Pt up with PT (contact guard w/fww.) SCD's on, pt with residual numbness from spinal, minimal pain currently. and additional family at the bedside. Pt alert and oriented, calm and cooperative with all care, will continue to monitor.
[2025-08-19 16:45] LABS: Hematocrit 31.6 % (36-46); Hemoglobin 10.7 g/dL (12.0-16.0)
[2025-08-19] MEDS: MELATONIN 3 MG TABLET 1.5 MG PO (22:05)
[2025-08-19] MEDS: GABAPENTIN 100 MG CAPSULE PO (22:05)
[2025-08-19] MEDS: ATORVASTATIN 20 MG TABLET 10 MG PO (22:06)
[2025-08-19] MEDS: ASPIRIN 81 MG CHEW TAB PO (22:06)
[2025-08-19] MEDS: SENNOSIDES 8.6 MG TABLET 17.2 MG PO (22:06)
[2025-08-20] MEDS: LACTATED RINGERS 1,000 ML 100 ML IV ×2 (01:33→13:14)
[2025-08-20 06:30] VITALS: BP 104/46; PULSE 67; RESP 18; TEMP 36.2; O2SAT 99
[2025-08-20] MEDS: ONDANSETRON 4 MG ODT PO (06:47)
[2025-08-20 07:45] VITALS: BP 111/40; PULSE 62; RESP 18; TEMP 36.2; O2SAT 99
[2025-08-20] MEDS: CHOLECALCIFEROL (VITAMIN D3) 1,000 UNIT TABLET 2000 UNIT PO (08:40)
[2025-08-20] MEDS: VIT C/E/ZN/COPPR/LUTEIN/ZEAXAN CAPSULE 1 CAP PO (08:41)
--- NOTE | 2025-08-20 08:42 | PM.DS.IH.1 ---
History of Present Illness History of Present Illness Date Patient Seen: 08/20/25 Chief complaint: Left Total Hip Arthroplasty/Anterior Approach Narrative: Attending: Dr. Alexandro Mitchell Orthopedic Procedures: ?Left Total Hip Arthroplasty 84 year old female with a past medical history of transient ischemic attack (05/04/2025), obstructive sleep apnea, hypothyroidism and supraventricular tachycardia with cardiac loop recorder placed 08/07/2025 who presented to [facility] on 08/19/2025 for planned left total hip arthroplasty by Dr. Mitchell. This elective procedure was indicated by chronic left hip arthritis that failed to improve sufficiently with conservative treatment. On the date of surgery there were no changes to the patient?s medical history, medications or allergies. Consent had been obtained and the patient agreed to proceed with planned surgery. Discharge Providers Provider Discharge Date: 08/20/25 Primary care physician: Grabiel Obrien MD Consults: 08/19/25 14:08 Consult to Discharge Planning Routine Comment: Consult to Occupational Therapy Evaluate & Treat Comment: Physician Instructions: Consult to Physical Therapy Evaluate & Treat Comment: Physician Instructions: WBAT Discharge provider: JUAN M Nielsen Dr Summary Hospital Course Hospital Course: On 08/19/2025 the patient was brought to the operating room for planned left total hip arthroplasty by Dr Mitchell. There were no known intraoperative complications. The patient was transferred to the postoperative recovery area and monitored appropriately. Later the patient was transferred to the acute care unit [facility] for monitoring overnight and physical therapy. There were no acute events overnight. On postoperative day one, the patient's blood pressure was 104/46, heart rate was 67, 99% on room air, respiratory rate 18 and she was making urine spontaneously. She denied any dizziness or lightheadedness in bed or walking around. She did have nausea in the morning which resolved with saltines and kelsey adrián around lunch. The patient completed physical therapy on post operative day 0 with recommendation to return home with assistance and out patient physical therapy. Physical therapy on post operative day 1 was limited by nausea but patient was up with assistance to the bathroom and ambulating in the room. Pain was well-controlled on oral analgesics including acetaminophen and oxycodone. The patient denied any numbness or tingling in the operative leg. The patient agreed with preoperative plan to discharge home on postoperative day one. They have no acute concerns or questions. ROS today: no chest pain, dyspnea, fever, chills, nausea or emesis Exam Vital Signs (past 8 hours): - 08/20/25 06:30 Temperature 97.1 F L Pulse Rate 67 Respiratory Rate 18 Blood Pressure 104/46 L Pulse Oximetry 99 Oxygen Flow Rate 0 Oxygen Delivery Method Room Air Oxygen Flow Rate 0 Narrative Exam Narrative: Well developed, well-nourished 84 year old female, resting comfortably Normal respiratory effort on room air without accessory muscle use Aquacell dressing is clean, dry and intact to the left hip without drainage. No hematoma. Flexion and extension of the first hallux, ankle and knee are intact SCDs in place Palpable dorsalis pedis pulse. 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) Hypothyroidism (~1994) Hemorrhoids Cataract (~2016) Chicken pox Measles Mumps Rosacea (~2005) Shoulder pain (2013) Fractures (2003) Foot pain (2014) Ankle pain (2015) Hayfever Osteoarthritis (2013) Raynaud's disease (1959) CLL (chronic lymphocytic leukemia) (~2005) Arm fracture, left (1955) Surgical History (Updated 08/13/25 @ 09:14 by Drea Claudio RN) History of loop recorder (08/07/25) History of cardiac radiofrequency ablation (2023) History of lumbar fusion (01/23/24) History of total right hip replacement History of surgery on arm (~2019) History of cataract surgery (~2016) History of foot surgery (01/2004) History of surgery on arm (1955) Status post knee surgery (02/25/09) Status post colonoscopy (07/02/13) Family History Brother No problems noted. Brother No problems noted. Father Heart attack Mother Blood disorder Son No problems noted. Son No problems noted. Social History marital status: details: jasmyne Dee, lives in [place] number of children: 2 household members: spouse lives independently: Yes caregiver/support person: No housing: house education level: college occupational status: employed Previous occupational history: pianist, performer leisure activities: music Smoking Status: Never smoker alcohol intake: former substance use type: does not use Discharge Assessment & Plan Assessment and Plan Plan of Treatment: 84 year old female with a past medical history of transient ischemic attack (05/04/2025), obstructive sleep apnea, hypothyroidism and supraventricular who is post operative day 1 from a left total hip arthroplasty at [facility] on 08/19/2025. The patient is recovering well with appropriate pain control on oral analgesics and has no dizziness or lightheadedness. The patient is comfortable with planned discharge home today on post operative day one. Plan: - Weight bearing as tolerated to operative extremity with front wheeled walker - Hip precautions: none - Antibiotics: 2 postoperative doses of Ancef - DVT prophylaxis: 81 mg of aspirin by mouth twice daily - Pain control: multimodal analgesia with acetaminophen and oxycodone. Minimize use of opioid medication given nausea. Ice to surgical site. - Bowel regimen: docusate sodium twice daily for constipation - Physical therapy evaluation today prior to discharge - Follow up: [address] [facility] - Discharge medications: none. Post operative medications were prescribed prior to surgery - Disposition: home today All patient questions were answered, and they verbalized agreement with the above plan. Call [facility] or radio station operator provider with any questions or concerns. Discharge Plan Discharge Plan Patient Disposition: Home Discharge orders & Medications Discharge Orders: Discharge (Order); Ordered 08/20/25 Ordered By: Vicky Trejo Prescriptions: Continued gabapentin 100 mg capsule 100 mg PO BEDTIME Rx Instructions: 1-3 capsules by mouth every day at bedtime loratadine [Claritin] 10 MG tablet 10 mg PO QDAYP PRN (Reason: Seasonal allergies) Qty: 0 melatonin 1 mg tablet 1.5 mg PO HS Qty: 0 simvastatin 20 mg tablet See Rx Instructions .ROUTE .COMPLEX Qty: 90 1RF Dose Instruction: TAKE 1 TABLET AT BEDTIME Rx Instructions: TAKE 1 TABLET AT BEDTIME. Need to establish care with new PCP prior to more fills 04/11/23 cholecalciferol (vitamin D3) 50 mcg (2,000 unit) capsule 100 mcg PO DAILY Qty: 60 3RF Rx Instructions: Take 2 caps by mouth daily atenolol 25 mg tablet 25 mg PO QPM Patient Comments: Pt states 37.5mg qpm Premarin 0.625 mg/gram cream 0.625 mg vaginal 2XW levothyroxine [Synthroid] 112 mcg tablet 112 mcg PO DAILY PreserVision AREDS-2 250-90-40-1 mg capsule 1 tab PO BID aspirin 81 mg Tablet,Chewable 81 mg PO DAILY Qty: 30 0RF ketoconazole 2 % shampoo 1 applic topical DAILY ondansetron 4 mg tablet,disintegrating 4 mg PO Q8H PRN (Reason: nausea and vomiting) Qty: 7 0RF oxycodone 5 mg tablet 5 mg PO Q6H PRN (Reason: pain) Qty: 25 0RF meloxicam 15 mg tablet 15 mg PO DAILY PRN (Reason: pain) Qty: 30 0RF pantoprazole 40 mg tablet,delayed release (DR/EC) 40 mg PO DAILY Qty: 30 0RF Rx Instructions: Take 1 tablet by mouth daily while taking the meloxicam docusate sodium [Colace] 100 mg capsule 100 mg PO BID Qty: 14 0RF Rx Instructions: Take 1 tablet of colace every 12 hours as needed for constipation while taking the narcotic medication acetaminophen 500 mg capsule 1,000 mg PO QID PRN (Reason: pain) 14 Days Qty: 90 0RF Discontinued acetaminophen 325 mg Tablet 650 mg PO Q6H PRN (Reason: Fever/Mild Pain (1-3)) Qty: 60 0RF mupirocin 2 % ointment 1 applic topical BID Qty: 22 0RF Rx Instructions: Apply to your nares every 12 hours for 5 days prior to surgery Follow up/Referrals: Grabiel Obrien MD [Primary Care Provider, Family Practice] Diet/Activity/Treatments Activity: Weightbearing as tolerated. Cold/Heat Therapy: Ice to the hip for additional pain control. Skin/Wound/Dressing Care Dressing: Keep dressing intact, clean and dry until 2 week post-op appointment. No soaking the incision site in pools or tubs. No topical ointments or creams to the incision site. Visit Report/Discharge Packet Instructions: DI for Hip Replacement, DI for Prescription Opioid Use Stand Alone Forms: Patient Portal/API Print Language: Dutch Discharge Data Primary Care Provider: Grabiel Obrien Attending Provider: Alexandro Mitchell VTE Deep Vein Thrombosis/Pulmonary Embolism Present on Admission: No [facility] PROFEE Charge Codes Discharge inpatient/observation: [id number]
[2025-08-20] MEDS: ASPIRIN 81 MG CHEW TAB PO (08:47)
[2025-08-20] MEDS: DOCUSATE 100 MG CAPSULE PO (08:50)
[2025-08-20] MEDS: ACETAMINOPHEN 325 MG TABLET 650 MG PO ×2 (08:57→14:04)
[2025-08-20] MEDS: LEVOTHYROXINE 112 MCG TABLET PO (08:58)
[2025-08-20 09:08] VITALS: BP 114/41; PULSE 57; RESP 14; TEMP 36.1; O2SAT 98
--- NOTE | 2025-08-20 09:22 | PC.NURSE ---
Ortho clinic called, message left with TL Reeder related to concerns of BP 114/41 and low urine output, this RN awaiting call back. Patient alert and oriented.
--- NOTE | 2025-08-20 09:56 | PT.IPTN ---
Current Diagnoses Unilateral primary osteoarthritis, left hip (08/19/25) Surgery Performed Operation Date: 08/19/25 10:45 Actual Procedures p Total Hip Arthroplasty/Anterior Approach(Left) - Alexandro Mitchell MD Physical Therapy Treatment Note M2 PT-IP Current Condition Start: 08/19/25 16:33 Freq: Status: Active Protocol: Document 08/19/25 16:34 NW (Rec: 08/19/25 16:47 NW [id number]) Physical Therapy Current Condition Current Condition Evaluation Date 08/19/25 Treatment Diagnosis L PAGE Anterior Onset Date 08/19/25 M3 PT-IP Subjective Start: 08/19/25 16:33 Freq: Status: Active Protocol: Document 08/20/25 09:56 DLM (Rec: 08/20/25 10:07 DLM Desktop) Subjective Physical Therapy Visit Type Type Treatment Note Visit Start Time 09:10 Visit Stop Time 09:56 Notes 46 min Number of BIOINFORMATICS SOFTWARE ENGINEER Visits 0 Physical Therapy Visit Comments Patient Comments She had a lot of pain over night. She has been nauseated this morning. She does not feel ready to go home today. Patient Goals Discharge home Therapy Pain Assessment Pain When Pain Assessed After Treatment Pain Present Pain Present Pain Reported Location Left Hip Intensity 5 Scale Used Numeric (0 - 10) Description Aching,Tender,With Movement Pain Behaviors Guarding,Wincing Pain Management Apply Cold,Modification of Treatment,Re-positioning Techniques M4 PT-IP Mobility and Gait Start: 08/19/25 16:33 Freq: Status: Active Protocol: Document 08/20/25 09:56 DLM (Rec: 08/20/25 10:07 DLM Desktop) PT-Bed Mobility Assessment Supine to Sit Supine to Sit Minimal Assistance,Bedrails Sit to Supine Sit to Supine Minimal Assistance Scooting Scooting to Edge of Standby Assistance Bed PT-Transfer Assessment Sit to and From Stand Sit to and from Contact Guard Assistance,Use of Upper Extremities Stand Equipment Transfer Assistive Gait Belt,Front Wheeled Walker Device Transfers Transfer Destination Bed,Chair Transfer Technique Stand Step Pivot Transfer Ability Level of Assist Contact Guard Assistance Comments Mobility Comments Pt sat on edge of bed with BP 121/62, HR 67. She reports mild nausea and her head feels funny but not specifically light-headed. She needs verbal cues for good use of UE support with sit-stand. Pt stood edge of bed and able to transfer to the recliner. Due to not feeling well she transferred back to bed and left in supine resting. Ice placed in incisional area for pain management after activity. Gait Assessment Comments Gait Comments Unable to progress to functional gait this visit. She was able to take a few steps during transfers. PT-Balance Assessment Sitting Balance and Reactions Static Sitting Normal Balance Ability Dynamic Sitting Good Balance Ability Standing Balance and Reactions Static Standing Good Balance Ability Dynamic Standing Fair Balance Ability Device Used FWW M5 PT-IP Objective Assessments Start: 08/19/25 16:33 Freq: Status: Active Protocol: Document 08/19/25 16:34 NW (Rec: 08/19/25 16:47 NW [id number]) Orientation Orientation/Cognition Level of Alertness Alert Orientation Name,Age,Birthday,Month,Date,Year,Day of Week,Place, Situation Language Function No Deficits Noted Ability Safety Awareness Understands Safety Issues Gross Range of Motion Upper Extremity ROM Assessment Within Functional Limits Lower Extremity ROM Assessment Left Impaired Impairments secondary to post op Strength Upper Extremity Strength Assessment Within Functional Limits Lower Extremity Strength Assessment Left Impaired Hip DNT post op Knee 3/5 ext Ankle WFL Sensation Assessment Sensation Gross Sensation WNL M6 PT-IP Treatment Start: 08/19/25 16:33 Freq: Status: Active Protocol: Document 08/20/25 09:56 DLM (Rec: 08/20/25 10:07 DLM Desktop) Physical Therapy Treatment Exercises Exercises Ankle Pumps,Gluteal Sets,Quad Sets,Heel Slides,Seated Knee Flexion/Extension Education Education Provided Weight Bearing Status,Post-Op Packet,Safety Other Treatments Other Treatment her FWW for home use is in her room Performed M7 PT-IP Assessment and Plan Start: 08/19/25 16:33 Freq: Status: Active Protocol: Document 08/20/25 09:56 DLM (Rec: 08/20/25 10:07 DLM Desktop) PT Summary Assessment and Plan Potential Status of Condition Evolving at Evaluation Summary Impairments Pain,ROM,Strength,Balance,Bed Mobility,Transfers,Gait, Activity Tolerance Progress Towards Slow Progress due to Medical Issues Goals Assessment Summary Pamela is progressing slowly this morning with nausea, low BP (104/46 at rest with nursing) and pain. She was able to sit edge of bed with small increase in her BP, stand with FWW and progress to a transfer to the recliner. Pt not feeling well when up and chose to return to bed. She was not able to ambulate this visit. She does is not tolerating enough activity to be ready to discharge home today. Will continue to follow to progress her gait and activity as she can tolerate. Planning for discharge home with her Brother to assist her when she can progress in therapy. Goals Bed Mobility Goal Standby Assistance Transfer Goal Standby Assistance,Front Wheeled Walker Gait Goal Standby Assistance,Front Wheel Walker Gait Distance 50 Days to Meet Goals 1 Frequency of Treatment Frequency Of Once a Day Treatment Treatment Plan Physical Therapy Bed Mobility Training,Transfer Training,Gait Training, Treatment Plan Therapeutic Exercise,Balance Retraining,Post Op Education,Discharge Planning,Hot or Cold Pack Precautions Other Precautions NO hip precautions ordered by surgeon rossy Emmanuel's closely monitor BP Weight Bearing Status Weight Bearing Weight Bear as Tolerated Status Recommendations To Nursing Amount of Assist 1 Person Assist Needed Discharge Recommendations PT Discharge Home with Assistance,Outpatient PT Recommendations Other Discharge Not ready to go home today yet Recommendations Transportation Needs Private Vehicle at Discharge - PT assist 1
[2025-08-20 10:21] LABS: Albumin 3.7 g/dL (3.5-5.0)
--- NOTE | 2025-08-20 13:04 | P.PN_ITS ---
Subjective Subjective Interval history: PATIENT SUMMARY Velma Mays is an 84-year-old female, post-op day one from a left total hip arthroplasty performed by myself. She is experiencing hypotension and nausea postoperatively. PAST SURGICAL HISTORY - Left total hip arthroplasty using uncemented fixation, performed by myself. SUBJECTIVE The patient reports experiencing nausea and vomiting last night after taking oxycodone, which she has used in the past without issue. She was given 15 mg of oxycodone over the course of two hours. She expressed that she does not wish to take tramadol due to a previous fainting episode after back surgery. The patient mentioned having a difficult night but feels better now. She reports being able to wiggle her toes and is experiencing swelling at the surgical site. The patient was able to ambulate to some extent, stating, I walked all the way over there and back when her and brother visited. She is undecided about going home today, describing it as a fifty-fifty chance, and wants to wait for further input from occupational therapy. PHYSICAL EXAM Constitutional: Patient is sitting upright, not on supplementary oxygen, and mentating appropriately. Musculoskeletal: Examination of the left hip reveals a clean, dry, and intact dressing with no spotting. The patient demonstrates intact sciatic and femoral nerve function and a well-perfused foot. ASSESSMENT - Postoperative nausea and vomiting, likely opioid-induced. - Hypotension, managing with IV fluids and albumin. - Status post left total hip arthroplasty. PLAN - Continue monitoring blood pressure and fluid status. - Avoid oxycodone and tramadol due to adverse effects. - Administer Mobic and Tylenol for pain management. - Hold atenolol to prevent further hypotension. DISPOSITION Awaiting occupational therapy evaluation to determine readiness for discharge. FOLLOWUP Follow up with [facility], with possible X-rays if needed. Exam Vital Signs (past 8 hours): - 08/20/25 06:30 08/20/25 07:45 08/20/25 09:08 Temperature 97.1 F L 97.2 F L 97 F L Pulse Rate 67 62 57 L Respiratory Rate 18 18 14 Blood Pressure 104/46 L 111/40 L 114/41 L Pulse Oximetry 99 99 98 Oxygen Flow Rate 0 0 Oxygen Delivery Method Room Air Oxygen Flow Rate 0 Objective Labs 08/19/25 16:36 Labs: Laboratory Results - last 24 hr 08/19/25 08/20/25 16:36 10:04 Hgb 10.7 L Hct 31.6 L Albumin 3.7 [facility] Medical History (Updated 08/13/25 @ 09:14 by Drea Claudio RN) Sleep apnea Primary osteoarthritis of left hip Afib (2004) Supraventricular tachycardia Hearing impaired Cervical stenosis of spine Constant pain (~2014) Spinal stenosis Arthritis involving multiple sites Dupuytrens contracture Ocular rosacea Scarlet fever Double vision (~1994) 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) Hypothyroidism (~1994) Hemorrhoids Cataract (~2016) Chicken pox Measles Mumps Rosacea (~2005) Shoulder pain (2013) Fractures (2003) Foot pain (2014) Ankle pain (2015) Hayfever Osteoarthritis (2013) Raynaud's disease (1959) CLL (chronic lymphocytic leukemia) (~2005) Arm fracture, left (1955) Surgical History (Updated 08/13/25 @ 09:14 by Drea Claudio RN) History of loop recorder (08/07/25) History of cardiac radiofrequency ablation (2023) History of lumbar fusion (01/23/24) History of total right hip replacement History of surgery on arm (~2019) History of cataract surgery (~2016) History of foot surgery (01/2004) History of surgery on arm (1955) Status post knee surgery (02/25/09) Status post colonoscopy (07/02/13) Family History Brother No problems noted. Brother No problems noted. Father Heart attack Mother Blood disorder Son No problems noted. Son No problems noted. Social History marital status: details: jasmyne Dee, lives in [place] number of children: 2 household members: spouse lives independently: Yes caregiver/support person: No housing: house education level: college occupational status: employed Previous occupational history: pianist, performer leisure activities: music Smoking Status: Never smoker alcohol intake: former substance use type: does not use Assessment & Plan Time-Based Coding :: [TOTAL MINUTES] spent with patient and on the chart (including review of chart, obtaining history, exam, reviewing outside data, placing orders, documenting exam and treatment plan, and counseling patient) on [DATE]. Quality VTE Deep Vein Thrombosis/Pulmonary Embolism Present on Admission: No [facility] PROFEE Commanding [employer] Document charge(s): Yes
--- NOTE | 2025-08-20 15:26 | CM.DANOTE ---
Initial DCP Assessment Visit Note Reviewed EMR and team rounds for pt's medical status and updates. DRY TRANSFER MAN was unable to meet with pt prior to d/c due to unit triage needs. Pt lives independently with her spouse in their own home here in [place]. Her spouse will transport her home. She does have a plan for OP PT, and did not have any CM d/c assistance or resource needs prior to her departure home. Payor: Medicare Attending: Dr. Mitchell Pt is a 84 year-old F post-op day 1 from a L-total hip arthroplasty visit. Pt has a hx of progressively worsening L-hip pain that is reportedly worse at night. She is in OP PT already, will resume after d/c home. She did have some post-op nausea, however over the course of the day this has improved. No further needs identified at this time. She will f/u with Dr. Mitchell within 2-weeks. Discharge Planning/Care Management CM Discharge Assessment Start: 08/19/25 14:57 Freq: Status: Active Protocol: Document 08/20/25 15:24 DPL (Rec: 08/20/25 15:26 DPL [id number]) Discharge Planning Assessment Assigned Discharge CIELO Valenzuela Ophthalmic Assistant Insurance Medicare Advance Directives? Yes Advance Directives No on File History Provided By Medical Record Has Patient been No admitted in last 30 days? Prior Living House Arrangements Household Members spouse,family Type of Relies on Others transporation used prior to admit Independent with ADL Yes 's Is patient alert and Yes oriented? DME Already Rented / Elevated Toilet Seat,FWW / Walker Owned Patient/Family OP PT Therapy Preference Barriers to No Discharge Discharge Plan Home Transportation will provide a ride home Arrangement Referrals Initiated None needed Review Status In Process Please Provide Date 08/20/25 Initial DC Assessment Was Performed Pre-Anesthesia Assessment Start: 08/13/25 07:41 Freq: Status: Complete Protocol: Document 08/13/25 07:42 CAB (Rec: 08/13/25 09:24 CAB [id number]) Pre-Anesthesia Assessment Information obtained Chart review,Phone,Portal Questionnaire via Preferred Name Pamela Height 160.02 cm Weight 70.307 kg Body Mass Index (BMI 27.4 ) Has patient seen a Yes specialist in last 12 months? If yes, specialist Metalizing Supervisor,Disaster Director/Junk Dealer,Orthopedist, seen Neurologist,Safety Grooving Machine Operator,Emergency,Rn Baby Patient hospitalized Yes or treated in the ER in the last year? If yes, treated for TIA 05/05/25 Patient experienced Chest pain in the last year Patient experienced Yes: Chest pain seldom and extremely mild syncope or dizziness in the last year? If yes, please Loop recorder implanted 08/07/25 describe Does patient have None history of Has patient ever had No a blood clot? Is patient on Yes: 81 mg aspirin nightly anticoagulant therapy? If yes, ASA 81mg anticoagulant name Patient advised to No hold this medication prior to surgery? Does patient have a Yes ice bag assembler? If yes, ice bag assembler Dr. Starks @ [facility] name Was cardiac testing Yes performed? Does patient have No history of a pacemaker/ICD? Comment Loop recorder implant 08/07/25 Can patient climb a Yes flight of stairs without shortness of breath? Can patient walk Yes around the grocery store without shortness of breath? Does patient have None history of Has patient ever No been to ER/ hospitalized for asthma/COPD? Taken steroids for No asthma or COPD in the last year? Does patient use No oxygen at home? Does patient have Yes: Very mild. CPAP no longer worn. Was suggested for history of Sleep better sleep/insomnia. Apnea? Patient uses CPAP/ No BiPAP? Cough or cold No symptoms in the past two weeks? Does patient have Yes any memory problems? If yes, please Can forget words or where cell phone is. describe Does patient have TIA history of History of weakness, No paralysis, or other residual effects of stroke/TIA? Mobility device(s) None used Comment Limp. Has patient fallen No within the past year ? Does patient have a No neurostimulator or pain stimulator? Does patient have Yes chronic pain? If yes, where? Left hip, feet, general leg chills (neuropathy?) Does patient have No history of GERD? Special dietary No needs or difficulty swallowing? Does patient have No history of kidney/ liver problems/ disease? Does patient have No Diabetes? HgbA1C 5.9 Date 05/05/25 Insulin pump or No continuous glucose monitor? GLP-1? No Does patient have Yes history of thyroid problems? Is patient ? No Is patient No ? Does patient have Yes history of cancer? If yes, what type? 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 If breast cancer, No any limitations regarding BP cuff or IV placement? Alcohol intake 0 drinks per day Smoking status Never smoker Marijuana product No use? Other substance use None Does patient have No history of anesthesia reactions ? Family history of No: Unaware of any. anesthesia reactions ? Patient/family No member history of Malignant Hyperthermia? Does patient have No history of a blood transfusion reaction ? Anesthesia Review Yes: Anesthesia reviews x 2 completed-scanned to chart Requested and in surgery folder Spiritual beliefs No that may affect healthcare choices? Cultural practices No that may affect healthcare choices? Patient has Advanced Yes Directive and/or Power of Archeology Professor? Does patient have Yes assistance after surgery? Comment brother coming/ Who is driving Abilio - brother/James- patient home after surgery? Phone number - [phone] Relationship to Spouse patient PAC Instructions Assistance for 24 hours post-op,Do not shave/clip surgical site,Durable medical equipment,Medications to take/avoid,Nasal antibiotic,No ETOH/petroleum product on skin DOS,NPO,Post-op transportation,Pre-surgical wash,Sturdy shoes/comfortable clothes,Do not bring valuables and remove jewelry
--- NOTE | 2025-08-20 15:36 | OT.IP.EVAL ---
Current Diagnoses Unilateral primary osteoarthritis, left hip (08/19/25) Surgery Performed Operation Date: 08/19/25 10:45 Actual Procedures p Total Hip Arthroplasty/Anterior Approach(Left) - Alexandro Mitchell MD Past Medical History (Last Updated 08/13/25 @ 09:14 by Drea Claudio RN) Afib (2004) Ankle pain (2015) Arm fracture, left (1955) Arthritis involving multiple sites Cataract (~2016) Cervical stenosis of spine Chicken pox CLL (chronic lymphocytic leukemia) (~2005) Constant pain (~2014) Double vision (~1994) Dupuytrens contracture Foot pain (2014) Fractures (2003) Hayfever Hearing impaired Hemorrhoids Hypothyroidism (~1994) Measles Mumps Ocular rosacea Osteoarthritis (2013) Primary osteoarthritis of left hip Raynaud's disease (1959) Rosacea (~2005) 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) Scarlet fever Shoulder pain (2013) Sleep apnea Spinal stenosis Supraventricular tachycardia Surgical History (Last Updated 08/13/25 @ 09:14 by Drea Claudio RN) History of cardiac radiofrequency ablation (2023) History of cataract surgery (~2016) History of foot surgery (01/2004) History of loop recorder (08/07/25) History of lumbar fusion (01/23/24) History of surgery on arm (1955) History of surgery on arm (~2019) History of total right hip replacement Status post colonoscopy (07/02/13) Status post knee surgery (02/25/09) Occupational Therapy Inpatient Evaluation/Re-Eval M1 OT IP Prior Functional Status Start: 08/20/25 14:55 Freq: Status: Active Protocol: Document 08/20/25 13:50 [email or web address] (Rec: 08/20/25 15:04 [email or web address] Desktop) Medical Review Prior Functional Status Communication I Mobility and Gait I with no AD Activities of Daily I with BADL, cooking, driving, walking 45 minutes daily Living and IADL's . Has glass embosser 1x/wk Social History Household Members spouse,family Living Arrangements House Number of Floors ( Two Floors Floors) Number of Stairs To no steps to enter main level with primary bed/bath. 14 Enter/Railing? steps in home with chair lift. Home Environment Standard Height Toilet,Walk in Shower Home Equipment Front Wheel Walker,Raised Toilet Seat w/Armrests,Shower Seat without Backrest,Grab Bars In Shower Additional Social Brother is in town from [place] to assist to care as History Comment cannot. M2 OT-IP Current Condition Start: 08/20/25 14:55 Freq: Status: Active Protocol: Document 08/20/25 13:50 TJOHNSTON (Rec: 08/20/25 15:04 [facility]) Occupational Therapy Current Condition Current Condition Evaluation Date 08/20/25 Treatment Diagnosis L PAGE Diagnosis Onset Date 08/19/25 Weight Bearing Status Weight Bearing Weight Bear as Tolerated Status M3 OT- IP Subjective and Pain Start: 08/20/25 14:55 Freq: Status: Active Protocol: Document 08/20/25 13:50 TJOHNSTON (Rec: 08/20/25 15:04 TJAKNSTON Desktop) OT- Subjective Occupational Therapy Visit Type Type Initial Evaluation Visit Start Time 13:50 Visit Stop Time 14:45 Notes OT attempted this AM, pt was too nauseated. Pt was agreeable this afternoon to participating in OT eval. Pt states she is feeling much better. Occupational Therapy Visit Comments Patient Comments Pt agrees to participate in OT eval and to learn LB AE. Patient/Caregiver I want to go home Goals OT Pain Assessment Pain Present Pain Present Pain Reported Location Left Hip Intensity 7 M4 OT- IP ADL's Start: 08/20/25 14:55 Freq: Status: Active Protocol: Document 08/20/25 13:50 TJOHNSTON (Rec: 08/20/25 15:04 [facility] Desktop) OT [id number] Comments OT Self-Feeding not a meal time Comments OT ADL-Grooming Comments OT Grooming Comments not observed OT ADL-Oral Care Comments Oral Care Comments not observed OT ADL-Dressing General Eval Upper Body Dressing Standby Assistance Ability Lower Body Dressing Total Assistance Ability Comments OT Dressing Comments Pt dons sweater on setup. Pt required total A for LB dressing due to pain. Pt says LB dressing has been difficult for some time. OT educated pt on use of LB AE (building tech and sock aid). Pt uses building tech to initiate donning pants with MIN A. Pt uses sock aid to don sock with MIN A. OT ADL-Toileting General Evaluation Toileting Ability Minimal Assistance Comments OT Toileting Pt needs assistance for sarah hygiene. Comments OT ADL-Bathing Comments OT Bathing Comments not observed M5 OT- IP IADL's Start: 08/20/25 14:55 Freq: Status: Active Protocol: Document 08/20/25 13:50 ISAI (Rec: 08/20/25 15:04 [facility] OT-Instrumental Activities of Daily Living Deficits IADL Deficits Deficits Identified Home Safety Awareness Awareness of Need Good Awareness for Assistance at Home Medication Management Medication No Deficits Identified Management Money Management Money Management No Deficits Identified Meal Preparation Meal Preparation Pt will need assistance on dc Comments Foiling Machine Operator Foiling Machine Operator Caregiver Provides Assist Driving Driving Comments Pt will need assistance on dc M6 OT- IP Functional Cognition Start: 08/20/25 14:55 Freq: Status: Active Protocol: Document 08/20/25 13:50 ISAI (Rec: 08/20/25 15:04 [facility]) Cognitive Factors Limiting Selfcare Function Cognitive Ability Level of Alertness Alert Patient Orientation Name,Year,Day of Week,Place,Situation Attention Span Capable of Focused Attention,Capable of Sustained Ability Attention Ability to Follow Able to Follow One Step Commands,Able to Follow Multi- Commands Step Commands Memory Description No Deficits Noted Safety Awareness No Deficits Noted Problem Solving No deficits Noted Ability Executive Function Unable to Switch Focus,Unable to Filter Distractions Ability OT- Vision and Hearing OT- Hearing Assessment OT- Hearing Hearing Impaired,Use of Hearing Aids Assessment OT- Vision Assessment Visual Acuity WFL,Glasses All The Time M7 OT- IP Mobility and Balance Start: 08/20/25 14:55 Freq: Status: Active Protocol: Document 08/20/25 13:50 ISAI (Rec: 08/20/25 15:04 [facility] OT- Bed Mobility Assessment Supine to Sit Supine to Sit Assist Minimal Assistance Sit to Supine Sit to Supine Assist Minimal Assistance Scooting Scooting to Edge of Standby Assistance Bed OT-Transfer Assessment Sit to and From Stand Sit to and from Contact Guard Assistance Stand Transfers Transfer Ability Contact Guard Assistance Technique Transfer Destination Bed,Bedside Commode,Chair Devices Transfer Assistive Gait Belt,Front Wheeled Walker Devices Comments Mobility Comments Pt BP in supine 140/89, sitting 125/45. Pt appears anxious and needs increased time to perform functional mobility. Pt needs MIN A to mange L LE during bed mobility. Pt performs sit>stand with CGA and amb with FWW ~7' to BSC. Pt tfs to BSC with CGA. Following toileting pt stands with CGA and amb ~5' to chair, pt tfs to chair with CGA. Pt is educated on LB AE for dressing while up in chair. Pt requests to return to bed at end of eval. Pt requires MIN A for sit>supine for L LE. OT- Gait Assessment Gait Gait Assistance Contact Guard Assist Required: Distance (Feet) 19 Assistive Devices Assistive Device Gait Belt,Front Wheeled Walker OT- Balance Assessment Sitting Balance and Reactions Static Sitting Normal Balance Ability Dynamic Sitting Good Balance Ability Standing Balance and Reactions Static Standing Good Balance Ability Dynamic Standing Fair Balance Ability M8 OT- IP Objective Assessments Start: 08/20/25 14:55 Freq: Status: Active Protocol: Document 08/20/25 13:50 [facility] (Rec: 08/20/25 15:04 [facility] Desktop) OT Gross Range of Motion Upper Extremity Range of Motion Assessment Within Functional Limits OT Strength Upper Extremity Strength Assessment Right Impaired Shoulder 4- Hand Distribution Operation Supervisor Strength Hand Dominance Right Comments Strength Comments Otherwise 4 to 4+ for B UE OT-Muscle Tone Assessment Muscle Tone WNL Yes OT Sensation Assessment Comments Summary Comments No sensory deficits noted Edema Edema Comments Pt reports increased swelling L hip. Pts L hip appears equal to R, no discoloration, increased temperature, or unusual texture noted. M9 OT- IP Assessment and Plan Start: 08/20/25 14:55 Freq: Status: Active Protocol: Document 08/20/25 13:50 [facility] (Rec: 08/20/25 15:04 [facility] Desktop) OT Summary Assessment and Plan Potential Rehabilitation Excellent Potential Analytic Complexity Low at Evaluation Summary OT Impairments Pain,Strength,Balance,Functional Mobility,Dressing, Toileting,Bathing,Toilet Transfers,Shower Transfers, Activity Tolerance Progress Towards Progressing Toward Goals Goals Assessment Summary Pt is an 84 yo F with a hx of TIA Apr 2025. Pt had elective L PAGE, anterior approach (NO ANTERIOR PRECAUTIONS) and is WBAT. Pt lives with her spouse in home with no steps to enter and chair lift for stair case. Pt reports difficulty with dressing at baseline. Pt was primarily I with BADL and IADL and walked daily. Pts brother will be staying to assist in her recovery. Pt performed bed mobility with MIN A for L LE, sit<> stand with CGA, toileting with MIN A, and LB dressing with TOTAL A (after LB AE education MIN A). Skilled OT services are appropriate to address these deficits as well as R UE strength and functional mobility. Pt would benefit from additional education on LB AE for improved I with BADLs. Pt is scheduled to have out patient PT services on dc from hospital. Goals Grooming Goal Independent Dressing Goal Independent,Long Handled Shoe Horn,Complaint Supervisor,Sock Aid Toileting Goal Independent,Toilet Paper Aid Bathing Goal Independent,Grab Bars,Hand Held Shower Sprayer,Long Handled Sponge or [place] Toilet Transfer Goal Independent,Raised Toilet Seat,Grab Bars Shower Transfer Goal Independent,Shower Chair,Grab Bars Days to Meet Goals 5 Frequency of Treatment Other frequency 5x/wk Treatment Plan OT Treatment Plan ADL Training,Functional Mobility,Therapeutic Exercises, Patient/Family Education,Discharge Planning Other Treatment sock aid, building tech, long handled shoe horn Recommendations and Next Treatment Focus Discharge Recommendations OT Discharge Home with Assistance,Outpatient PT Recommendations Transportation Needs Private Vehicle at Discharge
--- NOTE | 2025-08-20 15:52 | PC.NURSE ---
Discharge education reviewed with patient and all questions answered. Pt A&O4 and reports pain under control at this time. All lines removed. Patient confirms all belongings with her at this time. Patient ind gate w/ FWW up to wheelchair for discharge transportation, taken by [facility] off unit, brother at her side. Discharge complete.
[2025-08-20 16:00] VITALS: BP 141/48; PULSE 60; RESP 21; TEMP 36.4; O2SAT 91
--- NOTE | 2025-08-20 16:15 | PT.IPTN ---
Current Diagnoses Unilateral primary osteoarthritis, left hip (08/19/25) Surgery Performed Operation Date: 08/19/25 10:45 Actual Procedures p Total Hip Arthroplasty/Anterior Approach(Left) - Alexandro Mitchell MD Physical Therapy Treatment Note M2 PT-IP Current Condition Start: 08/19/25 16:33 Freq: Status: Active Protocol: Document 08/19/25 16:34 NW (Rec: 08/19/25 16:47 NW [id number]) Physical Therapy Current Condition Current Condition Evaluation Date 08/19/25 Treatment Diagnosis L PAGE Anterior Onset Date 08/19/25 M3 PT-IP Subjective Start: 08/19/25 16:33 Freq: Status: Active Protocol: Document 08/20/25 16:15 DLM (Rec: 08/20/25 16:23 DLM Desktop) Subjective Physical Therapy Visit Type Type Treatment Note Visit Start Time 16:00 Visit Stop Time 16:15 Notes 15 min Number of WEFT STRAIGHTENER Visits 0 Physical Therapy Visit Comments Patient Comments She feels better this afternoon. Her Brother is present and prepared to bring her home Patient Goals Discharge home M4 PT-IP Mobility and Gait Start: 08/19/25 16:33 Freq: Status: Active Protocol: Document 08/20/25 16:15 DLM (Rec: 08/20/25 16:23 DLM Desktop) PT-Transfer Assessment Sit to and From Stand Sit to and from Standby Assistance,Use of Upper Extremities Stand Equipment Transfer Assistive Gait Belt,Front Wheeled Walker Device Transfers Transfer Destination Bed Transfer Technique Stand Step Pivot Transfer Ability Level of Assist Standby Assistance,Use of Upper Extremities Comments Mobility Comments verbal cues need for safe use of UE's during sit-stand, educated pt to back up to sitting surface and feel on back of LE's before sitting Gait Assessment Gait Gait Assistance Standby Assistance Required: Distance (Feet) 150 Able to Maintain Yes Weight Bearing Status During Gait Assistive Devices Assistive Device Gait Belt,Front Wheeled Walker Gait Deviations General Gait Pattern Antalgic,Decreased Stride Length,Step-to Gait Factors Limiting Gait Function Factors Limiting Decreased Activity Tolerance,Decreased Strength,Pain Gait Function Comments Gait Comments she reports pain in left hip during gait so educated pt to manage her pain with UE support on FWW, keeping FWW close, step-to pattern as needed to manage pain Educated pt to keep small space between feet instead of feet touching to improve her standing balance during gait Stair Climbing Assessment Comments Stair Climbing no steps to enter the house Comments PT-Balance Assessment Sitting Balance and Reactions Static Sitting Normal Balance Ability Dynamic Sitting Normal Balance Ability Standing Balance and Reactions Static Standing Good Balance Ability Dynamic Standing Good Balance Ability Device Used FWW M5 PT-IP Objective Assessments Start: 08/19/25 16:33 Freq: Status: Active Protocol: Document 08/19/25 16:34 NW (Rec: 08/19/25 16:47 NW [id number]) Orientation Orientation/Cognition Level of Alertness Alert Orientation Name,Age,Birthday,Month,Date,Year,Day of Week,Place, Situation Language Function No Deficits Noted Ability Safety Awareness Understands Safety Issues Gross Range of Motion Upper Extremity ROM Assessment Within Functional Limits Lower Extremity ROM Assessment Left Impaired Impairments secondary to post op Strength Upper Extremity Strength Assessment Within Functional Limits Lower Extremity Strength Assessment Left Impaired Hip DNT post op Knee 10/24 ext Ankle WFL Sensation Assessment Sensation Gross Sensation WNL M6 PT-IP Treatment Start: 08/19/25 16:33 Freq: Status: Active Protocol: Document 08/20/25 16:15 DLM (Rec: 08/20/25 16:23 DLM Desktop) Physical Therapy Treatment Education Education Provided Safety Other Treatments Other Treatment reviewed car transfers verbally with pt and her family, Performed answered questions about home activity and using ice M7 PT-IP Assessment and Plan Start: 08/19/25 16:33 Freq: Status: Active Protocol: Document 08/20/25 16:15 DLM (Rec: 08/20/25 16:23 DLM Desktop) PT Summary Assessment and Plan Summary Impairments Pain,ROM,Strength,Balance,Bed Mobility,Transfers,Gait, Activity Tolerance Progress Towards Safe For Discharge Goals Assessment Summary Pamela reports feeling better this afternoon and wants to go home. She was able to participate in gait training with the FWW and ambulate in the tai. She needed verbal cues for safe use of FWW to manage her pain and fall risks. Her Brother is present and prepared to assist her at home. No nausea/vomiting this visit. She appears safe to discharge home at this time. Notified her nurse. Goals Bed Mobility Goal Standby Assistance Transfer Goal Standby Assistance,Front Wheeled Walker Gait Goal Standby Assistance,Front Wheel Walker Gait Distance 50 Days to Meet Goals 1 Frequency of Treatment Frequency Of Discharge Treatment Treatment Plan Physical Therapy Bed Mobility Training,Transfer Training,Gait Training, Treatment Plan Therapeutic Exercise,Balance Retraining,Post Op Education,Discharge Planning,Hot or Cold Pack Precautions Other Precautions NO hip precautions ordered by surgeon rossy Zhao closely monitor BP Weight Bearing Status Weight Bearing Weight Bear as Tolerated Status Allowed Weight left LE with FWW Bearing Amount ( enter % or #) (%) Recommendations To Nursing Amount of Assist Standby Assistance Needed Discharge Recommendations PT Discharge Home with Assistance,Outpatient PT Recommendations Other Discharge Brother to stay with her to help, Spouse is supportive Recommendations but can not physically assist her
== END 2025-08-20 16:37 | disposition home or self-care (01) ==
LOC: OR 09:21 → AC 14:55
PROVIDERS: Physician Assistant Surgical; PCP Family Medicine; Referring Provider Family Medicine; Visit Provider Orthopaedic Surgery Adult Reconstructive Orthopaedic Surgery
PROC: (CPT 27130; principal; 2025-08-19 10:45)
DX: M16.12 Unilateral primary osteoarthritis, left hip (principal); Z86.73 Personal history of transient ischemic attack (TIA), and cerebral infarction without residual deficits; G47.33 Obstructive sleep apnea (adult) (pediatric); E03.9 Hypothyroidism, unspecified; Z95.0 Presence of cardiac pacemaker; M25.752 Osteophyte, left hip
CPT/HCPCS: 27130; 0054T; 36415; 73502; 76000; 82040; 85014; 85018; 97110; 97116; 97161; 97165; 97530; 97535; C1776; J0689; J1885; J2405; J2704; J3010; J7050; J7120